=== PATIENT | male | born 1935 | race Caucasian/White ===

== ENCOUNTER → 2016-09-08 | Outpatient (CLI) | payer OTHER ==
[~2016-09-08] MED LIST: /PANT40TA; /PANT40TA PO; /SUCR1TA; /SUCR1TA PO; ACET500C; ACET500C PO; ACET50TAOT PO; AGGRCAP; AGGRCAP PO; AMLO2.5T OR; ASPI325T PO; ASPI32ECTA PO; ATOR40TA PO; B-12100010 PO; CARV3.12 PO; CARV6.25 OR; CLAR10CA3 PO; CLAR1TAB2 PO; ECOT325T5; FISH100042 PO; FURO40TA2 PO; LASI20TA PO; LATANOPROST OU; LEVO75TA2; LIPI20TA PO; LISI10TA4 PO; LISI5TAB; LOPR50TA PO; LOSA50TA20 PO; META800T82 PO; METAXALONE; METOPROLOL TARTRATE; MULTIVIT OR; NITR0.4S SL; NITR4TASL SL; PENNSAID TOP; PLAV75TA PO; PLAV75TA2; PROT1TAB2 PO; REFR0.5D8 OU; REST0.05 OU; SIMV40TA2; SKEL-29 PO; SKEL800T5 PO; SUCR1SS PO; SUCR1TAB56 PO; SYNT50TA PO; SYNT75TA PO; TRAM50TA2 OR; TYLE500T53; VITA-130 PO; VITA10002 PO; VITA500C24 PO; VITA500T; VITAMIN B 12; XALA0.002 OU; ZOCO40TA PO
--- NOTE | 2016-09-13 00:20 | ECWPNPC ---
PATIENT NAME: VICTORINO CUI : 1935 GENDER: MALE VISIT DATE: 09/08/2016 DISCHARGE DATE: 09/08/16 1712 VISIT LOCKED DATE TIME: PHYSICIAN: DARRELL BARAJAS RESOURCE: DARRELL BARAJAS REASON FOR APPOINTMENT 1. WC, BACK PAIN HISTORY OF PRESENT ILLNESS HISTORY OF PRESENT ILLNESS: PAIN THE PATIENT DESCRIBES THE PAIN... 81 YEAR OLD MALE PATIENT WITH HISTORY OF CHRONIC LOW BACK PAIN. PATIENT DESCRIBES THE PAIN ACHING AND THE PAIN COMING AND GOING WITH A PAIN SCORE OF 2/10. PATIENT WAS HURT IN A WORK RELATED INJURY IN 1988 WHEN HE SLIPPED ON PLANKS A FELL. PATIENT HAD A LUMBAR EPIDURAL ON 05/05 AND STATES HE STILL SEES A BENEFIT FROM THE INJECTION. PATIENT HAS INCREASED MOBILITY AND FUNCTIONALITY. MR. CUI IS CURRENTLY USING TYLENOL AND METAXALONE TO AID IN PAIN RELIEF. PATIENT REPORTS THAT STANDING AND WALKING INCREASE THE PAIN IN HIS LOWER BACK. MR. CUI REPORTS NUMBNESS IN THE LEFT LEG. PATIENT DENIES UNEXPLAINABLE WEIGHT LOSS, FEVER, CHILLS, NEW CHANGES ON HIS URINARY OR BOWEL CONTROL. FALL RISK SCREENING: SCREENING :NO FALLS IN THE PAST YEAR CURRENT MEDICATIONS TAKING ACETAMINOPHEN 500 MG TABLET 1 TABLET NEEDED ORALLY BID PRN TAKING ASCORBIC ACID 500 MG TABLET CHEWABLE 1 TABLET ORALLY ONCE A DAY TAKING ASPIRIN 325 MG TABLET DELAYED RELEASE 1 TABLET ORALLY ONCE A DAY TAKING ATORVASTATIN CALCIUM 20 MG TABLET 1 TABLET ORALLY ONCE A DAY TAKING CYANOCOBALAMIN 1000 MCG CAPSULE ORALLY DAILY TAKING CARBOXYMETHYLCELLULOSE SODIUM 0.5 % SOLUTION 1 DROP INTO AFFECTED EYE NEEDED OPHTHALMIC TID TAKING CARVDILOL 3.125MG TABLET ORAL BID TAKING FUROSEMIDE 20 MG TABLET 1 TABLET ORALLY ONCE A DAY TAKING LOSARTAN POTASSIUM 50 MG TABLET ORALLY DAILY TAKING LATANOPROST 0.005 % SOLUTION 1 DROP INTO AFFECTED EYE IN THE EVENING OPHTHALMIC ONCE A DAY TAKING LEVOTHYROXINE SODIUM 50 MCG TABLET 1 TABLET ORALLY ONCE A DAY TAKING NITROGLYCERIN 0.4 MG TABLET SUBLINGUAL SUBLINGUAL TAKING PANTOPRAZOLE SODIUM 40 MG TABLET DELAYED RELEASE 1 TABLET ORALLY TWICE A DAY TAKING RESTASIS 0.05 % EMULSION 1 INTO AFFECTED EYE OPHTHALMIC 2XS PER DAY TAKING SUCRALFATE 1 GM/10ML SUSPENSION 10 ML ORALLY TWICE A DAY TAKING METAXALONE 800 MG TABLET 1 TABLET ORALLY BID PRN FOR SPASMS AND PAIN MDD2 MEDICATION LIST REVIEWED AND RECONCILED WITH THE PATIENT PAST MEDICAL HISTORY HYPERCHOLESTRIMIA HTN ALLERGIES DONEZEPIL HCL: HALLUCINATIONS: ALLERGY PROMETHAZINE HCL: NAUSEA/VOMITING: ALLERGY SURGICAL HISTORY NO SURGICAL HISTORY DOCUMENTED. FAMILY HISTORY NO FAMILY HISTORY DOCUMENTED. SOCIAL HISTORY TOBACCO USE ARE YOU A:NONSMOKER LEARNING BARRIERS / SPECIAL NEEDS ORIENTED TO PLAN OF CARE: PATIENT, PAIN MANAGEMENT PATIENT, ORIENTED TO PLAN OF CARE: PATIENT, PAIN MANAGEMENT PATIENT. NEW PATIENT PAIN DIARY TODAY'S VISITNOTES FROM 0-10, WHAT LEVEL IS YOUR PAIN TODAY?0 PAIN CLINIC PFS, CLERGY, PUBLIC HEALTH REFERRALS PFS REFERRAL NEEDED?NO CLERGY REFERRAL NEEDED?NO PUBLIC HEALTH REFERRAL NEEDED?NO WAS THE PROVIDER NOTIFIED OF ANY PERTINENT INFO?NO PFS REFERRAL NEEDED?NO CLERGY REFERRAL NEEDED?NO PUBLIC HEALTH REFERRAL NEEDED?NO WAS THE PROVIDER NOTIFIED OF ANY PERTINENT INFO?NO HOSPITALIZATION/MAJOR DIAGNOSTIC PROCEDURE NO HOSPITALIZATION HISTORY. REVIEW OF SYSTEMS CONSTITUTIONAL: ANY CHANGE IN YOUR MEDICAL CONDITION? NO . CHILLS NO . FEVER NO . INFECTION: DO YOU HAVE NEW INFECTIONS? NO . DO YOU HAVE HISTORY OF MRSA? NO . MUSCULOSKELETAL: ANY NEW PATTERNS OF PAIN OR NUMBNESS? NO . GASTROENTEROLOGY: ANY NEW CHANGE IN BOWEL CONTROL? NO . GENITOURINARY: ANY NEW CHANGE IN BLADDER CONTROL? NO . IS THERE A CHANCE YOU COULD BE ? NO . HEMATOLOGY/LYMPH: DO YOU TAKE ANY BLOOD THINNERS? (FOR EXAMPLE- COUMADIN, PLAVIX, AGGRENOX, PLATEL, PRADAXA, OR XARELTO) NO . WHEN WAS YOUR LAST DOSE? DATE: TIME: . NEUROLOGY: HAVE YOU FALLEN IN THE PAST 6 MONTHS? NO . ANY NEW EXTREMITY NUMBNESS OR WEAKNESS? NO . CARDIOLOGY: DO YOU HAVE A PACEMAKER OR DEFIBRILLATOR? YES . RESPIRATORY: HAVE YOU BEEN SICK IN THE PAST WEEK? NO . FEVER NO . FLU LIKE SYMPTOMS? NO . COUGH NO . INTEGUMENTARY: DO YOU HAVE ANY RASHES OR OPEN SORES? NO . ALLERGIC/IMMUNO: ARE YOU ALLERGIC TO SHELLFISH OR IV DYE? NO . ANY NEW ALLERGIES? NO . PSYCHIATRIC: DO YOU HAVE THOUGHTS OF HURTING YOURSELF OR SOMEONE ELSE? NO . ARE YOU ABUSED, NEGLECTED, OR IN AN UNSAFE ENVIRONMENT? NO . ENDOCRINOLOGY: ARE YOU DIABETIC? NO . OTHER: DO YOU NEED ANY PRESCRIPTIONS? NO . IF YES, PLEASE LIST: ____ . ANY NEW PROBLEMS WITH YOUR MEDICATIONS? NO . WHEN DID YOU LAST EAT? ____ . WHEN DID YOU LAST DRINK? ____ . WHAT DID YOU LAST DRINK? ____ . NAME OF PERSON DRIVING YOU HOME? ____ . DO YOU HAVE ANY OTHER QUESTIONS OR CONCERNS NO . REVIEWED BY: PROVIDER: DARRELL BARAJAS MD . VITAL SIGNS WT 146 LBS, HT 65 IN, BMI 24.29 INDEX, BP 149/90 MM HG, HR 56 /MIN, RR 18 /MIN, TEMP 97.9 F, OXYGEN SAT % 97.9, NA INITIALS SC 15:21, REVIEWED BY: CS. EXAMINATION : PATIENT IS ALERT O X 3 AND COOPERATIVE. TENDERNESS IN THE LOWER BACK AND PARASPINAL MUSCLE GROUP. TENDERNESS IN THE SACROILIAC JOINT AREA. ANTALGIC GAIT. LEFT LEG IS WEAKER THEN THE RIGHT AT EXTENSION AND FLEXION. RADIOGRAPH DONE ON 12/19/06 SHOWS DEGENERATIVE CHANGES, HYPERTROPHY, AND OSTEOPHYTES ARE VISIBLE AT L4, L5, AND S1. 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 CUI'S PAIN MANAGEMENT CASE. AT THIS TIME THE PATIENT WILL START TO USE SKELAXIN FOR A MUSCLE CRAMPS AND PAIN. PATIENT WILL CONTINUE TO USE TYLENOL FOR PAIN WELL. MR. CUI IS STILL FIND RELIEF FROM THE LUMBAR EPIDURAL AT THIS TIME NOT INTERVENTIONS WILL BE HELD. HOWEVER, PATIENT IS A GOOD CANDIDATE FOR SACROILIAC JOINT BLOCK DUE TO WHERE HIS PAIN IS LOCATED. PATIENT WILL RETURN TO THE CLINIC IN 2 MONTHS BUT WAS ADVISED TO CALL IF THE PAIN RETURNS OR WITH ANY QUESTIONS OR CONCERNS. INSTRUCTIONS WERE GIVEN, QUESTIONS WERE ANSWERED, PATIENT REPORTS UNDERSTANDING AND AGREES WITH THE PLAN. I, RAULITO AL, DOCUMENTED THE ABOVE INFORMATION ACTING A SCRIBE FOR DR. BARAJAS. I HAVE REVIEWED THE ABOVE DOCUMENT, WRITTEN BY RAULITO MOMIN AND I VERIFY THAT IT IS ACCURATE. OTHERS REFILL METAXALONE TABLET, 800 MG, 1 TABLET, ORALLY, BID PRN FOR SPASMS AND PAIN MDD2, 30 DAY(S), 60, REFILLS 2 PROCEDURES PN WORKMANS' COMP OPINION IN YOUR OPINION, WAS THE INCIDENT THAT THE PATIENT DESCRIBED THE COMPETENT MEDICAL CAUSE OF THIS INJURY/ILLNESS? YES ARE THE PATIENT'S COMPLAINTS CONSISTENT WITH HIS/HER HISTORY OF THE INJURY/ILLNESS? YES IS THE PATIENT'S HISTORY OF THE INJURY/ILLNESS CONSISTENT WITH YOUR OBJECTIVE FINDING? YES WHAT IS THE PERCENTAGE OF TEMPORARY IMPAIRMENT? MODERATE TO MARKED = 66.7% IS THE PATIENT WORKING? NO DOCTOR ON SITE: DARRELL KAPOOR MD PROCEDURE CODES G8427 DOC MEDS VERIFIED W/PT OR RE G8730 PAIN ASSESS POS TOOL F/U PLAN DOC FOLLOW UP 2 MONTHS ELECTRONICALLY SIGNED BY DARRELL BARAJAS MD ON 09/12/2016 AT 11:35 PM EST DISCLAIMER : THIS IS A VISIT SUMMARY EXTRACTED FROM THE [facility] CHART. IT IS NOT A COPY OF THE [facility] PROGRESS NOTE. MARIO
== END ==
LOC: M PAIN 14:40
PROVIDERS: ATTEND Anesthesiology
DX: M96.1 Postlaminectomy syndrome, not elsewhere classified (principal); M46.1 Sacroiliitis, not elsewhere classified; M51.16 Intervertebral disc disorders with radiculopathy, lumbar region; M51.17 Intervertebral disc disorders with radiculopathy, lumbosacral region; Z79.82 Long term (current) use of aspirin; Z79.899 Other long term (current) drug therapy; Z88.8 Allergy status to other drugs, medicaments and biological substances

== ENCOUNTER → 2016-11-02 | Outpatient (CLI) | payer OTHER ==
[~2016-11-02] MED LIST changes: -PLAV75TA PO; +PLAV75TA38 PO
--- NOTE | 2016-11-06 23:37 | ECWPNPC ---
PATIENT NAME: VICTORINO CUI : 1935 GENDER: MALE VISIT DATE: 11/02/2016 DISCHARGE DATE: 11/02/16 1726 VISIT LOCKED DATE TIME: PHYSICIAN: DARRELL BARAJAS RESOURCE: DARRELL BARAJAS REASON FOR APPOINTMENT 1. LOW BACK W/C HISTORY OF PRESENT ILLNESS HISTORY OF PRESENT ILLNESS: PAIN THE PATIENT DESCRIBES THE PAIN... 81 YEAR OLD MALE PATIENT WITH HISTORY OF CHRONIC BACK PAIN. PATIENT DESCRIBES THE PAIN ACHING, TENDER, SHOOTING, AND IT COMES AND GOES WITH A PAIN SCORE OF 6/10 ON TODAY'S VISIT. PATIENT WAS INJURED IN A WORK RELATED INJURY ON 05-16-1989 WORKING FOR [employer], PATIENT WAS WALKING AND SLIPPED ON PLANKS AND FELL INJURING HIS BACK. PATIENT REPORTS THAT THE PAIN IN HIS BACK IN RADIATING DOWN THE WHOLE RIGHT LEG TO THE FOOT, AND THE PAIN IS ONLY RADIATING DOWN ON THE POSTERIOR ASPECT OF HIS LEFT LEG DOWN TO HIS FOOT. PATIENT REPORTS THAT THE RADIATING PAIN IN HIS LEGS IS WORST ON THE RIGHT SIDE. PATIENT REPORTS THAT HE IS CURRENTLY TAKING METAXALONE FOR HIS PAIN. PATIENT DENIES UNEXPLAINABLE WEIGHT LOSS, FEVER, CHILLS, NEW CHANGES ON HIS URINARY OR BOWEL CONTROL. FALL RISK SCREENING: SCREENING :NO FALLS IN THE PAST YEAR CURRENT MEDICATIONS TAKING ACETAMINOPHEN 500 MG TABLET 1 TABLET NEEDED ORALLY BID PRN TAKING ASCORBIC ACID 500 MG TABLET CHEWABLE 1 TABLET ORALLY ONCE A DAY TAKING ASPIRIN 325 MG TABLET DELAYED RELEASE 1 TABLET ORALLY ONCE A DAY TAKING ATORVASTATIN CALCIUM 20 MG TABLET 1 TABLET ORALLY ONCE A DAY TAKING CYANOCOBALAMIN 1000 MCG CAPSULE ORALLY DAILY TAKING CARBOXYMETHYLCELLULOSE SODIUM 0.5 % SOLUTION 1 DROP INTO AFFECTED EYE NEEDED OPHTHALMIC TID TAKING CARVDILOL 3.125MG TABLET ORAL BID TAKING FUROSEMIDE 20 MG TABLET 1 TABLET ORALLY ONCE A DAY TAKING LOSARTAN POTASSIUM 50 MG TABLET ORALLY DAILY TAKING LATANOPROST 0.005 % SOLUTION 1 DROP INTO AFFECTED EYE IN THE EVENING OPHTHALMIC ONCE A DAY TAKING LEVOTHYROXINE SODIUM 50 MCG TABLET 1 TABLET ORALLY ONCE A DAY TAKING NITROGLYCERIN 0.4 MG TABLET SUBLINGUAL SUBLINGUAL TAKING PANTOPRAZOLE SODIUM 40 MG TABLET DELAYED RELEASE 1 TABLET ORALLY TWICE A DAY TAKING RESTASIS 0.05 % EMULSION 1 INTO AFFECTED EYE OPHTHALMIC 2XS PER DAY TAKING SUCRALFATE 1 GM/10ML SUSPENSION 10 ML ORALLY TWICE A DAY TAKING METAXALONE 800 MG TABLET 1 TABLET ORALLY BID PRN FOR SPASMS AND PAIN MDD2 MEDICATION LIST REVIEWED AND RECONCILED WITH THE PATIENT PAST MEDICAL HISTORY HYPERCHOLESTRIMIA HTN ALLERGIES DONEZEPIL HCL: HALLUCINATIONS: ALLERGY PROMETHAZINE HCL: NAUSEA/VOMITING: ALLERGY SURGICAL HISTORY NO SURGICAL HISTORY DOCUMENTED. FAMILY HISTORY NO FAMILY HISTORY DOCUMENTED. SOCIAL HISTORY GENERAL: TOBACCO USE ARE YOU A:NONSMOKER LEARNING BARRIERS / SPECIAL NEEDS ORIENTED TO PLAN OF CARE: PATIENT, PAIN MANAGEMENT PATIENT, ORIENTED TO PLAN OF CARE: PATIENT, PAIN MANAGEMENT PATIENT. NEW PATIENT PAIN DIARY TODAY'S VISITNOTES FROM 0-10, WHAT LEVEL IS YOUR PAIN TODAY?0 PAIN CLINIC PFS, CLERGY, PUBLIC HEALTH REFERRALS PFS REFERRAL NEEDED?NO CLERGY REFERRAL NEEDED?NO PUBLIC HEALTH REFERRAL NEEDED?NO WAS THE PROVIDER NOTIFIED OF ANY PERTINENT INFO?NO PFS REFERRAL NEEDED?NO CLERGY REFERRAL NEEDED?NO PUBLIC HEALTH REFERRAL NEEDED?NO WAS THE PROVIDER NOTIFIED OF ANY PERTINENT INFO?NO HOSPITALIZATION/MAJOR DIAGNOSTIC PROCEDURE NO HOSPITALIZATION HISTORY. REVIEW OF SYSTEMS CONSTITUTIONAL: ANY CHANGE IN YOUR MEDICAL CONDITION? NO . CHILLS NO . FEVER NO . INFECTION: DO YOU HAVE NEW INFECTIONS? NO . DO YOU HAVE HISTORY OF MRSA? NO . MUSCULOSKELETAL: ANY NEW PATTERNS OF PAIN OR NUMBNESS? YES PT REPORTS HE NOW HAS PAIN INTERMITTANTLY IN BOTH LEGS. . GASTROENTEROLOGY: ANY NEW CHANGE IN BOWEL CONTROL? NO . GENITOURINARY: ANY NEW CHANGE IN BLADDER CONTROL? NO . IS THERE A CHANCE YOU COULD BE ? NO . HEMATOLOGY/LYMPH: DO YOU TAKE ANY BLOOD THINNERS? (FOR EXAMPLE- COUMADIN, PLAVIX, AGGRENOX, PLATEL, PRADAXA, OR XARELTO) NO . WHEN WAS YOUR LAST DOSE? DATE: TIME: . NEUROLOGY: HAVE YOU FALLEN IN THE PAST 6 MONTHS? NO . ANY NEW EXTREMITY NUMBNESS OR WEAKNESS? NO . CARDIOLOGY: DO YOU HAVE A PACEMAKER OR DEFIBRILLATOR? NO . RESPIRATORY: HAVE YOU BEEN SICK IN THE PAST WEEK? NO . FEVER NO . FLU LIKE SYMPTOMS? NO . COUGH NO . INTEGUMENTARY: DO YOU HAVE ANY RASHES OR OPEN SORES? NO . ALLERGIC/IMMUNO: ARE YOU ALLERGIC TO SHELLFISH OR IV DYE? NO . ANY NEW ALLERGIES? NO . PSYCHIATRIC: DO YOU HAVE THOUGHTS OF HURTING YOURSELF OR SOMEONE ELSE? NO . ARE YOU ABUSED, NEGLECTED, OR IN AN UNSAFE ENVIRONMENT? NO . ENDOCRINOLOGY: ARE YOU DIABETIC? NO . OTHER: DO YOU NEED ANY PRESCRIPTIONS? NO . IF YES, PLEASE LIST: ____ . ANY NEW PROBLEMS WITH YOUR MEDICATIONS? NO . WHEN DID YOU LAST EAT? ____ . WHEN DID YOU LAST DRINK? ____ . WHAT DID YOU LAST DRINK? ____ . NAME OF PERSON DRIVING YOU HOME? ____ . DO YOU HAVE ANY OTHER QUESTIONS OR CONCERNS NO . REVIEWED BY: PROVIDER: DARRELL BARAJAS MD . VITAL SIGNS WT 150.8 LBS, HT 65 IN, BMI 25.09 INDEX, BP 148/81 MM HG, HR 87 /MIN, RR 18 /MIN, TEMP 97.7 F, OXYGEN SAT % 96, NA INITIALS TL 1524, REVIEWED BY: LEIGH. EXAMINATION : PATIENT IS ALERT O X 3 AND COOPERATIVE. TENDERNESS IN THE LOWER BACK AND PARASPINAL MUSCLE GROUP. ANTALGIC GAIT. LEFT LEG IS WEAKER THEN THE RIGHT AT EXTENSION AND FLEXION. RADIOGRAPH DONE ON 12/19/06 SHOWS DEGENERATIVE CHANGES, HYPERTROPHY, AND OSTEOPHYTES ARE VISIBLE AT L4, L5, AND S1. ASSESSMENTS POSTLAMINECTOMY SYNDROME, NOT ELSEWHERE CLASSIFIED - M96.1 (PRIMARY) INTERVERTEBRAL DISC DISORDERS WITH RADICULOPATHY, LUMBAR REGION - M51.16 INTERVERTEBRAL DISC DISORDERS WITH RADICULOPATHY, LUMBOSACRAL REGION - M51.17 TREATMENT POSTLAMINECTOMY SYNDROME, NOT ELSEWHERE CLASSIFIED NOTES: WE DISCUSSED SEVERAL ISSUES WITH MR. CUI'S PAIN MANAGEMENT CASE. AT THIS TIME I WILL HAVE THE PATIENT REDUCE THE AMOUNT OF METAXALONE HE IS TAKING TO DETERMINE HOW THE MEDICATION REDUCING HIS PAIN. INFORMED THE PATIENT I WANT HIM TO REDUCE HIS TAKE OF THE MEDICATION TO ONE A DAY AND IF HE IS COMFORTABLE TRY TO GO A DAY WITHOUT TAKING THE METAXALONE. PATIENT IS A GOOD CANDIDATE FOR A LUMBAR EPIDURAL INJECTION, WE DISCUSSED THE RISK, BENEFITS, AND ALTERNATIVES AND THE PATIENT WOULD LIKE TO PROCEED. PATIENT WILL BE BOOKED PENDING APPROVAL. I DISCUSSED WITH THE PATIENT THAT I WILL ORDER ANOTHER CT SCAN OF HIS LUMBAR AREA DUE TO THE CURRENT CT SCAN WE HAVE IN OUR RECORDS IS FROM 2006, I WOULD LIKE AN UPDATED ONE TO SEE IF THERE IS ANY CHANGES. 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 INSTRUCTIONS WERE GIVEN, QUESTIONS WERE ANSWERED, PATIENT REPORTS UNDERSTANDING AND AGREES WITH THE PLAN. INURIA, DOCUMENTED THE ABOVE INFORMATION ACTING A SCRIBE FOR DR. BARAJAS. I HAVE REVIEWED THE ABOVE DOCUMENT, WRITTEN BY NURIA DE LEON SCRIBE AND I VERIFY THAT IT IS ACCURATE. OTHERS REFILL METAXALONE TABLET, 800 MG, 1 TABLET, ORALLY, BID PRN FOR SPASMS AND PAIN MDD2, 30 DAY(S), 50, REFILLS 2 PROCEDURES PN WORKMANS' COMP OPINION IN YOUR OPINION, WAS THE INCIDENT THAT THE PATIENT DESCRIBED THE COMPETENT MEDICAL CAUSE OF THIS INJURY/ILLNESS? YES ARE THE PATIENT'S COMPLAINTS CONSISTENT WITH HIS/HER HISTORY OF THE INJURY/ILLNESS? YES IS THE PATIENT'S HISTORY OF THE INJURY/ILLNESS CONSISTENT WITH YOUR OBJECTIVE FINDING? YES WHAT IS THE PERCENTAGE OF TEMPORARY IMPAIRMENT? MODERATE TO MARKED = 66.7% IS THE PATIENT WORKING? NO DOCTOR ON SITE: DARRELL KAPOOR MD PROCEDURE CODES FA211 ESTABILISHED PATIENT [facility] FACILITY CHARGE G8730 PAIN ASSESS POS TOOL F/U PLAN DOC G8427 DOC MEDS VERIFIED W/PT OR RE DISPOSITION & COMMUNICATION FOLLOW UP 4 WEEKS ELECTRONICALLY SIGNED BY DARRELL BARAJAS MD ON 11/06/2016 AT 04:00 PM EST DISCLAIMER : THIS IS A VISIT SUMMARY EXTRACTED FROM THE [employer] CHART. IT IS NOT A COPY OF THE [email or web address] PROGRESS NOTE. MARIO
== END ==
LOC: M PAIN 15:00
PROVIDERS: ATTEND Anesthesiology
DX: Z09 Encounter for follow-up examination after completed treatment for conditions other than malignant neoplasm (principal); G89.29 Other chronic pain; M96.1 Postlaminectomy syndrome, not elsewhere classified; M51.16 Intervertebral disc disorders with radiculopathy, lumbar region; M51.17 Intervertebral disc disorders with radiculopathy, lumbosacral region; E78.00 Pure hypercholesterolemia, unspecified; I10 Essential (primary) hypertension; Z88.8 Allergy status to other drugs, medicaments and biological substances; Z79.1 Long term (current) use of non-steroidal anti-inflammatories (NSAID); Z79.899 Other long term (current) drug therapy

== ENCOUNTER → 2017-01-05 | Outpatient (CLI) | payer OTHER ==
[2017-01-05 18:59] LABS: ALBUMIN 4.2 GM/DL (3.2-5.2); CALCIUM LEVEL 8.7 MG/DL (8.8-10.2); CREATININE FOR GFR 1.35 MG/DL (0.70-1.30); GLOMERULAR FILTRATION RATE 53.9 (>35); PHOSPHORUS LEVEL 4.1 MG/DL (2.5-4.9); POTASSIUM SERUM 4.2 MEQ/L (3.5-5.1)
== END ==
LOC: M LAB 17:05
PROVIDERS: ATTEND Physician Assistant
DX: I50.31 Acute diastolic (congestive) heart failure (principal)

== ENCOUNTER → 2017-01-25 | Outpatient (CLI) | payer OTHER ==
--- NOTE | 2017-02-06 23:53 | ECWPNPC ---
PATIENT NAME: VICTORINO CUI : 1935 GENDER: MALE VISIT DATE: 01/25/2017 DISCHARGE DATE: 01/25/17 1707 VISIT LOCKED DATE TIME: PHYSICIAN: DARRELL BARAJAS RESOURCE: DARRELL BARAJAS REASON FOR APPOINTMENT 1. WC, BACK PAIN HISTORY OF PRESENT ILLNESS HISTORY OF PRESENT ILLNESS: PAIN THE PATIENT DESCRIBES THE PAIN... 81 YEAR OLD MALE PATIENT WITH HISTORY OF CHRONIC BACK PAIN. PATIENT DESCRIBES THE PAIN ACHING, TENDER, SHOOTING, AND IT COMES AND GOES WITH A PAIN SCORE OF 6/10 ON TODAY'S VISIT. PATIENT WAS INJURED IN A WORK RELATED INJURY ON 05/16/1989 WORKING FOR [employer], PATIENT WAS WALKING AND SLIPPED ON PLANKS AND FELL INJURING HIS BACK. PATIENT REPORTS THAT THE PAIN IN HIS BACK IN RADIATING DOWN THE WHOLE RIGHT LEG TO THE FOOT, AND THE PAIN IS ONLY RADIATING DOWN ON THE POSTERIOR ASPECT OF HIS LEFT LEG DOWN TO HIS FOOT. PATIENT REPORTS THAT THE RADIATING PAIN IN HIS LEGS IS WORST ON THE RIGHT SIDE. PATIENT REPORTS THAT HE IS CURRENTLY NOT USING ANY MEDICATION FOR HIS PAIN. PATIENT DENIES UNEXPLAINABLE WEIGHT LOSS, FEVER, CHILLS, NEW CHANGES ON HIS URINARY OR BOWEL CONTROL. FALL RISK SCREENING: SCREENING :NO FALLS IN THE PAST YEAR CURRENT MEDICATIONS TAKING ACETAMINOPHEN 500 MG TABLET 1 TABLET NEEDED ORALLY BID PRN TAKING ASCORBIC ACID 500 MG TABLET CHEWABLE 1 TABLET ORALLY ONCE A DAY TAKING ASPIRIN 325 MG TABLET DELAYED RELEASE 1 TABLET ORALLY ONCE A DAY TAKING ATORVASTATIN CALCIUM 20 MG TABLET 1 TABLET ORALLY ONCE A DAY TAKING CYANOCOBALAMIN 1000 MCG CAPSULE ORALLY DAILY TAKING CARBOXYMETHYLCELLULOSE SODIUM 0.5 % SOLUTION 1 DROP INTO AFFECTED EYE NEEDED OPHTHALMIC TID TAKING CARVDILOL 3.125MG TABLET ORAL BID TAKING FUROSEMIDE 20 MG TABLET 1 TABLET ORALLY TWICE A DAY TAKING LOSARTAN POTASSIUM 50 MG TABLET ORALLY DAILY TAKING LATANOPROST 0.005 % SOLUTION 1 DROP INTO AFFECTED EYE IN THE EVENING OPHTHALMIC ONCE A DAY TAKING LEVOTHYROXINE SODIUM 50 MCG TABLET 1 TABLET ORALLY ONCE A DAY TAKING NITROGLYCERIN 0.4 MG TABLET SUBLINGUAL SUBLINGUAL TAKING PANTOPRAZOLE SODIUM 40 MG TABLET DELAYED RELEASE 1 TABLET ORALLY TWICE A DAY TAKING RESTASIS 0.05 % EMULSION 1 INTO AFFECTED EYE OPHTHALMIC 2XS PER DAY TAKING SUCRALFATE 1 GM/10ML SUSPENSION 10 ML ORALLY TWICE A DAY TAKING CLARITIN 10 MG TABLET 1 TABLET ORALLY ONCE A DAY TAKING XALATAN 0.005 % SOLUTION 1 DROP INTO AFFECTED EYE IN THE EVENING OPHTHALMIC ONCE A DAY NOT-TAKING METAXALONE 800 MG TABLET 1 TABLET ORALLY BID PRN FOR SPASMS AND PAIN MDD2 MEDICATION LIST REVIEWED AND RECONCILED WITH THE PATIENT PAST MEDICAL HISTORY HYPERCHOLESTRIMIA HTN ALLERGIES DONEZEPIL HCL: HALLUCINATIONS: ALLERGY PROMETHAZINE HCL: NAUSEA/VOMITING: ALLERGY SURGICAL HISTORY NO SURGICAL HISTORY DOCUMENTED. SOCIAL HISTORY GENERAL: TOBACCO USE ARE YOU A:NONSMOKER LEARNING BARRIERS / SPECIAL NEEDS ORIENTED TO PLAN OF CARE: PATIENT, PAIN MANAGEMENT PATIENT, ORIENTED TO PLAN OF CARE: PATIENT, PAIN MANAGEMENT PATIENT. NEW PATIENT PAIN DIARY TODAY'S VISITNOTES FROM 0-10, WHAT LEVEL IS YOUR PAIN TODAY?0 PAIN CLINIC PFS, CLERGY, PUBLIC HEALTH REFERRALS PFS REFERRAL NEEDED?NO CLERGY REFERRAL NEEDED?NO PUBLIC HEALTH REFERRAL NEEDED?NO WAS THE PROVIDER NOTIFIED OF ANY PERTINENT INFO?NO PFS REFERRAL NEEDED?NO CLERGY REFERRAL NEEDED?NO PUBLIC HEALTH REFERRAL NEEDED?NO WAS THE PROVIDER NOTIFIED OF ANY PERTINENT INFO?NO HOSPITALIZATION/MAJOR DIAGNOSTIC PROCEDURE NO HOSPITALIZATION HISTORY. REVIEW OF SYSTEMS CONSTITUTIONAL: ANY CHANGE IN YOUR MEDICAL CONDITION? YES . CHILLS NO . FEVER NO . INFECTION: DO YOU HAVE NEW INFECTIONS? NO . DO YOU HAVE HISTORY OF MRSA? NO . MUSCULOSKELETAL: ANY NEW PATTERNS OF PAIN OR NUMBNESS? NO . GASTROENTEROLOGY: ANY NEW CHANGE IN BOWEL CONTROL? NO . GENITOURINARY: ANY NEW CHANGE IN BLADDER CONTROL? NO . IS THERE A CHANCE YOU COULD BE ? NO . HEMATOLOGY/LYMPH: DO YOU TAKE ANY BLOOD THINNERS? (FOR EXAMPLE- COUMADIN, PLAVIX, AGGRENOX, PLATEL, PRADAXA, OR XARELTO) NO . WHEN WAS YOUR LAST DOSE? DATE: TIME: . NEUROLOGY: HAVE YOU FALLEN IN THE PAST 6 MONTHS? NO . ANY NEW EXTREMITY NUMBNESS OR WEAKNESS? NO . CARDIOLOGY: DO YOU HAVE A PACEMAKER OR DEFIBRILLATOR? YES . RESPIRATORY: HAVE YOU BEEN SICK IN THE PAST WEEK? NO . FEVER NO . FLU LIKE SYMPTOMS? NO . COUGH NO . INTEGUMENTARY: DO YOU HAVE ANY RASHES OR OPEN SORES? NO . ALLERGIC/IMMUNO: ARE YOU ALLERGIC TO SHELLFISH OR IV DYE? NO . ANY NEW ALLERGIES? NO . PSYCHIATRIC: DO YOU HAVE THOUGHTS OF HURTING YOURSELF OR SOMEONE ELSE? NO . ARE YOU ABUSED, NEGLECTED, OR IN AN UNSAFE ENVIRONMENT? NO . ENDOCRINOLOGY: ARE YOU DIABETIC? NO . OTHER: DO YOU NEED ANY PRESCRIPTIONS? NO . IF YES, PLEASE LIST: ____ . ANY NEW PROBLEMS WITH YOUR MEDICATIONS? NO . WHEN DID YOU LAST EAT? ____ . WHEN DID YOU LAST DRINK? ____ . WHAT DID YOU LAST DRINK? ____ . NAME OF PERSON DRIVING YOU HOME? ____ . DO YOU HAVE ANY OTHER QUESTIONS OR CONCERNS NO . REVIEWED BY: PROVIDER: DARRELL BARAJAS MD . VITAL SIGNS WT 146.4 LBS, HT 65 IN, BMI 24.36 INDEX, BP 129/70 MM HG, HR 62 /MIN, RR 16 /MIN, TEMP 97.5 F, OXYGEN SAT % 96%, NA INITIALS TL 1549. EXAMINATION : PATIENT IS ALERT O X 3 AND COOPERATIVE. TENDERNESS IN THE LOWER BACK AND PARASPINAL MUSCLE GROUP. ANTALGIC GAIT. LEFT LEG IS WEAKER THEN THE RIGHT AT EXTENSION AND FLEXION. RADIOGRAPH DONE ON 12/19/06 SHOWS DEGENERATIVE CHANGES, HYPERTROPHY, AND OSTEOPHYTES ARE VISIBLE AT L4, L5, AND S1. ASSESSMENTS POSTLAMINECTOMY SYNDROME, NOT ELSEWHERE CLASSIFIED - M96.1 (PRIMARY) INTERVERTEBRAL DISC DISORDERS WITH RADICULOPATHY, LUMBAR REGION - M51.16 INTERVERTEBRAL DISC DISORDERS WITH RADICULOPATHY, LUMBOSACRAL REGION - M51.17 TREATMENT POSTLAMINECTOMY SYNDROME, NOT ELSEWHERE CLASSIFIED NOTES: WE DISCUSSED SEVERAL ISSUES WITH MR. CUI'S PAIN MANAGEMENT CASE. AT THIS TIME THE PATIENT REPORTS HAVING PAIN DOWN THE LEFT LEG AND IN THE LOWER BACK. AFTER VIEWING THE RADIOGRAPH I WOULD LIKE TO MOVE FORWARD WITH A LUMBAR EPIDURAL TO SEE IF IT WILL ASSIST WITH THE RADICULAR PAIN. WE DISCUSSED THE RISKS, BENEFITS, AND ALTNERATIVES OF THE INJECTION AND THE PATIENT WOULD LIKE TO PROCEED AT THIS TIME. INSTRUCTIONS WERE GIVEN, QUESTIONS WERE ANSWERED, PATIENT REPORTS UNDERSTANDING AND AGREES WITH THE PLAN. I, RAULITO AL, DOCUMENTED THE ABOVE INFORMATION ACTING A SCRIBE FOR DR. BARAJAS. I HAVE REVIEWED THE ABOVE DOCUMENT, WRITTEN BY RAULITO MOMIN AND I VERIFY THAT IT IS ACCURATE. PROCEDURES PN WORKMANS' COMP OPINION IN YOUR OPINION, WAS THE INCIDENT THAT THE PATIENT DESCRIBED THE COMPETENT MEDICAL CAUSE OF THIS INJURY/ILLNESS? YES ARE THE PATIENT'S COMPLAINTS CONSISTENT WITH HIS/HER HISTORY OF THE INJURY/ILLNESS? YES IS THE PATIENT'S HISTORY OF THE INJURY/ILLNESS CONSISTENT WITH YOUR OBJECTIVE FINDING? YES WHAT IS THE PERCENTAGE OF TEMPORARY IMPAIRMENT? MODERATE TO MARKED = 66.7% IS THE PATIENT WORKING? NO DOCTOR ON SITE: DARRELL KAPOOR MD PROCEDURE CODES FA211 ESTABILISHED PATIENT [facility] FACILITY CHARGE G8427 DOC MEDS VERIFIED W/PT OR RE G8730 PAIN ASSESS POS TOOL F/U PLAN DOC DISPOSITION & COMMUNICATION FOLLOW UP 3 WEEKS ELECTRONICALLY SIGNED BY DARRELL BARAJAS MD ON 02/06/2017 AT 05:55 PM EDT DISCLAIMER : THIS IS A VISIT SUMMARY EXTRACTED FROM THE [employer] CHART. IT IS NOT A COPY OF THE [employer] PROGRESS NOTE. MARIO
== END ==
LOC: M PAIN 15:30
PROVIDERS: ATTEND Anesthesiology
DX: M96.1 Postlaminectomy syndrome, not elsewhere classified (principal); M51.16 Intervertebral disc disorders with radiculopathy, lumbar region; M51.17 Intervertebral disc disorders with radiculopathy, lumbosacral region; E78.00 Pure hypercholesterolemia, unspecified; I10 Essential (primary) hypertension; Z88.8 Allergy status to other drugs, medicaments and biological substances; Z79.82 Long term (current) use of aspirin; Z79.899 Other long term (current) drug therapy; Z95.811 Presence of heart assist device

== ENCOUNTER → 2017-03-04 | Outpatient (CLI) | payer OTHER ==
[~2017-03-04] MED LIST changes: +ASPI325T24 PO; -ASPI32ECTA PO; +ATOR40TA75 PO; +ISOVUE-M 300 61% 15ML VIAL (Q9967) As Ordered ONE; +LIDOCAINE 1% SDV INJ 30 ML VIAL As Ordered ONE; +META1TAB22 PO; +PLAV1TAB2 PO; -PLAV75TA38 PO; +PREDOPD OD; -SKEL-29 PO; +SKEL800T97 PO; +TESS100C PO; -VITA-130 PO; +VITA500T PO; -XALA0.002 OU; +XALA0.007 OU; +ZITHTAB PO; +methylPREDNISolone SUSP 40 MG/ML (DEPO-medrol) VIAL (J1030) As Ordered ONE
--- NOTE | 2017-03-04 15:07 | REP ---
PARTIAL LUMBAR SPINE SERIES: SINGLE VIEW HISTORY: Lumbar epidural steroid injection for pain. 6 seconds of fluoroscopy time is reported. FINDINGS: A single fluoroscopically-obtained intraprocedural spot radiograph of the lumbar spine documents needle position associated with lumbar epidural injection procedure. Signed by Kun Dubois MD 03/04/2017 05:13 P
--- NOTE | 2017-03-13 23:51 | ECWPNPC ---
PATIENT NAME: VICTORINO CUI : 1935 GENDER: MALE VISIT DATE: 03/04/2017 DISCHARGE DATE: 03/04/17 1208 VISIT LOCKED DATE TIME: PHYSICIAN: DARRELL BARAJAS RESOURCE: DARRELL BARAJAS REASON FOR APPOINTMENT 1. WC, [place] HISTORY OF PRESENT ILLNESS HISTORY OF PRESENT ILLNESS: PAIN THE PATIENT DESCRIBES THE PAIN... FALL RISK SCREENING: SCREENING :NO FALLS IN THE PAST YEAR CURRENT MEDICATIONS TAKING ACETAMINOPHEN 500 MG TABLET 1 TABLET NEEDED ORALLY BID PRN, NOTES: UNKNOWN TAKING ASCORBIC ACID 500 MG TABLET CHEWABLE 1 TABLET ORALLY ONCE A DAY, NOTES: 03/02/17 HS TAKING ASPIRIN 325 MG TABLET DELAYED RELEASE 1 TABLET ORALLY ONCE A DAY, NOTES: 03/02/17 HS TAKING ATORVASTATIN CALCIUM 20 MG TABLET 1 TABLET ORALLY ONCE A DAY, NOTES: 03/02/17 HS TAKING CYANOCOBALAMIN 1000 MCG CAPSULE ORALLY DAILY, NOTES: 03/02/17 HS TAKING CARBOXYMETHYLCELLULOSE SODIUM 0.5 % SOLUTION 1 DROP INTO AFFECTED EYE NEEDED OPHTHALMIC TID, NOTES: 03/03/18 HS TAKING CARVDILOL 3.125MG TABLET ORAL BID, NOTES: 03/02/17 HS TAKING FUROSEMIDE 20 MG TABLET 1 TABLET ORALLY TWICE A DAY, NOTES: 03/02/17 HS TAKING LOSARTAN POTASSIUM 50 MG TABLET ORALLY DAILY, NOTES: 03/02/17 HS TAKING LATANOPROST 0.005 % SOLUTION 1 DROP INTO AFFECTED EYE IN THE EVENING OPHTHALMIC ONCE A DAY, NOTES: 03/03/17 HS TAKING LEVOTHYROXINE SODIUM 50 MCG TABLET 1 TABLET ORALLY ONCE A DAY, NOTES: 03/02/17 HS TAKING NITROGLYCERIN 0.4 MG TABLET SUBLINGUAL SUBLINGUAL , NOTES: NONE TAKING PANTOPRAZOLE SODIUM 40 MG TABLET DELAYED RELEASE 1 TABLET ORALLY TWICE A DAY, NOTES: 03/02 17 HS TAKING RESTASIS 0.05 % EMULSION 1 INTO AFFECTED EYE OPHTHALMIC 2XS PER DAY, NOTES: 03/03/17 HS TAKING SUCRALFATE 1 GM/10ML SUSPENSION 10 ML ORALLY TWICE A DAY, NOTES: 03/02/17 HS TAKING CLARITIN 10 MG TABLET 1 TABLET ORALLY ONCE A DAY, NOTES: 03/02/17 HS TAKING XALATAN 0.005 % SOLUTION 1 DROP INTO AFFECTED EYE IN THE EVENING OPHTHALMIC ONCE A DAY, NOTES: 03/03/17 HS NOT-TAKING METAXALONE 800 MG TABLET 1 TABLET ORALLY BID PRN FOR SPASMS AND PAIN MDD2 MEDICATION LIST REVIEWED AND RECONCILED WITH THE PATIENT PAST MEDICAL HISTORY HYPERCHOLESTRIMIA HTN ALLERGIES DONEZEPIL HCL: HALLUCINATIONS: ALLERGY PROMETHAZINE HCL: NAUSEA/VOMITING: ALLERGY REVIEW OF SYSTEMS REVIEWED BY: PROVIDER: . CONSTITUTIONAL: ANY CHANGE IN YOUR MEDICAL CONDITION? NO . CHILLS NO . FEVER NO . INFECTION: DO YOU HAVE NEW INFECTIONS? NO . DO YOU HAVE HISTORY OF MRSA? NO . MUSCULOSKELETAL: ANY NEW PATTERNS OF PAIN OR NUMBNESS? NO . GASTROENTEROLOGY: ANY NEW CHANGE IN BOWEL CONTROL? NO . GENITOURINARY: ANY NEW CHANGE IN BLADDER CONTROL? NO . IS THERE A CHANCE YOU COULD BE ? NO . HEMATOLOGY/LYMPH: DO YOU TAKE ANY BLOOD THINNERS? (FOR EXAMPLE- COUMADIN, PLAVIX, AGGRENOX, PLATEL, PRADAXA, OR XARELTO) NO . WHEN WAS YOUR LAST DOSE? DATE: TIME: . NEUROLOGY: HAVE YOU FALLEN IN THE PAST 6 MONTHS? NO . ANY NEW EXTREMITY NUMBNESS OR WEAKNESS? NO . CARDIOLOGY: DO YOU HAVE A PACEMAKER OR DEFIBRILLATOR? YES . RESPIRATORY: HAVE YOU BEEN SICK IN THE PAST WEEK? NO . FEVER NO . FLU LIKE SYMPTOMS? NO . COUGH NO . INTEGUMENTARY: DO YOU HAVE ANY RASHES OR OPEN SORES? NO . ALLERGIC/IMMUNO: ARE YOU ALLERGIC TO SHELLFISH OR IV DYE? NO . ANY NEW ALLERGIES? NO . PSYCHIATRIC: DO YOU HAVE THOUGHTS OF HURTING YOURSELF OR SOMEONE ELSE? NO . ARE YOU ABUSED, NEGLECTED, OR IN AN UNSAFE ENVIRONMENT? NO . ENDOCRINOLOGY: ARE YOU DIABETIC? NO . OTHER: DO YOU NEED ANY PRESCRIPTIONS? NO . IF YES, PLEASE LIST: ____ . ANY NEW PROBLEMS WITH YOUR MEDICATIONS? NO . WHEN DID YOU LAST EAT? DINNER . WHEN DID YOU LAST DRINK? 10PM . WHAT DID YOU LAST DRINK? WATER . NAME OF PERSON DRIVING YOU HOME? WHIT . DO YOU HAVE ANY OTHER QUESTIONS OR CONCERNS NO . VITAL SIGNS WT 151.2 LBS, HT 65 IN, BMI 25.16 INDEX, BP 141/80 MM HG, HR 67 /MIN, RR 18 /MIN, TEMP 98.3 F, OXYGEN SAT % 93%, NA INITIALS TL 0939, REVIEWED BY: NL. ASSESSMENTS INTERVERTEBRAL DISC DISORDERS WITH RADICULOPATHY, LUMBOSACRAL REGION - M51.17 (PRIMARY) PROCEDURES PRE PROCEDURE DIAGNOSIS LUMBOSACRAL DISC DISORDER WITH RADICULOPATHY POST PROCEDURE DIAGNOSIS LUMBOSACRAL DISC DISORDER WITH RADICULOPATHY PROCEDURE LUMBAR EPIDURAL STEROID INJECTION UNDER FLUOROSCOPIC GUIDANCE SURGEON DR. DARRELL BARAJAS SOAKER NONE ANESTHESIA LOCAL PRE PROCEDURE NOTE THE PATIENT HAS A HISTORY OF CHRONIC LOW BACK PAIN. I EVALUATE THE PATIENT AND REVIEWED THE CHART. I WENT OVER THE RISKS, ALTERNATIVES, AND BENEFITS ASSOCIATED WITH THIS PROCEDURE. THE PATIENT WOULD LIKE TO PROCEED AND GIVE CONSENT TO PERFORMED THE PROCEDURE. THE PATIENT DENIES UNEXPLAINABLE WEIGHT LOSS, FEVER, CHILLS, OR NEW CHANGES IN URINARY OR BOWEL CONTROL DESCRIPTION OF PROCEDURE THE PATIENT WAS BROUGHT TO THE PROCEDURE ROOM AND PLACED IN THE PRONE POSITION. THE LUMBOSACRAL AREA WAS CLEANED WITH BETADINE SOLUTION AND DRAPED ASEPTICALLY. THE PROCEDURE WAS DONE UNDER STERILE CONDITIONS. I CHECKED LATERALITY AND THE LEVEL WHERE THE PROCEDURE WAS GOING TO BE PERFORMED WITH THE PATIENT AND THE SUPPORTING STAFF AT THE MOMENT OF THE TIME OUT IN THE PROCEDURE ROOM. UNDER FLUOROSCOPIC GUIDANCE, THE TARGET POINT WAS SELECTED AT THE INTERLAMINAR LEVEL OF L4-L5. LIDOCAINE WAS USED TO NUMB THE SKIN AND THE SUBCUTANEOUS TISSUE BELOW IT. EPIDURAL TUOHY NEEDLE, 17-GAUGE, WAS ADVANCED UNDER FLUOROSCOPIC GUIDANCE AND FOLLOWING PATIENT FEEDBACK UNTIL THE EPIDURAL SPACE WAS REACHED, 7 CM DEEP INTO THE SKIN BY THE LOSS OF RESISTANCE TECHNIQUE. ISOVUE M DYE 30%, 0.25 ML, WAS INJECTED SHOWING ADEQUATE SPREAD OF THE DYE. THEN, A SOLUTION OF 3 ML OF NORMAL SALINE WITH DEPO-MEDROL 60 MG WAS INJECTED SLOWLY FOLLOWING PATIENT FEEDBACK. THERE WAS NO EVIDENCE OF BLOOD, PARESTHESIA OR CEREBROSPINAL FLUID DURING THE PROCEDURE. THE PATIENT WAS SENT TO THE RECOVERY ROOM. THE PATIENT WAS MOVING THE EXTREMITIES AND DOING WELL. THERE WAS NO COMPLICATION DURING THE PROCEDURE. FLUOROSCOPY TIME WAS 6 SECONDS. POST PROCEDURE NOTE THE PATIENT WILL BE SEEN IN A FOLLOW UP IN THE NEXT FEW WEEKS. INSTRUCTIONS WERE GIVEN, QUESTIONS WERE ANSWERED, AND THE PATIENT EXPRESSED UNDERSTANDING AND AGREES WITH THE PLAN. I, RAULITO AL, DOCUMENTED THE ABOVE INFORMATION ACTING A SCRIBE FOR DR. BARAJAS. I HAVE REVIEWED THE ABOVE DOCUMENT, WRITTEN BY RAULITO MOMIN AND I VERIFY THAT IT IS ACCURATE DIAGNOSTIC IMAGING [facility] FLUORO GUIDE SPINE INJECTION (PAIN)[id number] PROCEDURE CODES 29154 LUMBAR/SACRAL W/ IMAGING 6045F RADXPS IN END [id number] PXD DISPOSITION & COMMUNICATION FOLLOW UP 3 WEEKS ELECTRONICALLY SIGNED BY DARRELL BARAJAS MD ON 03/13/2017 AT 07:58 PM EDT DISCLAIMER : THIS IS A VISIT SUMMARY EXTRACTED FROM THE [employer] CHART. IT IS NOT A COPY OF THE [employer] PROGRESS NOTE. MTDD
== END ==
LOC: M PAIN 09:00
PROVIDERS: ATTEND Anesthesiology
DX: G89.29 Other chronic pain (principal); M51.17 Intervertebral disc disorders with radiculopathy, lumbosacral region; M54.5 Low back pain; Z79.82 Long term (current) use of aspirin; Z79.899 Other long term (current) drug therapy; E78.00 Pure hypercholesterolemia, unspecified; I10 Essential (primary) hypertension; Z88.8 Allergy status to other drugs, medicaments and biological substances
CPT/HCPCS: 62323; J1030; Q9967

== ENCOUNTER → 2017-04-25 | Outpatient (CLI) | payer OTHER ==
[~2017-04-25] MED LIST changes: -ISOVUE-M 300 61% 15ML VIAL (Q9967) As Ordered ONE; -LIDOCAINE 1% SDV INJ 30 ML VIAL As Ordered ONE; -methylPREDNISolone SUSP 40 MG/ML (DEPO-medrol) VIAL (J1030) As Ordered ONE
--- NOTE | 2017-05-10 00:13 | ECWPNPC ---
PATIENT NAME: VICTORINO CUI : 1935 GENDER: MALE VISIT DATE: 04/25/2017 DISCHARGE DATE: 04/25/17 1644 VISIT LOCKED DATE TIME: PHYSICIAN: DARRELL BARAJAS RESOURCE: DARRELL BARAJAS REASON FOR APPOINTMENT 1. W/C LOW BACK HISTORY OF PRESENT ILLNESS HISTORY OF PRESENT ILLNESS: PAIN THE PATIENT DESCRIBES THE PAIN... 82 YEAR OLD MALE PATIENT WITH HISTORY OF CHRONIC BACK PAIN. PATIENT DESCRIBES THE PAIN ACHING, BURNING, STABBING AND IT COMES AND GOES WITH A PAIN SCORE OF 6/10 ON TODAY'S VISIT. PATIENT WAS INJURED IN A WORK RELATED INJURY ON 05-16-1989 WORKING FOR [employer], PATIENT WAS WALKING AND SLIPPED ON PLANKS AND FELL INJURING HIS BACK. PATIENT REPORTS THAT THE PAIN IN HIS BACK IN RADIATING DOWN THE WHOLE LEFT LEG TO THE FOOT, AND THE PAIN IS ONLY RADIATING DOWN ON THE POSTERIOR ASPECT OF HIS LEFT LEG DOWN TO HIS FOOT. PATIENT REPORTS THAT THE RADIATING PAIN IN HIS LEGS IS WORST ON THE LEFT SIDE. PATIENT REPORTS THAT HE IS NOT CURRENTLY TAKING METAXALONE FOR HIS PAIN. PATIENT ALSO REPORTS THAT HE FEELS THAT THE INJECTION DID HELP, REPORTS THAT HE HAS INCREASE IN FUNCTIONALITY AND DECREASE IN PAIN. PATIENT DENIES UNEXPLAINABLE WEIGHT LOSS, FEVER, CHILLS, NEW CHANGES ON HIS URINARY OR BOWEL CONTROL. FALL RISK SCREENING: SCREENING :NO FALLS IN THE PAST YEAR CURRENT MEDICATIONS TAKING ACETAMINOPHEN 500 MG TABLET 1 TABLET NEEDED ORALLY BID PRN, NOTES: NONE RECENT TAKING ASCORBIC ACID 500 MG TABLET CHEWABLE 1 TABLET ORALLY ONCE A DAY TAKING ASPIRIN 325 MG TABLET DELAYED RELEASE 1 TABLET ORALLY ONCE A DAY TAKING ATORVASTATIN CALCIUM 20 MG TABLET 1 TABLET ORALLY ONCE A DAY TAKING CYANOCOBALAMIN 1000 MCG CAPSULE ORALLY DAILY TAKING CARBOXYMETHYLCELLULOSE SODIUM 0.5 % SOLUTION 1 DROP INTO AFFECTED EYE NEEDED OPHTHALMIC TID TAKING CARVDILOL 3.125MG TABLET ORAL BID TAKING FUROSEMIDE 20 MG TABLET 1 TABLET ORALLY TWICE A DAY TAKING LOSARTAN POTASSIUM 50 MG TABLET ORALLY DAILY TAKING LATANOPROST 0.005 % SOLUTION 1 DROP INTO AFFECTED EYE IN THE EVENING OPHTHALMIC ONCE A DAY TAKING LEVOTHYROXINE SODIUM 50 MCG TABLET 1 TABLET ORALLY ONCE A DAY TAKING NITROGLYCERIN 0.4 MG TABLET SUBLINGUAL SUBLINGUAL , NOTES: NONE TAKING PANTOPRAZOLE SODIUM 40 MG TABLET DELAYED RELEASE 1 TABLET ORALLY TWICE A DAY TAKING RESTASIS 0.05 % EMULSION 1 INTO AFFECTED EYE OPHTHALMIC 2XS PER DAY TAKING SUCRALFATE 1 GM/10ML SUSPENSION 10 ML ORALLY TWICE A DAY TAKING CLARITIN 10 MG TABLET 1 TABLET ORALLY ONCE A DAY TAKING XALATAN 0.005 % SOLUTION 1 DROP INTO AFFECTED EYE IN THE EVENING OPHTHALMIC ONCE A DAY NOT-TAKING METAXALONE 800 MG TABLET 1 TABLET ORALLY BID PRN FOR SPASMS AND PAIN MDD2 MEDICATION LIST REVIEWED AND RECONCILED WITH THE PATIENT PAST MEDICAL HISTORY HYPERCHOLESTRIMIA HTN ALLERGIES DONEZEPIL HCL: HALLUCINATIONS: ALLERGY PROMETHAZINE HCL: NAUSEA/VOMITING: ALLERGY REVIEW OF SYSTEMS REVIEWED BY: PROVIDER: . CONSTITUTIONAL: ANY CHANGE IN YOUR MEDICAL CONDITION? NO . CHILLS NO . FEVER NO . INFECTION: DO YOU HAVE NEW INFECTIONS? NO . DO YOU HAVE HISTORY OF MRSA? NO . MUSCULOSKELETAL: ANY NEW PATTERNS OF PAIN OR NUMBNESS? NO . GASTROENTEROLOGY: ANY NEW CHANGE IN BOWEL CONTROL? NO . GENITOURINARY: ANY NEW CHANGE IN BLADDER CONTROL? NO . IS THERE A CHANCE YOU COULD BE ? NO . HEMATOLOGY/LYMPH: DO YOU TAKE ANY BLOOD THINNERS? (FOR EXAMPLE- COUMADIN, PLAVIX, AGGRENOX, PLATEL, PRADAXA, OR XARELTO) NO . WHEN WAS YOUR LAST DOSE? DATE: TIME: . NEUROLOGY: HAVE YOU FALLEN IN THE PAST 6 MONTHS? NO . ANY NEW EXTREMITY NUMBNESS OR WEAKNESS? NO . CARDIOLOGY: DO YOU HAVE A PACEMAKER OR DEFIBRILLATOR? NO . RESPIRATORY: HAVE YOU BEEN SICK IN THE PAST WEEK? NO . FEVER NO . FLU LIKE SYMPTOMS? NO . COUGH NO . INTEGUMENTARY: DO YOU HAVE ANY RASHES OR OPEN SORES? NO . ALLERGIC/IMMUNO: ARE YOU ALLERGIC TO SHELLFISH OR IV DYE? NO . ANY NEW ALLERGIES? NO . PSYCHIATRIC: DO YOU HAVE THOUGHTS OF HURTING YOURSELF OR SOMEONE ELSE? NO . ARE YOU ABUSED, NEGLECTED, OR IN AN UNSAFE ENVIRONMENT? NO . ENDOCRINOLOGY: ARE YOU DIABETIC? NO . OTHER: DO YOU NEED ANY PRESCRIPTIONS? NO . IF YES, PLEASE LIST: ____ . ANY NEW PROBLEMS WITH YOUR MEDICATIONS? NO . WHEN DID YOU LAST EAT? ____ . WHEN DID YOU LAST DRINK? ____ . WHAT DID YOU LAST DRINK? ____ . NAME OF PERSON DRIVING YOU HOME? ____ . DO YOU HAVE ANY OTHER QUESTIONS OR CONCERNS HE GOT SOME RELIEF FROM INJECTION BUT THE PAIN CAME BACK GRADUALLY AFTER A FEW DAYS. LEFT LEG IS NUMB ALL THE TIME, BUT CAN USE HIS CANE TO GET AROUND PRETTY GOOD. . VITAL SIGNS WT 150 LBS, HT 65 IN, BMI 24.96 INDEX, BP 133/65 MM HG, HR 60 /MIN, RR 16 /MIN, TEMP 97.4 F, OXYGEN SAT % 97%, REVIEWED BY: CM @1511. EXAMINATION : PATIENT IS ALERT O X 3 AND COOPERATIVE. TENDERNESS IN THE LOWER BACK AND PARASPINAL MUSCLE GROUP. ANTALGIC GAIT. LEFT LEG IS WEAKER THEN THE RIGHT AT EXTENSION AND FLEXION. PATIENT IS LIMPING FROM THE LEFT LEG WHEN WALKING. RADIOGRAPH DONE ON 12/19/06 SHOWS DEGENERATIVE CHANGES, HYPERTROPHY, AND OSTEOPHYTES ARE VISIBLE AT L4, L5, AND S1. ASSESSMENTS POSTLAMINECTOMY SYNDROME, NOT ELSEWHERE CLASSIFIED - M96.1 (PRIMARY) INTERVERTEBRAL DISC DISORDERS WITH RADICULOPATHY, LUMBAR REGION - M51.16 INTERVERTEBRAL DISC DISORDERS WITH RADICULOPATHY, LUMBOSACRAL REGION - M51.17 TREATMENT POSTLAMINECTOMY SYNDROME, NOT ELSEWHERE CLASSIFIED CLINICAL NOTES: WE DISCUSSED SEVERAL ISSUES WITH MR. CUI'S PAIN MANAGEMENT CASE. INFORMED THE PATIENT THAT HE CAN USE SALONPAS OVER THE COUNTER TOPICAL MEDICATION FOR HIS BACK WHEN HE DOES HAVE PAIN. BOTH THE PATIENT AND MYSELF AGREED THAT WE WILL DO A FOLLOW UP APPOINTMENT IN 2 MONTHS. ALSO ADVISED PATIENT TO CONTACT THE PAIN CLINIC IF HE SEEMS TO BE IN MORE PAIN BETWEEN NOW AND HIS NEXT FOLLOW UP SO WE COULD TALK ABOUT DOING ANOTHER LUMBAR EPIDURAL SINCE HE GOT RELIEF FROM THE PREVIOUS ONE AND IT DID AID IN DECREASING HIS PAIN. INSTRUCTIONS WERE GIVEN, QUESTIONS WERE ANSWERED, PATIENT REPORTS UNDERSTANDING AND AGREES WITH THE PLAN. I, BRITTANY CASTILLO, DOCUMENTED THE ABOVE INFORMATION ACTING A SCRIBE FOR DR. BARAJAS. I HAVE REVIEWED THE ABOVE DOCUMENT, WRITTEN BY BRITTANY MOMIN AND I VERIFY THAT IT IS ACCURATE. PROCEDURES PN WORKMANS' COMP OPINION IN YOUR OPINION, WAS THE INCIDENT THAT THE PATIENT DESCRIBED THE COMPETENT MEDICAL CAUSE OF THIS INJURY/ILLNESS? YES ARE THE PATIENT'S COMPLAINTS CONSISTENT WITH HIS/HER HISTORY OF THE INJURY/ILLNESS? YES IS THE PATIENT'S HISTORY OF THE INJURY/ILLNESS CONSISTENT WITH YOUR OBJECTIVE FINDING? YES WHAT IS THE PERCENTAGE OF TEMPORARY IMPAIRMENT? MODERATE TO MARKED = 66.7% IS THE PATIENT WORKING? NO DOCTOR ON SITE: DARRELL KAPOOR MD PROCEDURE CODES FA211 ESTABILISHED PATIENT [facility] FACILITY CHARGE [address] OFFICE/OUTPATIENT VISIT EST G8427 DOC MEDS VERIFIED W/PT OR RE G8730 PAIN ASSESS POS TOOL F/U PLAN DOC DISPOSITION & COMMUNICATION FOLLOW UP 2 MONTHS ELECTRONICALLY SIGNED BY DARRELL BARAJAS MD ON 05/09/2017 AT 08:40 PM EDT DISCLAIMER : THIS IS A VISIT SUMMARY EXTRACTED FROM THE [employer]en on [employer] CHART. IT IS NOT A COPY OF THE As Seen [employer] PROGRESS NOTE. MTDD
== END ==
LOC: M PAIN 15:20
PROVIDERS: ATTEND Anesthesiology
DX: M96.1 Postlaminectomy syndrome, not elsewhere classified (principal); M51.16 Intervertebral disc disorders with radiculopathy, lumbar region; M51.17 Intervertebral disc disorders with radiculopathy, lumbosacral region; E78.00 Pure hypercholesterolemia, unspecified; I10 Essential (primary) hypertension; Z88.8 Allergy status to other drugs, medicaments and biological substances; Z79.82 Long term (current) use of aspirin; Z79.899 Other long term (current) drug therapy

== ENCOUNTER 2017-06-25 23:08 | Emergency (ER) | payer MEDICARE, OTHER ==
[~2017-06-25] VITALS: Ht 172.7 cm; Wt 68.2 kg
[~2017-06-25 23:08] MED LIST changes: -PREDOPD OD; -TESS100C PO; -ZITHTAB PO
[2017-06-25] MEDS ORDERED: PREDOPD OD (23:49)
[2017-06-26] MEDS ORDERED: BENZONATATE 100 MG CAP PO ONE (01:15)
[2017-06-26] MEDS ORDERED: ACETAMINOPHEN 325 MG TAB PO ONE (01:15)
[2017-06-26] MEDS ORDERED: ZITHTAB PO (01:42)
[2017-06-26] MEDS ORDERED: TESS100C PO (01:42)
[2017-06-26] MEDS ORDERED: AZITHROMYCIN 250 MG TAB PO ONE (01:45)
[2017-06-26 01:53] VITALS: BP 134/68
--- NOTE | 2017-06-26 09:17 | REP ---
PA and lateral chest: Comparison is 12/20/2016. I suspect there are small bilateral pleural effusions as an interval change. There is a patchy infiltrate in the right upper lobe as an interval change. The lung parsons otherwise clear. There are sternotomy wires and dual-chamber pacemaker, unchanged. Cardiac size is enlarged but has increased slightly. Impression: Small bilateral pleural effusions. Small patchy infiltrate in the right upper lobe. Increasing cardiomegaly. No Signed by Bryn Luis MD 06/26/2017 08:22 A
--- NOTE | 2017-06-27 12:17 | ED PDOC ---
Post-Departure Follow-Up dr jeffers faxed formal report of cxr for fu Yarely Paredes MD Jun 27, 2017 12:17
== END 2017-06-26 02:04 | disposition home or self-care (01) ==
LOC: M ED 23:08
DX: J20.9 Acute bronchitis, unspecified (principal); I51.7 Cardiomegaly; I25.10 Atherosclerotic heart disease of native coronary artery without angina pectoris; I10 Essential (primary) hypertension; M54.5 Low back pain; Z86.73 Personal history of transient ischemic attack (TIA), and cerebral infarction without residual deficits; Z95.5 Presence of coronary angioplasty implant and graft; Z95.1 Presence of aortocoronary bypass graft; Z79.82 Long term (current) use of aspirin; Z79.899 Other long term (current) drug therapy; Z88.8 Allergy status to other drugs, medicaments and biological substances

== ENCOUNTER → 2017-09-06 | Outpatient (CLI) | payer OTHER | LOC: M PLARAD 13:33 | DX: R91.1 Solitary pulmonary nodule (principal) | CPT/HCPCS: 78815 ==

== ENCOUNTER → 2018-02-06 | Outpatient (REF) | payer OTHER ==
[2018-02-06 18:44] LABS: URIC ACID 9.1 MG/DL (3.5-7.2)
[2018-02-06 18:44] LABS: C REACTIVE PROTEIN QUANTITATIV 3.18 MG/DL (0.00-0.30)
== END ==
LOC: M LAB REF 16:29
DX: M10.9 Gout, unspecified (principal)
CPT/HCPCS: 84550

== ENCOUNTER 2018-02-19 14:17 | Emergency (ER) | payer OTHER ==
[2018-02-19 13:25] LABS: BASO % 0.3 % (0.0-1.0); EOS # 0.1 10^3/uL (0.0-0.50); EOS % 1.2 % (0.0-3.0); HEMATOCRIT 34.4 % (42.0-52.0); HEMOGLOBIN 11.5 g/dl (13.5-17.5); IMMATURE GRANULOCYTE % 0.2 % (0-3.0); LYMPH % 11.9 % (24.0-44.0); MEAN CORPUSCULAR HGB CONC 33.4 g/dl (32.0-36.5); MEAN CORPUSCULAR VOLUME 92.7 fl (80.0-96.0); MONO # 0.9 10^3/uL (0.0-0.8); NEUTROPHILS # 6.6 10^3/uL (1.8-7.7); NEUTROPHILS % 76.4 % (36.0-66.0); PLATELET COUNT, AUTOMATED 186 10^3/uL (150-450); RED BLOOD COUNT 3.71 10^6/uL (4.30-6.10); RED CELL DISTRIBUTION WIDTH 12.9 % (11.5-14.5); WHITE BLOOD COUNT 8.7 10^3/uL (4.0-10.0)
[2018-02-19 13:37] LABS: BEDSIDE GLUCOSE 116 MG/DL (83-110)
[2018-02-19 13:40] LABS: ALBUMIN 3.5 GM/DL (3.2-5.2); ALBUMIN/GLOBULIN RATIO 1.21 (1.00-1.93); ALT/SGPT 32 U/L (12-78); ANION GAP 10 MEQ/L (8-16); AST/SGOT 26 U/L (7-37); BILIRUBIN,DIRECT 0.3 MG/DL (0.0-0.2); BILIRUBIN,TOTAL 0.6 MG/DL (0.2-1.0); BLOOD UREA NITROGEN 31 MG/DL (7-18); CALCIUM LEVEL 8.3 MG/DL (8.8-10.2); CARBON DIOXIDE LEVEL 26 MEQ/L (21-32); CHLORIDE LEVEL 110 MEQ/L (98-107); CPK CREATINE PHOSPHOKINASE 199 U/L (39-308); CREATININE FOR GFR 1.27 MG/DL (0.70-1.30); FREE THYROXINE INDEX 2.7 % (1.4-3.8); GLOMERULAR FILTRATION RATE 57.5 (>35); GLUCOSE, FASTING 134 MG/DL (70-100); MAGNESIUM LEVEL 2.1 MG/DL (1.8-2.4); POTASSIUM SERUM 3.8 MEQ/L (3.5-5.1); SODIUM LEVEL 146 MEQ/L (136-145); T UPTAKE 37 % (33-40); THYROXINE (T4) 7.3 UG/DL (4.5-12.0); TOTAL PROTEIN 6.4 GM/DL (6.4-8.2); TROPONIN I 0.02 NG/ML (< 0.10); URIC ACID 9.2 MG/DL (3.5-7.2)
[2018-02-19 13:44] LABS: OSMOLALITY SERUM 307 MOSM/KG (280-301)
[2018-02-19 13:45] LABS: CK-MB VALUE MASS 6.3 NG/ML (<3.6); MB/CK RELATIVE INDEX 3.16 (< OR =4)
[2018-02-19 13:46] LABS: ALKALINE PHOSPHATASE 136 U/L (45-117)
[2018-02-19 14:11] LABS: AMMONIA 13 uMOL/L (<32)
[2018-02-19 14:15] LABS: LACTIC ACID SEPSIS PROTOCOL 1.2 MMOL/L (0.4-2.0)
== END 2018-02-19 14:53 | disposition home or self-care (01) ==
LOC: M ED 14:17
DX: R23.2 Flushing (principal); E78.00 Pure hypercholesterolemia, unspecified; Z88.8 Allergy status to other drugs, medicaments and biological substances; Z79.899 Other long term (current) drug therapy
CPT/HCPCS: 71046

== ENCOUNTER → 2018-03-30 | Outpatient (REF) | payer OTHER | LOC: M LAB REF 16:58 | DX: M10.9 Gout, unspecified (principal) | CPT/HCPCS: 84550 ==

== ENCOUNTER → 2018-08-08 | Outpatient (REF) | payer OTHER ==
[2018-08-08 17:34] LABS: URIC ACID 5.6 MG/DL (3.5-7.2)
== END ==
LOC: M LAB REF 16:44
DX: M10.9 Gout, unspecified (principal)
CPT/HCPCS: 84550

== ENCOUNTER → 2018-08-23 | Outpatient (REF) | payer OTHER ==
[~2018-08-23] MED LIST changes: +ACET500T15 PO; -ACET50TAOT PO; -ASPI325T24 PO; +ASPI325T25 PO; -LOSA50TA20 PO; +LOSA50TA88 PO; +PREDOPD OD; +TESS100C PO; +ZITHTAB PO
[2018-08-23 18:11] LABS: APPEARANCE, URINE CLEAR (CLEAR); BACTERIA, URINE AUTO NEGATIVE (NEGATIVE); BILIRUBIN, URINE AUTO NEGATIVE (NEGATIVE); BLOOD, URINE BLOOD NEGATIVE (NEGATIVE); COLOR, URINE YELLOW (YELLOW); GLUCOSE, URINE (UA) AUTO NEGATIVE (NEGATIVE); KETONE, URINE AUTO NEGATIVE (NEGATIVE); LEUKOCYTE ESTERASE, URINE AUTO NEGATIVE (NEGATIVE); MUCUS, URINE SMALL (NEGATIVE); NITRITE, URINE AUTO NEGATIVE (NEGATIVE); PROTEIN, URINE AUTO NEGATIVE (NEGATIVE); RBC, URINE AUTO 2 /HPF (0-3); SPECIFIC GRAVITY URINE AUTO 1.016 (1.002-1.035); SQUAMOUS EPITHELIAL CELL UR AU 0 /HPF (0-6); UROBILINOGEN, URINE AUTO 0.2 mg/dL (0.0-2.0); WBC, URINE AUTO 1 /HPF (0-3)
== END ==
LOC: M SMT 17:06
PROVIDERS: ATTEND Nurse Practitioner Women's Health
DX: R32 Unspecified urinary incontinence (principal)
CPT/HCPCS: 51798; 81001; 87086; G0463

== ENCOUNTER → 2018-11-10 | Outpatient (REF) | payer OTHER, MEDICARE ==
[2018-11-10 18:31] LABS: PERCENT SATURATION 23.5 % (19.7-50.0)
== END ==
LOC: M LAB REF 16:53
PROVIDERS: ATTEND Nurse Practitioner Family
DX: N18.3 Chronic kidney disease, stage 3 (moderate) (principal); D64.9 Anemia, unspecified

== ENCOUNTER → 2019-02-27 | Outpatient (REF) | payer OTHER, MEDICARE ==
[~2019-02-27] MED LIST changes: -/PANT40TA; -/PANT40TA PO; -/SUCR1TA; -/SUCR1TA PO; +AGGR1CAP; +AGGR1CAP PO; -AGGRCAP; -AGGRCAP PO; +ASPI-255 PO; -ASPI325T25 PO; +PROT1TAB2; +SUCR1TAB56
== END ==
LOC: M LAB REF 13:03
PROVIDERS: ATTEND Internal Medicine
DX: M25.561 Pain in right knee (principal); M10.9 Gout, unspecified

== ENCOUNTER 2019-03-15 14:58 | Inpatient (IN) | payer OTHER, MEDICARE ==
[~2019-03-15] VITALS: Ht 177.8 cm; Wt 68.4 kg
[2019-03-15 16:35] LABS: BASO % 0.4 % (0.0-1.0); EOS # 0.2 10^3/uL (0.0-0.50); EOS % 3.8 % (0.0-3.0); HEMATOCRIT 35.1 % (42.0-52.0); HEMOGLOBIN 11.6 g/dl (13.5-17.5); LYMPH # 1.4 10^3/uL (1.5-4.5); LYMPH % 28.8 % (24.0-44.0); MEAN CORPUSCULAR HEMOGLOBIN 31.4 pg (27.0-33.0); MEAN CORPUSCULAR VOLUME 94.9 fl (80.0-96.0); MONO # 0.5 10^3/uL (0.0-0.8); MONO % 10.6 % (0.0-5.0); NEUTROPHILS # 2.7 10^3/uL (1.8-7.7); NEUTROPHILS % 56.2 % (36.0-66.0); PLATELET COUNT, AUTOMATED 148 10^3/uL (150-450); WHITE BLOOD COUNT 4.8 10^3/uL (4.0-10.0)
[2019-03-15] MEDS ORDERED: MUCI60TA7 PO (16:35)
[2019-03-15] MEDS ORDERED: ALLO100T PO (16:35)
[2019-03-15] MEDS ORDERED: ROSU10TA6 PO (16:35)
[2019-03-15] MEDS ORDERED: REST0.05 OU (16:35)
[2019-03-15] MEDS ORDERED: NS 250 ML IV ONE (16:45)
[2019-03-15 16:48] LABS: ALBUMIN 3.9 GM/DL (3.2-5.2); ALT/SGPT 25 U/L (12-78); BILIRUBIN,TOTAL 0.5 MG/DL (0.2-1.0); BLOOD UREA NITROGEN 30 MG/DL (7-18); CALCIUM LEVEL 8.7 MG/DL (8.8-10.2); CARBON DIOXIDE LEVEL 32 MEQ/L (21-32); CHLORIDE LEVEL 103 MEQ/L (98-107); CREATININE FOR GFR 1.21 MG/DL (0.70-1.30); GLOMERULAR FILTRATION RATE > 60.0 (>35); GLUCOSE, FASTING 96 MG/DL (70-100); POTASSIUM SERUM 4.1 MEQ/L (3.5-5.1); SODIUM LEVEL 138 MEQ/L (136-145); TOTAL PROTEIN 6.7 GM/DL (6.4-8.2)
[2019-03-15] MEDS ORDERED: LOSA25TA14 PO (17:47)
[2019-03-15] MEDS ORDERED: FURO20TA2 PO (17:47)
[2019-03-15] MEDS ORDERED: PILL CUTTER 1 EACH XX PRN (18:30)
--- NOTE | 2019-03-15 19:01 | REP ---
CT brain without contrast: History: Blurred vision. Comparison study is from February 21, 2015. CT findings: Digital preliminary social organization professor radiograph is unremarkable. No bony calvarial lesion is appreciated. The visualized paranasal sinuses are clear. Vascular calcifications noted in the carotid siphons bilaterally. On soft tissue window settings, there is moderate generalized volume loss and concordant ventricular enlargement. There are small vessel atherosclerotic changes in the periventricular white matter of the frontal lobes. There is a new area of low density extending to the overlying cortex from the posterior body of the right lateral ventricle consistent with a right parieto-occipital lobe infarction. This was not apparent on February 2015. There is no evidence of intracranial hemorrhage. No other acute infarction is seen. There is physiologic calcification of the basal ganglia bilaterally. This is a normal variant. No extra-axial fluid collection or midline shift is seen. No mass lesion is observed. Impression: New low density lesion in the periventricular white matter and overlying coon matter of the right posterior parieto-occipital region consistent with a recent infarction. No hemorrhage is seen. Vascular calcification, diffuse atrophy, and small vessel changes are again noted. Electronically Signed by Kun Dubois MD 03/16/2019 08:05 A
--- NOTE | 2019-03-15 19:33 | ECGEPIP ---
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
--- NOTE | 2019-03-15 19:49 | REPVR ---
EXAM: US Duplex Bilateral Extracranial Arteries EXAM DATE/TIME: 03/15/2019 6:54 PM CLINICAL HISTORY: 84 years old, male; Alteration of consciousness; Transient alteration of awareness; Additional info: CVA TECHNIQUE: Imaging protocol: Real-time Duplex ultrasound scan of the Bilateral carotid and vertebral arteries combining coon scale, color Doppler and spectral waveform analysis. COMPARISON: No relevant prior studies available. FINDINGS: Right side: The right ratio is 0.7 which is within the range of normal. Peak velocity of the right internal carotid artery is 51.7 cm/s. Right ECA 44.2 cm/s. The right vertebral artery is antegrade. Left side: The left ratio is 0.8 and within the range of normal. The left ICA has a velocity of 58.2 cm/s. ECA 40.7 cm/s. The left vertebral artery is antegrade. IMPRESSION: No evidence of stenosis right or left internal carotid artery. COMMENT: Carotid Stenosis Reference using SRU criteria: Mild: less than 50% stenosis. ICA PSV is less than 125 cm/second and plaque or intimal thickening is visible. Moderate: 50-69% stenosis. ICA PSV is 125 to 230 cm/second and plaque is visible. Severe: 70-94% stenosis. ICA PSV is more than 230 cm/second and visible plaque and lumen narrowing are seen. Near occlusion: 95-99% stenosis. ICA PSV is variable and significant plaque and luminal narrowing are seen. Occluded: 100% stenosis. No flow identified. Electronically signed by: Chano Leigh On 03/15/2019 19:48:51 PM
--- NOTE | 2019-03-15 20:30 | HPE ---
DATE OF ADMISSION: 03/15/2019 PRIMARY CARE PHYSICIAN: Dr. Opal Morris WOOD TILE INSTALLER: Dr. Des Everett PREVIOUS NEUROLOGIST: Dr. Neo Comer CHIEF COMPLAINT: Dizziness. HISTORY OF THE PRESENT ILLNESS: This is an 84-year-old male with past medical history significant for atrial fibrillation, pacemaker placement, prior transient ischemic attack (TIA) in 2001 with transesophageal echocardiogram failing to show any intracardiac thrombus or mass with normal left ventricular (LV) systolic function. 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 The patient was in his usual state of health until about 2 days ago when he started having dizziness that was noted while he was sitting down. Today at the [facility], the patient experienced more dizziness, did not feel well while he was sitting down waiting to go home by bus at around 2:30 p.m. The staff called his daughter who then came and brought the patient to the emergency room (ER). According to the patient, similar episodes have happened Tuesday evening, Tuesday afternoon and again today. He did not feel his pacer firing. Denied any palpitations, lightheadedness or near syncopal episode. He felt his left face feeling numb as well as around the mouth area. He, otherwise denies any chest pain, pressure or tightness. No nausea, vomiting, diaphoresis, chest heaviness or chest pressure. The patient was wearing a sweater today and felt very hot with some blurred vision. He felt uncomfortable walking, so he sat down and waited for his daughter. He does take aspirin 325 mg daily despite previous history of multiple TIAs in the past; due to a history of gastrointestinal (GI) bleed, the patient has not been placed on full anticoagulation, Coumadin or continued on Plavix. Previous GI bleed noted on electronic medical record was in 2000. Colonoscopy done by Dr. Neff showed diverticulosis with colonic polyps. Esophagogastroduodenoscopy (EGD) was not available in the electronic medical record. In the emergency room, he was found to have paced rhythm. Blood pressure was well maintained at 150/74. According to the daughter, who had seen him at around 2:30 p.m. at the daycare, patient did not have any slurring of his speech, dysarthria, expressive aphasia. He was able to comprehend and understand all questions and answer appropriately. He did not have any facial asymmetry, did not have any upper or lower extremity weakness that was notable. 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 Review by Dr. Comer, neurologist therapist radiation, includes a possible subacute more than 24 hours of CVA versus chronic, unable to see the cerebellum. However, recommendations are to proceed with full anticoagulation both from Dr. Castaneda, prime minister therapist radiation, as well as the neurologist, Dr. Comer. The patient and patient's family did not recall the event surrounding the GI bleed over 18 years ago. It has been explained to the patient and the patient's family that there is a risk of bleeding with starting anticoagulation and continuing with antiplatelet therapy. They are fully aware of the consequences and agreed with continuing with present management. Per Dr. Comer, neurologist, therapist radiation, he is recommending aspirin 81 mg for 2 days and then discontinuing this. To start with low dose Eliquis at 2.5 mg twice a day and by Tuesday to increase that to 5 mg twice a day. Blood pressure will be permitted to increase so long as it is less than 180 mmHg systolic and less than 100 diastolic. Carotid Dopplers of the neck have been ordered as well as two-dimensional echocardiogram. PAST MEDICAL HISTORY: April 2002: Coronary artery disease, coronary artery bypass graft (CABG) times four. May 2002: TIA with negative transesophageal echocardiogram. March 2003: Pacemaker implantation, [facility] [facility] [employer] for tachy-kylee syndrome and paroxysmal atrial fibrillation with prolonged sinus node arrest. November 2009: Percutaneous transluminal coronary angioplasty (PTCA) of circumflex with bare metal stent. Plavix previously discontinued because of GI bleed. 2000: GI bleed with diverticulosis and colonic polyp noted on colonoscopy by Dr. Neff. Hypertension. Hypercholesterolemia. Dementia. Raynaud's phenomenon. BPH. Hypothyroidism. Gastroesophageal reflux disease with prior GI bleed. Hiatal hernia. Right upper lobe calcified pulmonary nodules. Spinal stenosis. Decreased hearing. Left kidney mass. History of hematuria. Pulmonary fibrosis. Inguinal hernia. PAST SURGICAL HISTORY: Knee arthroscopic surgery. Bilateral cataract extraction 2009. Colonoscopy 2010. Pacemaker placement for tachybrady syndrome in 2002. CABG in 2001. PTCA and bare metal stent placement 2009. HOME MEDICATIONS: - aspirin 325 mg daily - Refresh one drop both eyes (OU) three times a day - Restasis one drop both eyes twice a day - Mucinex one tablet daily - acetaminophen 500 mg twice a day - allopurinol 100 mg daily - vitamin C 500 mg daily - Coreg 3.125 mg twice a day - vitamin B12 1000 mcg daily - Lasix 20 mg twice a day - Xalatan one drop both eyes twice a day - Synthroid 50 mcg daily - losartan 25 mg half a tablet 12.5 mg daily - Protonix 40 mg twice a day - rosuvastatin 10 mg nightly SOCIAL HISTORY: Denies smoking, illicit drug use, alcohol. Lives at home. FAMILY HISTORY: Strong family history of heart disease. Mother had a stroke. REVIEW OF SYSTEMS: Per history of the present illness. Twelve point system otherwise negative. PHYSICAL EXAMINATION: Temperature 98.3, pulse 61, respiratory rate 20, blood pressure 159/75, 98% on room air. Generally, the patient is awake, alert, oriented to person and place. He has normal speech. Able to comprehend. He has no facial asymmetry. There is no dysarthria or expressive aphasia. Extraocular muscles are intact. He is wearing eyeglasses. Tongue and uvula are midline. Patient has 5/5 strength bilateral upper extremities. Lower extremities are 5/5. Patient has some numbness to the left side of the face. Unable to discern sharpness or dullness and states that he has decreased sensation. Patient has normal speech. He has some dysmetria on [id number] testing bilaterally. he has positive Babinski on the left. Lung exam is clear to auscultation. No wheezing, rales, or rhonchi. Heart: Midline incision, well healed. S1, S2, pacer noted left anterior chest. Displaced point of maximum impulse with slight hyperdynamic impulse. There is no S3. No carotid upstroke. There are no bruits noted. Upper and lower extremity pulses are symmetric. Pedal pulses are decreased. There are no varicosities and no pitting edema. Abdomen is soft, nontender, nondistended. Positive bowel sounds. No hepatosplenomegaly. Liver span is about 9 cm right midclavicular line. Rectal exam was deferred. Extremities: No cyanosis, clubbing, or pitting edema. Skin has no ecchymosis, icterus or skin breakdown. EKG is paced rhythm. LABORATORY DATA: White count 4.8, hemoglobin 11, hematocrit 35, platelet count 148. Sodium 138, potassium 4.1, chloride 103, bicarbonate 32, BUN 30, creatinine 1.2, glucose of 96. IMAGING STUDIES: CT of the head: New low density lesion in the periventricular white matter and overlying coon matter of the right posterior parieto-occipital region consistent with recent infarct. No hemorrhage is seen. Vascular calcification, diffuse atrophy and small vessel changes are again noted. Vascular ultrasound: Carotid Dopplers are still pending. ASSESSMENT AND PLAN: 1. An 84-year-old male with complaints of two days of dizziness, found to have a right parieto-occipital infarct, which could be subacute versus chronic. According to Dr. Neo Comer, the patient should be fully anticoagulated and currently being started on Eliquis 2-1/2 mg twice a day, increase to 5 mg twice a day on Tuesday and continued on aspirin 81 mg daily for the next two days and then discontinued after two days. We will allow permissive hypertension, so long as the systolic pressure is less than 180 and diastolic pressure is less than 100. He will be admitted to telemetry with neurologic (neuro) check every 4 hours. Should new neurological findings occur, then a repeat CT will be performed to rule out edema, mass effect and new infarct. At this time, the patient has no expressive aphasia or dysarthria to be concerned about aspiration; therefore, he may start on a no-added salt diet. Await carotid Doppler result and repeat echocardiogram. Patient's CVA thought to be secondary to underlying atrial fibrillation. 2. 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 Currently on aspirin 325 mg, which will be changed to aspirin 81 mg and Eliquis 2-1/2 mg twice a day. Patient appears to be rate controlled. At this time, he will be admitted to telemetry for further monitoring and resumed on his rate control medications, Coreg 3.25 mg twice a day. 3. Hyperlipidemia. Continue patient on home rosuvastatin. 4. History of coronary artery disease, CABG, multiple stents. Currently on aspirin 81 mg daily, rosuvastatin, Coreg, and losartan. Cad Engineer has been consulted regarding decision for anticoagulation and antiplatelet therapy. Dr. Castaneda, prime minister therapist radiation, recommends full anticoagulation as recommended by neurologist, Dr. Neo Comer. 5. Hypertensive heart disease. Continue on home dose of losartan, Coreg and Lasix. Allow for permissive hypertension in light of acute CVA with holding parameters for these medications. 6. Hypothyroidism. Resume home dose of levothyroxine at 50 mcg daily. 7. History of GI bleed with documented diverticulosis on previous colonoscopy in 2000, done by Dr. Neff, and colonic polyps. There is no documented EGD; therefore, will contact Dr. Neff's office in the morning to obtain full results. To prevent GI bleed, the patient will be continued on his Protonix 40 mg twice a day along with Carafate 1 gram by mouth before food and nightly. 8. Degenerative joint disease with chronic low back pain. Currently on no medications. 9. Deep vein thrombosis (DVT) prophylaxis. Currently on Eliquis, renally dosed.
[2019-03-15] MEDS: CARVedilol 3.125 MG TAB PO SCH (21:00)
[2019-03-15] MEDS: LATANOPROST 0.005% OPHTH SOLN 2.5 ML OU SCH (21:00)
[2019-03-15 21:35] VITALS: BP 134/61
[2019-03-15] MEDS: APIXABAN 2.5 MG TAB (ELIQUIS) PO SCH (21:53)
[2019-03-15] MEDS: ACETAMINOPHEN 500 MG TAB PO SCH (21:53)
[2019-03-15] MEDS: SUCRALFATE SUSP 1GM/10ML UD PO SCH (21:53)
[2019-03-15] MEDS: ROSUVASTATIN 10 MG TAB (CRESTOR) PO SCH (21:53)
[2019-03-15] MEDS: PANTOPRAZOLE 40MG TAB (PROTONIX) PO SCH (21:54)
[2019-03-15 23:59] VITALS: BP 133/63
[2019-03-16 04:00] VITALS: BP 119/59
[2019-03-16] MEDS: LEVOTHYROXINE 50MCG TABLET (0.05MG) PO SCH (05:47)
[2019-03-16 05:58] LABS: HEMATOCRIT 35.2 % (42.0-52.0); HEMOGLOBIN 11.7 g/dl (13.5-17.5)
[2019-03-16 06:22] LABS: CALCIUM LEVEL 8.2 MG/DL (8.8-10.2); CREATININE FOR GFR 1.32 MG/DL (0.70-1.30); GLOMERULAR FILTRATION RATE 54.9 (>35)
[2019-03-16] MEDS: SUCRALFATE SUSP 1GM/10ML UD PO SCH ×4 (07:08→21:18)
[2019-03-16 08:00] VITALS: BP 126/68
[2019-03-16] MEDS: LATANOPROST 0.005% OPHTH SOLN 2.5 ML OU SCH ×2 (08:21→08:25)
[2019-03-16] MEDS: ASPIRIN 81 MG CHEW TABLET PO SCH (08:21)
[2019-03-16] MEDS: CYANOCOBALAMIN 500 MCG TAB PO SCH (08:21)
[2019-03-16] MEDS: ALLOPURINOL 100 MG TAB PO SCH (08:22)
[2019-03-16] MEDS: ASCORBIC ACID 500 MG TAB PO SCH (08:22)
[2019-03-16] MEDS: PANTOPRAZOLE 40MG TAB (PROTONIX) PO SCH ×2 (08:22→21:19)
[2019-03-16] MEDS: FUROSEMIDE 20 MG TAB PO SCH ×2 (08:23→16:41)
[2019-03-16] MEDS: APIXABAN 2.5 MG TAB (ELIQUIS) PO SCH ×2 (08:23→21:19)
[2019-03-16] MEDS: LOSARTAN 25 MG TAB PO SCH (08:24)
[2019-03-16] MEDS: ACETAMINOPHEN 500 MG TAB PO SCH ×2 (08:24→21:18)
[2019-03-16] MEDS: CARVedilol 3.125 MG TAB PO SCH ×2 (08:24→21:20)
[2019-03-16] MEDS ORDERED: ASPIRIN ENTERIC 325 MG TAB PO SCH (09:00)
[2019-03-16] MEDS ORDERED: RESTASIS (PATIENT'S OWN MED) OU SCH (09:00)
[2019-03-16] MEDS: POLYVINYL ALCOHOL OPHTH SOLN 15 ML(LIQUITEARS) OU SCH ×4 (09:00→21:20)
--- NOTE | 2019-03-16 10:04 | NUR ---
Pt seen for bedside swallow evaluation d/t CVA (rt parietal lobe). Pt swallow is adequate and w/o overt s/s of aspiration/penetration. Recommend: Regular solids and thin liquids. Meds whole with liquid wash. Please set up tray and cut up foods for Pt d/t poor ROM in shoulders, bilaterally. Addendum: 03/16/19 at 1006 by WESLEY MOREJON [facility] SP Amended: Links added.
--- NOTE | 2019-03-16 10:12 | NUR ---
Pt seen this date for language assessment given recent Rt parietal lobe infarct. Language comprehension and expression is at baseline. Pt is hard of hearing. Addendum: 03/16/19 at 1014 by WESLEY MOREJON [facility] SP Amended: Links added.
--- NOTE | 2019-03-16 10:20 | NUR ---
Pt seen this date for Cognitive-Linguistic Assessment d/t Rt Parietal Lobe Infarct. Pt presents with mild-moderate deficits in memory and visual planning. Daughter reports decreased short term memory skills are baseline for him. Visual acuity is poor. Noted that Pt becomes increasing unable to successfully complete tasks of 2 or more steps at one time. Recommend: Demonstrate directives. Provide written/visual resources for any information given. Reinforce new concepts across all disciplines. Addendum: 03/16/19 at 1024 by WESLEY MOREJON [facility] JAYDA Amended: Links added.
[2019-03-16 12:00] VITALS: BP 116/64
[2019-03-16 12:31] LABS: HEMATOCRIT 36.1 % (42.0-52.0)
[2019-03-16 16:00] VITALS: BP 133/61
--- NOTE | 2019-03-16 16:12 | IPNPDOC ---
Date Seen The patient was seen on 03/16/19. Progress Note SUBJECTIVE: Pt says his face numbness is resolved. He denies any weakness in b/l lower extremities. still with some peripheral visual limitations. no dysarthria, expressive aphasia, able to understand questions and answer appropriately. no issues overnight per daughter at the bedside. Per daughter, pt was sent from [facility] ER to [place] for GI bleed. After EMR review, 12/2007 documented on ER sheet, but name of the hospital could not be found. Medical release to be signed by the patient to obtain records from the [facility]. OBJECTIVE: PHYSICAL EXAMINATION: VITALS: PLS SEE BELOW Generally, the patient is awake, alert, oriented to person and place. He has normal speech. Able to comprehend. He has no facial asymmetry. There is no dysarthria or expressive aphasia. Extraocular muscles are intact. He is wearing eyeglasses. Tongue and uvula are midline. Patient has 5/5 strength bilateral upper extremities. Lower extremities are 5/5. Patient has some numbness to the left side of the face. Unable to discern sharpness or dullness and states that he has decreased sensation. Patient has normal speech. He has some dysmetria on [id number] testing bilaterally. he has positive Babinski on the left. Lung exam is clear to auscultation. No wheezing, rales, or rhonchi. Heart: Midline incision, well healed. S1, S2, pacer noted left anterior chest. Displaced point of maximum impulse with slight hyperdynamic impulse. There is no S3. No carotid upstroke. There are no bruits noted. Upper and lower extremity pulses are symmetric. Pedal pulses are decreased. There are no varicosities and no pitting edema. Abdomen is soft, nontender, nondistended. Positive bowel sounds. No hepatosplenomegaly. Liver span is about 9 cm right midclavicular line. Rectal exam was deferred. Extremities: No cyanosis, clubbing, or pitting edema. Skin has no ecchymosis, icterus or skin breakdown. EKG is paced rhythm. LABORATORY DATA,IMAGING STUDIES,MICROBIOLOGY: PLS SEE BELOW IMAGING STUDIES: CT of the head: New low density lesion in the periventricular white matter and overlying coon matter of the right posterior parieto-occipital region consistent with recent infarct. No hemorrhage is seen. Vascular calcification, diffuse atrophy and small vessel changes are again noted. Vascular ultrasound: Carotid Dopplers are still pending. ASSESSMENT AND PLAN: This is an 84-year-old male with past medical history significant for atrial fibrillation, pacemaker placement, prior transient ischemic attack (TIA) in 2001 with transesophageal echocardiogram failing to show any intracardiac thrombus or mass with normal left ventricular (LV) systolic function. 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 The patient was in his usual state of health until about 2 days ago when he started having dizziness that was noted while he was sitting down. Today at the [facility], the patient experienced more dizziness, did not feel well while he was sitting down waiting to go home by bus at around 2:30 p.m. The staff called his daughter who then came and brought the patient to the emergency room (ER). According to the patient, similar episodes have happened Tuesday evening, Tuesday afternoon and again today. He did not feel his pacer firing. Denied any palpitations, lightheadedness or near syncopal episode. He felt his left face feeling numb as well as around the mouth area. He, otherwise denies any chest pain, pressure or tightness. No nausea, vomiting, diaphoresis, chest heaviness or chest pressure. The patient was wearing a sweater today and felt very hot with some blurred vision. He felt uncomfortable walking, so he sat down and waited for his daughter. He does take aspirin 325 mg daily despite previous history of multiple TIAs in the past; due to a history of gastrointestinal (GI) bleed, the patient has not been placed on full anticoagulation, Coumadin or continued on Plavix. Previous GI bleed noted on electronic medical record was in 2000. Colonoscopy done by Dr. Neff showed diverticulosis with colonic polyps. Esophagogastroduodenoscopy (EGD) was not available in the electronic medical record. In the emergency room, he was found to have paced rhythm. Blood pressure was well maintained at 150/74. According to the daughter, who had seen him at around 2:30 p.m. at the daycare, patient did not have any slurring of his speech, dysarthria, expressive aphasia. He was able to comprehend and understand all questions and answer appropriately. He did not have any facial asymmetry, did not have any upper or lower extremity weakness that was notable. 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 Review by Dr. Comer, neurologist radiation control health physicist, includes a possible subacute more than 24 hours of CVA versus chronic, unable to see the cerebellum. However, recommendations are to proceed with full anticoagulation both from Dr. Castaneda, ict project manager radiation control health physicist, as well as the neurologist, Dr. Comer. The patient and patient's family did not recall the event surrounding the GI bleed over 18 years ago. It has been explained to the patient and the patient's family that there is a risk of bleeding with starting anticoagulation and continuing with antiplatelet therapy. They are fully aware of the consequences and agreed with continuing with present management. Per Dr. Comer, neurologist, radiation control health physicist, he is recommending aspirin 81 mg for 2 days and then discontinuing this. To start with low dose Eliquis at 2.5 mg twice a day and by Tuesday to increase that to 5 mg twice a day. Blood pressure will be permitted to increase so long as it is less than 180 mmHg systolic and less than 100 diastolic. Carotid Dopplers of the neck have been ordered as well as two-dimensional echocardiogram. Right parieto-occipital infarct, which could be subacute versus chronic. According to Dr. Neo Comer, the patient should be fully anticoagulated and currently being started on Eliquis 2-1/2 mg twice a day, increase to 5 mg twice a day on Tuesday and continued on aspirin 81 mg daily for the next two days and then discontinued after two days. We will allow permissive hypertension, so long as the systolic pressure is less than 180 and diastolic pressure is less than 100. He will be admitted to telemetry with neurologic (neuro) check every 4 hours. Should new neurological findings occur, then a repeat CT will be performed to rule out edema, mass effect and new infarct. At this time, the patient has no expressive aphasia or dysarthria to be concerned about aspiration; therefore, he may start on a no-added salt diet. Await carotid Doppler result and repeat echocardiogram. Patient's CVA thought to be secondary to underlying atrial fibrillation. ARU consulted. 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 Currently on aspirin 325 mg, which will be changed to aspirin 81 mg and Eliquis 2-1/2 mg twice a day. Patient appears to be rate controlled. At this time, he will be admitted to telemetry for further monitoring and resumed on his rate control medications, Coreg 3.25 mg twice a day. Hyperlipidemia. Continue patient on home rosuvastatin. History of coronary artery disease, CABG, multiple stents. Currently on aspirin 81 mg daily, rosuvastatin, Coreg, and losartan. Ssis Architect has been consulted regarding decision for anticoagulation and antiplatelet therapy. Dr. Castaneda, ict project manager radiation control health physicist, recommends full anticoagulation as recommended by neurologist, Dr. Neo Comer. Hypertensive heart disease. Continue on home dose of losartan, Coreg and Lasix. Allow for permissive hypertension in light of acute CVA with holding parameters for these medications. Hypothyroidism. Resume home dose of levothyroxine at 50 mcg daily. History of GI bleed Per daughter, pt was sent from [facility] ER to [place] for GI bleed. After EMR review, 12/2007 documented on ER sheet, but name of the hospital could not be found. Medical release to be signed by the patient to obtain records from the [facility]. with documented diverticulosis on previous colonoscopy in 2000, done by Dr. Neff, and colonic polyps. There is no documented EGD; therefore, will contact Dr. Neff's office in the morning to obtain full results. To prevent GI bleed, the patient will be continued on his Protonix 40 mg twice a day along with Carafate 1 gram by mouth before food and nightly. Degenerative joint disease with chronic low back pain. Currently on no medications. 9. Deep vein thrombosis (DVT) prophylaxis. Currently on Eliquis, renally dosed. VS, I&O, 24H, Fishbone Vital Signs/I&O Vital Signs Date Time Temp Pulse Resp B/P (MAP) Pulse Ox O2 Delivery O2 Flow Rate FiO2 03/16/19 12:00 97.2 65 20 116/64 (81) 97 03/15/19 19:20 Room Air I&O- Last 24 Hours up to 6 AM 03/16/19 06:00 Intake Total 0 ml Output Total 375 ml Balance -375 ml Laboratory Data 24H LABS Laboratory Tests 2 03/15/19 16:13: Immature Granulocyte % (Auto) 0.2, White Blood Count 4.8, Red Blood Count 3.70L, Hemoglobin 11.6L, Hematocrit 35.1L, Mean Corpuscular Volume 94.9, Mean Corpuscular Hemoglobin 31.4, Mean Corpuscular Hemoglobin Concent 33.0, Red Cell Distribution Width 13.6, Platelet Count 148L, Neutrophils (%) (Auto) 56.2, Lymphocytes (%) (Auto) 28.8, Monocytes (%) (Auto) 10.6H, Eosinophils (%) (Auto) 3.8H, Basophils (%) (Auto) 0.4, Neutrophils # (Auto) 2.7, Lymphocytes # (Auto) 1.4L, Monocytes # (Auto) 0.5, Eosinophils # (Auto) 0.2, Basophils # (Auto) 0.0, Nucleated Red Blood Cells % (auto) 0.0, Anion Gap 3L, Glomerular Filtration Rate > 60.0, Blood Urea Nitrogen 30H, Creatinine 1.21, Sodium Level 138, Potassium Level 4.1, Chloride Level 103, Carbon Dioxide Level 32, Calcium Level 8.7L, Aspartate Amino Transf (AST/SGOT) 29, Alanine Aminotransferase (ALT/SGPT) 25, Alkaline Phosphatase 150H, Total Bilirubin 0.5, Total Protein 6.7, Albumin 3.9, Albumin/Globulin Ratio 1.39 03/16/19 05:43: Anion Gap 7L, Glomerular Filtration Rate 54.9, Blood Urea Nitrogen 27H, Creatinine 1.32H, Sodium Level 144, Potassium Level 4.0, Chloride Level 108H, Carbon Dioxide Level 29, Calcium Level 8.2L, Lactic Acid Level 0.8 CBC/BMP Laboratory Tests 03/15/19 16:13 Red Blood Count 3.70 L, Mean Corpuscular Volume 94.9, Mean Corpuscular Hemoglobin 31.4, Mean Corpuscular Hemoglobin Concent 33.0, Red Cell Distribution Width 13.6, Neutrophils (%) (Auto) 56.2, Lymphocytes (%) (Auto) 28.8, Monocytes (%) (Auto) 10.6 H, Eosinophils (%) (Auto) 3.8 H, Basophils (%) (Auto) 0.4, Neutrophils # (Auto) 2.7, Lymphocytes # (Auto) 1.4 L, Monocytes # (Auto) 0.5, Eosinophils # (Auto) 0.2, Basophils # (Auto) 0.0, Calcium Level 8.7 L, Aspartate Amino Transf (AST/SGOT) 29, Alanine Aminotransferase (ALT/SGPT) 25, Alkaline Phosphatase 150 H, Total Bilirubin 0.5, Total Protein 6.7, Albumin 3.9 03/16/19 05:43 Calcium Level 8.2 L 03/16/19 12:13 Microbiology Microbiology 03/16/19 Stool Occult Blood ([facility]) - Final, Complete SHAYNA GUERIN MD Mar 16, 2019 16:12
[2019-03-16] MEDS ORDERED: SLF 3 ML SYR IV PRN (17:00)
[2019-03-16 20:00] VITALS: BP 146/80
[2019-03-16] MEDS: ROSUVASTATIN 10 MG TAB (CRESTOR) PO SCH (21:19)
[2019-03-16] MEDS: SLF 3 ML SYR IV SCH (21:20)
[2019-03-16 23:59] VITALS: BP 135/68
--- NOTE | 2019-03-17 00:16 | CR ---
DATE OF CONSULTATION: 03/16/2019 REFERRING PHYSICIAN: Dr. Audrey Smith REASON FOR CONSULTATION: Stroke. HISTORY OF PRESENT ILLNESS: Travis Zapata is an 84-year-old man who has a history of atrial fibrillation, pacemaker placement, transient ischemic attack in 2001 and had a pacemaker placed due to sick sinus syndrome with paroxysmal atrial fibrillation. The patient had gastrointestinal (GI) bleeding in 2000. He was found to have diverticulosis on colonoscopy. Endoscopy report was not available. The patient remained on aspirin for many years. He was not anticoagulated due to history of GI bleeding 2000. According to the patient's son, he came to day care yesterday and when he was getting ready to go back, he became dizzy and his left side of face became numb and tingly. There was no weakness of his arms and leg. He denied any headache, neck or back pain. The patient had similar episodes on Tuesday evening and Tuesday afternoon and again on the day of admission. Dr. Smith called me whether to start the patient on anticoagulation. The patient has been following with cardiology, and I requested that Dr. Smith also checks with cardiology. She spoke to Dr. Castaneda. It was decided between neurology, cardiology and Dr. Smith that the patient's remote history of GI bleeding does not preclude him from anticoagulation 18 years later. The patient was found to have right parietal ischemic stroke on CT scan of head in the emergency department at this time. He had episodes of transient ischemic attack last week and this weekend. We have decided to start Eliquis 2.5 mg by mouth twice a day for a few days and then discontinue his aspirin and continue full dose of Eliquis 5 mg by mouth twice a day afterwards. PAST MEDICAL HISTORY: History of coronary artery disease, coronary artery bypass graft times four, transient ischemic attack, pacemaker placement, paroxysmal atrial fibrillation, sick sinus syndrome, coronary stenting, and the patient's Plavix was discontinued because of GI bleed in 2000. Hypertension, dyslipidemia, Raynaud's phenomenon, prostate enlargement, acid reflux, hernia repair, hypothyroidism, history of dementia. HOME MEDICATIONS: - aspirin 325 mg by mouth daily - allopurinol 100 mg by mouth daily - Coreg 3.125 mg by mouth twice a day - Xalatan eye drops - losartan 12.5 mg by mouth twice a day - Protonix 40 mg by mouth twice a day - Crestor 10 mg by mouth daily - Lasix 20 mg by mouth twice a day - vitamin B12 1000 mcg by mouth daily SOCIAL HISTORY: He denies smoking, alcohol or illicit drugs. FAMILY HISTORY: Mother had stroke. There is also a strong family history of coronary artery disease. REVIEW OF SYSTEMS: All systems were reviewed and found to be noncontributory except as mentioned in the history of the present illness. PHYSICAL EXAMINATION: Temperature 98.3, pulse 61, respiratory rate 20, blood pressure 159/75. Heart: Irregularly irregular. Lungs: Clear to auscultation. Abdomen: Soft, nontender, nondistended. No pedal edema. No musculoskeletal abnormalities. No rash. No signs of meningeal irritation. The patient is awake, alert, oriented to place, name of president. He is unable to tell me exact date, day of week and the year. Distant memory is intact. Extraocular muscles are intact. No facial weakness. Tongue and uvula are midline. 4+/5 in left upper and lower extremities. Right-sided strength is 5/5. He has decreased cold pinprick vibration sensation in his feet. He has mild left-sided dysmetria. His gait is unsteady. ASSESSMENT: 1. Right parietal ischemic stroke. 2. 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 3. Paroxysmal atrial fibrillation. 4. History of gastrointestinal bleed in 2000. 5. Coronary artery disease, status post stenting and coronary artery bypass graft. PLAN: 1. Carotid ultrasound. 2. Eliquis 2.5 mg by mouth twice a day for three days and then it can be increased to 5 mg by mouth twice a day. Benefits of anticaogulation outweight risk of GI bleed which was in 2000. 3. Decrease aspirin to 81 mg by mouth daily. We may have to continue aspirin 81 mg by mouth daily due to his extensive coronary artery disease. He can also have carotid and vertebral artery stenosis. He cannot have MRI scan due to his pacemaker. 4. Physical and occupational therapy and exercise fall precautions. 5. Continue Protonix 40 mg by mouth twice a day. 6. Close followup with cardiology. 7. Follow with our office in 2-4 weeks after hospital discharge. MARIO
[2019-03-17 00:20] LABS: HEMATOCRIT 37.3 % (42.0-52.0)
[2019-03-17 04:00] VITALS: BP 130/58
[2019-03-17] MEDS: SLF 3 ML SYR IV SCH ×3 (05:32→21:42)
[2019-03-17] MEDS: LEVOTHYROXINE 50MCG TABLET (0.05MG) PO SCH (05:32)
[2019-03-17 08:00] VITALS: BP 147/77
[2019-03-17] MEDS: PANTOPRAZOLE 40MG TAB (PROTONIX) PO SCH ×2 (08:27→21:41)
[2019-03-17] MEDS: ALLOPURINOL 100 MG TAB PO SCH (08:27)
[2019-03-17] MEDS: ASPIRIN 81 MG CHEW TABLET PO SCH (08:27)
[2019-03-17] MEDS: SUCRALFATE SUSP 1GM/10ML UD PO SCH ×4 (08:27→21:40)
[2019-03-17] MEDS: CARVedilol 3.125 MG TAB PO SCH ×2 (08:28→21:41)
[2019-03-17] MEDS: LOSARTAN 25 MG TAB PO SCH (08:28)
[2019-03-17] MEDS: APIXABAN 2.5 MG TAB (ELIQUIS) PO SCH ×2 (08:28→21:40)
[2019-03-17] MEDS: CYANOCOBALAMIN 500 MCG TAB PO SCH (08:28)
[2019-03-17] MEDS: ASCORBIC ACID 500 MG TAB PO SCH (08:29)
[2019-03-17] MEDS: ACETAMINOPHEN 500 MG TAB PO SCH ×2 (08:29→21:41)
[2019-03-17] MEDS: LATANOPROST 0.005% OPHTH SOLN 2.5 ML OU SCH ×2 (08:29→21:42)
[2019-03-17] MEDS: POLYVINYL ALCOHOL OPHTH SOLN 15 ML(LIQUITEARS) OU SCH ×4 (08:29→21:41)
[2019-03-17] MEDS: FUROSEMIDE 20 MG TAB PO SCH ×2 (08:29→17:15)
[2019-03-17 12:00] VITALS: BP 129/75
--- NOTE | 2019-03-17 12:01 | IPNPDOC ---
Date Seen The patient was seen on 03/17/19. Progress Note SUBJECTIVE: Per Neurology, pt may need to be continued on ASA due to extensive CAD history. PT consulted due to right parietal CVA, and outpt fu with neurology at hospital discharge. Pt says his face numbness is resolved. He denies any weakness in b/l lower extremities. still with some peripheral visual limitations. no dysarthria, expressive aphasia, able to understand questions and answer appropriately. no issues overnight per daughter at the bedside. Per daughter, pt was sent from [facility] to [place] for GI bleed. After EMR review, 12/2007 documented on ER sheet, but name of the hospital could not be found. Medical release to be signed by the patient to obtain records from the [facility].Pt has been working well with physical and occupational therapy, and is appropriate for rehab. OBJECTIVE: PHYSICAL EXAMINATION: VITALS: PLS SEE BELOW Generally, the patient is awake, alert, oriented to person and place. He has normal speech. Able to comprehend. He has no facial asymmetry. There is no dysarthria or expressive aphasia. Extraocular muscles are intact. He is wearing eyeglasses. Tongue and uvula are midline. Patient has 5/5 strength bilateral upper extremities. . 4+/5 in left upper and lower extremities. Right-sided strength is 5/5. He has decreased cold pinprick vibration sensation in his feet. He has mild left-sided dysmetria. His gait is unsteady.Patient has some numbness to the left side of the face. Unable to discern sharpness or dullness and states that he has decreased sensation. Patient has normal speech. He has some dysmetria on [id number] testing bilaterally. he has positive Babinski on the left. Lung exam is clear to auscultation. No wheezing, rales, or rhonchi. Heart: Midline incision, well healed. S1, S2, pacer noted left anterior chest. Displaced point of maximum impulse with slight hyperdynamic impulse. There is no S3. No carotid upstroke. There are no bruits noted. Upper and lower extremity pulses are symmetric. Pedal pulses are decreased. T here are no varicosities and no pitting edema. Abdomen is soft, nontender, nondistended. Positive bowel sounds. No hepatosplenomegaly. Liver span is about 9 cm right midclavicular line. Rectal exam was deferred. Extremities: No cyanosis, clubbing, or pitting edema. Skin has no ecchymosis, icterus or skin breakdown. EKG is paced rhythm. LABORATORY DATA,IMAGING STUDIES,MICROBIOLOGY: PLS SEE BELOW IMAGING STUDIES: CT of the head: New low density lesion in the periventricular white matter and overlying coon matter of the right posterior parieto-occipital region consistent with recent infarct. No hemorrhage is seen. Vascular calcification, diffuse atrophy and small vessel changes are again noted. Vascular ultrasound: Carotid Dopplers are negative. ASSESSMENT AND PLAN: This is an 84-year-old male with past medical history significant for atrial fibrillation, pacemaker placement, prior transient ischemic attack (TIA) in 2001 with transesophageal echocardiogram failing to show any intracardiac thrombus or mass with normal left ventricular (LV) systolic function. 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 The patient was in his usual state of health until about 2 days ago when he started having dizziness that was noted while he was sitting down. Today at the [facility], the patient experienced more dizziness, did not feel well while he was sitting down waiting to go home by bus at around 2:30 p.m. The staff called his daughter who then came and brought the patient to the emergency room (ER). According to the patient, similar episodes have happened Tuesday evening, Tuesday afternoon and again today. He did not feel his pacer firing. Denied any palpitations, lightheadedness or near syncopal episode. He felt his left face feeling numb as well as around the mouth area. He, otherwise denies any chest pain, pressure or tightness. No nausea, vomiting, diaphoresis, chest heaviness or chest pressure. The patient was wearing a sweater today and felt very hot with some blurred vision. He felt uncomfortable walking, so he sat down and waited for his daughter. He does take aspirin 325 mg daily despite previous history of multiple TIAs in the past; due to a history of gastrointestinal (GI) bleed, the patient has not been placed on full anticoagulation, Coumadin or continued on Plavix. Previous GI bleed noted on electronic medical record was in 2000. Colonoscopy done by Dr. Neff showed diverticulosis with colonic polyps. Esophagogastroduodenoscopy (EGD) was not available in the electronic medical record. In the emergency room, he was found to have paced rhythm. Blood pressure was well maintained at 150/74. According to the daughter, who had seen him at around 2:30 p.m. at the daycare, patient did not have any slurring of his speech, dysarthria, expressive aphasia. He was able to comprehend and understand all questions and answer appropriately. He did not have any facial asymmetry, did not have any upper or lower extremity weakness that was notable. 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 Review by Dr. Comer, neurologist child nutrition director, includes a possible subacute more than 24 hours of CVA versus chronic, unable to see the cerebellum. However, recommendations are to proceed with full anticoagulation both from Dr. Castaneda, steamfitter child nutrition director, as well as the neurologist, Dr. Comer. The patient and patient's family did not recall the event surrounding the GI bleed over 18 years ago. It has been explained to the patient and the patient's family that there is a risk of bleeding with starting anticoagulation and continuing with antiplatelet therapy. They are fully aware of the consequences and agreed with continuing with present management. Per Dr. Comer, neurologist, child nutrition director, he is recommending aspirin 81 mg for 2 days and then discontinuing this. To start with low dose Eliquis at 2.5 mg twice a day and by Tuesday to increase that to 5 mg twice a day. Blood pressure will be permitted to increase so long as it is less than 180 mmHg systolic and less than 100 diastolic. Carotid Dopplers of the neck have been ordered as well as two-dimensional echocardiogram. Right parieto-occipital infarct, which could be subacute versus chronic. According to Dr. Neo Comer, the patient should be fully anticoagulated and currently being started on Eliquis 2-1/2 mg twice a day, increase to 5 mg twice a day on Tuesday and continued on aspirin 81 mg daily. We will allow permissive hypertension, so long as the systolic pressure is less than 180 and diastolic pressure is less than 100. He will be admitted to telemetry with neurologic (neuro) check every 4 hours. Should new neurological findings occur, then a repeat CT will be performed to rule out edema, mass effect and new infarct. At this time, the patient has no expressive aphasia or dysarthria to be concerned about aspiration; therefore, he may start on a no-added salt diet. Await carotid Doppler result and repeat echocardiogram. Patient's CVA thought to be secondary to underlying atrial fibrillation. ARU consulted. 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 Currently on aspirin 325 mg, which will be changed to aspirin 81 mg and Eliquis 2-1/2 mg twice a day. Patient appears to be rate controlled. At this time, he will be admitted to telemetry for further monitoring and resumed on his rate control medications, Coreg 3.25 mg twice a day. Hyperlipidemia. Continue patient on home rosuvastatin. History of coronary artery disease, CABG, multiple stents. Currently on aspirin 81 mg daily, rosuvastatin, Coreg, and losartan. Compensation Specialist has been consulted regarding decision for anticoagulation and antiplatelet therapy. Dr. Castaneda, steamfitter child nutrition director, recommends full anticoagulation as recommended by neurologist, Dr. Neo Comer. Hypertensive heart disease. Continue on home dose of losartan, Coreg and Lasix. Allow for permissive hypertension in light of acute CVA with holding parameters for these medications. Hypothyroidism. Resume home dose of levothyroxine at 50 mcg daily. History of GI bleed Per daughter, pt was sent from [facility] ER to [place] for GI bleed. After EMR review, 12/2007 documented on ER sheet, but name of the hospital could not be found. Medical release to be signed by the patient to obtain records from the [facility]. with documented diverticulosis on previous colonoscopy in 2000, done by Dr. Neff, and colonic polyps. There is no documented EGD; therefore, will contact Dr. Neff's office in the morning to obtain full results. To prevent GI bleed, the patient will be continued on his Protonix 40 mg twice a day along with Carafate 1 gram by mouth before food and nightly. Degenerative joint disease with chronic low back pain. Currently on no medications. Deep vein thrombosis (DVT) prophylaxis. Currently on Eliquis, renally dosed. VS, I&O, 24H, Fishbone Vital Signs/I&O Vital Signs Date Time Temp Pulse Resp B/P (MAP) Pulse Ox O2 Delivery O2 Flow Rate FiO2 03/17/19 04:00 98.2 72 18 130/58 (82) 98 03/15/19 19:20 Room Air I&O- Last 24 Hours up to 6 AM 03/17/19 06:00 Intake Total 860 ml Output Total 1625 ml Balance -765 ml Laboratory Data CBC/BMP Laboratory Tests 03/16/19 12:13 03/17/19 00:02 Microbiology Microbiology 03/16/19 Stool Occult Blood ([facility]) - Final, Complete SHAYNA GUERIN MD Mar 17, 2019 06:41
[2019-03-17 12:29] LABS: HEMATOCRIT 38.2 % (42.0-52.0); HEMOGLOBIN 12.5 g/dl (13.5-17.5)
[2019-03-17 16:00] VITALS: BP 148/70
[2019-03-17 20:00] VITALS: BP 130/69
[2019-03-17] MEDS: ROSUVASTATIN 10 MG TAB (CRESTOR) PO SCH (21:40)
[2019-03-17 23:59] VITALS: BP 133/70
[2019-03-18] VITALS (7 sets, daily range): BP systolic 114–144; BP diastolic 61–81
[2019-03-18 00:34] LABS: HEMATOCRIT 38.8 % (42.0-52.0)
[2019-03-18] MEDS: LEVOTHYROXINE 50MCG TABLET (0.05MG) PO SCH (05:25)
[2019-03-18] MEDS: SLF 3 ML SYR IV SCH ×3 (05:25→22:25)
[2019-03-18] MEDS ORDERED: GI COCKTAIL 50ML BTL(HYOSCYAMINE/MAALOX/LIDOCAINE VISCOUS)(1:3:1) PO PRN (06:15)
[2019-03-18 06:31] LABS: HEMATOCRIT 35.4 % (42.0-52.0); HEMOGLOBIN 11.8 g/dl (13.5-17.5); MEAN CORPUSCULAR HEMOGLOBIN 31.2 pg (27.0-33.0); MEAN CORPUSCULAR HGB CONC 33.3 g/dl (32.0-36.5); MEAN CORPUSCULAR VOLUME 93.7 fl (80.0-96.0); PLATELET COUNT, AUTOMATED 140 10^3/uL (150-450); RED BLOOD COUNT 3.78 10^6/uL (4.30-6.10); WHITE BLOOD COUNT 4.9 10^3/uL (4.0-10.0)
[2019-03-18 06:56] LABS: BLOOD UREA NITROGEN 23 MG/DL (7-18); CALCIUM LEVEL 8.8 MG/DL (8.8-10.2); CARBON DIOXIDE LEVEL 30 MEQ/L (21-32); CHLORIDE LEVEL 106 MEQ/L (98-107); CREATININE FOR GFR 1.09 MG/DL (0.70-1.30); GLOMERULAR FILTRATION RATE > 60.0 (>35); GLUCOSE, FASTING 93 MG/DL (70-100); POTASSIUM SERUM 3.8 MEQ/L (3.5-5.1); SODIUM LEVEL 144 MEQ/L (136-145)
--- NOTE | 2019-03-18 07:44 | IPNPDOC ---
Date Seen The patient was seen on 03/18/19. Progress Note SUBJECTIVE: pt c/o difficulty making a fist with his hands which he has had for years according to the daughter at the bedside. He is able to eat without dropping his cup or utensils. denies any new numbness, tingling, weakness of b/l upper and lower extremities. he has no facial numbness anymore. no difficulty speaking, finding the correct words to say, comprehending, or swallowing. no other changes per daughter and RN at the bedside. Per Dr. Comer, pt will be kept on ASA due to significant CAD comorbidities, and increased eliquis today to 5mg bid. no bowel movement yesterday. denies abd pain, brbpr, hematemesis, melena, or black tarry stools. OBJECTIVE: PHYSICAL EXAMINATION: VITALS: PLS SEE BELOW Generally, the patient is awake, alert, oriented to person and place. He has normal speech. Able to comprehend. He has no facial asymmetry. There is no dysarthria or expressive aphasia. Extraocular muscles are intact. He is wearing eyeglasses. Tongue and uvula are midline. Patient has 5/5 strength bilateral upper extremities. . 4+/5 in left upper and lower extremities. Right-sided strength is 5/5. He has decreased cold pinprick vibration sensation in his feet. He has mild left-sided dysmetria. His gait is unsteady.Patient has some numbness to the left side of the face. Unable to discern sharpness or dullness and states that he has decreased sensation. Patient has normal speech. He has some dysmetria on [id number] testing bilaterally. he has positive Babinski on the left. Lung exam is clear to auscultation. No wheezing, rales, or rhonchi. Heart: Midline incision, well healed. S1, S2, pacer noted left anterior chest. Displaced point of maximum impulse with slight hyperdynamic impulse. There is no S3. No carotid upstroke. There are no bruits noted. Upper and lower extremity pulses are symmetric. Pedal pulses are decreased. There are no varicosities and no pitting edema. Abdomen is soft, nontender, nondistended. Positive bowel sounds. No hepatosplenomegaly. Liver span is about 9 cm right midclavicular line. Rectal exam was deferred. Extremities: No cyanosis, clubbing, or pitting edema. Skin has no ecchymosis, icterus or skin breakdown. EKG is paced rhythm. LABORATORY DATA,IMAGING STUDIES,MICROBIOLOGY: PLS SEE BELOW IMAGING STUDIES: CT of the head: New low density lesion in the periventricular white matter and overlying coon matter of the right posterior parieto-occipital region consistent with recent infarct. No hemorrhage is seen. Vascular calcification, diffuse atrophy and small vessel changes are again noted. Vascular ultrasound: Carotid Dopplers are negative. ASSESSMENT AND PLAN: This is an 84-year-old male with past medical history significant for atrial fibrillation, pacemaker placement, prior transient ischemic attack (TIA) in 2001 with transesophageal echocardiogram failing to show any intracardiac thrombus or mass with normal left ventricular (LV) systolic function. 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 The patient was in his usual state of health until about 2 days ago when he started having dizziness that was noted while he was sitting down. Today at the [facility], the patient experienced more dizziness, did not feel well while he was sitting down waiting to go home by bus at around 2:30 p.m. The staff called his daughter who then came and brought the patient to the emergency room (ER). According to the patient, similar episodes have happened Tuesday evening, Tuesday afternoon and again today. He did not feel his pacer firing. Denied any palpitations, lightheadedness or near syncopal episode. He felt his left face feeling numb as well as around the mouth area. He, otherwise denies any chest pain, pressure or tightness. No nausea, vomiting, diaphoresis, chest heaviness or chest pressure. The patient was wearing a sweater today and felt very hot with some blurred vision. He felt uncomfortable walking, so he sat down and waited for his daughter. He does take aspirin 325 mg daily despite previous history of multiple TIAs in the past; due to a history of gastrointestinal (GI) bleed, the patient has not been placed on full anticoagulation, Coumadin or continued on Plavix. Previous GI bleed noted on electronic medical record was in 2000. Colonoscopy done by Dr. Neff showed diverticulosis with colonic polyps. Esophagogastroduodenoscopy (EGD) was not available in the electronic medical record. In the emergency room, he was found to have paced rhythm. Blood pressure was well maintained at 150/74. According to the daughter, who had seen him at around 2:30 p.m. at the daycare, patient did not have any slurring of his speech, dysarthria, expressive aphasia. He was able to comprehend and understand all questions and answer appropriately. He did not have any facial asymmetry, did not have any upper or lower extremity weakness that was notable. 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 Review by Dr. Comer, neurologist internal combustion engine inspector, includes a possible subacute more than 24 hours of CVA versus chronic, unable to see the cerebellum. However, recommendations are to proceed with full anticoagulation both from Dr. Castaneda, web analyst internal combustion engine inspector, as well as the neurologist, Dr. Comer. The patient and patient's family did not recall the event surrounding the GI bleed over 18 years ago. It has been explained to the patient and the patient's family that there is a risk of bleeding with starting anticoagulation and continuing with antiplatelet therapy. They are fully aware of the consequences and agreed with continuing with present management. Per Dr. Comer, neurologist, internal combustion engine inspector, he is recommending aspirin 81 mg for 2 days and then discontinuing this. To start with low dose Eliquis at 2.5 mg twice a day and by Tuesday to increase that to 5 mg twice a day. Blood pressure will be permitted to increase so long as it is less than 180 mmHg systolic and less than 100 diastolic. Carotid Dopplers of the neck have been ordered as well as two-dimensional echocardiogram. Right parieto-occipital infarct, which could be subacute versus chronic. According to Dr. Neo Comer, the patient should be fully anticoagulated and currently being started on Eliquis 2-1/2 mg twice a day, increase to 5 mg twice a day on Tuesday and continued on aspirin 81 mg daily. We will allow permissive hypertension, so long as the systolic pressure is less than 180 and diastolic pressure is less than 100. He will be admitted to telemetry with neurologic (neuro) check every 4 hours. Should new neurological findings occur, then a repeat CT will be performed to rule out edema, mass effect and new infarct. At this time, the patient has no expressive aphasia or dysarthria to be concerned about aspiration; therefore, he may start on a no-added salt diet. Await carotid Doppler result and repeat echocardiogram. Patient's CVA thought to be secondary to underlying atrial fibrillation. ARU consulted. 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 Currently on aspirin 325 mg, which will be changed to aspirin 81 mg and Eliquis 2-1/2 mg twice a day. Patient appears to be rate controlled. At this time, he will be admitted to telemetry for further monitoring and resumed on his rate control medications, Coreg 3.25 mg twice a day. Hyperlipidemia. Continue patient on home rosuvastatin. History of coronary artery disease, CABG, multiple stents. Currently on aspirin 81 mg daily, rosuvastatin, Coreg, and losartan. Aeroplane Pilot has been consulted regarding decision for anticoagulation and antiplatelet therapy. Dr. Castaneda, web analyst internal combustion engine inspector, recommends full anticoagulation as recommended by neurologist, Dr. Neo Comer. Hypertensive heart disease. Continue on home dose of losartan, Coreg and Lasix. Allow for permissive hypertension in light of acute CVA with holding parameters for these medications. Hypothyroidism. Resume home dose of levothyroxine at 50 mcg daily. History of GI bleed Per daughter, pt was sent from [facility] to [place] for GI bleed. After EMR review, 12/2007 documented on ER sheet, but name of the hospital could not be found. Medical release to be signed by the patient to obtain records from the [facility]. with documented diverticulosis on previous colonoscopy in 2000, done by Dr. Neff, and colonic polyps. There is no documented EGD; therefore, will contact Dr. Neff's office in the morning to obtain full results. To prevent GI bleed, the patient will be continued on his Protonix 40 mg twice a day along with Carafate 1 gram by mouth before food and nightly. Degenerative joint disease with chronic low back pain. Currently on no medications. Deep vein thrombosis (DVT) prophylaxis. Currently on Eliquis, renally dosed. VS, I&O, 24H, Fishbone Vital Signs/I&O Vital Signs Date Time Temp Pulse Resp B/P (MAP) Pulse Ox O2 Delivery O2 Flow Rate FiO2 03/18/19 04:00 97.9 61 16 115/65 (82) 97 03/15/19 19:20 Room Air I&O- Last 24 Hours up to 6 AM 03/18/19 06:00 Intake Total 1260 ml Output Total 500 ml Balance 760 ml Laboratory Data CBC/BMP Laboratory Tests 03/17/19 12:16 03/18/19 00:18 Microbiology Microbiology 03/16/19 Stool Occult Blood ([facility]) - Final, Complete SHAYNA GUERIN MD Mar 18, 2019 06:04
[2019-03-18] MEDS: SUCRALFATE SUSP 1GM/10ML UD PO SCH ×4 (08:06→22:24)
[2019-03-18] MEDS: ACETAMINOPHEN 500 MG TAB PO SCH ×2 (08:06→22:24)
[2019-03-18] MEDS: APIXABAN 5 MG TAB (ELIQUIS) PO SCH ×2 (08:06→22:24)
[2019-03-18] MEDS: LOSARTAN 25 MG TAB PO SCH (08:07)
[2019-03-18] MEDS: ASCORBIC ACID 500 MG TAB PO SCH (08:07)
[2019-03-18] MEDS: ASPIRIN 81 MG CHEW TABLET PO SCH (08:07)
[2019-03-18] MEDS: CARVedilol 3.125 MG TAB PO SCH ×2 (08:07→21:00)
[2019-03-18] MEDS: PANTOPRAZOLE 40MG TAB (PROTONIX) PO SCH ×2 (08:07→22:24)
[2019-03-18] MEDS: POLYVINYL ALCOHOL OPHTH SOLN 15 ML(LIQUITEARS) OU SCH ×4 (08:08→22:25)
[2019-03-18] MEDS: LATANOPROST 0.005% OPHTH SOLN 2.5 ML OU SCH ×2 (08:08→22:25)
[2019-03-18] MEDS: CYANOCOBALAMIN 500 MCG TAB PO SCH (08:08)
[2019-03-18] MEDS: ALLOPURINOL 100 MG TAB PO SCH (08:08)
[2019-03-18] MEDS: FUROSEMIDE 20 MG TAB PO SCH ×2 (08:08→16:51)
[2019-03-18 18:49] LABS: HEMATOCRIT 36.6 % (42.0-52.0); HEMOGLOBIN 12.1 g/dl (13.5-17.5)
[2019-03-18] MEDS: ROSUVASTATIN 10 MG TAB (CRESTOR) PO SCH (22:24)
[2019-03-19 00:39] LABS: HEMATOCRIT 35.4 % (42.0-52.0); HEMOGLOBIN 11.5 g/dl (13.5-17.5)
[2019-03-19 04:00] VITALS: BP 143/72
[2019-03-19] MEDS: SLF 3 ML SYR IV SCH ×2 (05:53→14:19)
[2019-03-19] MEDS: LEVOTHYROXINE 50MCG TABLET (0.05MG) PO SCH (05:53)
[2019-03-19 06:02] LABS: HEMATOCRIT 35.5 % (42.0-52.0); HEMOGLOBIN 11.5 g/dl (13.5-17.5); MEAN CORPUSCULAR HEMOGLOBIN 30.6 pg (27.0-33.0); MEAN CORPUSCULAR HGB CONC 32.4 g/dl (32.0-36.5); MEAN CORPUSCULAR VOLUME 94.4 fl (80.0-96.0); PLATELET COUNT, AUTOMATED 137 10^3/uL (150-450); RED BLOOD COUNT 3.76 10^6/uL (4.30-6.10); WHITE BLOOD COUNT 5.7 10^3/uL (4.0-10.0)
[2019-03-19 06:20] LABS: BLOOD UREA NITROGEN 24 MG/DL (7-18); CALCIUM LEVEL 8.5 MG/DL (8.8-10.2); CARBON DIOXIDE LEVEL 31 MEQ/L (21-32); CHLORIDE LEVEL 108 MEQ/L (98-107); CREATININE FOR GFR 1.17 MG/DL (0.70-1.30); GLOMERULAR FILTRATION RATE > 60.0 (>35); GLUCOSE, FASTING 85 MG/DL (70-100); POTASSIUM SERUM 3.7 MEQ/L (3.5-5.1); SODIUM LEVEL 142 MEQ/L (136-145)
[2019-03-19 08:00] VITALS: BP 130/73
--- NOTE | 2019-03-19 08:28 | ECHO ---
DATE OF STUDY: 03/17/2019 AGE: 84 GENDER: Male. HEIGHT: 70 inches. WEIGHT: 154 pounds, body surface area 1.86 meters squared. LOCATION: Inpatient PCU, room 3230. REFERRING PHYSICIAN: Dr. Audrey Smith INDICATIONS: Cerebrovascular accident (CVA). MEASUREMENTS 2-D MEASUREMENTS: RV - 4.5 cm LV - 4.5 cm Septum 1.2 cm Posterior wall 1.3 cm Aortic root 3.8 cm LA - 4.2 cm LVEF 45-50% DOPPLER MEASUREMENTS: AV - 1.5 m/s LVOT - 0.8 m/s LVOT diameter - 2.1 cm MV-E 110 Early mitral deceleration time 151 E prime 9.4, E/E prime ratio 11.7 PCWP - 14 mmHg PV - 0.8 m/s Pulmonary artery acceleration time 95 ms RVSP - 41 mmHg IVC - 2.0 cm COMMENTS: Underlying sinus mechanism with complete heart block and consistent ventricular paced complexes at 60 bpm. Technically difficult study in light of the patient's body habitus, but some diagnostically useful information was still obtained. Borderline concentric left ventricular hypertrophy with septal wall motion abnormality related to right ventricular pacing and mild impairment of global resting systolic function. Mildly dilated left atrium with current estimated mean left atrial pressure only slightly increased. Mildly dilated right heart chambers with normal right ventricular wall motion and Doppler evidence of moderate pulmonary hypertension. IVC size upper limits of normal with adequate respiratory collapse against an elevated central venous pressure at this time. Mild aortic valvular sclerosis without stenosis but mild insufficiency. Normal aortic root and proximal ascending aortic diameters. Mild degenerative changes of the mitral valvular apparatus with adequate leaflet excursion and no posterior systolic buckling, yet mild insufficiency. Normal appearing tricuspid valve with moderate insufficiency. Pacing leads can be visualized traversing right heart structures but no separate intracardiac mass. No pericardial effusion. If a cardiac source of embolic material is seriously suspect, would recommend a transesophageal echocardiogram.
[2019-03-19 09:00] VITALS: BP 130/74
[2019-03-19] MEDS: CARVedilol 3.125 MG TAB PO SCH (09:00)
[2019-03-19] MEDS: LOSARTAN 25 MG TAB PO SCH (09:00)
[2019-03-19] MEDS: FUROSEMIDE 20 MG TAB PO SCH ×2 (09:00→16:17)
[2019-03-19] MEDS: ALLOPURINOL 100 MG TAB PO SCH (09:11)
[2019-03-19] MEDS: ASPIRIN 81 MG CHEW TABLET PO SCH (09:11)
[2019-03-19] MEDS: PANTOPRAZOLE 40MG TAB (PROTONIX) PO SCH (09:11)
[2019-03-19] MEDS: CYANOCOBALAMIN 500 MCG TAB PO SCH (09:11)
[2019-03-19] MEDS: ASCORBIC ACID 500 MG TAB PO SCH (09:11)
[2019-03-19] MEDS: SUCRALFATE SUSP 1GM/10ML UD PO SCH ×3 (09:11→16:35)
[2019-03-19] MEDS: ACETAMINOPHEN 500 MG TAB PO SCH (09:12)
[2019-03-19] MEDS: APIXABAN 5 MG TAB (ELIQUIS) PO SCH (09:12)
[2019-03-19] MEDS: POLYVINYL ALCOHOL OPHTH SOLN 15 ML(LIQUITEARS) OU SCH ×3 (09:14→16:36)
[2019-03-19] MEDS: LATANOPROST 0.005% OPHTH SOLN 2.5 ML OU SCH (09:14)
[2019-03-19 12:00] VITALS: BP 137/63
[2019-03-19] MEDS ORDERED: SUCR10SS PO (15:16)
[2019-03-19] MEDS ORDERED: ELIQ5TAB PO (15:16)
[2019-03-19] MEDS ORDERED: ASPI81CH8 PO (15:16)
[2019-03-19 16:00] VITALS: BP 110/52
[2019-03-19] MEDS ORDERED: NON-FORMULARY 1 EA EA OU SCH (17:00)
--- NOTE | 2019-03-19 17:52 | IPNPDOC ---
Date Seen The patient was seen on 03/19/19. Progress Note SUBJECTIVE: pt c/o difficulty making a fist with his hands which he has had for years according to the daughter at the bedside. He is able to eat without dropping his cup or utensils. denies any new numbness, tingling, weakness of b/l upper and lower extremities. he has no facial numbness anymore. no difficulty speaking, finding the correct words to say, comprehending, or swallowing. no other changes per daughter and RN at the bedside. Per Dr. Comer, pt will be kept on ASA due to significant CAD comorbidities, and increased eliquis today to 5mg bid. no bowel movement yesterday. denies abd pain, brbpr, hematemesis, melena, or black tarry stools. OBJECTIVE: PHYSICAL EXAMINATION: VITALS: PLS SEE BELOW Generally, the patient is awake, alert, oriented to person and place. He has normal speech. Able to comprehend. He has no facial asymmetry. There is no dysarthria or expressive aphasia. Extraocular muscles are intact. He is wearing eyeglasses. Tongue and uvula are midline. Patient has 5/5 strength bilateral upper extremities. . 4+/5 in left upper and lower extremities. Right-sided strength is 5/5. He has decreased cold pinprick vibration sensation in his feet. He has mild left-sided dysmetria. His gait is unsteady.Patient has some numbness to the left side of the face. Unable to discern sharpness or dullness and states that he has decreased sensation. Patient has normal speech. He has some dysmetria on [id number] testing bilaterally. he has positive Babinski on the left. Lung exam is clear to auscultation. No wheezing, rales, or rhonchi. Heart: Midline incision, well healed. S1, S2, pacer noted left anterior chest. Displaced point of maximum impulse with slight hyperdynamic impulse. There is no S3. No carotid upstroke. There are no bruits noted. Upper and lower extremity pulses are symmetric. Pedal pulses are decreased. There are no varicosities and no pitting edema. Abdomen is soft, nontender, nondistended. Positive bowel sounds. No hepatosplenomegaly. Liver span is about 9 cm right midclavicular line. Rectal exam was deferred. Extremities: No cyanosis, clubbing, or pitting edema. Skin has no ecchymosis, icterus or skin breakdown. EKG is paced rhythm. LABORATORY DATA,IMAGING STUDIES,MICROBIOLOGY: PLS SEE BELOW IMAGING STUDIES: CT of the head: New low density lesion in the periventricular white matter and overlying coon matter of the right posterior parieto-occipital region consistent with recent infarct. No hemorrhage is seen. Vascular calcification, diffuse atrophy and small vessel changes are again noted. Vascular ultrasound: Carotid Dopplers are negative. ASSESSMENT AND PLAN: This is an 84-year-old male with past medical history significant for atrial fibrillation, pacemaker placement, prior transient ischemic attack (TIA) in 2001 with transesophageal echocardiogram failing to show any intracardiac thrombus or mass with normal left ventricular (LV) systolic function. 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 The patient was in his usual state of health until about 2 days ago when he started having dizziness that was noted while he was sitting down. Today at the [facility], the patient experienced more dizziness, did not feel well while he was sitting down waiting to go home by bus at around 2:30 p.m. The staff called his daughter who then came and brought the patient to the emergency room (ER). According to the patient, similar episodes have happened Tuesday evening, Tuesday afternoon and again today. He did not feel his pacer firing. Denied any palpitations, lightheadedness or near syncopal episode. He felt his left face feeling numb as well as around the mouth area. He, otherwise denies any chest pain, pressure or tightness. No nausea, vomiting, diaphoresis, chest heaviness or chest pressure. The patient was wearing a sweater today and felt very hot with some blurred vision. He felt uncomfortable walking, so he sat down and waited for his daughter. He does take aspirin 325 mg daily despite previous history of multiple TIAs in the past; due to a history of gastrointestinal (GI) bleed, the patient has not been placed on full anticoagulation, Coumadin or continued on Plavix. Previous GI bleed noted on electronic medical record was in 2000. Colonoscopy done by Dr. Neff showed diverticulosis with colonic polyps. Esophagogastroduodenoscopy (EGD) was not available in the electronic medical record. In the emergency room, he was found to have paced rhythm. Blood pressure was well maintained at 150/74. According to the daughter, who had seen him at around 2:30 p.m. at the daycare, patient did not have any slurring of his speech, dysarthria, expressive aphasia. He was able to comprehend and understand all questions and answer appropriately. He did not have any facial asymmetry, did not have any upper or lower extremity weakness that was notable. 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 Review by Dr. Comer, neurologist telecommunications clerk, includes a possible subacute more than 24 hours of CVA versus chronic, unable to see the cerebellum. However, recommendations are to proceed with full anticoagulation both from Dr. Castaneda, glazier helper telecommunications clerk, as well as the neurologist, Dr. Comer. The patient and patient's family did not recall the event surrounding the GI bleed over 18 years ago. It has been explained to the patient and the patient's family that there is a risk of bleeding with starting anticoagulation and continuing with antiplatelet therapy. They are fully aware of the consequences and agreed with continuing with present management. Per Dr. Comer, neurologist, telecommunications clerk, he is recommending aspirin 81 mg for 2 days and then discontinuing this. To start with low dose Eliquis at 2.5 mg twice a day and by Tuesday to increase that to 5 mg twice a day. Blood pressure will be permitted to increase so long as it is less than 180 mmHg systolic and less than 100 diastolic. Carotid Dopplers of the neck have been ordered as well as two-dimensional echocardiogram. Right parieto-occipital infarct, which could be subacute versus chronic. According to Dr. Neo Comer, the patient should be fully anticoagulated and currently being started on Eliquis 2-1/2 mg twice a day, increase to 5 mg twice a day on Tuesday and continued on aspirin 81 mg daily. We will allow permissive hypertension, so long as the systolic pressure is less than 180 and diastolic pressure is less than 100. He will be admitted to telemetry with neurologic (neuro) check every 4 hours. Should new neurological findings occur, then a repeat CT will be performed to rule out edema, mass effect and new infarct. At this time, the patient has no expressive aphasia or dysarthria to be concerned about aspiration; therefore, he may start on a no-added salt diet. Await carotid Doppler result and repeat echocardiogram. Patient's CVA thought to be secondary to underlying atrial fibrillation. ARU consulted. 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 Currently on aspirin 325 mg, which will be changed to aspirin 81 mg and Eliquis 2-1/2 mg twice a day. Patient appears to be rate controlled. At this time, he will be admitted to telemetry for further monitoring and resumed on his rate control medications, Coreg 3.25 mg twice a day. Hyperlipidemia. Continue patient on home rosuvastatin. History of coronary artery disease, CABG, multiple stents. Currently on aspirin 81 mg daily, rosuvastatin, Coreg, and losartan. Study Manager has been consulted regarding decision for anticoagulation and antiplatelet therapy. Dr. Castaneda, glazier helper telecommunications clerk, recommends full anticoagulation as recommended by neurologist, Dr. Neo Comer. Hypertensive heart disease. Continue on home dose of losartan, Coreg and Lasix. Allow for permissive hypertension in light of acute CVA with holding parameters for these medications. Hypothyroidism. Resume home dose of levothyroxine at 50 mcg daily. History of GI bleed Per daughter, pt was sent from [facility] ER to [facility] for GI bleed. After EMR review, 12/2007 documented on ER sheet, but name of the hospital could not be found. Medical release to be signed by the patient to obtain records from the [facility]. with documented diverticulosis on previous colonoscopy in 2000, done by Dr. Neff, and colonic polyps. There is no documented EGD; therefore, will contact Dr. Neff's office in the morning to obtain full results. To prevent GI bleed, the patient will be continued on his Protonix 40 mg twice a day along with Carafate 1 gram by mouth before food and nightly. Degenerative joint disease with chronic low back pain. Currently on no medications. Deep vein thrombosis (DVT) prophylaxis. Currently on Eliquis, renally dosed. VS, I&O, 24H, Fishbone Vital Signs/I&O Vital Signs Date Time Temp Pulse Resp B/P (MAP) Pulse Ox O2 Delivery O2 Flow Rate FiO2 03/19/19 04:00 98.9 63 16 143/72 (95) 96 03/15/19 19:20 Room Air I&O- Last 24 Hours up to 6 AM 03/19/19 06:00 Intake Total 780 ml Output Total 250 ml Balance 530 ml Laboratory Data 24H LABS Laboratory Tests 2 03/19/19 05:11: Nucleated Red Blood Cells % (auto) 0.0, Anion Gap 3L, Glomerular Filtration Rate > 60.0, Blood Urea Nitrogen 24H, Creatinine 1.17, Sodium Level 142, Potassium Level 3.7, Chloride Level 108H, Carbon Dioxide Level 31, Calcium Level 8.5L CBC/BMP Laboratory Tests 03/18/19 18:19 03/19/19 00:08 03/19/19 05:11 Red Blood Count 3.76 L, Mean Corpuscular Volume 94.4, Mean Corpuscular Hemoglobin 30.6, Mean Corpuscular Hemoglobin Concent 32.4, Red Cell Distribution Width 13.6, Calcium Level 8.5 L Microbiology Microbiology 03/16/19 Stool Occult Blood ([facility]) - Final, Complete SHAYNA GUERIN MD Mar 19, 2019 06:34
--- NOTE | 2019-03-19 18:02 | DS.PDOC ---
Discharge Summary General Date of Admission Mar 15, 2019 at 17:18 Date of Discharge March 19, 2019 Discharge Summary NEUROLOGIST: DR. 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 The patient was in his usual state of health until about 2 days ago when he started having dizziness that was noted while he was sitting down. Today at the [facility], the patient experienced more dizziness, did not feel well while he was sitting down waiting to go home by bus at around 2:30 p.m. The staff called his daughter who then came and brought the patient to the emergency room (ER). According to the patient, similar episodes have happened Tuesday evening, Tuesday afternoon and again today. He did not feel his pacer firing. Denied any palpitations, lightheadedness or near syncopal episode. He felt his left face feeling numb as well as around the mouth area. He, otherwise denies any chest pain, pressure or tightness. No nausea, vomiting, diaphoresis, chest heaviness or chest pressure. The patient was wearing a sweater today and felt very hot with some blurred vision. He felt uncomfortable walking, so he sat down and waited for his daughter. He does take aspirin 325 mg daily despite previous history of multiple TIAs in the past; due to a history of gastrointestinal (GI) bleed, the patient has not been placed on full anticoagulation, Coumadin or continued on Plavix. Previous GI bleed noted on electronic medical record was in 2000. Colonoscopy done by Dr. Neff showed diverticulosis with colonic polyps. Esophagogastroduodenoscopy (EGD) was not available in the electronic medical record. In the emergency room, he was found to have paced rhythm. Blood pressure was well maintained at 150/74. According to the daughter, who had seen him at around 2:30 p.m. at the daycare, patient did not have any slurring of his speech, dysarthria, expressive aphasia. He was able to comprehend and understand all questions and answer appropriately. He did not have any facial asymmetry, did not have any upper or lower extremity weakness that was notable. 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 Review by Dr. Comer, neurologist document preparation specialist, includes a possible subacute more than 24 hours of CVA versus chronic, unable to see the cerebellum. However, recommendations are to proceed with full anticoagulation both from Dr. Castaneda, paper mill manager document preparation specialist, as well as the neurologist, Dr. Comer. The patient and patient's family did not recall the event surrounding the GI bleed over 18 years ago. It has been explained to the patient and the patient's family that there is a risk of bleeding with starting anticoagulation and continuing with antiplatelet therapy. They are fully aware of the consequences and agreed with continuing with present management. Per Dr. Comer, neurologist, document preparation specialist, he is recommending aspirin 81 mg for 2 days and then discontinuing this. To start with low dose Eliquis at 2.5 mg twice a day and by Tuesday to increase that to 5 mg twice a day. Blood pressure will be permitted to increase so long as it is less than 180 mmHg systolic and less than 100 diastolic. Carotid Dopplers of the neck have been ordered as well as two-dimensional echocardiogram. HOSPITAL COURSE: Right parieto-occipital infarct, which could be subacute versus chronic. According to Dr. Neo Comer, the patient should be fully anticoagulated and currently being started on Eliquis 2-1/2 mg twice a day, increase to 5 mg twice a day on Tuesday and continued on aspirin 81 mg daily. We will allow permissive hypertension, so long as the systolic pressure is less than 180 and diastolic pressure is less than 100. He will be admitted to telemetry with neurologic (neuro) check every 4 hours. Should new neurological findings occur, then a repeat CT will be performed to rule out edema, mass effect and new infarct. At this time, the patient has no expressive aphasia or dysarthria to be concerned about aspiration; therefore, he may start on a no-added salt diet. Await carotid Doppler result and repeat echocardiogram. Patient's CVA thought to be secondary to underlying atrial fibrillation. ARU consulted. 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 Currently on aspirin 325 mg, which will be changed to aspirin 81 mg and Eliquis 2-1/2 mg twice a day. Patient appears to be rate controlled. At this time, he will be admitted to telemetry for further monitoring and resumed on his rate control medications, Coreg 3.25 mg twice a day. Hyperlipidemia. Continue patient on home rosuvastatin. History of coronary artery disease, CABG, multiple stents. Currently on aspirin 81 mg daily, rosuvastatin, Coreg, and losartan. Regional Project Manager has been consulted regarding decision for anticoagulation and antiplatelet therapy. Dr. Castaneda, paper mill manager document preparation specialist, recommends full anticoagulation as recommended by neurologist, Dr. Neo Comer. Hypertensive heart disease. Continue on home dose of losartan, Coreg and Lasix. Allow for permissive hypertension in light of acute CVA with holding parameters for these medications. Hypothyroidism. Resume home dose of levothyroxine at 50 mcg daily. History of GI bleed Per daughter, pt was sent from [facility] ER to [place] for GI bleed. After EMR review, 12/2007 documented on ER sheet, but name of the hospital could not be found. Medical release to be signed by the patient to obtain records from the [facility]. with documented diverticulosis on previous colonoscopy in 2000, done by Dr. Neff, and colonic polyps. There is no documented EGD; therefore, will contact Dr. Neff's office in the morning to obtain full results. To prevent GI bleed, the patient will be continued on his Protonix 40 mg twice a day along with Carafate 1 gram by mouth before food and nightly. Degenerative joint disease with chronic low back pain. Currently on no medications. Deep vein thrombosis (DVT) prophylaxis. Currently on Eliquis, renally dosed. DISCHARGE PHYSICAL EXAMINATION: PHYSICAL EXAMINATION: VITALS: PLS SEE BELOW Generally, the patient is awake, alert, oriented to person and place. He has normal speech. Able to comprehend. He has no facial asymmetry. There is no dysarthria or expressive aphasia. Extraocular muscles are intact. He is wearing eyeglasses. Tongue and uvula are midline. Patient has 5/5 strength bilateral upper extremities. . 4+/5 in left upper and lower extremities. Right-sided strength is 5/5. He has decreased cold pinprick vibration sensation in his feet. He has mild left-sided dysmetria. His gait is unsteady.Patient has some numbness to the left side of the face. Unable to discern sharpness or dullness and states that he has decreased sensation. Patient has normal speech. He has some dysmetria on [id number] testing bilaterally. he has positive Babinski on the left. Lung exam is clear to auscultation. No wheezing, rales, or rhonchi. Heart: Midline incision, well healed. S1, S2, pacer noted left anterior chest. Displaced point of maximum impulse with slight hyperdynamic impulse. There is no S3. No carotid upstroke. There are no bruits noted. Upper and lower extremity pulses are symmetric. Pedal pulses are decreased. There are no varicosities and no pitting edema. Abdomen is soft, nontender, nondistended. Positive bowel sounds. No hepatosplenomegaly. Liver span is about 9 cm right midclavicular line. Rectal exam was deferred. Extremities: No cyanosis, clubbing, or pitting edema. Skin has no ecchymosis, icterus or skin breakdown. EKG is paced rhythm. LABORATORY DATA,IMAGING STUDIES,MICROBIOLOGY: PLS SEE BELOW ECHOCARDIOGRAM: WEIGHT: 154 pounds, body surface area 1.86 meters squared. LOCATION: Inpatient PCU, room 3230. REFERRING PHYSICIAN: Dr. Shayna Guerin INDICATIONS: Cerebrovascular accident (CVA). MEASUREMENTS 2-D MEASUREMENTS: RV - 4.5 cm LV - 4.5 cm Septum 1.2 cm Posterior wall 1.3 cm Aortic root 3.8 cm LA - 4.2 cm LVEF 45-50% DOPPLER MEASUREMENTS: AV - 1.5 m/s LVOT - 0.8 m/s LVOT diameter - 2.1 cm MV-E 110 Early mitral deceleration time 151 E prime 9.4, E/E prime ratio 11.7 PCWP - 14 mmHg PV - 0.8 m/s Pulmonary artery acceleration time 95 ms RVSP - 41 mmHg IVC - 2.0 cm COMMENTS: Underlying sinus mechanism with complete heart block and consistent ventricular paced complexes at 60 bpm. Technically difficult study in light of the patient's body habitus, but some diagnostically useful information was still obtained. Borderline concentric left ventricular hypertrophy with septal wall motion abnormality related to right ventricular pacing and mild impairment of global resting systolic function. Mildly dilated left atrium with current estimated mean left atrial pressure only slightly increased. Mildly dilated right heart chambers with normal right ventricular wall motion and Doppler evidence of moderate pulmonary hypertension. IVC size upper limits of normal with adequate respiratory collapse against an elevated central venous pressure at this time. Mild aortic valvular sclerosis without stenosis but mild insufficiency. Normal aortic root and proximal ascending aortic diameters. Mild degenerative changes of the mitral valvular apparatus with adequate leaflet excursion and no posterior systolic buckling, yet mild insufficiency. Normal appearing tricuspid valve with moderate insufficiency. Pacing leads can be visualized traversing right heart structures but no separate intracardiac mass. No pericardial effusion. If a cardiac source of embolic material is seriously suspect, would recommend a transesophageal echocardiogram. DD: Des Eveertt MD, [facility] 03/18/191913 DT: SARAH 03/19/19814 DS: MIMA 03/19/191728 <Electronically signed by Des Everett > 03/19/191728 CT brain without contrast: History: Blurred vision. Comparison study is from February 21, 2015. CT findings: Digital preliminary security door installer radiograph is unremarkable. No bony calvarial lesion is appreciated. The visualized paranasal sinuses are clear. Vascular calcifications noted in the carotid siphons bilaterally. On soft tissue window settings, there is moderate generalized volume loss and concordant ventricular enlargement. There are small vessel atherosclerotic changes in the periventricular white matter of the frontal lobes. There is a new area of low density extending to the overlying cortex from the posterior body of the right lateral ventricle consistent with a right parieto-occipital lobe infarction. This was not apparent on February 2015. There is no evidence of intracranial hemorrhage. No other acute infarction is seen. There is physiologic calcification of the basal ganglia bilaterally. This is a normal variant. No extra-axial fluid collection or midline shift is seen. No mass lesion is observed. Impression: New low density lesion in the periventricular white matter and overlying coon matter of the right posterior parieto-occipital region consistent with a recent infarction. No hemorrhage is seen. Vascular calcification, diffuse atrophy, and small vessel changes are again noted. Electronically Signed by Kun Dubois MD 03/16/2019 08:05 A DS2: FINDINGS: Right side: The right ratio is 0.7 which is within the range of normal. Peak velocity of the right internal carotid artery is 51.7 cm/s. Right ECA 44.2 cm/s. The right vertebral artery is antegrade. Left side: The left ratio is 0.8 and within the range of normal. The left ICA has a velocity of 58.2 cm/s. ECA 40.7 cm/s. The left vertebral artery is antegrade. IMPRESSION: No evidence of stenosis right or left internal carotid artery. COMMENT: Carotid Stenosis Reference using SRU criteria: Mild: less than 50% stenosis. ICA PSV is less than 125 cm/second and plaque or intimal thickening is visible. Moderate: 50-69% stenosis. ICA PSV is 125 to 230 cm/second and plaque is visible. Severe: 70-94% stenosis. ICA PSV is more than 230 cm/second and visible plaque and lumen narrowing are seen. Near occlusion: 95-99% stenosis. ICA PSV is variable and significant plaque and luminal narrowing are seen. Occluded: 100% stenosis. No flow identified. Electronically signed by: Chano Leigh On 03/15/2019 19:48:51 PM TIME SPENT ON HOSPITAL DISCHARGE: 32 MINUTES. Vital Signs/I&Os Vital Signs Date Time Temp Pulse Resp B/P (MAP) Pulse Ox O2 Delivery O2 Flow Rate FiO2 03/19/19 16:00 97.3 78 18 110/52 (71) 96 03/15/19 19:20 Room Air I&O- Last 24 Hours up to 6 AM0 03/19/19 06:00 Intake Total 1020 ml Output Total 250 ml Balance 770 ml Laboratory Data Labs 24H Laboratory Tests 2 03/19/19 05:11: Nucleated Red Blood Cells % (auto) 0.0, Anion Gap 3L, Glomerular Filtration Rate > 60.0, Blood Urea Nitrogen 24H, Creatinine 1.17, Sodium Level 142, Potassium Level 3.7, Chloride Level 108H, Carbon Dioxide Level 31, Calcium Level 8.5L CBC/BMP Laboratory Tests 03/18/19 18:19 03/19/19 00:08 03/19/19 05:11 Red Blood Count 3.76 L, Mean Corpuscular Volume 94.4, Mean Corpuscular Hemoglobin 30.6, Mean Corpuscular Hemoglobin Concent 32.4, Red Cell Distribution Width 13.6, Calcium Level 8.5 L Microbiology Microbiology 03/16/19 Stool Occult Blood (KAPIL) - Final, Complete Discharge Medications Scheduled Acetaminophen (Acetaminophen) 500 Mg Tab, 500 MG PO BID, (Reported) Allopurinol (Allopurinol) 100 Mg Tablet, 200 MG PO DAILY, (Reported) Apixaban (Eliquis) 5 Mg Tablet, 5 MG PO BID Ascorbic Acid (Vitamin C) 500 Mg Tab, 500 MG PO DAILY, (Reported) Aspirin (Children's Aspirin) 81 Mg Tab.chew, 81 MG PO DAILY Carboxymethylcellulose Sodium (Refresh Tears) 0.5 % Dwight, 1 DROP OU TID, (Reported) Carvedilol (Carvedilol) 3.125 Mg Tab, 3.125 MG PO BID, (Reported) Cyanocobalamin (Vitamin B-12) (Vitamin B-12) 1,000 Mcg Cap, 1,000 MCG PO DAILY, (Reported) Cyclosporine (Restasis) 0.05% Droperette, 1 DROP OU BID, (Reported) Furosemide (Furosemide) 20 Mg Tablet, 20 MG PO BID, (Reported) Guaifenesin/Pseudoephedrne HCl (Mucinex D ER 600-60 mg Tablet) 1 Each Tab.er.12h, 1 TAB PO DAILY, (Reported) Latanoprost (Xalatan) 0.005 % Rosalinda, 1 DROP OU BID, (Reported) Levothyroxine Sodium (Synthroid) 50 Mcg Tab, 50 MCG PO DAILY, (Reported) Losartan Potassium (Losartan Potassium) 25 Mg Tablet, 12.5 MG PO DAILY, (Reported) Pantoprazole Sodium (Protonix) 40 Mg Tab, 40 MG PO BID, (Reported) Rosuvastatin Calcium (Rosuvastatin Calcium) 10 Mg Tablet, 10 MG PO QHS, (Reported) Sucralfate (Sucralfate) 1 Gm/10 Ml Oral.susp, 1 GM PO ACHS Allergies Coded Allergies: promethazine (Verified Adverse Reaction, Severe, HALLUCINATION, NAUSEA, ARRHYTHMIA, 03/15/19) donepezil (Verified Adverse Reaction, Unknown, "HAD GI BLEED AND THAT WAS ONE OF THE SIDE EFFECTS", 03/15/19) SHAYNA GUERIN MD Mar 19, 2019 17:54
== END 2019-03-19 17:03 | DRG 66 ==
LOC: M ED 14:58 → M ED INP 17:18 → M PCU 21:35
PROVIDERS: ADMIT General Practice; ATTEND General Practice
DX: I63.9 Cerebral infarction, unspecified (principal); I49.5 Sick sinus syndrome; I48.0 Paroxysmal atrial fibrillation; I11.9 Hypertensive heart disease without heart failure; I25.10 Atherosclerotic heart disease of native coronary artery without angina pectoris; E03.9 Hypothyroidism, unspecified; E78.5 Hyperlipidemia, unspecified; D64.9 Anemia, unspecified; Z95.0 Presence of cardiac pacemaker; K57.30 Diverticulosis of large intestine without perforation or abscess without bleeding; Z95.1 Presence of aortocoronary bypass graft; M51.36 Other intervertebral disc degeneration, lumbar region; Z79.899 Other long term (current) drug therapy; Z79.82 Long term (current) use of aspirin; Z88.8 Allergy status to other drugs, medicaments and biological substances; K21.9 Gastro-esophageal reflux disease without esophagitis; F03.90 Unspecified dementia, unspecified severity, without behavioral disturbance, psychotic disturbance, mood disturbance, and anxiety; N40.0 Benign prostatic hyperplasia without lower urinary tract symptoms; R91.8 Other nonspecific abnormal finding of lung field; J84.10 Pulmonary fibrosis, unspecified

== ENCOUNTER 2019-03-19 16:19 | Inpatient (IN) | payer OTHER, MEDICARE ==
[~2019-03-19] VITALS: Ht 177.8 cm; Wt 67.4 kg
[~2019-03-19 16:19] MED LIST changes: +ALLO100T PO; +ASPI81CH8 PO; +ELIQ5TAB PO; +FURO20TA2 PO; +LOSA25TA14 PO; +MUCI60TA7 PO; +ROSU10TA6 PO; +SUCR10SS PO
[2019-03-19] MEDS ORDERED: ACETAMINOPHEN TAB 650MG DOSE (2X325MG) PO PRN (16:45)
[2019-03-19] MEDS ORDERED: BISACODYL 10 MG SUPP PR PRN (16:45)
[2019-03-19] MEDS: POLYVINYL ALCOHOL OPHTH SOLN 15 ML(LIQUITEARS) OU SCH ×2 (17:00→20:34)
[2019-03-19] MEDS: FUROSEMIDE 20 MG TAB PO SCH (17:00)
[2019-03-19 17:05] VITALS: BP 126/72
[2019-03-19] MEDS: SUCRALFATE 1 GM TAB PO SCH ×2 (17:30→20:34)
[2019-03-19 20:00] VITALS: BP 128/64
[2019-03-19] MEDS: PANTOPRAZOLE 40MG TAB (PROTONIX) PO SCH (20:33)
[2019-03-19] MEDS: CARVedilol 3.125 MG TAB PO SCH (20:33)
[2019-03-19] MEDS: SENNA 8.6 MG TAB (SENOKOT) PO SCH (20:33)
[2019-03-19] MEDS: APIXABAN 5 MG TAB (ELIQUIS) PO SCH (20:33)
[2019-03-19] MEDS: DOCUSATE SODIUM 100 MG CAP PO SCH (20:34)
[2019-03-19] MEDS: ROSUVASTATIN 10 MG TAB (CRESTOR) PO SCH (20:34)
[2019-03-19] MEDS: LATANOPROST 0.005% OPHTH SOLN 2.5 ML OU SCH (20:34)
[2019-03-20 06:00] VITALS: BP 138/76
[2019-03-20] MEDS: LEVOTHYROXINE 50MCG TABLET (0.05MG) PO SCH (06:12)
[2019-03-20 06:38] LABS: BASO % 0.3 % (0.0-1.0); EOS # 0.2 10^3/uL (0.0-0.50); EOS % 3.1 % (0.0-3.0); HEMATOCRIT 36.5 % (42.0-52.0); HEMOGLOBIN 12.1 g/dl (13.5-17.5); LYMPH # 1.4 10^3/uL (1.5-4.5); LYMPH % 20.5 % (24.0-44.0); MEAN CORPUSCULAR HGB CONC 33.2 g/dl (32.0-36.5); MEAN CORPUSCULAR VOLUME 96.6 fl (80.0-96.0); MONO # 0.7 10^3/uL (0.0-0.8); MONO % 9.7 % (0.0-5.0); NEUTROPHILS # 4.4 10^3/uL (1.8-7.7); PLATELET COUNT, AUTOMATED 143 10^3/uL (150-450); RED BLOOD COUNT 3.78 10^6/uL (4.30-6.10); WHITE BLOOD COUNT 6.7 10^3/uL (4.0-10.0)
[2019-03-20 07:10] LABS: ALBUMIN 3.4 GM/DL (3.2-5.2); ALT/SGPT 19 U/L (12-78); BILIRUBIN,TOTAL 0.6 MG/DL (0.2-1.0); BLOOD UREA NITROGEN 20 MG/DL (7-18); CALCIUM LEVEL 8.8 MG/DL (8.8-10.2); CARBON DIOXIDE LEVEL 31 MEQ/L (21-32); CHLORIDE LEVEL 108 MEQ/L (98-107); GLOMERULAR FILTRATION RATE > 60.0 (>35); GLUCOSE, FASTING 83 MG/DL (70-100); POTASSIUM SERUM 4.1 MEQ/L (3.5-5.1); SODIUM LEVEL 144 MEQ/L (136-145); TOTAL PROTEIN 6.7 GM/DL (6.4-8.2)
[2019-03-20] MEDS ORDERED: LOSARTAN 25 MG TAB PO SCH (09:00)
[2019-03-20] MEDS: DOCUSATE SODIUM 100 MG CAP PO SCH ×2 (09:00→21:01)
[2019-03-20] MEDS: FUROSEMIDE 20 MG TAB PO SCH ×2 (09:00→16:36)
[2019-03-20] MEDS: CARVedilol 3.125 MG TAB PO SCH ×2 (09:00→21:00)
[2019-03-20] MEDS: CYANOCOBALAMIN 500 MCG TAB PO SCH (09:39)
[2019-03-20] MEDS: ASPIRIN 81 MG CHEW TABLET PO SCH (09:39)
[2019-03-20] MEDS: SUCRALFATE 1 GM TAB PO SCH ×4 (09:39→21:01)
[2019-03-20] MEDS: PANTOPRAZOLE 40MG TAB (PROTONIX) PO SCH ×2 (09:40→21:00)
[2019-03-20] MEDS: APIXABAN 5 MG TAB (ELIQUIS) PO SCH ×2 (09:40→21:01)
[2019-03-20] MEDS: ASCORBIC ACID 500 MG TAB PO SCH (09:40)
[2019-03-20] MEDS: ALLOPURINOL 100 MG TAB PO SCH (09:40)
[2019-03-20] MEDS: POLYVINYL ALCOHOL OPHTH SOLN 15 ML(LIQUITEARS) OU SCH ×4 (09:41→21:07)
--- NOTE | 2019-03-20 11:39 | NUR ---
Pt w/ moderate-severe cognitive impairment w/ new right parietal CVA. Hx of old CVA's and baseline dementia. Pt lives w/ daughter but is often left alone as she works. Demonstrated deficits in memory and visual planning. Pt also w/ poor visual acuity, and daughter reports that memory deficits are at baseline. Pt w/ difficulty following complex and lengthy directions. Recommend cognitive tx targeting external memory aids, over-teaching new concepts/strategies learned in PT/OT, and visual organization tasks. Recommend to demonstrate all directives and provide external aids (written/visual). Addendum: 03/20/[address] [facility] Amended: Links added.
--- NOTE | 2019-03-20 12:08 | IPNPDOC ---
PM&R Progress Note DATE OF SERVICE: Mar 20, 2019 Photographic Processor Progress Note Subjective: Patient reporting he is getting along well with therapy, no complaints. REVIEW OF SYSTEMS: The following is a completed review of systems and has been reviewed. Review of systems otherwise unremarkable. PAIN: Patient self reports no pain EYES: No recent vision changes EARS, NOSE, & THROAT: No throat pain, or dysphagia, or rhinorrhea CARDIOVASCULAR: Denies chest pain or palpitations PULMONARY: Denies shortness of breath GASTROINTESTINAL: Denies constipation/diarrhea GENITOURINARY: denies dysuria or incontinence MUSCULOSKELETAL: bilateral shoulder pain NEUROLOGICAL:left sided weakness SKIN: no rash PSYCHIATRIC: Unremarkable All other review of systems found to be negative. PHYSICAL EXAMINATION: VITAL SIGNS: Please see below. GENERAL: Pleasant and cooperative. No acute distress. HEENT: PERRL. Extraocular movements intact. Clear conjunctiva CARDIOVASCULAR: Regular rate and rhythm. No murmurs, rubs, or gallops LUNGS: Clear to auscultation bilaterally. No wheezes. No rhonchi ABDOMEN: Soft, nontender, nondistended. Positive bowel sounds. Normal active bowel sounds NEUROLOGICAL: Alert and oriented to self and place, repeating questions Cranial nerves II through XII grossly intact. Sensation grossly intact EXTREMITIES: 5\\5 strength bilateral upper extremities, except 3-/5 arm abduction. 5\\5 strength right lower extremity. 5/5 strength in left hip flexors, knee extensors, 2/5 ankle DF 0/5 EHL +palpable click bilat shoulders with external rotation, pain with external rotation, SKIN: left foot slightly purple, pedal pulses palpable ASSESSMENT:84-year-old M with past medical history of TIA who presents status post right parieto-occipital stroke. PLAN: 1. rehab: PT- goal to strengthen LE, improve dynamic balance and ambulation on uneven terrains OT- work on improving bilateral shoulder ROM and strength, train safe ways to manage ADLs with shoulder restriction TIRE CLASSIFIER- goal to work on cognition and compensatory strategies to improve overall safety with mobility and ADL management -left foot drop- consider AFO 2. 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 Cardio: Afib with pacemaker with systolic CHF, c/ beta-judson, eliquis, ARB, and lasix- medicine consulted to assist with management 4. Resp: encourage incentive spirometry 5. Endo: hypothyroidism, c/u Synthroid 6. GI ppx: protonix BID and sucralfate in setting of past GI bleed, recent FOBT negative 7. DVT ppx: on eliquis, TEDs 8. : monitor PVRs 9. Dispo: TBD Allergies Coded Allergies: promethazine (Verified Adverse Reaction, Severe, HALLUCINATION, NAUSEA, ARRHYTHMIA, 03/15/19) donepezil (Verified Adverse Reaction, Unknown, "HAD GI BLEED AND THAT WAS ONE OF THE SIDE EFFECTS", 03/15/19) Vital Signs Vital Signs Date Time Temp Pulse Resp B/P (MAP) Pulse Ox O2 Delivery O2 Flow Rate FiO2 03/20/19 09:40 138/76 03/20/19 09:00 65 03/20/19 06:00 98.5 18 92 Laboratory Data CBC/BMP Laboratory Tests 03/20/19 06:07 Red Blood Count 3.78 L, Mean Corpuscular Volume 96.6 H, Mean Corpuscular Hem oglobin 32.0, Mean Corpuscular Hemoglobin Concent 33.2, Red Cell Distribution Width 13.7, Neutrophils (%) (Auto) 66.0, Lymphocytes (%) (Auto) 20.5 L, Monocytes (%) (Auto) 9.7 H, Eosinophils (%) (Auto) 3.1 H, Basophils (%) (Auto) 0.3, Neutrophils # (Auto) 4.4, Lymphocytes # (Auto) 1.4 L, Monocytes # (Auto) 0.7, Eosinophils # (Auto) 0.2, Basophils # (Auto) 0.0, Calcium Level 8.8, Aspartate Amino Transf (AST/SGOT) 22, Alanine Aminotransferase (ALT/SGPT) 19, Alkaline Phosphatase 156 H, Total Bilirubin 0.6, Total Protein 6.7, Albumin 3.4 Labs 24H Laboratory Tests 2 03/20/19 06:07: Immature Granulocyte % (Auto) 0.4, White Blood Count 6.7, Red Blood Count 3.78L, Hemoglobin 12.1L, Hematocrit 36.5L, Mean Corpuscular Volume 96.6H, Mean Corpuscular Hemoglobin 32.0, Mean Corpuscular Hemoglobin Concent 33.2, Red Cell Distribution Width 13.7, Platelet Count 143L, Neutrophils (%) (Auto) 66.0, Lymphocytes (%) (Auto) 20.5L, Monocytes (%) (Auto) 9.7H, Eosinophils (%) (Auto) 3.1H, Basophils (%) (Auto) 0.3, Neutrophils # (Auto) 4.4, Lymphocytes # (Auto) 1.4L, Monocytes # (Auto) 0.7, Eosinophils # (Auto) 0.2, Basophils # (Auto) 0.0, Nucleated Red Blood Cells % (auto) 0.0, Anion Gap 5L, Glomerular Filtration Rate > 60.0, Blood Urea Nitrogen 20H, Creatinine 1.00, Sodium Level 144, Potassium Level 4.1, Chloride Level 108H, Carbon Dioxide Level 31, Calcium Level 8.8, Aspartate Amino Transf (AST/SGOT) 22, Alanine Aminotransferase (ALT/SGPT) 19, Alkaline Phosphatase 156H, Total Bilirubin 0.6, Total Protein 6.7, Albumin 3.4, Albumin/Globulin Ratio 1.03 Current Medications Current Medications Current Medications Acetaminophen (Tylenol Tab) 650 mg Q4HP PRN PO MILD PAIN (PS 1-4); Start 03/19/19 at 16:45 Allopurinol (Zyloprim) 200 mg DAILY PO Last administered on 03/20/19at 09:40; Start 03/20/19 at 09:00 Apixaban (Eliquis) 5 mg BID PO Last administered on 03/20/19at 09:40; Start 03/19/19 at 21:00 Artificial Tears (Akwa Tears) 2 drop QID OU Last administered on 03/20/19at 09:41; Start 03/19/19 at 17:00 Ascorbic Acid (Vitamin C) 500 mg DAILY PO Last administered on 03/20/19at 09:40; Start 03/20/19 at 09:00 Aspirin (Aspirin Chewable) 81 mg DAILY PO Last administered on 03/20/19at 09:39; Start 03/20/19 at 09:00 Bisacodyl (Dulcolax Suppository) 10 mg DAILYPRN PRN AR CONSTIPATION; Start 03/19/19 at 16:45 Carvedilol (COReg) 3.125 mg BID PO Last administered on 03/19/19 20:33; Start 03/19/19 at 21:00 Cyanocobalamin (Vitamin B12) 1,000 mcg DAILY PO Last administered on 03/20/19 09:39; Start 03/20/19 at 09:00 Docusate Sodium (Colace) 100 mg BID PO Last administered on 03/19/19 20:34; Start 03/19/19 at 21:00 Furosemide (Lasix) 20 mg BID@09,17 PO ; Start 03/19/19 at 17:00 Latanoprost (Xalatan 0.005% Op Soln) 1 drop QHS OU Last administered on 03/19/19 20:34; Start 03/19/19 at 21:00 Levothyroxine Sodium (Synthroid) 50 mcg DAILY@06 PO Last administered on 03/20/19 06:12; Start 03/20/19 at 06:00 Losartan Potassium (Cozaar) 12.5 mg DAILY PO Last administered on 03/20/19 09:40; Start 03/20/19 at 09:00 Miscellaneous (Unresolved Patient Own Med Order) SEE LABEL COMMENTS DAILY XX ; Start 03/19/19 at 09:00 Pantoprazole Sodium (Protonix) 40 mg BID PO Last administered on 03/20/19 09 :40; Start 03/19/19 at 21:00 Patient Own Medication (Patient'S Own Med) 1 ea BID OU ; Start 03/19/19 at 21:00; Status UNV Rosuvastatin Calcium (Crestor) 10 mg QHS PO Last administered on 03/19/19 2 0:34; Start 03/19/19 at 21:00 Senna (Senokot) 1 tab QHS PO Last administered on 03/19/19 20:33; Start 03/19/19 at 21:00 Sucralfate (Carafate) 1 gm ACHS PO Last administered on 03/20/19 09:39; Start 03/19/19 at 17:30 HUMAIRA BLACKWOOD MD Mar 20, 2019 12:08
--- NOTE | 2019-03-20 12:08 | HPEPDOC ---
Rug Dyer Note DATE OF ADMISSION: 03/19/19 SOURCE OF ADMISSION INFORMATION: patient and [facility] records CHIEF COMPLAINT: stroke HISTORY OF PRESENT ILLNESS: 84M pmh Afib, TIA in 2001 with ECHO at the time showing an intracardiac mass, tachy-kylee syndrome with pacemaker who was dizzy at home with blurred vision and reported his pacemaker was not firing. He has a history of GI bleed which is why he was not on anticoagulation, but was taking ASA 325mg daily. CTH showed, New low density lesion in the periventricular white matter and overlying coon matter of the right posterior parieto-occipital region consistent with a recent infarction. No hemorrhage is seen. Vascular calcification, diffuse atrophy, and small vessel changes. Carotid ultrasound was negative for stenosis. Both neurology and cardiology recommended placing patient on full dose anticoagulation. ECHO on 03/17/19 showed, Borderline concentric left ventricular hypertrophy with septal wall motion abnormality related to right ventricular pacing and mild impairment of global resting systolic function. He was admitted to ICU and closely monitored, was allowed permissive blood pressures. He was seen by SENIOR APPLICATIONS ANALYST who did not suspect dysphagia and evaluated by therapy where he was found to have impairments in mobility and ADLs below his prior level of function. He was deemed medically appropriate for discharge to ARU on 03/19/19. REVIEW OF SYSTEMS: The following is a completed review of systems and has been reviewed. Review of systems otherwise unremarkable. PAIN: Patient self reports no pain EYES: No recent vision changes EARS, NOSE, & THROAT: No throat pain, or dysphagia, or rhinorrhea CARDIOVASCULAR: Denies chest pain or palpitations PULMONARY: Denies shortness of breath GASTROINTESTINAL: Denies constipation/diarrhea GENITOURINARY: denies dysuria or incontinence MUSCULOSKELETAL: bilateral shoulder pain NEUROLOGICAL:left sided weakness SKIN: no rash PSYCHIATRIC: Unremarkable All other review of systems found to be negative. PAST MEDICAL HISTORY: HTN, HLD, Raynauds, RTC tendinopathy, Dementia, BPH, GERD with GI bleed PAST SURGICAL HISTORY: Knee arthroscopy, bilateral cataract excision 2009, colonoscopy 2010, CABG 2001, PTCA care metal stent 2009 ALLERGIES: Please see below. MEDICATIONS: Please see below. 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 GENERAL: Pleasant and cooperative. No acute distress. HEENT: PERRL. Extraocular movements intact. Clear conjunctiva CARDIOVASCULAR: Regular rate and rhythm. No murmurs, rubs, or gallops LUNGS: Clear to auscultation bilaterally. No wheezes. No rhonchi ABDOMEN: Soft, nontender, nondistended. Positive bowel sounds. Normal active bowel sounds NEUROLOGICAL: Alert and oriented to self and place, repeating questions Cranial nerves II through XII grossly intact. Sensation grossly intact EXTREMITIES: 5\\5 strength bilateral upper extremities, except 3-/5 arm abduction. 5\\5 strength right lower extremity. 5/5 strength in left hip flexors, knee extensors, 2/5 ankle DF 0/5 EHL +palpable click bilat shoulders with external rotation, pain with external rotation, SKIN: left foot slightly purple, pedal pulses palpable LABORATORY DATA: Please see below. IMAGING: Imaging documentation personally reviewed by record FUNCTIONAL STATUS: Premorbid: Independent with all activities of daily life as well as mobility On Admission: Contact guard with RW with decreased step length and poor dynamic balance, requiring some assistance for functional transfers, bed mobility, and dressing GOALS: Mod-I with RW household distances, stairs, improve dynamic balance, safety training, Mod-I for bathing, dressing, toileting, medical optimization, assess for DMEs, caregiver training. ASSESSMENT:84-year-old M with past medical history of TIA who presents status post right parieto-occipital stroke. PLAN: 1. rehab: PT- goal to strenghten LE, improve dynamic balance and ambulation on uneven terrains OT- work on improving bilateral shoulder ROM and strength, train safe ways to manage ADLs with shoulder restriction SENIOR APPLICATIONS ANALYST- goal to work on cognition and compensatory strategies to improve overall safety with mobility and ADL management -left foot drop- consider AFO 2. 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 Cardio: Afib with pacemaker with systolic CHF, c/ beta-judsno, eliquis, ARB, and lasix- medicine consulted to assist with management 4. Resp: encourage incentive spirometry 5. Endo: hypothyroidism, c/u Synthroid 6. GI ppx: protonix BID and sucralfate in setting of past GI bleed, recent FOBT negative 7. DVT ppx: on eliqukush TEDs 8. : monitor PVRs 9. Dispo: TBD POST ADMISSION PHYSICIAN EVALUATION: Medical and functional status: Description of medical status, medical assessment: As above. Rehabilitation diagnosis and current and prior cold morbid medical conditions as above. Risk of complications and plans to mitigate them as above. Description of functional status current status is as above. Prior status as above. Status compared to preadmission: There are no clinically significant differences between the patient's current status and the information described on the preadmission screening document. Treatment plan anticipated: Treatment plan is as described above. Required disciplines including physical therapy, occupational therapy, others as noted above. Intensity of services: 3 hours a day, 6 days a week. Special considerations: There are no specific special or safety considerations that would likely preclude immediate implementation of an intensive rehabilitation program or subsequently influence the plan of care ATTESTATION: Considering all the information above, it is my best judgment that this patient requires intensive rehabilitation therapy as described above and an inpatient hospital environment due to the complexity of nursing, medical, and rehabilitation needs required by the patient. Furthermore, this patient can reas onably be expected to participate in an benefit from an inpatient rehabilitation stay with an interdisciplinary team approach to the delivery of rehabilitation care under the direction and supervision of rehabilitation physician PROGNOSIS: Excellent. ESTIMATED LENGTH OF STAY:10-12 days. PROJECTED DISCHARGE DESTINATION: Home with family support and any durable medical equipment required to increase functional safety and mobility TIME SPENT COUNSELING AND COORDINATING INITIAL CARE: Greater than 70 minutes. Vital Signs Vital Sign - Last 24 Hours 03/19/19 03/19/19 03/19/19 03/20/19 17:05 20:00 20:33 06:00 Temp 98.3 98.0 98.5 Pulse 58 73 73 65 Resp 16 18 18 B/P (MAP) 126/72 (90) 128/64 (85) 128/64 138/76 (96) Pulse Ox 96 97 92 03/20/19 03/20/19 09:00 09:40 Pulse 65 B/P (MAP) 138/76 138/76 Laboratory Data CBC/BMP Laboratory Tests 03/20/19 06:07 Red Blood Count 3.78 L, Mean Corpuscular Volume 96.6 H, Mean Corpuscular Hemoglobin 32.0, Mean Corpuscular Hemoglobin Concent 33.2, Red Cell Distribution Width 13.7, Neutrophils (%) (Auto) 66.0, Lymphocytes (%) (Auto) 20.5 L, Mon ocytes (%) (Auto) 9.7 H, Eosinophils (%) (Auto) 3.1 H, Basophils (%) (Auto) 0.3, Neutrophils # (Auto) 4.4, Lymphocytes # (Auto) 1.4 L, Monocytes # (Auto) 0.7, Eosinophils # (Auto) 0.2, Basophils # (Auto) 0.0, Calcium Level 8.8, Aspartate Amino Transf (AST/SGOT) 22, Alanine Aminotransferase (ALT/SGPT) 19, Alkaline Phosphatase 156 H, Total Bilirubin 0.6, Total Protein 6.7, Albumin 3.4 Labs 24H Laboratory Tests 2 03/20/19 06:07: Immature Granulocyte % (Auto) 0.4, White Blood Count 6.7, Red Blood Count 3.78L, Hemoglobin 12.1L, Hematocrit 36.5L, Mean Corpuscular Volume 96.6H, Mean Corpuscular Hemoglobin 32.0, Mean Corpuscular Hemoglobin Concent 33.2, Red Cell Distribution Width 13.7, Platelet Count 143L, Neutrophils (%) (Auto) 66.0, Lymphocytes (%) (Auto) 20.5L, Monocytes (%) (Auto) 9.7H, Eosinophils (%) (Auto) 3.1H, Basophils (%) (Auto) 0.3, Neutrophils # (Auto) 4.4, Lymphocytes # (Auto) 1.4L, Monocytes # (Auto) 0.7, Eosinophils # (Auto) 0.2, Basophils # (Auto) 0.0, Nucleated Red Blood Cells % (auto) 0.0, Anion Gap 5L, Glomerular Filtration Rate > 60.0, Blood Urea Nitrogen 20H, Creatinine 1.00, Sodium Level 144, Potassium Level 4.1, Chloride Level 108H, Carbon Dioxide Level 31, Calcium Level 8.8, Aspartate Amino Transf (AST/SGOT) 22, Alanine Aminotransferase (ALT/SGPT) 19, Alkaline Phosphatase 156H, Total Bilirubin 0.6, Total Protein 6.7, Albumin 3.4, Albumin/Globulin Ratio 1.03 Home Medications Scheduled Acetaminophen (Acetaminophen) 500 Mg Tab, 500 MG PO BID, (Reported) Allopurinol (Allopurinol) 100 Mg Tablet, 200 MG PO DAILY, (Reported) Apixaban (Eliquis) 5 Mg Tablet, 5 MG PO BID Ascorbic Acid (Vitamin C) 500 Mg Tab, 500 MG PO DAILY, (Reported) Aspirin (Children's Aspirin) 81 Mg Tab.chew, 81 MG PO DAILY Carboxymethylcellulose Sodium (Refresh Tears) 0.5 % Dwight, 1 DROP OU TID, (Reported) Carvedilol (Carvedilol) 3.125 Mg Tab, 3.125 MG PO BID, (Reported) Cyanocobalamin (Vitamin B-12) (Vitamin B-12) 1,000 Mcg Cap, 1,000 MCG PO DAILY, (Reported) Cyclosporine (Restasis) 0.05% Droperette, 1 DROP OU BID, (Reported) Furosemide (Furosemide) 20 Mg Tablet, 20 MG PO BID, (Reported) Guaifenesin/Pseudoephedrne HCl (Mucinex D ER 600-60 mg Tablet) 1 Each Tab.er.12h, 1 TAB PO DAILY, (Reported) Latanoprost (Xalatan) 0.005 % Rosalinda, 1 DROP OU BID, (Reported) Levothyroxine Sodium (Synthroid) 50 Mcg Tab, 50 MCG PO DAILY, (Reported) Losartan Potassium (Losartan Potassium) 25 Mg Tablet, 12.5 MG PO DAILY, (Reported) Pantoprazole Sodium (Protonix) 40 Mg Tab, 40 MG PO BID, (Reported) Rosuvastatin Calcium (Rosuvastatin Calcium) 10 Mg Tablet, 10 MG PO QHS, (Reported) Sucralfate (Sucralfate) 1 Gm/10 Ml Oral.susp, 1 GM PO ACHS Allergies Coded Allergies: promethazine (Verified Adverse Reaction, Severe, HALLUCINATION, NAUSEA, ARRHYTHMIA, 03/15/19) donepezil (Verified Adverse Reaction, Unknown, "HAD GI BLEED AND THAT WAS ONE OF THE SIDE EFFECTS", 03/15/19) A-FIB/CHADSVASC A-FIB History Current/History of A-Fib/PAF?: Yes Current PO Anticoag Therapy: Yes HUMAIRA BLACKWOOD MD Mar 20, 2019 12:08
[2019-03-20 14:00] VITALS: BP 133/90
[2019-03-20] MEDS ORDERED: MECLIZINE 12.5 MG TAB PO PRN (14:00)
[2019-03-20] MEDS ORDERED: PILL CUTTER 1 EACH XX PRN (14:30)
--- NOTE | 2019-03-20 17:06 | CR.PDOC ---
General Date of Consultation: Mar 20, 2019 Consultation REASON FOR CONSULTATION/CHIEF COMPLAINT: Was transferred to acute rehabilitation unit for continued therapy after he had developed a stroke HISTORY OF PRESENT ILLNESS: Patient is an 84-year-old male with a past medical history of CAD s/p CABG, HTN, Atrial fibrillation, SSS s/p PM, Hx of TIA (2001), DLP, Hx of GI bleed 2/2 Diverticulosis, Raynauds phenomenon, Prostate enlargement GERD, Hypothyroidism, History of dementia who presented to the ER initially on 03/16/2019 for left facial droop and left arm weakness. Emergency room, patient was found to have right parietal ischemic stroke and was admitted to hospitalist service for further evaluation and treatment. Is suspected that his stroke was embolic in nature given his atrial fibrillation, it was discussed by the admitting doctor, server security administrator, Dr. Castaneda and neurology, Dr. Comer, the patients prior GI bleed, would not preclude him from receiving full anticoagulation at this time, 18 years later. Patient was seen at acute rehabilitation unit. Currently, he denies chest pain, shortness of breath, palpitations, nausea, vomiting, abdominal pain, constipation, diarrhea, discomfort with urination. Vision still reports some weakness of his left upper extremity has been working with physical therapy. Patient was transferred to ARU on 03/19 under the care of Dr. Wan for further rehabilitation. ALLERGIES: Please see below. HOME MEDICATIONS: Please see below. PAST MEDICAL HISTORY: CAD s/p CABG, HTN, Atrial fibrillation, SSS s/p PM, Hx of TIA (2001), DLP, Hx of GI bleed 2/2 Diverticulosis, Raynauds phenomenon, Prostate enlargement GERD, Hypothyroidism, History of dementia PAST SURGICAL HISTORY: Knee arthroscopic surgery Bilateral cataract extraction Colonoscopy 2010 Pacemaker placement 2002 CABG 2001 Coronary stent placement of a bare metal stent in 2009 FAMILY HISTORY: - Family history of heart disease SOCIAL HISTORY: - Denies the use of alcohol, tobacco or illicit drugs REVIEW OF SYSTEMS: 10 point review of systems complete, all negative otherwise stated in HPI PHYSICAL EXAMINATION: - Vitals: BP 133/90, HR 61, RR 17, Sat 95%RA, Temp 978.5F - General: Lying in bed, No acute distress, Speaking in full sentences, Awake / Alert - HEENT: NC, AT, PERRLA - CVS: +S1S2 - Lungs: Fair air entry bilaterally, No appreciable wheezing / rales / rhonchi - Abdomen: Soft, Non-distended, Non-tender - Extremities: No lower extremity edema, No calf tenderness - Neuro: Weakness of Left arm - Skin: No visible rashes LABORATORY DATA: Please see below. ASSESSMENT/PLAN: Right parietal ischemic stroke - likely 2/2 embolic etiology 2/2 paroxysmal atrial fibrillation - Hx of TIA (2001) - Head CT 03/15: New low density lesion in the periventricular white matter and overlying coon matter of the right posterior parieto-occipital region consistent with a recent infarction. No hemorrhage is seen. Vascular alcification, diffuse atrophy, and small vessel changes are again noted. - c/w full anticoagulation with Eliquis and Rosuvastatin - Neurology consult appreciated CAD s/p CABG - c/w ASA 81 HTN - BP well controlled - c/w Carvedilol, Furosemide and Losartan Atrial fibrillation - c/w rate control with Carvedilol - on full anticoagulation with Eliquis SSS s/p PM DLP - c/w Rosuvastatin Hx of GI bleed 2/2 Diverticulosis Raynauds phenomenon Prostate enlargement Hypothyroidism - c/w Levothyroxine History of dementia Mood disorder - c/w Fluoxetine GERD - c/w Protonix and Carafate DVT prophylaxis - on full anticoagulation with Eilquis Vital Signs/I&O Vital Signs Date Time Temp Pulse Resp B/P (MAP) Pulse Ox O2 Delivery O2 Flow Rate FiO2 03/20/19 14:00 97.5 61 17 133/90 (104) 95 I&O- Last 24 Hours up to 6 AM 03/20/19 06:00 Intake Total 240 ml Balance 240 ml Laboratory Data Labs 24H Laboratory Tests 2 03/20/19 06:07: Immature Granulocyte % (Auto) 0.4, White Blood Count 6.7, Red Blood Count 3.78L, Hemoglobin 12.1L, Hematocrit 36.5L, Mean Corpuscular Volume 96.6H, Mean Corpuscular Hemoglobin 32.0, Mean Corpuscular Hemoglobin Concent 33.2, Red Cell Distribution Width 13.7, Platelet Count 143L, Neutrophils (%) (Auto) 66.0, Lymphocytes (%) (Auto) 20.5L, Monocytes (%) (Auto) 9.7H, Eosinophils (%) (Auto) 3.1H, Basophils (%) (Auto) 0.3, Neutrophils # (Auto) 4.4, Lymphocytes # (Auto) 1.4L, Monocytes # (Auto) 0.7, Eosinophils # (Auto) 0.2, Basophils # (Auto) 0.0, Nucleated Red Blood Cells % (auto) 0.0, Anion Gap 5L, Glomerular Filtration Rate > 60.0, Blood Urea Nitrogen 20H, Creatinine 1.00, Sodium Level 144, Potassium Level 4.1, Chloride Level 108H, Carbon Dioxide Level 31, Calcium Level 8.8, Aspartate Amino Transf (AST/SGOT) 22, Alanine Aminotransferase (ALT/SGPT) 19, Alkaline Phosphatase 156H, Total Bilirubin 0.6, Total Protein 6.7, Albumin 3.4, Albumin/Globulin Ratio 1.03 CBC/BMP Laboratory Tests 03/20/19 06:07 Red Blood Count 3.78 L, Mean Corpuscular Volume 96.6 H, Mean Corpuscular Hemoglobin 32.0, Mean Corpuscular Hemoglobin Concent 33.2, Red Cell Distribution Width 13.7, Neutrophils (%) (Auto) 66.0, Lymphocytes (%) (Auto) 20.5 L, Monocytes (%) (Auto) 9.7 H, Eosinophils (%) (Auto) 3.1 H, Basophils (%) (Auto) 0.3, Neutrophils # (Auto) 4.4, Lymphocytes # (Auto) 1.4 L, Monocytes # (Auto) 0.7, Eosinophils # (Auto) 0.2, Basophils # (Auto) 0.0, Calcium Level 8.8, Aspartate Amino Transf (AST/SGOT) 22, Alanine Aminotransferase (ALT/SGPT) 19, Alkaline Phosphatase 156 H, Total Bilirubin 0.6, Total Protein 6.7, Albumin 3.4 Allergies Coded Allergies: promethazine (Verified Adverse Reaction, Severe, HALLUCINATION, NAUSEA, ARRHYTHMIA, 03/15/19) donepezil (Verified Adverse Reaction, Unknown, "HAD GI BLEED AND THAT WAS ONE OF THE SIDE EFFECTS", 03/15/19) Home Medications Scheduled Acetaminophen (Acetaminophen) 500 Mg Tab, 500 MG PO BID, (Reported) Allopurinol (Allopurinol) 100 Mg Tablet, 200 MG PO DAILY, (Reported) Apixaban (Eliquis) 5 Mg Tablet, 5 MG PO BID for 30 Days, #60 Ascorbic Acid (Vitamin C) 500 Mg Tab, 500 MG PO DAILY, (Reported) Aspirin (Children's Aspirin) 81 Mg Tab.chew, 81 MG PO DAILY for 30 Days, #30 Carboxymethylcellulose Sodium (Refresh Tears) 0.5 % Dwight, 1 DROP OU TID, (Reported) Carvedilol (Carvedilol) 3.125 Mg Tab, 3.125 MG PO BID, (Reported) Cyanocobalamin (Vitamin B-12) (Vitamin B-12) 1,000 Mcg Cap, 1,000 MCG PO DAILY, (Reported) Cyclosporine (Restasis) 0.05% Droperette, 1 DROP OU BID, (Reported) Furosemide (Furosemide) 20 Mg Tablet, 20 MG PO BID, (Reported) Guaifenesin/Pseudoephedrne HCl (Mucinex D ER 600-60 mg Tablet) 1 Each Tab.er.12h, 1 TAB PO DAILY, (Reported) Latanoprost (Xalatan) 0.005 % Rosalinda, 1 DROP OU BID, (Reported) Levothyroxine Sodium (Synthroid) 50 Mcg Tab, 50 MCG PO DAILY, (Reported) Losartan Potassium (Losartan Potassium) 25 Mg Tablet, 12.5 MG PO DAILY, (Reported) Pantoprazole Sodium (Protonix) 40 Mg Tab, 40 MG PO BID, (Reported) Rosuvastatin Calcium (Rosuvastatin Calcium) 10 Mg Tablet, 10 MG PO QHS, (Reported) Sucralfate (Sucralfate) 1 Gm/10 Ml Oral.susp, 1 GM PO ACHS for 30 Days, #120 DARELL CALLAHAN MD Mar 20, 2019 17:06
[2019-03-20 20:00] VITALS: BP 117/63
[2019-03-20] MEDS: SENNA 8.6 MG TAB (SENOKOT) PO SCH (21:01)
[2019-03-20] MEDS: ROSUVASTATIN 10 MG TAB (CRESTOR) PO SCH (21:01)
[2019-03-20] MEDS: FLUoxetine 20 MG CAP PO SCH (21:01)
[2019-03-20] MEDS: LATANOPROST 0.005% OPHTH SOLN 2.5 ML OU SCH (21:07)
[2019-03-21] MEDS: LEVOTHYROXINE 50MCG TABLET (0.05MG) PO SCH (05:50)
[2019-03-21 06:00] VITALS: BP 137/67
[2019-03-21 06:45] LABS: BASO % 0.4 % (0.0-1.0); EOS # 0.2 10^3/uL (0.0-0.50); EOS % 2.8 % (0.0-3.0); HEMATOCRIT 34.6 % (42.0-52.0); HEMOGLOBIN 11.5 g/dl (13.5-17.5); LYMPH # 1.4 10^3/uL (1.5-4.5); LYMPH % 20.2 % (24.0-44.0); MEAN CORPUSCULAR HEMOGLOBIN 32.3 pg (27.0-33.0); MEAN CORPUSCULAR HGB CONC 33.2 g/dl (32.0-36.5); MEAN CORPUSCULAR VOLUME 97.2 fl (80.0-96.0); MONO # 0.8 10^3/uL (0.0-0.8); MONO % 11.2 % (0.0-5.0); NEUTROPHILS # 4.4 10^3/uL (1.8-7.7); NEUTROPHILS % 65.3 % (36.0-66.0); PLATELET COUNT, AUTOMATED 135 10^3/uL (150-450); RED BLOOD COUNT 3.56 10^6/uL (4.30-6.10); WHITE BLOOD COUNT 6.7 10^3/uL (4.0-10.0)
[2019-03-21 07:08] LABS: BLOOD UREA NITROGEN 20 MG/DL (7-18); CALCIUM LEVEL 8.6 MG/DL (8.8-10.2); CARBON DIOXIDE LEVEL 29 MEQ/L (21-32); CHLORIDE LEVEL 107 MEQ/L (98-107); CREATININE FOR GFR 0.99 MG/DL (0.70-1.30); GLOMERULAR FILTRATION RATE > 60.0 (>35); GLUCOSE, FASTING 89 MG/DL (70-100); POTASSIUM SERUM 3.8 MEQ/L (3.5-5.1); SODIUM LEVEL 141 MEQ/L (136-145)
[2019-03-21] MEDS: CARVedilol 3.125 MG TAB PO SCH ×2 (09:00→21:00)
[2019-03-21] MEDS: DOCUSATE SODIUM 100 MG CAP PO SCH ×2 (09:03→21:50)
[2019-03-21] MEDS: ALLOPURINOL 100 MG TAB PO SCH (09:04)
[2019-03-21] MEDS: ASCORBIC ACID 500 MG TAB PO SCH (09:04)
[2019-03-21] MEDS: APIXABAN 5 MG TAB (ELIQUIS) PO SCH ×2 (09:04→21:51)
[2019-03-21] MEDS: POLYVINYL ALCOHOL OPHTH SOLN 15 ML(LIQUITEARS) OU SCH ×4 (09:04→21:53)
[2019-03-21] MEDS: PANTOPRAZOLE 40MG TAB (PROTONIX) PO SCH ×2 (09:04→21:51)
[2019-03-21] MEDS: CYANOCOBALAMIN 500 MCG TAB PO SCH (09:04)
[2019-03-21] MEDS: ASPIRIN 81 MG CHEW TABLET PO SCH (09:04)
[2019-03-21] MEDS: FUROSEMIDE 20 MG TAB PO SCH ×2 (09:04→16:43)
[2019-03-21] MEDS: SUCRALFATE 1 GM TAB PO SCH ×4 (09:04→21:51)
[2019-03-21 14:00] VITALS: BP 133/60
[2019-03-21] MEDS: LOSARTAN 25 MG TAB PO SCH (16:44)
[2019-03-21 20:00] VITALS: BP 120/68
[2019-03-21] MEDS: ROSUVASTATIN 10 MG TAB (CRESTOR) PO SCH (21:51)
[2019-03-21] MEDS: FLUoxetine 20 MG CAP PO SCH (21:51)
[2019-03-21] MEDS: SENNA 8.6 MG TAB (SENOKOT) PO SCH (21:52)
[2019-03-21] MEDS: LATANOPROST 0.005% OPHTH SOLN 2.5 ML OU SCH (21:53)
[2019-03-22] MEDS: LEVOTHYROXINE 50MCG TABLET (0.05MG) PO SCH (05:50)
[2019-03-22 06:00] VITALS: BP 124/69
[2019-03-22] MEDS: APIXABAN 5 MG TAB (ELIQUIS) PO SCH ×2 (08:49→21:34)
[2019-03-22] MEDS: ASCORBIC ACID 500 MG TAB PO SCH (08:49)
[2019-03-22] MEDS: DOCUSATE SODIUM 100 MG CAP PO SCH ×2 (08:49→21:00)
[2019-03-22] MEDS: ASPIRIN 81 MG CHEW TABLET PO SCH (08:49)
[2019-03-22] MEDS: SUCRALFATE 1 GM TAB PO SCH ×4 (08:50→21:34)
[2019-03-22] MEDS: FUROSEMIDE 20 MG TAB PO SCH ×2 (08:50→17:10)
[2019-03-22] MEDS: ALLOPURINOL 100 MG TAB PO SCH (08:50)
[2019-03-22] MEDS: CYANOCOBALAMIN 500 MCG TAB PO SCH (08:50)
[2019-03-22] MEDS: CARVedilol 3.125 MG TAB PO SCH ×2 (08:50→21:35)
[2019-03-22] MEDS: PANTOPRAZOLE 40MG TAB (PROTONIX) PO SCH ×2 (08:50→21:34)
[2019-03-22] MEDS: POLYVINYL ALCOHOL OPHTH SOLN 15 ML(LIQUITEARS) OU SCH ×4 (08:51→21:36)
[2019-03-22 14:00] VITALS: BP 131/62
[2019-03-22] MEDS: LOSARTAN 25 MG TAB PO SCH (17:10)
--- NOTE | 2019-03-22 17:17 | IPNPDOC ---
Text Note Date of Service The patient was seen on 03/22/19. NOTE Subjective: Patient is an 84-year-old male with a past medical history of CAD s/p CABG, HTN, Atrial fibrillation, SSS s/p PM, Hx of TIA (2001), DLP, Hx of GI bleed 2/2 Diverticulosis, Raynauds phenomenon, Prostate enlargement GERD, Hypo thyroidism, History of dementia who presented to the ER initially on 03/16/2019 for left facial droop and left arm weakness. Emergency room, patient was found to have right parietal ischemic stroke and was admitted to hospitalist service for further evaluation and treatment. Is suspected that his stroke was embolic in nature given his atrial fibrillation, it was discussed by the admitting doctor, mobile game engineer, Dr. Castaneda and neurology, Dr. Comer, the patients prior GI bleed, would not preclude him from receiving full anticoagulation at this time, 18 years later. Patient was transferred to ARU on 03/19 under the care of Dr. Wan for further rehabilitation. Patient was seen and examined at the bedside. Patient was seen eating his dinner. . He reported that he is experiencing some right knee pain after ambulation. Denies chest pain, shortness of breath, palpitations. Denies nausea, vomiting, abdominal pain. Denies any diarrhea. Objective: Vitals (See below) General: Lying in bed, no acute distress, comfortable, AAOx3 HEENT: NC, AT CVS: RRR, +S1S2 Lungs: Fair air entry b/l, -w/r/r Abdomen: Soft, ND, NT Extremities: - Edema, - Calf tenderness Assessment and plan: Right parietal ischemic stroke - likely 2/2 embolic etiology 2/2 paroxysmal atrial fibrillation - Hx of TIA (2001) - Head CT 03/15: New low density lesion in the periventricular white matter and overlying coon matter of the right posterior parieto-occipital region consistent with a recent infarction. No hemorrhage is seen. Vascular alcification, diffuse atrophy, and small vessel changes are again noted. - c/w full anticoagulation with Eliquis and Rosuvastatin - Neurology consult appreciated - We'll continue with physical therapy and occupational therapy at the direction of ARU Right knee pain - likely 2/2 osteoarthritis - Patient has reported that he has received a left knee total arthroplasty because of osteoarthritis - Patient does report receiving corticosteroid injections of his right knee in the past - Will continue with Tylenol when necessary CAD s/p CABG - c/w ASA 81 HTN - BP well controlled - c/w Carvedilol, Furosemide and Losartan Atrial fibrillation - c/w rate control with Carvedilol - on full anticoagulation with Eliquis SSS s/p PM DLP - c/w Rosuvastatin Hx of GI bleed 2/2 Diverticulosis Raynauds phenomenon Prostate enlargement Hypothyroidism - c/w Levothyroxine History of dementia Mood disorder - c/w Fluoxetine GERD - c/w Protonix and Carafate DVT prophylaxis - on full anticoagulation with Eilquis VS,Fishbone, I+O VS, Fishbone, I+O Vital Signs Date Time Temp Pulse Resp B/P (MAP) Pulse Ox O2 Delivery O2 Flow Rate FiO2 03/22/19 17:10 131/62 03/22/19 14:00 97.8 55 18 92 I&O- Last 24 Hours up to 6 AM 03/22/19 06:00 Intake Total 1260 ml Output Total 250 ml Balance 1010 ml DARELL CALLAHAN MD Mar 22, 2019 17:17
[2019-03-22 20:00] VITALS: BP 138/71
[2019-03-22] MEDS: SENNA 8.6 MG TAB (SENOKOT) PO SCH (21:00)
[2019-03-22] MEDS: FLUoxetine 20 MG CAP PO SCH (21:34)
[2019-03-22] MEDS: ROSUVASTATIN 10 MG TAB (CRESTOR) PO SCH (21:34)
[2019-03-22] MEDS: LATANOPROST 0.005% OPHTH SOLN 2.5 ML OU SCH (21:36)
[2019-03-23] MEDS: LEVOTHYROXINE 50MCG TABLET (0.05MG) PO SCH (05:29)
[2019-03-23 05:34] VITALS: BP 143/70
[2019-03-23] MEDS ORDERED: RESTASIS EYE OU SCH (09:00)
[2019-03-23] MEDS: ASPIRIN 81 MG CHEW TABLET PO SCH (09:22)
[2019-03-23] MEDS: ALLOPURINOL 100 MG TAB PO SCH (09:22)
[2019-03-23] MEDS: FUROSEMIDE 20 MG TAB PO SCH ×2 (09:22→17:44)
[2019-03-23] MEDS: SUCRALFATE 1 GM TAB PO SCH ×4 (09:22→20:39)
[2019-03-23] MEDS: PANTOPRAZOLE 40MG TAB (PROTONIX) PO SCH ×2 (09:22→20:39)
[2019-03-23] MEDS: APIXABAN 5 MG TAB (ELIQUIS) PO SCH ×2 (09:23→20:40)
[2019-03-23] MEDS: DOCUSATE SODIUM 100 MG CAP PO SCH ×2 (09:23→20:39)
[2019-03-23] MEDS: CARVedilol 3.125 MG TAB PO SCH ×2 (09:23→20:39)
[2019-03-23] MEDS: CYANOCOBALAMIN 500 MCG TAB PO SCH (09:23)
[2019-03-23] MEDS: ASCORBIC ACID 500 MG TAB PO SCH (09:23)
[2019-03-23] MEDS: POLYVINYL ALCOHOL OPHTH SOLN 15 ML(LIQUITEARS) OU SCH ×4 (09:24→20:40)
[2019-03-23 14:30] VITALS: BP 124/64
[2019-03-23] MEDS: LOSARTAN 25 MG TAB PO SCH (17:43)
[2019-03-23 20:00] VITALS: BP 116/61
[2019-03-23] MEDS: LATANOPROST 0.005% OPHTH SOLN 2.5 ML OU SCH (20:40)
[2019-03-23] MEDS: FLUoxetine 20 MG CAP PO SCH (20:40)
[2019-03-23] MEDS: ROSUVASTATIN 10 MG TAB (CRESTOR) PO SCH (20:40)
[2019-03-23] MEDS: SENNA 8.6 MG TAB (SENOKOT) PO SCH (20:40)
[2019-03-24] MEDS: LEVOTHYROXINE 50MCG TABLET (0.05MG) PO SCH (05:52)
[2019-03-24 05:54] VITALS: BP 144/67
[2019-03-24] MEDS: PANTOPRAZOLE 40MG TAB (PROTONIX) PO SCH ×2 (08:57→20:35)
[2019-03-24] MEDS: FUROSEMIDE 20 MG TAB PO SCH ×2 (08:57→17:59)
[2019-03-24] MEDS: SUCRALFATE 1 GM TAB PO SCH ×4 (08:57→20:35)
[2019-03-24] MEDS: CYANOCOBALAMIN 500 MCG TAB PO SCH (08:57)
[2019-03-24] MEDS: ALLOPURINOL 100 MG TAB PO SCH (08:57)
[2019-03-24] MEDS: ASCORBIC ACID 500 MG TAB PO SCH (08:57)
[2019-03-24] MEDS: APIXABAN 5 MG TAB (ELIQUIS) PO SCH ×2 (08:57→20:35)
[2019-03-24] MEDS: ASPIRIN 81 MG CHEW TABLET PO SCH (08:57)
[2019-03-24] MEDS: CARVedilol 3.125 MG TAB PO SCH ×2 (08:58→20:35)
[2019-03-24] MEDS: POLYVINYL ALCOHOL OPHTH SOLN 15 ML(LIQUITEARS) OU SCH ×4 (08:58→20:36)
[2019-03-24] MEDS: DOCUSATE SODIUM 100 MG CAP PO SCH ×2 (08:58→20:35)
[2019-03-24 14:00] VITALS: BP 142/71
[2019-03-24] MEDS: LOSARTAN 25 MG TAB PO SCH (17:58)
[2019-03-24 20:09] VITALS: BP 131/66
[2019-03-24] MEDS: FLUoxetine 20 MG CAP PO SCH (20:34)
[2019-03-24] MEDS: ROSUVASTATIN 10 MG TAB (CRESTOR) PO SCH (20:34)
[2019-03-24] MEDS: SENNA 8.6 MG TAB (SENOKOT) PO SCH (20:34)
[2019-03-24] MEDS: LATANOPROST 0.005% OPHTH SOLN 2.5 ML OU SCH (20:36)
[2019-03-25 05:44] VITALS: BP 122/61
[2019-03-25] MEDS: LEVOTHYROXINE 50MCG TABLET (0.05MG) PO SCH (05:49)
[2019-03-25] MEDS: SUCRALFATE 1 GM TAB PO SCH ×4 (08:28→21:25)
[2019-03-25] MEDS: FUROSEMIDE 20 MG TAB PO SCH ×2 (08:28→17:24)
[2019-03-25] MEDS: ASCORBIC ACID 500 MG TAB PO SCH (08:28)
[2019-03-25] MEDS: DOCUSATE SODIUM 100 MG CAP PO SCH ×2 (08:28→21:25)
[2019-03-25] MEDS: APIXABAN 5 MG TAB (ELIQUIS) PO SCH ×2 (08:28→21:25)
[2019-03-25] MEDS: PANTOPRAZOLE 40MG TAB (PROTONIX) PO SCH ×2 (08:28→21:25)
[2019-03-25] MEDS: ASPIRIN 81 MG CHEW TABLET PO SCH (08:28)
[2019-03-25] MEDS: POLYVINYL ALCOHOL OPHTH SOLN 15 ML(LIQUITEARS) OU SCH ×4 (08:29→21:26)
[2019-03-25] MEDS: ALLOPURINOL 100 MG TAB PO SCH (08:29)
[2019-03-25] MEDS: CARVedilol 3.125 MG TAB PO SCH ×2 (08:29→21:25)
[2019-03-25] MEDS: CYANOCOBALAMIN 500 MCG TAB PO SCH (08:29)
[2019-03-25 14:00] VITALS: BP 143/72
[2019-03-25] MEDS: LOSARTAN 25 MG TAB PO SCH (17:24)
[2019-03-25 20:00] VITALS: BP 128/66
[2019-03-25] MEDS ORDERED: RESTASIS EYE OU SCH (21:00)
[2019-03-25] MEDS: ROSUVASTATIN 10 MG TAB (CRESTOR) PO SCH (21:25)
[2019-03-25] MEDS: SENNA 8.6 MG TAB (SENOKOT) PO SCH (21:25)
[2019-03-25] MEDS: FLUoxetine 20 MG CAP PO SCH (21:25)
[2019-03-25] MEDS: LATANOPROST 0.005% OPHTH SOLN 2.5 ML OU SCH (21:26)
[2019-03-26] MEDS: LEVOTHYROXINE 50MCG TABLET (0.05MG) PO SCH (05:59)
[2019-03-26 06:00] VITALS: BP 148/67
[2019-03-26] MEDS: POLYVINYL ALCOHOL OPHTH SOLN 15 ML(LIQUITEARS) OU SCH ×4 (09:00→20:57)
[2019-03-26] MEDS: CARVedilol 3.125 MG TAB PO SCH ×2 (09:00→20:56)
[2019-03-26] MEDS: ASCORBIC ACID 500 MG TAB PO SCH (10:02)
[2019-03-26] MEDS: ASPIRIN 81 MG CHEW TABLET PO SCH (10:02)
[2019-03-26] MEDS: ALLOPURINOL 100 MG TAB PO SCH (10:02)
[2019-03-26] MEDS: APIXABAN 5 MG TAB (ELIQUIS) PO SCH ×2 (10:02→20:56)
[2019-03-26] MEDS: FUROSEMIDE 20 MG TAB PO SCH ×2 (10:02→17:33)
[2019-03-26] MEDS: CYANOCOBALAMIN 500 MCG TAB PO SCH (10:03)
[2019-03-26] MEDS: SUCRALFATE 1 GM TAB PO SCH ×4 (10:03→20:55)
[2019-03-26] MEDS: PANTOPRAZOLE 40MG TAB (PROTONIX) PO SCH ×2 (10:03→20:55)
[2019-03-26] MEDS: DOCUSATE SODIUM 100 MG CAP PO SCH ×2 (10:03→20:55)
[2019-03-26 14:00] VITALS: BP 130/67
[2019-03-26] MEDS: LOSARTAN 25 MG TAB PO SCH (17:34)
[2019-03-26 20:00] VITALS: BP 130/74
[2019-03-26] MEDS: ROSUVASTATIN 10 MG TAB (CRESTOR) PO SCH (20:55)
[2019-03-26] MEDS: FLUoxetine 20 MG CAP PO SCH (20:56)
[2019-03-26] MEDS: SENNA 8.6 MG TAB (SENOKOT) PO SCH (20:56)
[2019-03-26] MEDS: LATANOPROST 0.005% OPHTH SOLN 2.5 ML OU SCH (20:57)
[2019-03-27] MEDS: LEVOTHYROXINE 50MCG TABLET (0.05MG) PO SCH (05:34)
[2019-03-27 05:59] VITALS: BP 128/70
[2019-03-27] MEDS: ALLOPURINOL 100 MG TAB PO SCH (09:32)
[2019-03-27] MEDS: APIXABAN 5 MG TAB (ELIQUIS) PO SCH ×2 (09:32→21:05)
[2019-03-27] MEDS: PANTOPRAZOLE 40MG TAB (PROTONIX) PO SCH ×2 (09:33→21:05)
[2019-03-27] MEDS: CYANOCOBALAMIN 500 MCG TAB PO SCH (09:33)
[2019-03-27] MEDS: DOCUSATE SODIUM 100 MG CAP PO SCH ×2 (09:33→21:04)
[2019-03-27] MEDS: ASPIRIN 81 MG CHEW TABLET PO SCH (09:33)
[2019-03-27] MEDS: FUROSEMIDE 20 MG TAB PO SCH ×2 (09:33→16:56)
[2019-03-27] MEDS: ASCORBIC ACID 500 MG TAB PO SCH (09:33)
[2019-03-27] MEDS: CARVedilol 3.125 MG TAB PO SCH ×2 (09:33→21:00)
[2019-03-27] MEDS: POLYVINYL ALCOHOL OPHTH SOLN 15 ML(LIQUITEARS) OU SCH ×4 (09:34→21:06)
[2019-03-27] MEDS: SUCRALFATE 1 GM TAB PO SCH ×4 (09:34→21:05)
--- NOTE | 2019-03-27 13:30 | IPNPDOC ---
Date Seen The patient was seen on 03/27/19. Progress Note Subjective: Patient was seen and examined at the bedside. Patient was seen eating his lunch on a chair by the bedside. He c/o feeling tired after working with physical therapy this morning.no brbpr, melena, or black tarry stools. 03/19/19 hgb stable. repeat h&h today is pending. Denies chest pain, shortness of breath, palpitations. Denies nausea, vomiting, abdominal pain. Denies any diarrhea. Objective: Vitals (See below) General: Lying in bed, no acute distress, comfortable, AAOx3 HEENT: NC, AT CVS: RRR, +S1S2 Lungs: Fair air entry b/l, -w/r/r Abdomen: Soft, ND, NT Extremities: - Edema, - Calf tenderness Assessment and plan: Patient is an 84-year-old male with a past medical history of CAD s/p CABG, HTN, Atrial fibrillation, SSS s/p PM, Hx of TIA (2001), DLP, Hx of GI bleed 2/2 Diverticulosis, Raynauds phenomenon, Prostate enlargement GERD, Hypothyroidism, History of dementia who presented to the ER initially on 03/16/2019 for left facial droop and left arm weakness. Emergency room, patient was found to have right parietal ischemic stroke and was admitted to hospitalist service for further evaluation and treatment. Is suspected that his stroke was embolic in nature given his atrial fibrillation, it was discussed by the admitting doctor, supervisor cigar processing, Dr. Castaneda and neurology, Dr. Comer, the patients prior GI bleed, would not preclude him from receiving full anticoagulation at this time, 18 years later. Patient was transferred to ARU on 03/19 under the care of Dr. Wan for further rehabilitation. Right parietal ischemic stroke - likely 2/2 embolic etiology 2/2 paroxysmal atrial fibrillation - Hx of TIA (2001) - Head CT 03/15: New low density lesion in the periventricular white matter and overlying coon matter of the right posterior parieto-occipital region consistent with a recent infarction. No hemorrhage is seen. Vascular alcification, diffuse atrophy, and small vessel changes are again noted. - c/w full anticoagulation with Eliquis and Rosuvastatin - Neurology consult appreciated - We'll continue with physical therapy and occupational therapy at the direction of ARU Right knee pain - likely 2/2 osteoarthritis - Patient has reported that he has received a left knee total arthroplasty because of osteoarthritis - Patient does report receiving corticosteroid injections of his right knee in the past - Will continue with Tylenol when necessary CAD s/p CABG - c/w ASA 81 HTN - BP well controlled - c/w Carvedilol, Furosemide and Losartan Atrial fibrillation - c/w rate control with Carvedilol - on full anticoagulation with Eliquis SSS s/p PM DLP - c/w Rosuvastatin Hx of GI bleed 2/2 Diverticulosis -stable h&h Raynauds phenomenon Prostate enlargement Hypothyroidism - c/w Levothyroxine History of dementia Mood disorder - c/w Fluoxetine GERD - c/w Protonix and Carafate DVT prophylaxis - on full anticoagulation with Eilquis VS, I&O, 24H, Fishbone Vital Signs/I&O Vital Signs Date Time Temp Pulse Resp B/P (MAP) Pulse Ox O2 Delivery O2 Flow Rate FiO2 03/27/19 09:33 70 128/70 03/27/19 05:59 97.8 18 95 I&O- Last 24 Hours up to 6 AM 03/27/19 06:00 Intake Total 1040 ml Balance 1040 ml SHAYNA GUERIN MD Mar 27, 2019 12:07
[2019-03-27 13:48] LABS: HEMATOCRIT 37.9 % (42.0-52.0); HEMOGLOBIN 12.7 g/dl (13.5-17.5); MEAN CORPUSCULAR HEMOGLOBIN 32.5 pg (27.0-33.0); MEAN CORPUSCULAR HGB CONC 33.5 g/dl (32.0-36.5); MEAN CORPUSCULAR VOLUME 96.9 fl (80.0-96.0); PLATELET COUNT, AUTOMATED 185 10^3/uL (150-450); RED BLOOD COUNT 3.91 10^6/uL (4.30-6.10); WHITE BLOOD COUNT 8.5 10^3/uL (4.0-10.0)
[2019-03-27 14:00] VITALS: BP 100/64
[2019-03-27 14:13] LABS: CREATININE FOR GFR 1.24 MG/DL (0.70-1.30); POTASSIUM SERUM 3.8 MEQ/L (3.5-5.1)
[2019-03-27] MEDS: LOSARTAN 25 MG TAB PO SCH (16:56)
[2019-03-27] MEDS ORDERED: COLCHICINE 0.6 MG TAB PO ONE (18:00)
--- NOTE | 2019-03-27 18:16 | IPNPDOC ---
PM&R Progress Note DATE OF SERVICE: Mar 21, 2019 Sales Consultant Residential Manager Progress Note Subjective: Patient reporting he is able to accomplish most tasks despite loss of shoulder range. REVIEW OF SYSTEMS: The following is a completed review of systems and has been reviewed. Review of systems otherwise unremarkable. PAIN: Patient self reports no pain EYES: No recent vision changes EARS, NOSE, & THROAT: No throat pain, or dysphagia, or rhinorrhea CARDIOVASCULAR: Denies chest pain or palpitations PULMONARY: Denies shortness of breath GASTROINTESTINAL: Denies constipation/diarrhea GENITOURINARY: denies dysuria or incontinence MUSCULOSKELETAL: bilateral shoulder pain NEUROLOGICAL:left sided weakness SKIN: no rash PSYCHIATRIC: Unremarkable All other review of systems found to be negative. PHYSICAL EXAMINATION: VITAL SIGNS: Please see below. GENERAL: Pleasant and cooperative. No acute distress. HEENT: PERRL. Extraocular movements intact. Clear conjunctiva CARDIOVASCULAR: Regular rate and rhythm. No murmurs, rubs, or gallops LUNGS: Clear to auscultation bilaterally. No wheezes. No rhonchi ABDOMEN: Soft, nontender, nondistended. Positive bowel sounds. Normal active bowel sounds NEUROLOGICAL: Alert and oriented to self and place, repeating questions Cranial nerves II through XII grossly intact. Sensation grossly intact EXTREMITIES: 5\\5 strength bilateral upper extremities, except 3-/5 arm abduction. 5\\5 strength right lower extremity. 5/5 strength in left hip flexors, knee extensors, 2/5 ankle DF 0/5 EHL +palpable click bilat shoulders with external rotation, pain with external rotation, SKIN: left foot slightly purple, pedal pulses palpable ASSESSMENT:84-year-old M with past medical history of TIA who presents status post right parieto-occipital stroke. PLAN: 1. 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 Cardio: Afib with pacemaker with systolic CHF, c/ beta-judson, eliquis, ARB, and lasix- medicine consulted to assist with management 4. Resp: encourage incentive spirometry 5. Endo: hypothyroidism, c/u Synthroid 6. GI ppx: protonix BID and sucralfate in setting of past GI bleed, recent FOBT negative 7. DVT ppx: on eliquis, TEDs 8. : monitor PVRs 9. Dispo: TBD Allergies Coded Allergies: promethazine (Verified Adverse Reaction, Severe, HALLUCINATION, NAUSEA, ARRHYTHMIA, 03/15/19) donepezil (Verified Adverse Reaction, Unknown, "HAD GI BLEED AND THAT WAS ONE OF THE SIDE EFFECTS", 03/15/19) Vital Signs Vital Signs Date Time Temp Pulse Resp B/P (MAP) Pulse Ox O2 Delivery O2 Flow Rate FiO2 03/27/19 16:56 100/64 03/27/19 14:00 98.2 61 18 95 Laboratory Data CBC/BMP Laboratory Tests 03/27/19 13:22 Red Blood Count 3.91 L, Mean Corpuscular Volume 96.9 H, Mean Corpuscular Hemoglobin 32.5, Mean Corpuscular Hemoglobin Concent 33.5, Red Cell Distribution Width 13.7, Calcium Level 9.0 Labs 24H Laboratory Tests 2 03/27/19 13:22: Nucleated Red Blood Cells % (auto) 0.0, Anion Gap 5L, Glomerular Filtration Rate 59.0, Blood Urea Nitrogen 29H, Creatinine 1.24, Sodium Level 135L, Potassium Level 3.8, Chloride Level 99, Carbon Dioxide Level 31, Calcium Level 9.0 Current Medications Current Medications Current Medications Acetaminophen (Tylenol Tab) 650 mg Q4HP PRN PO MILD PAIN (PS 1-4); Start at 16:45 Allopurinol (Zyloprim) 200 mg DAILY PO Last administered on 03/27/19at 09:32; Start 03/20/19 at 09:00 Apixaban (Eliquis) 5 mg BID PO Last administered on 03/27/19at 09:32; Start 03/19/19 at 21:00 Artificial Tears (Akwa Tears) 2 drop QID OU Last administered on 03/27/19at 16:56; Start 03/19/19 at 17:00 Ascorbic Acid (Vitamin C) 500 mg DAILY PO Last administered on 03/27/19 09:33; Start 03/20/19 at 09:00 Aspirin (Aspirin Chewable) 81 mg DAILY PO Last administered on 03/27/19 09:33; Start 03/20/19 at 09:00 Bisacodyl (Dulcolax Suppository) 10 mg DAILYPRN PRN [place] CONSTIPATION; Start 03/19/19 at 16:45 Carvedilol (COReg) 3.125 mg BID PO Last administered on 03/27/19 09:33; Start 03/19/19 at 21:00 Colchicine (Colcrys) 0.6 mg BID PO ; Start 03/28/19 at 09:00 Cyanocobalamin (Vitamin B12) 1,000 mcg DAILY PO Last administered on 03/27/19 09:33; Start 03/20/19 at 09:00 Docusate Sodium (Colace) 100 mg BID PO Last administered on 03/27/19 09:33; Start 03/19/19 at 21:00 Fluoxetine HCl (PROzac) 20 mg QHS PO Last administered on 03/26/19 20:56; Start 03/20/19 at 21:00 Furosemide (Lasix) 20 mg BID@09,17 PO Last administered on 03/27/19 16:56; Start 03/19/19 at 17:00 Latanoprost (Xalatan 0.005% Op Soln) 1 drop QHS OU Last administered on 03/26/19 20:57; Start 03/19/19 at 21:00 Levothyroxine Sodium (Synthroid) 50 mcg DAILY@06 PO Last administered on 03/27/19 05:34; Start 03/20/19 at 06:00 Losartan Potassium (Cozaar) 12.5 mg DAILY PO Last administered on 03/20/19 09:40; Start 03/20/19 at 09:00; Stop 03/20/19 at 13:51; Status DC Losartan Potassium (Cozaar) 12.5 mg DAILY@1800 PO Last administered on 03/26/19 17:34; Start 03/21/19 at 18:00 Meclizine HCl (Antivert) 12.5 mg Q8HP PRN PO DIZZINESS; Start 03/20/19 at 14:00 Miscellaneous (Unresolved Clarification Entry) SEE LABEL COMMENTS DAILY XX ; Start 03/26/19 at 09:00; Stop 03/26/19 at 14:29; Status DC Miscellaneous (Unresolved Patient Own Med Order) SEE LABEL COMMENTS DAILY XX ; Start 03/19/19 at 09:00; Stop 03/23/19 at 11:42; Status DC Miscellaneous (Unresolved Patient Own Med Order) SEE LABEL COMMENTS DAILY XX ; Start 03/23/19 at 09:00 Pantoprazole Sodium (Protonix) 40 mg BID PO Last administered on 03/27/19at 09:33; Start 03/19/19 at 21:00 Patient Own Medication (Patient'S Own Med) 1 DROP BID OU ; Start 03/23/19 at 09:00; Status Cancel Patient Own Medication (Patient'S Own Med) RESTASIS (cyclosporine) 0.0... BID OU ; Start 03/25/19 at 21:00; Status Future Hold Rosuvastatin Calcium (Crestor) 10 mg QHS PO Last administered on 03/26/19at 20:55; Start 03/19/19 at 21:00 Senna (Senokot) 1 tab QHS PO Last administered on 03/25/19at 21:25; Start 03/19/19 at 21:00 Sucralfate (Carafate) 1 gm ACHS PO Last administered on 03/27/19at 16:56; Start 03/19/19 at 17:30 HUMAIRA BLACKWOOD MD Mar 27, 2019 18:16
--- NOTE | 2019-03-27 18:18 | IPNPDOC ---
PM&R Progress Note DATE OF SERVICE: Mar 23, 2019 Hotel Recreational Facilities Manager Progress Note Subjective: Patient's daughter wondering why he is on Prozac, but understands it is to assist with motor function in stroke. REVIEW OF SYSTEMS: The following is a completed review of systems and has been reviewed. Review of systems otherwise unremarkable. PAIN: Patient self reports no pain EYES: No recent vision changes EARS, NOSE, & THROAT: No throat pain, or dysphagia, or rhinorrhea CARDIOVASCULAR: Denies chest pain or palpitations PULMONARY: Denies shortness of breath GASTROINTESTINAL: Denies constipation/diarrhea GENITOURINARY: denies dysuria or incontinence MUSCULOSKELETAL: bilateral shoulder pain NEUROLOGICAL:left sided weakness SKIN: no rash PSYCHIATRIC: Unremarkable All other review of systems found to be negative. PHYSICAL EXAMINATION: VITAL SIGNS: Please see below. GENERAL: Pleasant and cooperative. No acute distress. HEENT: PERRL. Extraocular movements intact. Clear conjunctiva CARDIOVASCULAR: Regular rate and rhythm. No murmurs, rubs, or gallops LUNGS: Clear to auscultation bilaterally. No wheezes. No rhonchi ABDOMEN: Soft, nontender, nondistended. Positive bowel sounds. Normal active bowel sounds NEUROLOGICAL: Alert and oriented to self and place, repeating questions Cranial nerves II through XII grossly intact. Sensation grossly intact EXTREMITIES: 5\\5 strength bilateral upper extremities, except 3-/5 arm abduction. 5\\5 strength right lower extremity. 5/5 strength in left hip flexors, knee extensors, 2/5 ankle DF 0/5 EHL +palpable click bilat shoulders with external rotation, pain with external rotation, SKIN: left foot slightly purple, pedal pulses palpable ASSESSMENT:84-year-old M with past medical history of TIA who presents status post right parieto-occipital stroke. PLAN: 1. 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 Cardio: Afib with pacemaker with systolic CHF, c/ beta-judson, eliquis, ARB, and Lasix- medicine consulted to assist with management 4. Resp: encourage incentive spirometry 5. Endo: hypothyroidism, c/u Synthroid 6. GI ppx: protonix BID and sucralfate in setting of past GI bleed, recent FOBT negative 7. DVT ppx: on eliquis, TEDs 8. : monitor PVRs 9. Dispo: TBD Allergies Coded Allergies: promethazine (Verified Adverse Reaction, Severe, HALLUCINATION, NAUSEA, ARRHYTHMIA, 03/15/19) donepezil (Verified Adverse Reaction, Unknown, "HAD GI BLEED AND THAT WAS ONE OF THE SIDE EFFECTS", 03/15/19) Vital Signs Vital Signs Date Time Temp Pulse Resp B/P (MAP) Pulse Ox O2 Delivery O2 Flow Rate FiO2 03/27/19 16:56 100/64 03/27/19 14:00 98.2 61 18 95 Laboratory Data CBC/BMP Laboratory Tests 03/27/19 13:22 Red Blood Count 3.91 L, Mean Corpuscular Volume 96.9 H, Mean Corpuscular Hemoglobin 32.5, Mean Corpuscular Hemoglobin Concent 33.5, Red Cell Distribution Width 13.7, Calcium Level 9.0 Labs 24H Laboratory Tests 2 03/27/19 13:22: Nucleated Red Blood Cells % (auto) 0.0, Anion Gap 5L, Glomerular Filtration Rate 59.0, Blood Urea Nitrogen 29H, Creatinine 1.24, Sodium Level 135L, Potassium Level 3.8, Chloride Level 99, Carbon Dioxide Level 31, Calcium Level 9.0 Current Medications Current Medications Current Medications Acetaminophen (Tylenol Tab) 650 mg Q4HP PRN PO MILD PAIN (PS 1-4); Start 03/19/19 at 16:45 Allopurinol (Zyloprim) 200 mg DAILY PO Last administered on 03/27/19at 09:32; Start 03/20/19 at 09:00 Apixaban (Eliquis) 5 mg BID PO Last administered on 03/27/19at 09:32; Start 03/19/19 at 21:00 Artificial Tears (Akwa Tears) 2 drop QID OU Last administered on 03/27/19 16:56; Start 03/19/19 at 17:00 Ascorbic Acid (Vitamin C) 500 mg DAILY PO Last administered on 03/27/19 09:33; Start 03/20/19 at 09:00 Aspirin (Aspirin Chewable) 81 mg DAILY PO Last administered on 03/27/19 09:33; Start 03/20/19 at 09:00 Bisacodyl (Dulcolax Suppository) 10 mg DAILYPRN PRN [place] CONSTIPATION; Start 03/19/19 at 16:45 Carvedilol (COReg) 3.125 mg BID PO Last administered on 03/27/19 09:33; Start 03/19/19 at 21:00 Colchicine (Colcrys) 0.6 mg BID PO ; Start 03/28/19 at 09:00 Cyanocobalamin (Vitamin B12) 1,000 mcg DAILY PO Last administered on 03/27/19 09:33; Start 03/20/19 at 09:00 Docusate Sodium (Colace) 100 mg BID PO Last administered on 03/27/19 09:33; Start 03/19/19 at 21:00 Fluoxetine HCl (PROzac) 20 mg QHS PO Last administered on 03/26/19 20:56; Start 03/20/19 at 21:00 Furosemide (Lasix) 20 mg BID@09,17 PO Last administered on 03/27/19 16:56; Start 03/19/19 at 17:00 Latanoprost (Xalatan 0.005% Op Soln) 1 drop QHS OU Last administered on 03/26/19 20:57; Start 03/19/19 at 21:00 Levothyroxine Sodium (Synthroid) 50 mcg DAILY@06 PO Last administered on 03/27/19 05:34; Start 03/20/19 at 06:00 Losartan Potassium (Cozaar) 12.5 mg DAILY PO Last administered on 03/20/19 09:40; Start 03/20/19 at 09:00; Stop 03/20/19 at 13:51; Status DC Losartan Potassium (Cozaar) 12.5 mg DAILY@1800 PO Last administered on 03/26/19 17:34; Start 03/21/19 at 18:00 Meclizine HCl (Antivert) 12.5 mg Q8HP PRN PO DIZZINESS; Start 03/20/19 at 14:00 Miscellaneous (Unresolved Clarification Entry) SEE LABEL COMMENTS DAILY XX ; Start 03/26/19 at 09:00; Stop 03/26/19 at 14:29; Status DC Miscellaneous (Unresolved Patient Own Med Order) SEE LABEL COMMENTS DAILY XX ; Start 03/19/19 at 09:00; Stop 03/23/19 at 11:42; Status DC Miscellaneous (Unresolved Patient Own Med Order) SEE LABEL COMMENTS DAILY XX ; Start 03/23/19 at 09:00 Pantoprazole Sodium (Protonix) 40 mg BID PO Last administered on 03/27/19at 09:33; Start 03/19/19 at 21:00 Patient Own Medication (Patient'S Own Med) 1 DROP BID OU ; Start 03/23/19 at 09:00; Status Cancel Patient Own Medication (Patient'S Own Med) RESTASIS (cyclosporine) 0.0... BID OU ; Start 03/25/19 at 21:00; Status Future Hold Rosuvastatin Calcium (Crestor) 10 mg QHS PO Last administered on 03/26/19at 20:55; Start 03/19/19 at 21:00 Senna (Senokot) 1 tab QHS PO Last administered on 03/25/19at 21:25; Start 03/19/19 at 21:00 Sucralfate (Carafate) 1 gm ACHS PO Last administered on 03/27/19 16:56; Start 03/19/19 at 17:30 HUMAIRA BLACKWOOD MD Mar 27, 2019 18:18
--- NOTE | 2019-03-27 18:19 | IPNPDOC ---
PM&R Progress Note DATE OF SERVICE: Mar 27, 2019 Dredge Operator Progress Note Subjective: Home eval today went well, patient reporting he is having a gout flare up in his left thumb and first finger. REVIEW OF SYSTEMS: The following is a completed review of systems and has been reviewed. Review of systems otherwise unremarkable. PAIN: Patient self reports no pain EYES: No recent vision changes EARS, NOSE, & THROAT: No throat pain, or dysphagia, or rhinorrhea CARDIOVASCULAR: Denies chest pain or palpitations PULMONARY: Denies shortness of breath GASTROINTESTINAL: Denies constipation/diarrhea GENITOURINARY: denies dysuria or incontinence MUSCULOSKELETAL: bilateral shoulder pain, +gout NEUROLOGICAL:left sided weakness SKIN: no rash PSYCHIATRIC: Unremarkable All other review of systems found to be negative. PHYSICAL EXAMINATION: VITAL SIGNS: Please see below. GENERAL: Pleasant and cooperative. No acute distress. HEENT: PERRL. Extraocular movements intact. Clear conjunctiva CARDIOVASCULAR: Regular rate and rhythm. No murmurs, rubs, or gallops LUNGS: Clear to auscultation bilaterally. No wheezes. No rhonchi ABDOMEN: Soft, nontender, nondistended. Positive bowel sounds. Normal active bowel sounds NEUROLOGICAL: Alert and oriented to self and place, repeating questions Cranial nerves II through XII grossly intact. Sensation grossly intact EXTREMITIES: 5\\5 strength bilateral upper extremities, except 3-/5 arm abduction. 5\\5 strength right lower extremity. 5/5 strength in left hip flexors, knee extensors, 2/5 ankle DF 0/5 EHL +palpable click bilat shoulders with external rotation, pain with external rotation, Left D1 and D2 joints erythematous, warm and tender to touch SKIN: left foot slightly purple, pedal pulses palpable ASSESSMENT:84-year-old M with past medical history of TIA who presents status post right parieto-occipital stroke. PLAN: 1. 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 Cardio: Afib with pacemaker with systolic CHF, c/ beta-judosn, eliquis, ARB, and Lasix- medicine consulted to assist with management 4. Resp: encourage incentive spirometry 5. Endo: hypothyroidism, c/u Synthroid 6. GI ppx: protonix BID and sucralfate in setting of past GI bleed, recent FOBT negative 7. DVT ppx: on eliquis, TEDs 8. Rheum: hx of gout, on allopurinol, will start colchicine 1.2 today followed by 0,6 BID until symptoms resolve, add topical hydrocortisone cream to joints 8. : monitor PVRs 9. Dispo: 03/29/19 to home Allergies Coded Allergies: promethazine (Verified Adverse Reaction, Severe, HALLUCINATION, NAUSEA, ARRHYTHMIA, 03/15/19) donepezil (Verified Adverse Reaction, Unknown, "HAD GI BLEED AND THAT WAS ONE OF THE SIDE EFFECTS", 03/15/19) Vital Signs Vital Signs Date Time Temp Pulse Resp B/P (MAP) Pulse Ox O2 Delivery O2 Flow Rate FiO2 03/27/19 16:56 100/64 03/27/19 14:00 98.2 61 18 95 Laboratory Data CBC/BMP Laboratory Tests 03/27/19 13:22 Red Blood Count 3.91 L, Mean Corpuscular Volume 96.9 H, Mean Corpuscular Hemoglobin 32.5, Mean Corpuscular Hemoglobin Concent 33.5, Red Cell Distribution Width 13.7, Calcium Level 9.0 Labs 24H Laboratory Tests 2 03/27/19 13:22: Nucleated Red Blood Cells % (auto) 0.0, Anion Gap 5L, Glomerular Filtration Rate 59.0, Blood Urea Nitrogen 29H, Creatinine 1.24, Sodium Level 135L, Potassium Level 3.8, Chloride Level 99, Carbon Dioxide Level 31, Calcium Level 9.0 Current Medications Current Medications Current Medications Acetaminophen (Tylenol Tab) 650 mg Q4HP PRN PO MILD PAIN (PS 1-4); Start 03/19/19 at 16:45 Allopurinol (Zyloprim) 200 mg DAILY PO Last administered on 03/27/19 09:32; Start 03/20/19 at 09:00 Apixaban (Eliquis) 5 mg BID PO Last administered on 03/27/19 09:32; Start 03/19/19 at 21:00 Artificial Tears (Akwa Tears) 2 drop QID OU Last administered on 03/27/19 16:56; Start 03/19/19 at 17:00 Ascorbic Acid (Vitamin C) 500 mg DAILY PO Last administered on 03/27/19 09:33; Start 03/20/19 at 09:00 Aspirin (Aspirin Chewable) 81 mg DAILY PO Last administered on 03/27/19 09:33; Start 03/20/19 at 09:00 Bisacodyl (Dulcolax Suppository) 10 mg DAILYPRN PRN [place] CONSTIPATION; Start 03/19/19 at 16:45 Carvedilol (COReg) 3.125 mg BID PO Last administered on 03/27/19 09:33; Start 03/19/19 at 21:00 Colchicine (Colcrys) 0.6 mg BID PO ; Start 03/28/19 at 09:00 Cyanocobalamin (Vitamin B12) 1,000 mcg DAILY PO Last administered on 03/27/19 09:33; Start 03/20/19 at 09:00 Docusate Sodium (Colace) 100 mg BID PO Last administered on 03/27/19 09:33; Start 03/19/19 at 21:00 Fluoxetine HCl (PROzac) 20 mg QHS PO Last administered on 03/26/19 20:56; Start 03/20/19 at 21:00 Furosemide (Lasix) 20 mg BID@09,17 PO Last administered on 03/27/19 16:56; Start 03/19/19 at 17:00 Latanoprost (Xalatan 0.005% Op Soln) 1 drop QHS OU Last administered on 03/26/19 20:57; Start 03/19/19 at 21:00 Levothyroxine Sodium (Synthroid) 50 mcg DAILY@06 PO Last administered on 03/27/19 05:34; Start 03/20/19 at 06:00 Losartan Potassium (Cozaar) 12.5 mg DAILY PO Last administered on 03/20/19 09:40; Start 03/20/19 at 09:00; Stop 03/20/19 at 13:51; Status DC Losartan Potassium (Cozaar) 12.5 mg DAILY@1800 PO Last administered on 03/26/19at 17:34; Start 03/21/19 at 18:00 Meclizine HCl (Antivert) 12.5 mg Q8HP PRN PO DIZZINESS; Start 03/20/19 at 14:00 Miscellaneous (Unresolved Clarification Entry) SEE LABEL COMMENTS DAILY XX ; Start 03/26/19 at 09:00; Stop 03/26/19 at 14:29; Status DC Miscellaneous (Unresolved Patient Own Med Order) SEE LABEL COMMENTS DAILY XX ; Start 03/19/19 at 09:00; Stop 03/23/19 at 11:42; Status DC Miscellaneous (Unresolved Patient Own Med Order) SEE LABEL COMMENTS DAILY XX ; Start 03/23/19 at 09:00 Pantoprazole Sodium (Protonix) 40 mg BID PO Last administered on 03/27/19at 09:33; Start 03/19/19 at 21:00 Patient Own Medication (Patient'S Own Med) 1 DROP BID OU ; Start 03/23/19 at 09:00; Status Cancel Patient Own Medication (Patient'S Own Med) RESTASIS (cyclosporine) 0.0... BID OU ; Start 03/25/19 at 21:00; Status Future Hold Rosuvastatin Calcium (Crestor) 10 mg QHS PO Last administered on 03/26/19at 20:55; Start 03/19/19 at 21:00 Senna (Senokot) 1 tab QHS PO Last administered on 03/25/19 21:25; Start 03/19/19 at 21:00 Sucralfate (Carafate) 1 gm ACHS PO Last administered on 03/27/19 16:56; Start 03/19/19 at 17:30 HUMAIRA BLACKWOOD MD Mar 27, 2019 18:19
[2019-03-27 19:55] VITALS: BP 102/51
[2019-03-27] MEDS: SENNA 8.6 MG TAB (SENOKOT) PO SCH (21:00)
[2019-03-27] MEDS: FLUoxetine 20 MG CAP PO SCH (21:04)
[2019-03-27] MEDS: ROSUVASTATIN 10 MG TAB (CRESTOR) PO SCH (21:05)
[2019-03-27] MEDS: LATANOPROST 0.005% OPHTH SOLN 2.5 ML OU SCH (21:05)
[2019-03-27] MEDS: HYDROCORTISONE 2.5% 20GM OINTMENT TOP SCH (21:06)
[2019-03-28 05:54] VITALS: BP 122/74
[2019-03-28] MEDS: LEVOTHYROXINE 50MCG TABLET (0.05MG) PO SCH (05:59)
[2019-03-28] MEDS: CARVedilol 3.125 MG TAB PO SCH ×2 (07:53→20:26)
--- NOTE | 2019-03-28 08:32 | IPN ---
DATE OF PROCEDURE: 03/26/2019 84-year-old who had a right parietal ischemic stroke. He has a history of coronary artery disease status post coronary artery bypass graft (CABG), hypertension, atrial fibrillation on Eliquis, transient ischemic attack (TIA) in 2001, dyslipidemia (DLP), history of gastrointestinal (GI) bleed, diverticulosis, history of Raynaud's phenomenon, prostate enlargement, gastroesophageal reflux disease (GERD), hypothyroidism, dementia, who suffered a ischemic stroke. It was suspected it was embolic in nature given he has a history of atrial fibrillation and has been placed on Eliquis. He had no complaints today. His knee had been bothering him. He said it was slightly better today. Otherwise, he was currently stable, doing well. OBJECTIVE: Blood pressure 130/67, pulse 73, respirations 18, temperature 97.4. Patient is alert and oriented times three. Pupils equal and reactive to light. Extraocular movements intact. Cornea and sclera clear. Conjunctiva normal. No facial asymmetry. Pharynx, tongue, and gums pink and moist. Tongue is midline. Neck is supple, without lymphadenopathy. No thyromegaly. No goiter. Carotids are 2+ without bruit. Chest clear to auscultation, without wheeze or retraction. Heart is irregular. Abdomen benign. Bowel sounds positive. /Rectal: Not done. Extremities: He has some slight weakness of the left arm. Minimal edema. Peripheral pulses equal and palpable bilaterally. Skin is warm and dry. IMPRESSION AND PLAN: Right parietal ischemic stroke likely secondary to embolic etiology. Patient has paroxysmal atrial fibrillation. Continue rehabilitation. Physical therapy (PT) occupational therapy (OT) under the direction of acute rehabilitation unit. Right knee pain: Tylenol as needed. Coronary artery disease status post coronary artery bypass graft (CABG): Continue with aspirin 81. Hypertension: Controlled. Continue with Coreg, Lasix, and losartan. Atrial fibrillation: Continue Eliquis. History of SFS, status post pacemaker insertion. Dyslipidemia: Continues on rosuvastatin. History of Raynaud's phenomenon. History of prostate enlargement. History hypothyroidism on levothyroxine. History of mild dementia. Mood disorder: Continue fluoxetine. Gastroesophageal reflux disease GERD): Continue Protonix and Carafate. Deep venous thrombosis (DVT) prophylaxis: Patient is on Eliquis.
[2019-03-28] MEDS: CYANOCOBALAMIN 500 MCG TAB PO SCH (09:21)
[2019-03-28] MEDS: COLCHICINE 0.6 MG TAB PO SCH ×2 (09:21→20:26)
[2019-03-28] MEDS: DOCUSATE SODIUM 100 MG CAP PO SCH ×2 (09:21→20:26)
[2019-03-28] MEDS: APIXABAN 5 MG TAB (ELIQUIS) PO SCH ×2 (09:21→20:26)
[2019-03-28] MEDS: ALLOPURINOL 100 MG TAB PO SCH (09:21)
[2019-03-28] MEDS: SUCRALFATE 1 GM TAB PO SCH ×4 (09:21→20:26)
[2019-03-28] MEDS: PANTOPRAZOLE 40MG TAB (PROTONIX) PO SCH ×2 (09:21→20:26)
[2019-03-28] MEDS: ASPIRIN 81 MG CHEW TABLET PO SCH (09:22)
[2019-03-28] MEDS: ASCORBIC ACID 500 MG TAB PO SCH (09:22)
[2019-03-28] MEDS: FUROSEMIDE 20 MG TAB PO SCH ×2 (09:24→17:25)
[2019-03-28] MEDS: POLYVINYL ALCOHOL OPHTH SOLN 15 ML(LIQUITEARS) OU SCH ×4 (09:24→20:27)
[2019-03-28] MEDS: HYDROCORTISONE 2.5% 20GM OINTMENT TOP SCH ×2 (09:25→20:27)
--- NOTE | 2019-03-28 10:19 | IPNPDOC ---
PM&R Progress Note DATE OF SERVICE: Mar 28, 2019 Sales Record Clerk Progress Note Subjective: Patient seen eating lunch stating his gout flare up is getting better today. he is ready to go home tomorrow. REVIEW OF SYSTEMS: The following is a completed review of systems and has been reviewed. Review of systems otherwise unremarkable. PAIN: Patient self reports no pain EYES: No recent vision changes EARS, NOSE, & THROAT: No throat pain, or dysphagia, or rhinorrhea CARDIOVASCULAR: Denies chest pain or palpitations PULMONARY: Denies shortness of breath GASTROINTESTINAL: Denies constipation/diarrhea GENITOURINARY: denies dysuria or incontinence MUSCULOSKELETAL: bilateral shoulder pain, +gout NEUROLOGICAL:left sided weakness SKIN: no rash PSYCHIATRIC: Unremarkable All other review of systems found to be negative. PHYSICAL EXAMINATION: VITAL SIGNS: Please see below. GENERAL: Pleasant and cooperative. No acute distress. HEENT: PERRL. Extraocular movements intact. Clear conjunctiva CARDIOVASCULAR: Regular rate and rhythm. No murmurs, rubs, or gallops LUNGS: Clear to auscultation bilaterally. No wheezes. No rhonchi ABDOMEN: Soft, nontender, nondistended. Positive bowel sounds. Normal active bowel sounds NEUROLOGICAL: Alert and oriented to self and place, repeating questions Cranial nerves II through XII grossly intact. Sensation grossly intact EXTREMITIES: 5\\5 strength bilateral upper extremities, except 3-/5 arm abduction. 5\\5 strength right lower extremity. 5/5 strength in left hip flexors, knee extensors, 2/5 ankle DF 0/5 EHL +palpable click bilat shoulders with external rotation, pain with external rotation, Left D1 and D2 joints less erythematous, not warm and mildly TTP SKIN: left foot slightly purple, pedal pulses palpable ASSESSMENT:84-year-old M with past medical history of TIA who presents status post right parieto-occipital stroke. PLAN: 1. rehab: Patient doing well in therapy, however with cognitive deficits, home eval scheduled for next week to ascertain safety in home as daughter works during the day PT- goal to strengthen LE, improve dynamic balance and ambulation on uneven terrains OT- work on improving bilateral shoulder ROM and strength, train safe ways to manage ADLs with shoulder restriction DIGITAL ASSET SPECIALIST- goal to work on cognition and compensatory strategies to improve overall safety with mobility and ADL management -left foot drop- consider AFO 2. 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 Cardio: Afib with pacemaker with systolic CHF, c/ beta-judson, eliquis, ARB, and Lasix- medicine consulted to assist with management 4. Resp: encourage incentive spirometry 5. Endo: hypothyroidism, c/u Synthroid 6. GI ppx: protonix BID and sucralfate in setting of past GI bleed, recent FOBT negative 7. DVT ppx: on eliquis, TEDs 8. Rheum: hx of gout, on allopurinol, c/u colchicine 0.6 BID until symptoms resolve, c/utopical hydrocortisone cream to joints 8. : monitor PVRs 9. Dispo: 03/29/19 to home Allergies Coded Allergies: promethazine (Verified Adverse Reaction, Severe, HALLUCINATION, NAUSEA, ARRHYTHMIA, 03/15/19) donepezil (Verified Adverse Reaction, Unknown, "HAD GI BLEED AND THAT WAS ONE OF THE SIDE EFFECTS", 03/15/19) Vital Signs Vital Signs Date Time Temp Pulse Resp B/P (MAP) Pulse Ox O2 Delivery O2 Flow Rate FiO2 03/28/19 07:53 69 122/74 03/28/19 05:54 97.8 18 96 Laboratory Data CBC/BMP Laboratory Tests 03/27/19 13:22 Red Blood Count 3.91 L, Mean Corpuscular Volume 96.9 H, Mean Corpuscular Hemoglobin 32.5, Mean Corpuscular Hemoglobin Concent 33.5, Red Cell Distribution Width 13.7, Calcium Level 9.0 Labs 24H Laboratory Tests 2 03/27/19 13:22: Nucleated Red Blood Cells % (auto) 0.0, Anion Gap 5L, Glomerular Filtration Rate 59.0, Blood Urea Nitrogen 29H, Creatinine 1.24, Sodium Level 135L, Potassium Level 3.8, Chloride Level 99, Carbon Dioxide Level 31, Calcium Level 9.0 Current Medications Current Medications Current Medications Acetaminophen (Tylenol Tab) 650 mg Q4HP PRN PO MILD PAIN (PS 1-4); Start 03/19/19 at 16:45 Allopurinol (Zyloprim) 200 mg DAILY PO Last administered on 03/28/19 09:21; Start 03/20/19 at 09:00 Apixaban (Eliquis) 5 mg BID PO Last administered on 03/28/19 09:21; Start 03/19/19 at 21:00 Artificial Tears (Akwa Tears) 2 drop QID OU Last administered on 03/28/19 09:24; Start 03/19/19 at 17:00 Ascorbic Acid (Vitamin C) 500 mg DAILY PO Last administered on 03/28/19 09:22; Start 03/20/19 at 09:00 Aspirin (Aspirin Chewable) 81 mg DAILY PO Last administered on 03/28/19 09:22; Start 03/20/19 at 09:00 Bisacodyl (Dulcolax Suppository) 10 mg DAILYPRN PRN OR CONSTIPATION; Start 03/19/19 at 16:45 Carvedilol (COReg) 3.125 mg BID PO Last administered on 03/27/19 09:33; Start 03/19/19 at 21:00 Colchicine (Colcrys) 0.6 mg BID PO Last administered on 03/28/19 09:21; Start 03/28/19 at 09:00 Cyanocobalamin (Vitamin B12) 1,000 mcg DAILY PO Last administered on 03/28/19 09:21; Start 03/20/19 at 09:00 Docusate Sodium (Colace) 100 mg BID PO Last administered on 03/28/19 09:21; Start 03/19/19 at 21:00 Fluoxetine HCl (PROzac) 20 mg QHS PO Last administered on 03/27/19 21:04; Start 03/20/19 at 21:00 Furosemide (Lasix) 20 mg BID@,17 PO Last administered on 03/28/19 09:24; Start 03/19/19 at 17:00 Hydrocortisone (Hydrocortisone 2.5% Ointment) left D1 ad D2 BID TOP Last administered on 03/28/19 09:25; Start 03/27/19 at 21:00 Latanoprost (Xalatan 0.005% Op Soln) 1 drop QHS OU Last administered on 03/27/19 21:05; Start 03/19/19 at 21:00 Levothyroxine Sodium (Synthroid) 50 mcg DAILY@06 PO Last administered on 03/28/19 05:59; Start 03/20/19 at 06:00 Losartan Potassium (Cozaar) 12.5 mg DAILY PO Last administered on 03/20/19at 09:40; Start 03/20/19 at 09:00; Stop 03/20/19 at 13:51; Status DC Losartan Potassium (Cozaar) 12.5 mg DAILY@1800 PO Last administered on 03/26/19at 17:34; Start 03/21/19 at 18:00 Meclizine HCl (Antivert) 12.5 mg Q8HP PRN PO DIZZINESS; Start 03/20/19 at 14:00 Miscellaneous (Unresolved Clarification Entry) SEE LABEL COMMENTS DAILY XX ; Start 03/26/19 at 09:00; Stop 03/26/19 at 14:29; Status DC Miscellaneous (Unresolved Patient Own Med Order) SEE LABEL COMMENTS DAILY XX ; Start 03/19/19 at 09:00; Stop 03/23/19 at 11:42; Status DC Miscellaneous (Unresolved Patient Own Med Order) SEE LABEL COMMENTS DAILY XX ; Start 03/23/19 at 09:00 Pantoprazole Sodium (Protonix) 40 mg BID PO Last administered on 03/28/19 09:21; Start 03/19/19 at 21:00 Patient Own Medication (Patient'S Own Med) 1 DROP BID OU ; Start 03/23/19 at 09:00; Status Cancel Patient Own Medication (Patient'S Own Med) RESTASIS (cyclosporine) 0.0... BID OU ; Start 03/25/19 at 21:00; Status Future Hold Rosuvastatin Calcium (Crestor) 10 mg QHS PO Last administered on 03/27/19at 21:05; Start 03/19/19 at 21:00 Senna (Senokot) 1 tab QHS PO Last administered on 03/25/19 21:25; Start 03/19/19 at 21:00 Sucralfate (Carafate) 1 gm ACHS PO Last administered on 03/28/19 09:21; Start 03/19/19 at 17:30 HUMAIRA BLACKWOOD MD Mar 28, 2019 10:18
--- NOTE | 2019-03-28 11:10 | IPNPDOC ---
Date Seen The patient was seen on 03/28/19. Progress Note Subjective: Patient was seen and examined at the bedside. Patient was working with physical therapy with his walker and a gait belt going down some stairs in the gym.no brbpr, melena, or black tarry stools.H&H stable. Denies chest pain, shortness of breath, palpitations. Denies nausea, vomiting, abdominal pain. Denies any diarrhea.dc plans in am. Objective: Vitals (See below) General: Lying in bed, no acute distress, comfortable, AAOx3 HEENT: NC, AT CVS: RRR, +S1S2 Lungs: Fair air entry b/l, -w/r/r Abdomen: Soft, ND, NT Extremities: - Edema, - Calf tenderness Assessment and plan: Patient is an 84-year-old male with a past medical history of CAD s/p CABG, HTN, Atrial fibrillation, SSS s/p PM, Hx of TIA (2001), DLP, Hx of GI bleed 2/2 Diverticulosis, Raynauds phenomenon, Prostate enlargement GERD, Hypothyroidism, History of dementia who presented to the ER initially on 03/05 for left facial droop and left arm weakness. Emergency room, patient was found to have right parietal ischemic stroke and was admitted to hospitalist service for further evaluation and treatment. Is suspected that his stroke was embolic in nature given his atrial fibrillation, it was discussed by the admitting doctor, band instrument maker, Dr. Castaneda and neurology, Dr. Comer, the patients prior GI bleed, would not preclude him from receiving full anticoagulation at this time, 18 years later. Patient was transferred to ARU on 03/19 under the care of Dr. Wan for further rehabilitation. Right parietal ischemic stroke - likely 2/2 embolic etiology 2/2 paroxysmal atrial fibrillation - Hx of TIA (2001) - Head CT 03/15: New low density lesion in the periventricular white matter and overlying coon matter of the right posterior parieto-occipital region consistent with a recent infarction. No hemorrhage is seen. Vascular alcification, diffuse atrophy, and small vessel changes are again noted. - c/w full anticoagulation with Eliquis and Rosuvastatin - Neurology consult appreciated - We'll continue with physical therapy and occupational therapy at the direction of ARU Right knee pain - likely 2/2 osteoarthritis - Patient has reported that he has received a left knee total arthroplasty because of osteoarthritis - Patient does report receiving corticosteroid injections of his right knee in the past - Will continue with Tylenol when necessary CAD s/p CABG - c/w ASA 81 HTN - BP well controlled - c/w Carvedilol, Furosemide and Losartan Atrial fibrillation - c/w rate control with Carvedilol - on full anticoagulation with Eliquis SSS s/p PM DLP - c/w Rosuvastatin Hx of GI bleed 2/2 Diverticulosis -stable h&h Raynauds phenomenon Prostate enlargement Hypothyroidism - c/w Levothyroxine History of dementia Mood disorder - c/w Fluoxetine GERD - c/w Protonix and Carafate DVT prophylaxis - on full anticoagulation with Eilquis VS, I&O, 24H, Fishbone Vital Signs/I&O Vital Signs Date Time Temp Pulse Resp B/P (MAP) Pulse Ox O2 Delivery O2 Flow Rate FiO2 03/28/19 07:53 69 122/74 03/28/19 05:54 97.8 18 96 I&O- Last 24 Hours up to 6 AM 03/28/19 05:59 Intake Total 600 ml Output Total 0 ml Balance 600 ml Laboratory Data 24H LABS Laboratory Tests 2 03/27/19 13:22: Nucleated Red Blood Cells % (auto) 0.0, Anion Gap 5L, Glomerular Filtration Rate 59.0, Blood Urea Nitrogen 29H, Creatinine 1.24, Sodium Level 135L, Potassium Level 3.8, Chloride Level 99, Carbon Dioxide Level 31, Calcium Level 9.0 CBC/BMP Laboratory Tests 03/27/19 13:22 Red Blood Count 3.91 L, Mean Corpuscular Volume 96.9 H, Mean Corpuscular Hemoglobin 32.5, Mean Corpuscular Hemoglobin Concent 33.5, Red Cell Distribution Width 13.7, Calcium Level 9.0 SHAYNA GUERIN MD Mar 28, 2019 10:17
[2019-03-28 11:13] LABS: BLOOD UREA NITROGEN 27 MG/DL (7-18); CALCIUM LEVEL 8.7 MG/DL (8.8-10.2); CARBON DIOXIDE LEVEL 33 MEQ/L (21-32); CHLORIDE LEVEL 101 MEQ/L (98-107); CREATININE FOR GFR 1.17 MG/DL (0.70-1.30); GLOMERULAR FILTRATION RATE > 60.0 (>35); GLUCOSE, FASTING 82 MG/DL (70-100); POTASSIUM SERUM 3.6 MEQ/L (3.5-5.1); SODIUM LEVEL 139 MEQ/L (136-145); URIC ACID 5.8 MG/DL (3.5-7.2)
[2019-03-28 14:00] VITALS: BP 136/82
[2019-03-28] MEDS ORDERED: ASPI81CH8 PO (14:04)
[2019-03-28] MEDS ORDERED: FLUO20CA19 PO (14:04)
[2019-03-28] MEDS ORDERED: COLC1TAB13 PO (14:04)
[2019-03-28] MEDS ORDERED: HYDR25OIN TOP (14:04)
[2019-03-28] MEDS ORDERED: ALLO10TA PO (14:04)
[2019-03-28] MEDS ORDERED: FURO20TA2 PO (14:04)
[2019-03-28] MEDS ORDERED: ELIQ5TAB PO (14:04)
[2019-03-28] MEDS ORDERED: PANT40TA3 PO (14:04)
[2019-03-28] MEDS ORDERED: LEVO50TA5 PO (14:04)
[2019-03-28] MEDS ORDERED: CARV3.12 PO (14:04)
[2019-03-28] MEDS ORDERED: COZA1TAB PO (14:04)
[2019-03-28] MEDS ORDERED: CRES10TA PO (14:04)
[2019-03-28] MEDS: LOSARTAN 25 MG TAB PO SCH (17:25)
[2019-03-28 20:00] VITALS: BP 113/67
[2019-03-28] MEDS: FLUoxetine 20 MG CAP PO SCH (20:26)
[2019-03-28] MEDS: ROSUVASTATIN 10 MG TAB (CRESTOR) PO SCH (20:26)
[2019-03-28] MEDS: SENNA 8.6 MG TAB (SENOKOT) PO SCH (20:26)
[2019-03-28] MEDS: LATANOPROST 0.005% OPHTH SOLN 2.5 ML OU SCH (20:27)
[2019-03-29] MEDS: LEVOTHYROXINE 50MCG TABLET (0.05MG) PO SCH (05:52)
[2019-03-29 06:00] VITALS: BP 135/65
[2019-03-29] MEDS: COLCHICINE 0.6 MG TAB PO SCH (07:53)
[2019-03-29] MEDS: SUCRALFATE 1 GM TAB PO SCH ×2 (07:53→12:17)
[2019-03-29] MEDS: DOCUSATE SODIUM 100 MG CAP PO SCH (07:53)
[2019-03-29] MEDS: PANTOPRAZOLE 40MG TAB (PROTONIX) PO SCH (07:54)
[2019-03-29] MEDS: CYANOCOBALAMIN 500 MCG TAB PO SCH (07:54)
[2019-03-29] MEDS: ASPIRIN 81 MG CHEW TABLET PO SCH (07:54)
[2019-03-29] MEDS: ALLOPURINOL 100 MG TAB PO SCH (07:54)
[2019-03-29] MEDS: ASCORBIC ACID 500 MG TAB PO SCH (07:54)
[2019-03-29] MEDS: FUROSEMIDE 20 MG TAB PO SCH (07:54)
[2019-03-29 07:55] VITALS: BP 135/65
[2019-03-29] MEDS: APIXABAN 5 MG TAB (ELIQUIS) PO SCH (07:55)
[2019-03-29] MEDS: CARVedilol 3.125 MG TAB PO SCH (07:55)
[2019-03-29] MEDS: POLYVINYL ALCOHOL OPHTH SOLN 15 ML(LIQUITEARS) OU SCH ×2 (07:56→12:17)
[2019-03-29] MEDS: HYDROCORTISONE 2.5% 20GM OINTMENT TOP SCH (07:56)
--- NOTE | 2019-03-29 13:39 | IPNPDOC ---
Text Note Date of Service The patient was seen on 03/29/19. NOTE Subjective: Up to chair at bedside, no chest pain, not shortness of breath, no chills, fever, abdominal pain, nausea, diarrhea or constipation. Objective GENERAL: NAD SKIN : Warm, dry intact HEENT: Atraumatic, normocephalic, PERRL, moist mucous membrane CARDIOVASCULAR: Regular rate and rhythm, S1S2, no JVD, no edema, distal pulses + palpable RESP: CTAB, no accessory muscle use noted ABDOMEN: BS+ non distended non tender MS: no joint deformities NEURO: Alert and oriented x 3, CN2-12 grossly intact PSYCH: no anxiety or agitation, appropriate mood and affect. A/P Right parietal ischemic CVA -with left facial droop and left arm weakness. -Continued in rehabilitation unit by primary team Hypertension -Controlled on Coreg, Lasix, losartan Paroxysmal atrial fibrillation -Rate control with Coreg -Anticoagulation therapy with Eliquis Hypothyroidism -Continue Synthroid DVT prophylaxis - on full anticoagulation with Eilquis VS,Fishbone, I+O VS, Fishbone, I+O Vital Signs Date Time Temp Pulse Resp B/P (MAP) Pulse Ox O2 Delivery O2 Flow Rate FiO2 03/29/19 07:55 59 135/65 03/29/19 06:00 98.1 18 96 I&O- Last 24 Hours up to 6 AM 03/29/19 05:59 Intake Total 480 ml Output Total 0 ml Balance 480 ml MOOK ARROYOP Mar 29, 2019 13:39
[2019-03-29 14:00] VITALS: BP 133/38
== END 2019-03-29 14:50 | disposition home or self-care (01) | DRG 57 ==
LOC: M PM&R 17:05
PROVIDERS: ADMIT Physical Medicine & Rehabilitation; ATTEND Physical Medicine & Rehabilitation
DX: I69.998 Other sequelae following unspecified cerebrovascular disease (principal); I50.22 Chronic systolic (congestive) heart failure; I48.0 Paroxysmal atrial fibrillation; Z95.0 Presence of cardiac pacemaker; E03.9 Hypothyroidism, unspecified; I25.10 Atherosclerotic heart disease of native coronary artery without angina pectoris; I11.0 Hypertensive heart disease with heart failure; M21.372 Foot drop, left foot; F03.90 Unspecified dementia, unspecified severity, without behavioral disturbance, psychotic disturbance, mood disturbance, and anxiety; K21.9 Gastro-esophageal reflux disease without esophagitis; Z95.2 Presence of prosthetic heart valve; N40.0 Benign prostatic hyperplasia without lower urinary tract symptoms; Z79.01 Long term (current) use of anticoagulants; Z79.899 Other long term (current) drug therapy; Z79.82 Long term (current) use of aspirin; Z88.8 Allergy status to other drugs, medicaments and biological substances; I73.00 Raynaud's syndrome without gangrene; M17.11 Unilateral primary osteoarthritis, right knee

== ENCOUNTER 2019-08-03 09:18 | Observation (INO) | payer OTHER, MEDICARE ==
[~2019-08-03] VITALS: Ht 177.8 cm; Wt 70.0 kg
[2019-08-03] MEDS: APIXABAN 5 MG TAB (ELIQUIS) PO SCH ×2 (09:00→22:19)
[~2019-08-03 09:18] MED LIST changes: +ALLO10TA PO; +COLC1TAB13 PO; +COZA1TAB PO; +CRES10TA PO; +FLUO20CA19 PO; +HYDR25OIN TOP; +LEVO50TA5 PO; +PANT40TA3 PO
[2019-08-03] MEDS ORDERED: ACETAMINOPHEN 500 MG TAB PO ONE (10:00)
[2019-08-03] MEDS ORDERED: CARVedilol 6.25 MG TAB PO ONE (10:15)
[2019-08-03] MEDS ORDERED: LEVO50TA45 PO (10:16)
[2019-08-03] MEDS ORDERED: ATOR1TAB21 PO (10:16)
[2019-08-03] MEDS ORDERED: XALA0.007 OU (10:16)
[2019-08-03] MEDS ORDERED: ACET-683 PO (10:16)
[2019-08-03] MEDS ORDERED: REFR0.5D8 OU (10:16)
[2019-08-03] MEDS ORDERED: MILKSUS3 PO (10:16)
[2019-08-03] MEDS ORDERED: FURO20TA2 PO (10:16)
[2019-08-03] MEDS ORDERED: ALLO100T PO (10:16)
[2019-08-03] MEDS ORDERED: HYDR1CR TOP (10:16)
[2019-08-03] MEDS ORDERED: CARV6.25 PO (10:16)
[2019-08-03] MEDS ORDERED: REST0.05 OU (10:16)
[2019-08-03] MEDS ORDERED: AMOX500C PO (10:16)
[2019-08-03] MEDS ORDERED: COLA100C5 PO (10:16)
[2019-08-03] MEDS ORDERED: NITR4TASL SL (10:16)
[2019-08-03] MEDS ORDERED: ELIQ5TAB PO (10:16)
[2019-08-03] MEDS ORDERED: SENN18TA PO (10:16)
[2019-08-03] MEDS ORDERED: PANT-23 PO (10:16)
[2019-08-03] MEDS ORDERED: FLUO20CA8 PO (10:16)
[2019-08-03] MEDS ORDERED: SUCR1TAB56 PO (10:16)
[2019-08-03] MEDS ORDERED: LOSA25TA14 PO (10:16)
[2019-08-03] MEDS ORDERED: ASPI81TA26 PO (10:16)
--- NOTE | 2019-08-03 10:17 | REP ---
Clinical: Acute cerebrovascular accident . Comparison: 03/15/2019 Findings: Atrophy with periventricular leukomalacia and microvascular ischemic changes are appreciated. The ventricles are symmetric. Robb-white differentiation is maintained. There is no evidence for acute intracranial hemorrhage, mass/mass effect, pathology or infarction. No extra-axial fluid collection. Calvarium is intact. Paranasal sinuses and mastoid air cells are clear. Impression: Atrophy and microvascular ischemic changes. No acute intracranial hemorrhage, infarction, or mass/mass effect. Electronically Signed by Mich Souza MD 08/03/2019 10:08 A
[2019-08-03 10:18] LABS: BASO % 0.3 % (0.0-1.0); EOS # 0.2 10^3/uL (0.0-0.5); HEMATOCRIT 38.2 % (42.0-52.0); HEMOGLOBIN 12.3 g/dl (13.5-17.5); LYMPH # 0.9 10^3/uL (1.5-5.0); LYMPH % 12.2 % (24.0-44.0); MEAN CORPUSCULAR HEMOGLOBIN 31.8 pg (27.0-33.0); MEAN CORPUSCULAR HGB CONC 32.2 g/dl (32.0-36.5); MEAN CORPUSCULAR VOLUME 98.7 fl (80.0-96.0); MONO # 0.8 10^3/uL (0.0-0.8); MONO % 10.8 % (0.0-5.0); NEUTROPHILS # 5.6 10^3/uL (1.5-8.5); NEUTROPHILS % 74.3 % (36.0-66.0); PLATELET COUNT, AUTOMATED 143 10^3/uL (150-450); RED BLOOD COUNT 3.87 10^6/uL (4.30-6.10); WHITE BLOOD COUNT 7.5 10^3/uL (4.0-10.0)
--- NOTE | 2019-08-03 10:21 | REP ---
Clinical: Injury. Technique: Axial noncontrast images from the skull base to the thoracic inlet with coronal and sagittal re-formations. Findings: Advanced multilevel degenerative disc osteophyte complexes are appreciated extending from the skull base through the visualized upper thoracic spine including chronic dextroconvex scoliosis. Age-related osteopenia noted. No acute fracture / compression injury or acute subluxation. Chronic anterolisthesis at the C7-T1 level remains essentially stable compared to sagittal chest CT images dated 08/15/2017. Impression: Advanced multilevel degenerative spondylosis. No obvious acute fracture / compression injury or subluxation. Electronically Signed by Mich Souza MD 08/03/2019 10:12 A
[2019-08-03 10:29] LABS: INR 1.23; PROTHROMBIN TIME 15.3 SECONDS (11.8-14.0)
[2019-08-03 10:40] LABS: BLOOD UREA NITROGEN 17 MG/DL (7-18); CALCIUM LEVEL 8.7 MG/DL (8.8-10.2); CARBON DIOXIDE LEVEL 31 MEQ/L (21-32); CHLORIDE LEVEL 104 MEQ/L (98-107); CK-MB VALUE MASS 3.4 NG/ML (<3.6); CPK CREATINE PHOSPHOKINASE 150 U/L (39-308); CREATININE FOR GFR 0.91 MG/DL (0.70-1.30); GLOMERULAR FILTRATION RATE > 60.0 (>35); GLUCOSE, FASTING 102 MG/DL (70-100); MB/CK RELATIVE INDEX 2.27 (< OR =4); POTASSIUM SERUM 4.3 MEQ/L (3.5-5.1); SODIUM LEVEL 140 MEQ/L (136-145); TROPONIN I < 0.02 NG/ML (< 0.10)
--- NOTE | 2019-08-03 10:41 | REP ---
Clinical: Cerebrovascular accident. Comparison: 02/19/2018. Findings: Cardiomegaly and evidence of prior sternotomy, CABG, and pacemaker. Lung parsons demonstrate diffuse chronic interstitial changes. Left lower lobe consolidation is suggested. No pneumothorax. Skeletal structures stable. Impression: Cardiomegaly and chronic stable changes. Left lower lobe opacity suggesting infiltrate and/or chronic change. Electronically Signed by Mich Souza MD 08/03/2019 10:33 A
[2019-08-03 12:49] VITALS: BP 167/80
[2019-08-03 12:53] VITALS: BP 142/76
[2019-08-03] MEDS ORDERED: HYDROCORTISONE 1% CREAM 30 GM TOP PRN (13:00)
[2019-08-03] MEDS ORDERED: MOM 30ML SUSPENSION UDC PO PRN (13:00)
[2019-08-03] MEDS ORDERED: DOCUSATE SODIUM 100 MG CAP PO PRN (13:00)
[2019-08-03] MEDS ORDERED: SENNA 8.6 MG TAB (SENOKOT) PO PRN (13:00)
[2019-08-03] MEDS ORDERED: ACETAMINOPHEN 500 MG TAB PO PRN (13:00)
[2019-08-03 14:00] VITALS: BP 124/65
--- NOTE | 2019-08-03 14:40 | HPE ---
DATE OF ADMISSION: 08/03/2019 My attending on this case is Dr. Janak Oswald. PRIMARY CARE PROVIDER: Dr. Opal Morris QUALITY MEASUREMENT SPECIALIST: Dr. Des Everett PREVIOUS NEUROLOGIST: Dr. Neo Comer ADMITTING PROVIDER: Dr. Janak Oswald CHIEF COMPLAINT: Headaches and blurry vision. HISTORY OF THE PRESENT ILLNESS: This is an 84-year-old male with a pertinent past medical history with atrial fibrillation, on Eliquis, pacemaker, acute right parietal occipital infarct early March 2019, who presented to the emergency room (ER) today for headaches and blurry vision since this morning. Patient is accompanied by his sons, Landen Vargas and Anthony who supplemented the history today. The patient currently lives at the [facility] and early this morning when he woke up, he was complaining of a headache and blurry vision. When he was evaluated by the nursing staff, he states that he was very tired and weak, and he did not want to move out of bed. He states that he also had some generalized neck discomfort that radiates down to his shoulders. He said it is more localized to the left side, but sometimes it can be in the right as well. He noticed that it got worse yesterday after he went home for Thanksgiving with his son, and he slept on the couch in an awkward position. He denies any fevers, chills, night sweats, nausea, vomiting, diarrhea. He denies any swelling to the joint or to the neck. He states at the current time that he does not have the blurry vision or the headache, he just has the neck discomfort in the back. More localized to the left. He denies seeing a curtain fall or black specks in his eyes. He states that he ambulates with a walker and has not had any recent falls. He does not notice any instability when he ambulates. He denies any change of appetite recently, any weight loss, or any heat intolerance. The patient does state that he has a baseline history of blurry vision, and he does see Dr. Pablo who has placed him on multiple eye drops, which does help. He has no other complaints at this time. He states he is compliant with all of his medications, but did not take any of them this morning prior to coming to the ER. After he was evaluated in the ER, due to the fact that he cannot have an MRI done due to the pacemaker, hospitalist team was then called for observation for 24 hours to do repeat imaging in the morning for transient ischemic attack (TIA)/CVA rule out. PAST MEDICAL HISTORY: Coronary artery disease. 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 Multiple stent placements. Diverticulosis. Hypertension. Hypercholesterolemia. Dementia. Raynaud's. BPH. Hypothyroidism. Acid reflux. Hiatal hernia. Right upper lobe calcified pulmonary nodule. Spinal stenosis. Decreased hearing. Left kidney mass. History of hematuria. Pulmonary fibrosis. Inguinal hernia. PAST SURGICAL HISTORY: Coronary artery bypass graft (CABG) in 2008. Pacemaker placement for tachybrady syndrome in 2002. Bare metal stent placement and percutaneous transluminal coronary angioplasty of the circumflex with a bare metal stent placement in 2009. Knee arthroscopic surgery. Bilateral cataract extraction in 2009. HOME MEDICATIONS: - acetaminophen - allopurinol - apixaban - aspirin - atorvastatin - Colace - fluoxetine - hydrocortisone cream - Xalatan - levothyroxine - Milk of Magnesia - Protonix - Senna - Carafate - carvedilol - furosemide - losartan - nitroglycerin - Refresh Tears - Restasis DRUG ALLERGIES: DONEPEZIL and PROMETHAZINE. SOCIAL HISTORY: Denies smoking, illicit drug use or alcohol use. Currently lives at home. His code status is DO NOT RESUSCITATE/DO NOT INTUBATE (DNR/DNI). FAMILY HISTORY: Positive for heart disease and mother had stroke. REVIEW OF SYSTEMS: Unless stated above, the remaining 12-point review of systems is negative. PHYSICAL EXAMINATION: Vital signs: Temperature 97.6, pulse 56, respiration rate 16, blood pressure 167/80 (109), pulse oximetry 92% on room air. General: This is a very pleasant 84-year-old male who does not appear in acute distress, laying comfortably in the bed, awake, alert, and oriented to person, place but not to time. Speaking in complete sentences, in no acute distress. HEENT: Atraumatic, normocephalic. Pupils are equal, round, and reactive. Moist mucous membranes. No jugular venous distention (JVD). No lymphadenopathy. Slight temporal wasting bilaterally. Prominent SCMs bilaterally and decreased subclavicular wasting bilaterally. Cardiovascular: Old surgical midline incision. S1, S2 sounds are present. Pacer noted on the left anterior chest. No audible murmurs, rubs or gallops noted for me. There is no audible carotid upstrokes or bruit noted as well. No lower extremity edema. Pedal pulses are 2+ in the upper and lower extremities bilaterally. Abdomen: Positive bowel sounds in all four quadrants. Soft, nontender, nondistended. Extremities: No lower extremity edema, clubbing or cyanosis. Right upper shoulder is slightly restricted in range of motion with abduction in the right due to old shoulder injury. Neurologic: Spontaneously able to move all extremities. Cranial nerves II-XII grossly intact with no obvious focal deficit appreciated. Muscle strength is actually 4/5 in the upper extremities and the lower extremities. 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 Sensation is intact in the upper and lower extremities as well. Physiological is appropriate. LABORATORY: WBC 7.5, hemoglobin 12.3, hematocrit 38.2, platelets 143. Chemistries: Sodium 140, potassium 4.3, chloride 104, carbon dioxide 31, anion gap 5, BUN 17, creatinine 0.91, fasting glucose 102, calcium 8.7, troponin less than 0.02. INR 1.23. Blood type A positive, antibody screen negative. IMAGING: CT of the head is atrophy and microvascular ischemic changes. No acute intracranial hemorrhage, infarct or mass or mass effect. Chest x-ray: Cardiomegaly with chronic stable changes, left lower lobe opacity suggesting infiltrates or chronic changes. Cervical spine CT: Advanced multilevel degenerative spondylosis. No obvious acute fractures or compression injury or subluxation. EKG: Ventricular rate of 60 that is electronically ventricularly paced. No CA interval can be noted and the ventricular pacemaker is regular. ASSESSMENT AND PLAN: This is an 84-year-old male with a pertinent history of atrial fibrillation - on Eliquis, history of acute right parietal infarct in March 2019, pacemaker, who is presenting to the ER for headaches and blurry vision. 1. Headaches and blurry vision, possibly secondary to a TIA versus a CVA. Head CT shows microvascular changes and atrophy. There is no acute infarct or acute hemorrhage noted. Because of his pacemaker, we cannot get an MRI, so we will monitor the patient for 24 hours and in the morning, will do a repeat CT of the head without contrast. We will continue with his home aspirin 81 mg daily, atorvastatin 20 mg daily, as well as his apixaban 5 mg twice a day. We will hold his home furosemide and losartan for permissive hypertension for the next 24 hours. Maintain a systolic less than 150 with a diastolic less than 100. We will have vital checks with standard of care and neurologic checks every [address] him on telemetry. 2. History of chronic atrial fibrillation with tachybrady syndrome, status post pacemaker. Currently the patient is ventricularly paced. We will have him on telemetry and will continue with his aspirin 81 mg and the Eliquis 5 mg twice a day. We will hold his Coreg 3.25 mg twice a day at the current time and after 24 hours of permissive hypertension, we can consider restarting it for rate control. 3. History of hyperlipidemia. Will continue with his home atorvastatin 20 mg daily. 4. History of coronary artery disease, CABG and multiple stents. Will continue with his aspirin 81 mg daily, atorvastatin 20 mg daily. We will hold his Coreg and losartan for 24 hours and reevaluate in the morning about restarting it once we have ruled out an acute CVA. 5. History of hypertensive disease. Will continue to hold his losartan and his torsemide due to problem #1. 6. History of hypothyroidism. Will continue his levothyroxine 50 mcg daily. 7. History of GI bleed in 2000, currently stable. Hemoglobin and hematocrit are adequate at 12.3 and 38.2. We do have a type and screen on board, which is A positive and antibodies are negative. We will continue with his Eliquis as prescribed for his atrial fibrillation and monitor with daily CBCs. 8. 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 CT of the neck did show degenerative joint disease in the neck. Will provide a K-pad to apply to the back of his neck to see if it provides some relief. If not, we will consider reevaluating for adding pharmacotherapy if pain is not managed. 9. Deep vein thrombosis (DVT) prophylaxis. Thromboembolism deterrents (TEDs) and continue with his Eliquis. 10. Diet: 2-gram sodium diet. Not an aspiration risk. 11. Physical therapy (PT) consulted, though he does ambulate with a walker. 12. History of cataract surgery. Patient does have eye drops on board. We have continued the ones that are part of our formulary, such as latanoprost. If you would like to have the other eye drops that are not part of our formulary, the patient is able to bring in and we can continue while he is admitted. 13. Constipation. Continue Milk of Magnesia and Senokot. 14. Gout. Continue with allopurinol 200 mg daily. 15. Depression. Continue with Prozac 20 mg daily. 16. History of GERD with a history of GI bleed. Continue with Protonix 40 mg twice a day and home Carafate 1 gram before food and nightly by mouth. CODE STATUS: DO NOT RESUSCITATE/DO NOT INTUBATE (DNR/DNI). Medical Orders for Life-Sustaining Treatment (MOLST) is in the chart. The patient will be admitted to medical-surgical with telemetry. Attending Attestation: I have personally evaluated and examined the patient. Discussed with residents/students regarding plan of care and agree with the above assessment and plan. MARIO
[2019-08-03] MEDS: FLUoxetine 20 MG CAP PO SCH (15:29)
[2019-08-03] MEDS: ATORVASTATIN 20 MG TAB PO SCH (15:29)
[2019-08-03] MEDS: ASPIRIN 81 MG ENTERIC TAB PO SCH (15:29)
[2019-08-03] MEDS: ALLOPURINOL 100 MG TAB PO SCH (15:29)
--- NOTE | 2019-08-03 16:30 | ECGEPIP ---
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
[2019-08-03] MEDS ORDERED: ANALGESIC BALM CRM 120 GM TOP PRN (18:00)
[2019-08-03] MEDS: SUCRALFATE 1 GM TAB PO SCH ×2 (18:10→22:19)
[2019-08-03] MEDS ORDERED: LATANOPROST 0.005% OPHTH SOLN 2.5 ML OU SCH (21:00)
[2019-08-03 22:00] VITALS: BP 129/77
[2019-08-03] MEDS: PANTOPRAZOLE 40MG TAB (PROTONIX) PO SCH (22:19)
[2019-08-04 02:00] VITALS: BP 143/68
[2019-08-04 05:47] LABS: HEMATOCRIT 35.4 % (42.0-52.0); HEMOGLOBIN 11.4 g/dl (13.5-17.5); MEAN CORPUSCULAR HEMOGLOBIN 31.2 pg (27.0-33.0); MEAN CORPUSCULAR HGB CONC 32.2 g/dl (32.0-36.5); PLATELET COUNT, AUTOMATED 128 10^3/uL (150-450); RED BLOOD COUNT 3.65 10^6/uL (4.30-6.10); WHITE BLOOD COUNT 6.7 10^3/uL (4.0-10.0)
[2019-08-04 06:00] VITALS: BP 150/73
[2019-08-04] MEDS ORDERED: LEVOTHYROXINE 50MCG TABLET (0.05MG) PO SCH (06:00)
[2019-08-04 06:04] LABS: BLOOD UREA NITROGEN 16 MG/DL (7-18); CALCIUM LEVEL 8.8 MG/DL (8.8-10.2); CARBON DIOXIDE LEVEL 28 MEQ/L (21-32); CHLORIDE LEVEL 104 MEQ/L (98-107); CREATININE FOR GFR 0.98 MG/DL (0.70-1.30); GLOMERULAR FILTRATION RATE > 60.0 (>35); GLUCOSE, FASTING 93 MG/DL (70-100); MAGNESIUM LEVEL 2.2 MG/DL (1.8-2.4); POTASSIUM SERUM 3.8 MEQ/L (3.5-5.1); SODIUM LEVEL 138 MEQ/L (136-145)
--- NOTE | 2019-08-04 06:12 | REPVR ---
PROCEDURE INFORMATION: Exam: CT Head Without Contrast Exam date and time: 08/04/2019 6:02 AM Age: 84 years old Clinical history: Weakness, extremity; Additional info: Tia/cva reevaluation TECHNIQUE: Imaging protocol: Computed tomography of the head without contrast. Radiation optimization: All CT scans at this facility use at least one of these dose optimization techniques: automated exposure control; mA and/or kV adjustment per patient size (includes targeted exams where dose is matched to clinical indication); or iterative reconstruction. COMPARISON: CT Head without contrast 2019-08-03 09:47 FINDINGS: Brain: Chronic right parietal cortical infarct. Small chronic right lateral frontal cortical infarct. Diffuse severe cerebral volume loss. Diffuse moderate to severe patchy low attenuation in the white matter compatible with chronic small vessel ischemic disease. No midline shift, mass, fluid collection, or evidence of hemorrhage. Scattered chronic appearing lacunae in the deep coon structures and/or periventricular white matter. Unchanged age-indeterminate left caudate/anterior limb internal capsule lacunar infarct. Ventricles: Ventricular enlargement proportional to volume loss. Right lateral ventricle ex vacuo dilatation from volume loss. Bones/joints: Unremarkable. No acute fracture. Sinuses: Visualized sinuses are unremarkable. No fluid levels. Mastoid air cells: Visualized mastoid air cells are well aerated. Soft tissues: Unremarkable. IMPRESSION: No significant change. Electronically signed by: Sigifredo Alves On 08/04/2019 06:12:39 AM
[2019-08-04] MEDS: PANTOPRAZOLE 40MG TAB (PROTONIX) PO SCH (08:22)
[2019-08-04] MEDS: ATORVASTATIN 20 MG TAB PO SCH (08:22)
[2019-08-04] MEDS: ALLOPURINOL 100 MG TAB PO SCH (08:22)
[2019-08-04] MEDS: APIXABAN 5 MG TAB (ELIQUIS) PO SCH (08:22)
[2019-08-04] MEDS: FLUoxetine 20 MG CAP PO SCH (08:22)
[2019-08-04] MEDS: ASPIRIN 81 MG ENTERIC TAB PO SCH (08:22)
[2019-08-04] MEDS: SUCRALFATE 1 GM TAB PO SCH ×2 (08:23→12:42)
[2019-08-04 10:00] VITALS: BP 122/64
--- NOTE | 2019-08-04 11:21 | DS.PDOC ---
Discharge Summary General Date of Admission Aug 03, 2019 at 09:19 Date of Discharge 08/04/2019 Discharge Summary DISCHARGE DIAGNOSIS: Headache and neck pain SECONDARY DIAGNOSIS: 1. Chronic atrial fibrillation with tachybradycardia syndrome 2. Hyperlipidemia 3. Coronary artery disease CABG with multiple stents 4. Hypertensive disease 5. Hyperthyroidism 6. History of GI bleed in 2000 currently stable 7. Degenerative joint disease of the low back and neck 8. History of cataract surgery 9. Depression 10. History of GERD with a history of GI bleed PROCEDURES PERFORMED DURING STAY: None. CONSULTANTS: None HOSPITAL COURSE: The patient was admitted to [facility] with remote telemetry. He was clinically stable at the time of admission and the day of discharge. Because of his history of a pacemaker was unable to get an MRI to assess if the patient had an acute stroke at the time of presentation. The patient was admitted as observation. Blood pressure medications was were held while admitted that he was normotensive the whole time. The repeat imaging the next day was negative for acute stroke. After he was cleared by PT he was discharged back to assess the with all his home medications no adjustments. Advised patient that he can apply heating pad and muscle rub to the back of his neck to help with his discomfort for he found relief with it while admitted. DISCHARGE MEDICATIONS: Please see below. ALLERGIES: Please see below. SUBJECTIVE: Admits that neck pain improved with heating pad and muscle rub. He denies chest pain, shortness, breath, nausea, vomiting, fevers, chills. OBJECTIVE: PHYSICAL EXAMINATION: VITAL SIGNS: Please see below. General: This is a very pleasant 84-year-old male who does not appear in acute distress, laying comfortably in the bed, awake, alert, and oriented to person, place but not to time. Speaking in complete sentences, in no acute distress. HEENT: Atraumatic, normocephalic. Pupils are equal, round, and reactive. Moist mucous membranes. No jugular venous distention (JVD). No lymphadenopathy. Slight temporal wasting bilaterally. Prominent SCMs bilaterally and decreased subclavicular wasting bilaterally. Cardiovascular: Old surgical midline incision. S1, S2 sounds are present. Pacer noted on the left anterior chest. No audible murmurs, rubs or gallops noted. There is no audible carotid upstrokes or bruit noted as well. No lower extremity edema. Pedal pulses are 2+ in the upper and lower extremities bilaterally. Abdomen: Positive bowel sounds in all four quadrants. Soft, nontender, nondistended. Extremities: No lower extremity edema, clubbing or cyanosis. Right upper shoulder is slightly restricted in range of motion with abduction in the right due to old shoulder injury. Neurologic: Spontaneously able to move all extremities. Cranial nerves II-XII grossly intact with no obvious focal deficit appreciated. Muscle strength is actually 4/5 in the upper extremities and the lower extremities. 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 Sensation is intact in the upper and lower extremities as well. Physiological is appropriate. LABORATORY DATA, MICROBIOLOGY: Please see below. IMAGING STUDIES: 08/03/2019 CT of the head is atrophy and microvascular ischemic changes. No acute intracranial hemorrhage, infarct or mass or mass effect. Chest x-ray: Cardiomegaly with chronic stable changes, left lower lobe opacity suggesting infiltrates or chronic changes. Cervical spine CT: Advanced multilevel degenerative spondylosis. No obvious acute fractures or compression injury or subluxation. EKG: Ventricular rate of 60 that is electronically ventricularly paced. No WA interval can be noted and the ventricular pacemaker is regular. 08/04/2019 CT head: No significant change. DVT prophylaxis ordered: Yes DISPOSITION: SSV with AL. DISCHARGE CONDITION: Stable FOLLOW UP: PCP in 10-14 days ACTIVITY: As prior to admission DIET: As prior to admission TIME SPENT ON DISCHARGE: 40 minutes Vital Signs/I&Os Vital Signs Date Time Temp Pulse Resp B/P (MAP) Pulse Ox O2 Delivery O2 Flow Rate FiO2 08/04/19 10:00 98.6 60 18 122/64 (83) 94 Room Air I&O- Last 24 Hours up to 6 AM 08/04/19 06:00 Intake Total 600 ml Output Total 200 ml Balance 400 ml Laboratory Data Labs 24H Laboratory Tests 2 08/04/19 05:25: Nucleated Red Blood Cells % (auto) 0.0 08/04/19 05:26: Anion Gap 6L, Glomerular Filtration Rate > 60.0, Calcium Level 8.8, Magnesium Level 2.2 CBC/BMP Laboratory Tests 08/04/19 05:25 08/04/19 05:26 Discharge Medications Scheduled Allopurinol (Allopurinol) 100 Mg Tablet, 200 MG PO DAILY, (Reported) Apixaban (Eliquis) 5 Mg Tablet, 5 MG PO BID, (Reported) Aspirin (Aspirin EC) 81 Mg Tablet.dr, 81 MG PO DAILY, (Reported) Atorvastatin Calcium (Atorvastatin Calcium) 20 Mg Tablet, 20 MG PO DAILY, (Reported) Carboxymethylcellulose Sodium (Refresh Tears) 15 Ml Drops, 1 DROP OU QID, (Reported) Carvedilol (Carvedilol) 6.25 Mg Tablet, 3.125 MG PO BID, (Reported) Cyclosporine (Restasis) 0.05% Droperette, 1 DROP OU BID, (Reported) Fluoxetine Hcl (Fluoxetine HCl) 20 Mg Capsule, 20 MG PO DAILY, (Reported) Furosemide (Furosemide) 20 Mg Tablet, 20 MG PO BID, (Reported) MORNING AND 1400 Latanoprost (Xalatan) 0.005% 2.5ML Drops, 1 DROP OU QHS, (Reported) Levothyroxine Sodium (Levoxyl) 50 Mcg Tablet, 50 MCG PO DAILY, (Reported) Losartan Potassium (Losartan Potassium) 25 Mg Tablet, 12.5 MG PO QHS, (Reported) Pantoprazole Sodium (Pantoprazole Sodium) 40 Mg Tablet.dr, 40 MG PO BID, (Reported) Sucralfate (Sucralfate) 1 Gm Tablet, 1 GM PO ACHS, (Reported) Scheduled PRN Acetaminophen (Acetaminophen) 500 Mg Tablet, 500 MG PO TID PRN for PAIN / FEVER, (Reported) Amoxicillin (Amoxicillin) 500 Mg Capsule, 2,000 MG PO DAILY PRN for DENTAL PROPHYLACTIC, (Reported) Docusate Sodium (Colace) 100 Mg Capsule, 100 MG PO BID PRN for CONSTIPATION, (Reported) Hydrocortisone (Hydrocortisone) 28 Gm Cream..g., 1 DOSE TOP BID PRN for ITCHY SKIN, (Reported) Magnesium Hydroxide (Milk of Magnesia) 400 Mg/5 Ml Oral.susp, 30 ML PO DAILY PRN for CONSTIPATION, (Reported) Nitroglycerin (Nitrostat) 0.4 Mg Tab.subl, 0.4 MG SL NITRO PRN for CHEST PAIN, (Reported) Senna (Senna Lax) 8.6 Mg Tablet, 1 TAB PO DAILY PRN for CONSTIPATION, (Reported) Allergies Coded Allergies: donepezil (Verified Adverse Reaction, Intermediate, "HAD GI BLEED AND THAT WAS ONE OF THE SIDE EFFECTS", 08/03/19) promethazine (Verified Adverse Reaction, Intermediate, HALLUCINATION, NAUSEA, ARRHYTHMIA, 08/03/19) ATTENDING NOTE I have personally evaluated and examined the patient. Discussed with residents and student regarding plan of care and agree with the above assessment and plan. SREE MCDOWELL DO Aug 04, 2019 11:21 VIKTORIA GROVE MD Aug 04, 2019 12:17
== END 2019-08-04 13:12 ==
LOC: EDSEX 09:18 → EDBD 09:18 → M ED 09:18 → M ED INP 09:19 → M MSPAV 12:39
PROVIDERS: ADMIT Student in an Organized Health Care Education/Training Program; ATTEND Student in an Organized Health Care Education/Training Program
DX: I48.20 Chronic atrial fibrillation, unspecified (principal); I49.5 Sick sinus syndrome; E78.49 Other hyperlipidemia; I25.10 Atherosclerotic heart disease of native coronary artery without angina pectoris; Z95.0 Presence of cardiac pacemaker; Z95.1 Presence of aortocoronary bypass graft; Z98.61 Coronary angioplasty status; I10 Essential (primary) hypertension; M10.9 Gout, unspecified; N40.0 Benign prostatic hyperplasia without lower urinary tract symptoms; K21.9 Gastro-esophageal reflux disease without esophagitis; R91.1 Solitary pulmonary nodule; E05.90 Thyrotoxicosis, unspecified without thyrotoxic crisis or storm; F32.9 Major depressive disorder, single episode, unspecified; J84.10 Pulmonary fibrosis, unspecified; K57.90 Diverticulosis of intestine, part unspecified, without perforation or abscess without bleeding; M51.36 Other intervertebral disc degeneration, lumbar region; M50.30 Other cervical disc degeneration, unspecified cervical region; K44.9 Diaphragmatic hernia without obstruction or gangrene; Z79.82 Long term (current) use of aspirin; Z79.899 Other long term (current) drug therapy; Z88.0 Allergy status to penicillin; Z88.8 Allergy status to other drugs, medicaments and biological substances
CPT/HCPCS: 36415; 70450; 71045; 72125; 80048; 82550; 82553; 83735; 84484; 85025; 85027; 85610; 86850; 86900; 86901; 93005; 93041; 94760; 97116; 97161; 99285; G0378

== ENCOUNTER 2019-08-22 10:02 | Inpatient (IN) | payer OTHER ==
[~2019-08-22] VITALS: Ht 172.7 cm; Wt 68.0 kg
[~2019-08-22 10:02] MED LIST changes: +ACET-683 PO; +ACET-897 PO; +AMOX500C PO; +ASPI81TA26 PO; +ATOR1TAB21 PO; +CARV6.25 PO; +COLA100C5 PO; +FLUO20CA20 PO; +HYDR1CR TOP; +LEVO50TA45 PO; +MILKSUS3 PO; +PANT-23 PO; +SENN18TA PO
[2019-08-22 16:00] VITALS: BP 115/58
[2019-08-22] MEDS ORDERED: ACET1TAB55 PO (16:29)
[2019-08-22] MEDS ORDERED: ENOX40IN3 SC (16:29)
[2019-08-22] MEDS ORDERED: ATOR40TA75 PO (16:29)
[2019-08-22] MEDS ORDERED: PRED20TA PO (16:36)
--- NOTE | 2019-08-22 16:49 | HPEPDOC ---
Accountant Auditor Note DATE OF ADMISSION: 08-22-19 DATE OF SERVICE: 08-22-19 TIME OF ADMISSION: Please refer to physician's admission order. SOURCE OF ADMISSION INFORMATION: [facility] records and patient CHIEF COMPLAINT: SAH and IVH HISTORY OF PRESENT ILLNESS: 84M pmh stroke March 2019 with decreased vision in left eye and decreased strength and sensation in the LLE, Afib on eliquis, PM, hx of GI bleed, hypothyroidism, BPH, dementia, CAD who fell while in assisted living, hit his head and was transferred from [facility] ED to [facility] on 08-15-19 with CTH showing, Interval increase in the amount of intraventricular hemorrhage within the occipital horn of the right lateral ventricle. Unchanged size and configuration of the ventricular system... Small amount of subarachnoid hemorrhage along the inferior aspect of the right temporal lobe. He was adm itted to the Neuro-ICU where his Eliquis was held, no surgical intervention was recommended and he had serial CTHs to monitor IVH and SAH. He was started on Asa and told to stop it on 08-30-19 and restart eliquis on 08-31-19. Patient had episode of pulmonary congestion with CXR 08-18-19 showing, mild central pulmonary congestion/edema and moderate right pleural effusions for which he received diuretics. ECHO showed grade 2 diastolic dysfunction with preserved EF He also had difficulty walking with pelvic Xray revealing, Cortical step-off involving the left inferior pubic ramus may represent an acute fracture and CT lower extremity showed, Acute minimally displaced left superior and inferior pubic rami fractures...Acute nondisplaced left sacral ala fractureOsteochondral defect in the left femoral head likely secondary to chronic avascular necrosis. He was not deemed an appropriate surgical candidate and was made WBAT to the LLE. He had urinary retention with taveras insertion. He was evaluated by therapy and found to be well below his prior level of function with impairments in mobility and ADLs and deemed medically appropriate for discharge to ARU on 08-22-19. REVIEW OF SYSTEMS: The following is a completed review of systems and has been reviewed. Review of systems otherwise unremarkable. PAIN: Patient self reports left ankle pain and pelvic pain EYES: No recent vision changes EARS, NOSE, & THROAT: No throat pain, or dysphagia, or rhinorrhea CARDIOVASCULAR: Denies chest pain or palpitations PULMONARY: Denies shortness of breath GASTROINTESTINAL: Denies constipation/diarrhea GENITOURINARY: +retention MUSCULOSKELETAL: left pelvic fracture and left ankle pain NEUROLOGICAL:+left sided paresis HEMATOLOGICAL: denies easy bruising SKIN:no rash PSYCHIATRIC: +dementia All other review of systems found to be negative. PAST MEDICAL HISTORY: as per HPI PAST SURGICAL HISTORY: Cardiac surgery, pacemaker, hernia repair, back surgery ALLERGIES: Please see below. MEDICATIONS: Please see below. SOCIAL HISTORY: no etoh, drugs, or smoking DIET: low salt and fluid restrict PHYSICAL EXAMINATION: VITAL SIGNS: Please see below. GENERAL: Pleasant and cooperative. No acute distress. HEENT: PERRL. Extraocular movements intact. Clear conjunctiva CARDIOVASCULAR: Regular rate and rhythm. No murmurs, rubs, or gallops LUNGS: Clear to auscultation bilaterally. No wheezes. No rhonchi ABDOMEN: Soft, nontender, nondistended. Positive bowel sounds. Normal active bowel sounds NEUROLOGICAL: Alert and oriented to self and place, repeating questions Cranial nerves II through XII grossly intact. Sensation grossly intact EXTREMITIES: 5\\5 strength bilateral upper extremities, except 3-/5 arm abduction. 5\\5 strength right lower extremity. 4/5 strength in left hip flexors, knee extensors (pain limited) 2/5 ankle DF 0/5 EHL (-) Homans bilat Left ankle (+) mild TTP medial/lateral malleoli, no warmth/erythema, no instability SKIN: left lateral ankle ulcer (dry) pedal pulses palpable, left ear laceration with dried blood LABORATORY DATA: Please see below. IMAGING: Imaging documentation personally reviewed by record FUNCTIONAL STATUS: Premorbid: Mod Independent with all activities of daily life as well as mobility with RW On Admission: Mod-Maximum assistance for bathing, upper body dressing, bed chair and wheelchair transfers, toilet transfers, ambulation. GOALS: Supervision-standby assist for bathing, upper body dressing, bed chair and wheelchair transfers, toilet transfers, ambulation, medical optimization, caregiver training ASSESSMENT:84-year-old M with past medical history of Afib and stroke who presents status post fall with IVH and SAH PLAN: 1. Rehab- PT advance gait training, maintain ROM, stretch and strengthen bilat LE, consider AFO for left foot drop OT- advance ADLs, patient with chronic rotator cuff injury and inability to do overhead activity DRIFTMAN- patient with baseline dementia, cog/dysphagia eval 2. Neuro: pmh CVA with left sided paresis, now s/p traumatic SAH and IVH- c/u ASa and statin therapy 3. Cardiac: hx Afib, eliquis on hold until 08-31-19 after which ASA is to be d/c'd , c/u beta judson, medicine consulted to assist in management -grade 2 diastolic dysfunction c/u diuretics and fluid restriction -HTN- c/u losartan 4. Resp: encourage incentive spirometry, monitor for infection 5. Ortho: s/p fall with left superior and inferior pubic rami fractures, and left sacral ala fracture- WBAT 6. : urinary retention likely due to pelvic fracture, s/p 3 day course of IV Zosyn at [facility], UA ordered, will attempt taveras removal Tuesday 7. Endo: pmh hypothyroidism, c/u Synthroid, recheck TFTs 8. GI ppx: hx of GI bleed, c/u protonix 9. DVT ppx: lovenox and TEDs 10. Pain: tylenol and oxycodone prn 11. Rheum: hx of gout, patient with slightly swollen left ankle, with normal Uric acid levels at [facility], suspect dependent edema due to pelvic fracture, will not start colchicine and quickly taper steroids 12. Dispo: TBD POST ADMISSION PHYSICIAN EVALUATION: Medical and functional status: Description of medical status, medical assessme nt: As above. Rehabilitation diagnosis and current and prior cold morbid medical conditions as above. Risk of complications and plans to mitigate them as above. Description of functional status current status is as above. Prior status as above. Status compared to preadmission: There are no clinically significant differences between the patient's current status and the information described on the preadmission screening document. Treatment plan anticipated: Treatment plan is as described above. Required disciplines including physical therapy, occupational therapy, others as noted above Intensity of services: 3 hours a day, 6 days a week. Special considerations: There are no specific special or safety considerations that would likely preclude immediate implementation of an intensive bre abilitation program or subsequently influence the plan of care ATTESTATION: Considering all the information above, it is my best judgment that this patient requires intensive rehabilitation therapy as described above and an inpatient hospital environment due to the complexity of nursing, medical, and rehabilitation needs required by the patient. Furthermore, this patient can reasonably be expected to participate in an benefit from an inpatient rehabilitation stay with an interdisciplinary team approach to the delivery of rehabilitation care under the direction and supervision of rehabilitation physician PROGNOSIS: Good ESTIMATED LENGTH OF STAY: 24-28 days. PROJECTED DISCHARGE DESTINATION: Home with family support and any durable medical equipment required to increase functional safety and mobility. TIME SPENT COUNSELING AND COORDINATING INITIAL CARE: Greater than 70 minutes. Vital Signs Vital Sign - Last 24 Hours 08/22/19 16:00 Temp 98.7 Pulse 76 Resp 18 B/P (MAP) 115/58 (77) Pulse Ox 94 O2 Delivery Room Air Home Medications Scheduled Acetaminophen (Acetaminophen) 500 Mg Tablet, 500 MG PO TID, (Reported) Allopurinol (Allopurinol) 100 Mg Tablet, 200 MG PO DAILY, (Reported) Aspirin (Aspirin EC) 81 Mg Tablet.dr, 81 MG PO DAILY, (Reported) Atorvastatin Calcium (Atorvastatin Calcium) 40 Mg Tablet, 40 MG PO QHS, (Reported) Carboxymethylcellulose Sodium (Refresh Tears) 15 Ml Drops, 1 DROP OU QID, ( Reported) Carvedilol (Carvedilol) 6.25 Mg Tablet, 3.125 MG PO BID, (Reported) Cyclosporine (Restasis) 0.05% Droperette, 1 DROP OU BID, (Reported) Enoxaparin Sodium (Enoxaparin Sodium) 40 Mg/0.4 Ml Syringe, 40 MG SC DAILY, (Reported) STARTED AT [facility], FOR 7 DAYS, DISCONTINUE 08/28/19 Fluoxetine Hcl (Fluoxetine HCl) 20 Mg Capsule, 20 MG PO DAILY, (Reported) Furosemide (Furosemide) 20 Mg Tablet, 20 MG PO BID, (Reported) MORNING AND 1400 Latanoprost (Xalatan) 0.005% 2.5ML Drops, 1 DROP OU QHS, (Reported) Levothyroxine Sodium (Levoxyl) 50 Mcg Tablet, 50 MCG PO DAILY, (Reported) Losartan Potassium (Losartan Potassium) 25 Mg Tablet, 12.5 MG PO QHS, (Reported) Pantoprazole Sodium (Pantoprazole Sodium) 40 Mg Tablet.dr, 40 MG PO BID, (Reported) Prednisone (Prednisone) 20 Mg Tablet, 40 MG PO ASDIRECTED, (Reported) FOR 4 DAYS, END DATE 08/25/19, STARTED AT [facility] Sucralfate (Sucralfate) 1 Gm Tablet, 1 GM PO ACHS, (Reported) Scheduled PRN Acetaminophen (Acetaminophen) 325 Mg Tablet, 650 MG PO Q6H PRN for PAIN, (Reported) Amoxicillin (Amoxicillin) 500 Mg Capsule, 2,000 MG PO DAILY PRN for DENTAL PROPH YLACTIC, (Reported) Docusate Sodium (Colace) 100 Mg Capsule, 100 MG PO BID PRN for CONSTIPATION, (Reported) Hydrocortisone (Hydrocortisone) 28 Gm Cream..g., 1 DOSE TOP BID PRN for ITCHING, (Reported) Magnesium Hydroxide (Milk of Magnesia) 400 Mg/5 Ml Oral.susp, 30 ML PO DAILY PRN for CONSTIPATION, (Reported) Nitroglycerin (Nitrostat) 0.4 Mg Tab.subl, 0.4 MG SL NITRO PRN for CHEST PAIN, (Reported) Senna (Senna Lax) 8.6 Mg Tablet, 1 TAB PO DAILY PRN for CONSTIPATION, (Reported) Allergies Coded Allergies: donepezil (Verified Adverse Reaction, Intermediate, "HAD GI BLEED AND THAT WAS ONE OF THE SIDE EFFECTS", 08/03/19) promethazine (Verified Adverse Reaction, Intermediate, HALLUCINATION, NAUSEA, ARRHYTHMIA, 08/03/19) A-FIB/CHADSVASC A-FIB History Current/History of A-Fib/PAF?: Yes Current PO Anticoag Therapy: No HUMAIRA BLACKWOOD MD Aug 22, 2019 16:49
[2019-08-22] MEDS ORDERED: MOM 30ML SUSPENSION UDC PO PRN (17:45)
[2019-08-22] MEDS ORDERED: oxyCODONE 5MG TAB PO PRN (17:45)
[2019-08-22] MEDS ORDERED: **NOTE PATIENT COMMENT** MISC XX SCH (18:15)
[2019-08-22] MEDS ORDERED: PILL CUTTER 1 EACH XX PRN (18:30)
--- NOTE | 2019-08-22 18:30 | CR ---
DATE OF CONSULTATION: 08/22/2019 CONSULTATION REPORT FOR: Dr. Des Mistry This is a medical consultation for Travis Zapata, an 84-year-old just transferred back from [facility], recent intracerebral bleed with small subdural hemorrhage that did not require neurosurgical intervention. He was treated conservatively. He had serial CT scans. His anticoagulant (Eliquis) is on hold. He is currently on aspirin with a plan to restart Eliquis 08/31/2019. He has a history of stroke for which he was hospitalized March 2019 and had spent a period of time in the acute rehabilitation unit (ARU). There was a right posterior parietooccipital stroke. He has a history of atrial fibrillation, ischemic cardiomyopathy, ejection fraction of 40%, hypertensive heart disease, anemia with a gastrointestinal (GI) bleed while on aspirin, hyperlipidemia, hypothyroidism, coronary artery disease with multiple coronary artery stents. Recent echocardiogram March 2019: Ejection fraction of 45% to 50%, left atrial dilatation 42 mm. No significant valvular disease. PAST SURGICAL HISTORY: Coronary artery bypass graft (CABG) times four April 2012, pacemaker March 2003, percutaneous transluminal coronary angioplasty (PTCA) with a bare metal stent to the circumflex artery November 2009, colonoscopy 2000, knee arthroscopy, bilateral cataract extractions. SOCIAL HISTORY: No smoking. No alcohol. Attentive family. FAMILY HISTORY: Noncontributory. REVIEW OF SYSTEMS: Denies epistaxis, rectal bleeding, urinary bleeding, chest pain, shortness of breath. PHYSICAL EXAMINATION: VITAL SIGNS: Per flow sheet, currently 118/58. GENERAL APPEARANCE: Alert, spry, conversant, in no distress. Pupils are equal, round, and reactive to light. Tympanic membranes (TMs) and oropharynx benign. NECK: No masses. HEART: Regular rate and rhythm, rate around 70. ABDOMEN: Soft, nontender. No masses. EXTREMITIES: No clubbing, cyanosis, or edema. He has a footdrop on the left, unable to dorsiflex the left foot. IMPRESSION: 1. Hypertension. Blood pressure is currently controlled. He uses losartan 12.5 mg at bedtime, carvedilol 3.125 mg twice a day as an outpatient which should be continued. 2. Hyperlipidemia. Continue with atorvastatin 40 mg at bedtime. 3. History of gout. Continue with allopurinol 200 mg daily. 4. Hypothyroidism. Continue with levothyroxine 50 mcg daily. 5. History of gastrointestinal (GI) bleed. Continue with Protonix 40 mg twice a day. He also takes Carafate 1 gram before meals and at bedtime. 6. Atrial fibrillation. The plan is to restart Eliquis on 08/31/2019. Currently on aspirin. 7. Coronary artery disease. Would recommend discontinuing the aspirin 81 mg daily when the Eliquis is restarted. Recent studies confirm lack of a benefit of aspirin with increased bleeding risk when combined with adequate anticoagulation in patients with stable coronary artery disease.
[2019-08-22 20:00] VITALS: BP 144/74
[2019-08-22] MEDS: CARVedilol 3.125 MG TAB PO SCH (21:11)
[2019-08-22] MEDS: DOCUSATE SODIUM 100 MG CAP PO SCH (21:11)
[2019-08-22] MEDS: LOSARTAN 25 MG TAB PO SCH (21:12)
[2019-08-22] MEDS: ATORVASTATIN 20 MG TAB PO SCH (21:13)
[2019-08-22] MEDS: SENNA 8.6 MG TAB (SENOKOT) PO SCH (21:13)
[2019-08-22] MEDS: ACETAMINOPHEN 500 MG TAB PO SCH (21:13)
[2019-08-22] MEDS: SUCRALFATE 1 GM TAB PO SCH (21:13)
[2019-08-23] MEDS: LEVOTHYROXINE 50MCG TABLET (0.05MG) PO SCH (05:51)
[2019-08-23 06:00] VITALS: BP 150/81
[2019-08-23 07:05] LABS: BASO % 0.1 % (0.0-1.0); EOS % 0.1 % (0.0-3.0); HEMATOCRIT 31.4 % (42.0-52.0); HEMOGLOBIN 10.5 g/dl (13.5-17.5); LYMPH % 9.9 % (24.0-44.0); MEAN CORPUSCULAR HEMOGLOBIN 31.8 pg (27.0-33.0); MEAN CORPUSCULAR HGB CONC 33.4 g/dl (32.0-36.5); MEAN CORPUSCULAR VOLUME 95.2 fl (80.0-96.0); MONO # 1.2 10^3/uL (0.0-0.8); NEUTROPHILS # 8.2 10^3/uL (1.5-8.5); NEUTROPHILS % 78.4 % (36.0-66.0); PLATELET COUNT, AUTOMATED 211 10^3/uL (150-450); WHITE BLOOD COUNT 10.5 10^3/uL (4.0-10.0)
[2019-08-23 07:46] LABS: ALBUMIN 2.7 GM/DL (3.2-5.2); ALT/SGPT 37 U/L (12-78); BLOOD UREA NITROGEN 24 MG/DL (7-18); CALCIUM LEVEL 8.3 MG/DL (8.8-10.2); CARBON DIOXIDE LEVEL 28 MEQ/L (21-32); CHLORIDE LEVEL 105 MEQ/L (98-107); CREATININE FOR GFR 0.88 MG/DL (0.70-1.30); FREE T4 0.97 NG/DL (0.76-1.46); GLOMERULAR FILTRATION RATE > 60.0 (>35); GLUCOSE, FASTING 99 MG/DL (70-100); POTASSIUM SERUM 3.9 MEQ/L (3.5-5.1); SODIUM LEVEL 138 MEQ/L (136-145); TOTAL PROTEIN 6.2 GM/DL (6.4-8.2)
[2019-08-23] MEDS: MAGIC MOUTHWASH SUSPENSION BTL SSP SCH ×3 (08:33→17:34)
[2019-08-23] MEDS: FUROSEMIDE 20 MG TAB PO SCH (08:33)
[2019-08-23] MEDS: FLUoxetine 20 MG CAP PO SCH (08:33)
[2019-08-23] MEDS: SUCRALFATE 1 GM TAB PO SCH ×4 (08:33→20:57)
[2019-08-23] MEDS: PANTOPRAZOLE 40MG TAB (PROTONIX) PO SCH (08:33)
[2019-08-23] MEDS: allopurinoL 100 MG TAB PO SCH (08:34)
[2019-08-23] MEDS: ASPIRIN 81 MG CHEW TABLET PO SCH (08:34)
[2019-08-23] MEDS: DOCUSATE SODIUM 100 MG CAP PO SCH ×2 (08:34→20:40)
[2019-08-23] MEDS: ACETAMINOPHEN 500 MG TAB PO SCH ×3 (08:34→20:43)
[2019-08-23] MEDS: ENOXAPARIN 40 MG/0.4 ML SYRINGE (J1650) SC SCH (08:35)
[2019-08-23] MEDS: CARVedilol 3.125 MG TAB PO SCH ×2 (08:35→20:41)
[2019-08-23] MEDS ORDERED: predniSONE 20 MG TAB PO ONE (09:00)
--- NOTE | 2019-08-23 10:01 | IPNPDOC ---
PM&R Progress Note DATE OF SERVICE: Aug 23, 2019 Pega Developer Progress Note Subjective: Patient reporting he feels ok today and that his left ankle is less painful. REVIEW OF SYSTEMS: The following is a completed review of systems and has been reviewed. Review of systems otherwise unremarkable. PAIN: Patient self reports left ankle pain and pelvic pain EYES: No recent vision changes EARS, NOSE, & THROAT: No throat pain, or dysphagia, or rhinorrhea CARDIOVASCULAR: Denies chest pain or palpitations PULMONARY: Denies shortness of breath GASTROINTESTINAL: Denies constipation/diarrhea GENITOURINARY: +retention MUSCULOSKELETAL: left pelvic fracture and left ankle pain NEUROLOGICAL:+left sided paresis HEMATOLOGICAL: denies easy bruising SKIN:no rash PSYCHIATRIC: +dementia All other review of systems found to be negative. PHYSICAL EXAMINATION: VITAL SIGNS: Please see below. GENERAL: Pleasant and cooperative. No acute distress. HEENT: PERRL. Extraocular movements intact. Clear conjunctiva CARDIOVASCULAR: Regular rate and rhythm. No murmurs, rubs, or gallops LUNGS: Clear to auscultation bilaterally. No wheezes. No rhonchi ABDOMEN: Soft, nontender, nondistended. Positive bowel sounds. Normal active bowel sounds NEUROLOGICAL: Alert and oriented to self and place, repeating questions Cranial nerves II through XII grossly intact. Sensation grossly intact EXTREMITIES: 5\\5 strength bilateral upper extremities, except 3-/5 arm abd uction. 5\\5 strength right lower extremity. 4/5 strength in left hip flexors, knee extensors (pain limited) 2/5 ankle DF 0/5 EHL (-) Homans bilat Left ankle (+) mild TTP medial/lateral malleoli, no warmth/erythema, no instability SKIN: left lateral ankle ulcer (dry) pedal pulses palpable, left ear laceration with dried blood ASSESSMENT:84-year-old M with past medical history of Afib and stroke who presents status post fall with IVH and SAH PLAN: 1. Rehab- PT advance gait training, maintain ROM, stretch and strengthen bilat LE, consider AFO for left foot drop OT- advance ADLs, patient with chronic rotator cuff injury and inability to do overhead activity FIREARMS EXPERT- patient with baseline dementia, cog/dysphagia eval 2. Neuro: pmh CVA with left sided paresis, now s/p traumatic SAH and IVH- c/u ASa and statin therapy 3. Cardiac: hx Afib, eliquis on hold until 08-31-19 after which ASA is to be d/c'd , c/u beta judson, medicine consulted to assist in management -grade 2 diastolic dysfunction c/u diuretics and fluid restriction -HTN- c/u losartan 4. Resp: encourage incentive spirometry, monitor for infection 5. Ortho: s/p fall with left superior and inferior pubic rami fractures, and left sacral ala fracture- WBAT 6. : urinary retention likely due to pelvic fracture, s/p 3 day course of IV Zosyn at [facility], UA ordered, will attempt taveras removal tomorrow 7. Endo: pmh hypothyroidism, c/u Synthroid, recheck TFTs 8. GI ppx: hx of GI bleed, c/u protonix 9. DVT ppx: lovenox and TEDs 10. Pain: tylenol and oxycodone prn 11. Rheum: hx of gout, patient with slightly swollen left ankle, with normal Uric acid levels at [facility], suspect dependent edema due to pelvic fracture, did not start colchicine, quickly tapering steroids 12. Dispo: TBD Allergies Coded Allergies: donepezil (Verified Adverse Reaction, Intermediate, "HAD GI BLEED AND THAT WAS ONE OF THE SIDE EFFECTS", 08/03/19) promethazine (Verified Adverse Reaction, Intermediate, HALLUCINATION, NAUSEA, ARRHYTHMIA, 08/03/19) Vital Signs Vital Signs Date Time Temp Pulse Resp B/P (MAP) Pulse Ox O2 Delivery O2 Flow Rate FiO2 08/23/19 08:35 72 126/70 08/23/19 06:00 98.6 18 94 Room Air Laboratory Data CBC/BMP Laboratory Tests 08/23/19 06:53 Labs 24H Laboratory Tests 2 08/23/19 04:31: Urine Color ARIN, Urine Appearance HAZY, Urine pH 5.0, Urine Specific Davis 1.026, Urine Protein 1+H, Urine Glucose (UA) NEGATIVE, Urine Ketones NEGATIVE, Urine Blood 1+H, Urine Nitrite NEGATIVE, Urine Bilirubin NEGATIVE, Urine Urobilinogen 4.0H, Urine Leukocyte Esterase TRACEH, Urine WBC (Auto) 12H, Urine RBC (Auto) 18H, Urine Hyaline Casts (Auto) 0, Urine Bacteria (Auto) NEGATIVE, Urine Squamous Epithelial Cells 1, Urine Mucus (Auto) SMALL, Urine Sperm (Auto) 08/23/19 06:53: Immature Granulocyte % (Auto) 0.5, Neutrophils (%) (Auto) 78.4H, Lymphocytes (%) (Auto) 9.9L, Monocytes (%) (Auto) 11.0H, Eosinophils (%) (Auto) 0.1, Basophils (%) (Auto) 0.1, Neutrophils # (Auto) 8.2, Lymphocytes # (Auto) 1.0L, Monocytes # (Auto) 1.2H, Eosinophils # (Auto) 0.0, Basophils # (Auto) 0.0, Nucleated Red Blood Cells % (auto) 0.0, Anion Gap 5L, Glomerular Filtration Rate > 60.0, Calcium Level 8.3L, Total Bilirubin 1.0, Aspartate Amino Transf (AST/SGOT) 48H, Alanine Aminotransferase (ALT/SGPT) 37, Alkaline Phosphatase 315H, Total Protein 6.2L, Albumin 2.7L, Albumin/Globulin Ratio 0.77L, Thyroid Stimulating Hormone (TSH) 3.750H, Free Thyroxine 0.97 Microbiology Microbiology 08/23/19 Urine Culture, Received Pending Current Medications Current Medications Current Medications Medications (Trade) Dose Ordered Sig/Sean Route PRN Reason Start Time Stop Time Status Last Admin Dose Admin Acetaminophen (Tylenol Tab) 1,000 mg TID PO 08/22/19 21:00 08/23/19 08:34 Allopurinol (Zyloprim) 100 mg DAILY PO 08/23/19 09:00 08/23/19 08:34 Apixaban (Eliquis) 5 mg BID PO 08/31/19 09:00 Aspirin (Aspirin Chewable) 81 mg DAILY PO 08/23/19 09:00 08/30/19 12:00 08/23/19 08:34 Atorvastatin Calcium (Lipitor) 40 mg QHS PO 08/22/19 21:00 08/22/19 21:13 Carvedilol (COReg) 3.125 mg Q12H PO 08/22/19 21:00 08/23/19 08:35 Docusate Sodium (Colace) 100 mg BID PO 08/22/19 21:00 08/22/19 21:11 Enoxaparin Sodium (Lovenox) 40 mg DAILY SC 08/23/19 09:00 08/30/19 12:00 08/23/19 08:35 Fluoxetine HCl (PROzac) 20 mg DAILY PO 08/23/19 09:00 08/23/19 08:33 Furosemide (Lasix) 20 mg DAILY PO 08/23/19 09:00 08/23/19 08:33 Home Med (Med Rec Complete!) ASDIRECTED XX 08/22/19 16:45 08/22/19 16:38 DC Levothyroxine Sodium (Synthroid) 50 mcg DAILY@06 PO 08/23/19 06:00 08/23/19 05:51 Lidocaine/ Diphenhydr/Alum/ Mg/Simeth (Magic Mouthwash) 5ML AC SSP 08/23/19 07:30 08/23/19 08:33 Losartan Potassium (Cozaar) 12.5 mg QHS PO 08/22/19 21:00 08/22/19 21:12 Magnesium Hydroxide (Milk Of Magnesia) 30 ml DAILYPRN PRN PO CONSTIPATION 08/22/19 17:45 Non-Formulary Medication ( See Comment Field Below ) ASDIRECTED XX 08/22/19 18:15 UNV Oxycodone HCl (Roxicodone, Oxyir) 2.5 mg Q6HP PRN PO PAIN 08/22/19 17:45 Pantoprazole Sodium (Protonix) 40 mg DAILY PO 08/23/19 09:00 08/23/19 08:33 Senna (Senokot) 1 tab QHS PO 08/22/19 21:00 08/22/19 21:13 Sucralfate (Carafate) 1 gm ACHS PO 08/22/19 21:00 08/23/19 08:33 HUMAIRA BLACKWOOD MD Aug 23, 2019 10:01
[2019-08-23 14:00] VITALS: BP 124/65
[2019-08-23] MEDS ORDERED: **NOTE PATIENT COMMENT** MISC XX SCH ×2 (14:30→14:45)
[2019-08-23] MEDS: POLYVINYL ALCOHOL OPHTH SOLN 15 ML(LIQUITEARS) OU SCH ×2 (17:33→20:44)
[2019-08-23 20:00] VITALS: BP 136/67
[2019-08-23] MEDS: RESTASIS EYE DROPS (PATIENT'S OWN MED) OU SCH (20:39)
[2019-08-23] MEDS: SENNA 8.6 MG TAB (SENOKOT) PO SCH (20:40)
[2019-08-23] MEDS: ATORVASTATIN 20 MG TAB PO SCH (20:41)
[2019-08-23] MEDS: LATANOPROST 0.005% OPHTH SOLN 2.5 ML OU SCH (20:44)
[2019-08-23] MEDS: LOSARTAN 25 MG TAB PO SCH (20:50)
[2019-08-24 04:45] VITALS: BP 135/75
[2019-08-24] MEDS: LEVOTHYROXINE 50MCG TABLET (0.05MG) PO SCH (05:56)
[2019-08-24] MEDS: MAGIC MOUTHWASH SUSPENSION BTL SSP SCH ×3 (08:18→16:33)
[2019-08-24] MEDS: SUCRALFATE 1 GM TAB PO SCH ×4 (08:19→21:06)
[2019-08-24] MEDS: ASPIRIN 81 MG CHEW TABLET PO SCH (08:19)
[2019-08-24] MEDS: DOCUSATE SODIUM 100 MG CAP PO SCH ×2 (08:19→21:07)
[2019-08-24] MEDS: PANTOPRAZOLE 40MG TAB (PROTONIX) PO SCH (08:19)
[2019-08-24] MEDS: FLUoxetine 20 MG CAP PO SCH (08:19)
[2019-08-24] MEDS: FUROSEMIDE 20 MG TAB PO SCH (08:19)
[2019-08-24] MEDS: ACETAMINOPHEN 500 MG TAB PO SCH ×3 (08:20→21:06)
[2019-08-24] MEDS: ENOXAPARIN 40 MG/0.4 ML SYRINGE (J1650) SC SCH (08:20)
[2019-08-24] MEDS: allopurinoL 100 MG TAB PO SCH (08:20)
[2019-08-24] MEDS: CARVedilol 3.125 MG TAB PO SCH ×2 (08:23→21:07)
[2019-08-24] MEDS: RESTASIS EYE DROPS (PATIENT'S OWN MED) OU SCH ×2 (08:23→21:08)
[2019-08-24] MEDS: POLYVINYL ALCOHOL OPHTH SOLN 15 ML(LIQUITEARS) OU SCH ×4 (08:23→21:07)
[2019-08-24 09:00] VITALS: BP 128/68
[2019-08-24] MEDS ORDERED: predniSONE 10 MG TAB PO ONE (09:00)
--- NOTE | 2019-08-24 09:44 | IPNPDOC ---
PM&R Progress Note DATE OF SERVICE: Aug 24, 2019 Wireless Cellular Technician Progress Note Subjective: Patient seen in therapy, able to walk and clear his left foot. he reports he feels well today. REVIEW OF SYSTEMS: The following is a completed review of systems and has been reviewed. Review of systems otherwise unremarkable. PAIN: Patient self reports left ankle pain and pelvic pain EYES: No recent vision changes EARS, NOSE, & THROAT: No throat pain, or dysphagia, or rhinorrhea CARDIOVASCULAR: Denies chest pain or palpitations PULMONARY: Denies shortness of breath GASTROINTESTINAL: Denies constipation/diarrhea GENITOURINARY: +retention MUSCULOSKELETAL: left pelvic fracture and left ankle pain NEUROLOGICAL:+left sided paresis HEMATOLOGICAL: denies easy bruising SKIN:no rash PSYCHIATRIC: +dementia All other review of systems found to be negative. PHYSICAL EXAMINATION: VITAL SIGNS: Please see below. GENERAL: Pleasant and cooperative. No acute distress. HEENT: PERRL. Extraocular movements intact. Clear conjunctiva CARDIOVASCULAR: Regular rate and rhythm. No murmurs, rubs, or gallops LUNGS: Clear to auscultation bilaterally. No wheezes. No rhonchi ABDOMEN: Soft, nontender, nondistended. Positive bowel sounds. Normal active bowel sounds NEUROLOGICAL: Alert and oriented to self and place, repeating questions Cranial nerves II through XII grossly intact. Sensation grossly intact EXTREMITIES: 5\\5 strength bilateral upper extremities, except 3-/5 arm abduction. 5\\5 strength right lower extremity. 4/5 strength in left hip flexors, knee extensors (pain limited) 2/5 ankle DF 0/5 EHL (-) Homans bilat Left ankle (-) mild TTP medial/lateral malleoli, no warmth/erythema, no instability SKIN: left lateral ankle ulcer (dry) pedal pulses palpable, left ear laceration with dried blood ASSESSMENT:84-year-old M with past medical history of Afib and stroke who presents status post fall with IVH and SAH PLAN: 1. 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 Neuro: pmh CVA with left sided paresis, now s/p traumatic SAH and IVH- c/u ASa and statin therapy 3. Cardiac: hx Afib, eliquis on hold until 08-31-19 after which ASA is to be d/c'd , c/u beta judson, medicine consulted to assist in management -grade 2 diastolic dysfunction c/u diuretics and fluid restriction -HTN- c/u losartan 4. Resp: encourage incentive spirometry, monitor for infection 5. Ortho: s/p fall with left superior and inferior pubic rami fractures, and left sacral ala fracture- WBAT 6. : urinary retention likely due to pelvic fracture, s/p 3 day course of IV Zosyn at [facility], Ucx negative, will startr Flomax tonight and remove taveras tomorrow 7. Endo: pmh hypothyroidism, c/u Synthroid, -TSH mildly elevated, however claire reynaga was off Synthroid for about 2 weeks while at [facility]- c/u home dosing 8. GI ppx: hx of GI bleed, c/u protonix 9. DVT ppx: lovenox and TEDs 10. Pain: tylenol and oxycodone prn 11. Rheum: hx of gout, patient with slightly swollen left ankle, with normal Uric acid levels at [facility], suspect dependent edema due to pelvic fracture, did not start colchicine, quickly tapering steroids-swelling improving 12. Dispo: TBD Allergies Coded Allergies: donepezil (Verified Adverse Reaction, Intermediate, "HAD GI BLEED AND THAT WAS ONE OF THE SIDE EFFECTS", 08/03/19) promethazine (Verified Adverse Reaction, Intermediate, HALLUCINATION, NAUSEA, ARRHYTHMIA, 08/03/19) Vital Signs Vital Signs Date Time Temp Pulse Resp B/P (MAP) Pulse Ox O2 Delivery O2 Flow Rate FiO2 08/24/19 08:23 64 128/68 08/24/19 04:45 97.6 18 95 Room Air Microbiology Microbiology 08/23/19 Urine Culture - Final, Complete Current Medications Current Medications Current Medications Medications (Trade) Dose Ordered Sig/Sean Route PRN Reason Start Time Stop Time Status Last Admin Dose Admin Acetaminophen (Tylenol Tab) 1,000 mg TID PO 08/22/19 21:00 08/24/19 08:20 Allopurinol (Zyloprim) 100 mg DAILY PO 08/23/19 09:00 08/24/19 08:20 Apixaban (Eliquis) 5 mg BID PO 08/31/19 09:00 Artificial Tears (Akwa Tears) 1 drop QID OU 08/23/19 17:00 08/24/19 08:23 Aspirin (Aspirin Chewable) 81 mg DAILY PO 08/23/19 09:00 08/30/19 12:00 08/24/19 08:19 Atorvastatin Calcium (Lipitor) 40 mg QHS PO 08/22/19 21:00 08/23/19 20:41 Carvedilol (COReg) 3.125 mg Q12H PO 08/22/19 21:00 08/24/19 08:23 Docusate Sodium (Colace) 100 mg BID PO 08/22/19 21:00 08/24/19 08:19 Enoxaparin Sodium (Lovenox) 40 mg DAILY SC 08/23/19 09:00 08/30/19 12:00 08/24/19 08:20 Fluoxetine HCl (PROzac) 20 mg DAILY PO 08/23/19 09:00 08/24/19 08:19 Furosemide (Lasix) 20 mg DAILY PO 08/23/19 09:00 08/24/19 08:19 Home Med (Med Rec Complete!) ASDIRECTED XX 08/22/19 16:45 08/22/19 16:38 DC Latanoprost (Xalatan 0.005% Op Soln) 1 drop QHS OU 08/23/19 21:00 08/23/19 20:44 Levothyroxine Sodium (Synthroid) 50 mcg DAILY@06 PO 08/23/19 06:00 08/24/19 05:56 Lidocaine/ Diphenhydr/Alum/ Mg/Simeth (Magic Mouthwash) 5ML AC SSP 08/23/19 07:30 08/24/19 08:18 Losartan Potassium (Cozaar) 12.5 mg QHS PO 08/22/19 21:00 08/23/19 20:50 Magnesium Hydroxide (Milk Of Magnesia) 30 ml DAILYPRN PRN PO CONSTIPATION 08/22/19 17:45 Non-Formulary Medication ( See Comment Field Below ) ASDIRECTED XX 08/22/19 18:15 08/23/19 14:27 DC Non-Formulary Medication ( See Comment Field Below ) ASDIRECTED XX 08/23/19 14:30 UNV Non-Formulary Medication ( See Comment Field Below ) ASDIRECTED XX 08/23/19 14:45 08/23/19 15:38 DC Oxycodone HCl (Roxicodone, Oxyir) 2.5 mg Q6HP PRN PO PAIN 08/22/19 17:45 Pantoprazole Sodium (Protonix) 40 mg DAILY PO 08/23/19 09:00 08/24/19 08:19 Patient Own Medication (Patient'S Own Med) 1 DROP BID OU 08/23/19 21:00 08/24/19 08:23 Senna (Senokot) 1 tab QHS PO 08/22/19 21:00 08/23/19 20:40 Sucralfate (Carafate) 1 gm ACHS PO 08/22/19 21:00 08/24/19 08:19 Tamsulosin HCl (Flomax) 0.4 mg QHS PO 08/24/19 21:00 HUMAIRA BLACKWOOD MD Aug 24, 2019 09:44
[2019-08-24 14:00] VITALS: BP 110/64
[2019-08-24 19:45] VITALS: BP 120/70
[2019-08-24] MEDS: TAMSULOSIN 0.4 MG CAP PO SCH (21:07)
[2019-08-24] MEDS: ATORVASTATIN 20 MG TAB PO SCH (21:07)
[2019-08-24] MEDS: LOSARTAN 25 MG TAB PO SCH (21:07)
[2019-08-24] MEDS: LATANOPROST 0.005% OPHTH SOLN 2.5 ML OU SCH (21:07)
[2019-08-24] MEDS: SENNA 8.6 MG TAB (SENOKOT) PO SCH (21:07)
[2019-08-25 05:45] VITALS: BP 160/80
[2019-08-25] MEDS: LEVOTHYROXINE 50MCG TABLET (0.05MG) PO SCH (06:14)
[2019-08-25 06:25] LABS: HEMATOCRIT 32.2 % (42.0-52.0); HEMOGLOBIN 10.5 g/dl (13.5-17.5); MEAN CORPUSCULAR HEMOGLOBIN 31.3 pg (27.0-33.0); MEAN CORPUSCULAR HGB CONC 32.6 g/dl (32.0-36.5); MEAN CORPUSCULAR VOLUME 95.8 fl (80.0-96.0); PLATELET COUNT, AUTOMATED 249 10^3/uL (150-450); RED BLOOD COUNT 3.36 10^6/uL (4.30-6.10); WHITE BLOOD COUNT 6.5 10^3/uL (4.0-10.0)
[2019-08-25 06:51] LABS: BLOOD UREA NITROGEN 26 MG/DL (7-18); CALCIUM LEVEL 8.4 MG/DL (8.8-10.2); CARBON DIOXIDE LEVEL 25 MEQ/L (21-32); CHLORIDE LEVEL 109 MEQ/L (98-107); CREATININE FOR GFR 0.93 MG/DL (0.70-1.30); GLOMERULAR FILTRATION RATE > 60.0 (>35); GLUCOSE, FASTING 77 MG/DL (70-100); POTASSIUM SERUM 3.4 MEQ/L (3.5-5.1); SODIUM LEVEL 142 MEQ/L (136-145)
[2019-08-25] MEDS ORDERED: predniSONE 5 MG TAB PO ONE (09:00)
[2019-08-25] MEDS: ENOXAPARIN 40 MG/0.4 ML SYRINGE (J1650) SC SCH (09:02)
[2019-08-25] MEDS: ASPIRIN 81 MG CHEW TABLET PO SCH (09:02)
[2019-08-25] MEDS: FUROSEMIDE 20 MG TAB PO SCH (09:03)
[2019-08-25] MEDS: ACETAMINOPHEN 500 MG TAB PO SCH ×3 (09:03→20:38)
[2019-08-25] MEDS: CARVedilol 3.125 MG TAB PO SCH ×2 (09:04→20:38)
[2019-08-25] MEDS: DOCUSATE SODIUM 100 MG CAP PO SCH ×2 (09:04→20:37)
[2019-08-25] MEDS: allopurinoL 100 MG TAB PO SCH (09:04)
[2019-08-25] MEDS: SUCRALFATE 1 GM TAB PO SCH ×4 (09:04→20:37)
[2019-08-25] MEDS: FLUoxetine 20 MG CAP PO SCH (09:04)
[2019-08-25] MEDS: PANTOPRAZOLE 40MG TAB (PROTONIX) PO SCH (09:04)
[2019-08-25] MEDS: POLYVINYL ALCOHOL OPHTH SOLN 15 ML(LIQUITEARS) OU SCH ×4 (09:05→20:50)
[2019-08-25] MEDS: MAGIC MOUTHWASH SUSPENSION BTL SSP SCH ×3 (09:05→16:15)
[2019-08-25] MEDS: RESTASIS EYE DROPS (PATIENT'S OWN MED) OU SCH ×2 (09:06→20:41)
[2019-08-25 14:00] VITALS: BP 110/59
[2019-08-25 20:00] VITALS: BP 144/70
[2019-08-25] MEDS: SENNA 8.6 MG TAB (SENOKOT) PO SCH (20:37)
[2019-08-25] MEDS: ATORVASTATIN 20 MG TAB PO SCH (20:37)
[2019-08-25] MEDS: TAMSULOSIN 0.4 MG CAP PO SCH (20:37)
[2019-08-25] MEDS: LOSARTAN 25 MG TAB PO SCH (20:39)
[2019-08-25] MEDS: LATANOPROST 0.005% OPHTH SOLN 2.5 ML OU SCH (20:44)
[2019-08-26 06:00] VITALS: BP 138/65
[2019-08-26] MEDS: LEVOTHYROXINE 50MCG TABLET (0.05MG) PO SCH (06:09)
[2019-08-26] MEDS: MAGIC MOUTHWASH SUSPENSION BTL SSP SCH ×3 (08:01→16:51)
[2019-08-26] MEDS: ENOXAPARIN 40 MG/0.4 ML SYRINGE (J1650) SC SCH (08:01)
[2019-08-26] MEDS: SUCRALFATE 1 GM TAB PO SCH ×4 (08:01→20:07)
[2019-08-26] MEDS: DOCUSATE SODIUM 100 MG CAP PO SCH ×2 (08:01→20:07)
[2019-08-26] MEDS: FUROSEMIDE 20 MG TAB PO SCH (08:02)
[2019-08-26] MEDS: PANTOPRAZOLE 40MG TAB (PROTONIX) PO SCH (08:02)
[2019-08-26] MEDS: ACETAMINOPHEN 500 MG TAB PO SCH ×3 (08:02→20:07)
[2019-08-26] MEDS: ASPIRIN 81 MG CHEW TABLET PO SCH (08:02)
[2019-08-26] MEDS: CARVedilol 3.125 MG TAB PO SCH ×2 (08:02→20:10)
[2019-08-26] MEDS: FLUoxetine 20 MG CAP PO SCH (08:02)
[2019-08-26] MEDS: allopurinoL 100 MG TAB PO SCH (08:02)
[2019-08-26] MEDS: RESTASIS EYE DROPS (PATIENT'S OWN MED) OU SCH ×2 (08:03→20:14)
[2019-08-26] MEDS: POLYVINYL ALCOHOL OPHTH SOLN 15 ML(LIQUITEARS) OU SCH ×4 (08:03→20:11)
[2019-08-26] MEDS ORDERED: POTASSIUM CHLORIDE 10 MEQ SR TABLET PO ONE (11:00)
[2019-08-26 14:00] VITALS: BP 113/60
[2019-08-26 20:00] VITALS: BP 135/66
[2019-08-26] MEDS: SENNA 8.6 MG TAB (SENOKOT) PO SCH (20:07)
[2019-08-26] MEDS: ATORVASTATIN 20 MG TAB PO SCH (20:07)
[2019-08-26] MEDS: LOSARTAN 25 MG TAB PO SCH (20:08)
[2019-08-26] MEDS: TAMSULOSIN 0.4 MG CAP PO SCH (20:08)
[2019-08-26] MEDS: LATANOPROST 0.005% OPHTH SOLN 2.5 ML OU SCH (20:12)
[2019-08-27 06:00] VITALS: BP 120/60
[2019-08-27] MEDS: LEVOTHYROXINE 50MCG TABLET (0.05MG) PO SCH (06:02)
[2019-08-27 07:12] LABS: BLOOD UREA NITROGEN 22 MG/DL (7-18); CALCIUM LEVEL 8.4 MG/DL (8.8-10.2); CARBON DIOXIDE LEVEL 26 MEQ/L (21-32); CHLORIDE LEVEL 110 MEQ/L (98-107); CREATININE FOR GFR 0.85 MG/DL (0.70-1.30); GLOMERULAR FILTRATION RATE > 60.0 (>35); GLUCOSE, FASTING 80 MG/DL (70-100); POTASSIUM SERUM 4.3 MEQ/L (3.5-5.1); SODIUM LEVEL 144 MEQ/L (136-145)
[2019-08-27] MEDS: allopurinoL 100 MG TAB PO SCH (08:31)
[2019-08-27] MEDS: ENOXAPARIN 40 MG/0.4 ML SYRINGE (J1650) SC SCH (08:31)
[2019-08-27] MEDS: FUROSEMIDE 20 MG TAB PO SCH (08:31)
[2019-08-27] MEDS: SUCRALFATE 1 GM TAB PO SCH ×4 (08:31→20:56)
[2019-08-27] MEDS: ASPIRIN 81 MG CHEW TABLET PO SCH (08:31)
[2019-08-27] MEDS: FLUoxetine 20 MG CAP PO SCH (08:31)
[2019-08-27] MEDS: DOCUSATE SODIUM 100 MG CAP PO SCH ×2 (08:31→20:56)
[2019-08-27] MEDS: PANTOPRAZOLE 40MG TAB (PROTONIX) PO SCH (08:31)
[2019-08-27] MEDS: CARVedilol 3.125 MG TAB PO SCH ×2 (08:32→20:57)
[2019-08-27] MEDS: MAGIC MOUTHWASH SUSPENSION BTL SSP SCH ×3 (08:32→17:32)
[2019-08-27] MEDS: ACETAMINOPHEN 500 MG TAB PO SCH ×3 (08:32→20:56)
[2019-08-27] MEDS: POLYVINYL ALCOHOL OPHTH SOLN 15 ML(LIQUITEARS) OU SCH ×4 (08:33→20:57)
[2019-08-27] MEDS: RESTASIS EYE DROPS (PATIENT'S OWN MED) OU SCH ×2 (08:33→20:58)
[2019-08-27 14:00] VITALS: BP 114/67
[2019-08-27 20:00] VITALS: BP 128/62
[2019-08-27] MEDS: ATORVASTATIN 20 MG TAB PO SCH (20:56)
[2019-08-27] MEDS: SENNA 8.6 MG TAB (SENOKOT) PO SCH (20:56)
[2019-08-27] MEDS: TAMSULOSIN 0.4 MG CAP PO SCH (20:56)
[2019-08-27] MEDS: LATANOPROST 0.005% OPHTH SOLN 2.5 ML OU SCH (20:57)
[2019-08-27] MEDS: LOSARTAN 25 MG TAB PO SCH (20:57)
[2019-08-28] MEDS: LEVOTHYROXINE 50MCG TABLET (0.05MG) PO SCH (05:58)
[2019-08-28 06:00] VITALS: BP 140/75
[2019-08-28 07:29] LABS: HEMATOCRIT 37.3 % (42.0-52.0); HEMOGLOBIN 11.7 g/dl (13.5-17.5); MEAN CORPUSCULAR HEMOGLOBIN 30.6 pg (27.0-33.0); MEAN CORPUSCULAR HGB CONC 31.4 g/dl (32.0-36.5); MEAN CORPUSCULAR VOLUME 97.6 fl (80.0-96.0); PLATELET COUNT, AUTOMATED 285 10^3/uL (150-450); RED BLOOD COUNT 3.82 10^6/uL (4.30-6.10); WHITE BLOOD COUNT 6.8 10^3/uL (4.0-10.0)
[2019-08-28] MEDS: ACETAMINOPHEN 500 MG TAB PO SCH ×3 (09:34→20:13)
[2019-08-28] MEDS: FLUoxetine 20 MG CAP PO SCH (09:34)
[2019-08-28] MEDS: PANTOPRAZOLE 40MG TAB (PROTONIX) PO SCH (09:34)
[2019-08-28] MEDS: FUROSEMIDE 20 MG TAB PO SCH (09:34)
[2019-08-28] MEDS: ENOXAPARIN 40 MG/0.4 ML SYRINGE (J1650) SC SCH (09:34)
[2019-08-28] MEDS: ASPIRIN 81 MG CHEW TABLET PO SCH (09:34)
[2019-08-28] MEDS: DOCUSATE SODIUM 100 MG CAP PO SCH ×2 (09:34→20:12)
[2019-08-28] MEDS: allopurinoL 100 MG TAB PO SCH (09:34)
[2019-08-28] MEDS: CARVedilol 3.125 MG TAB PO SCH ×2 (09:34→20:13)
[2019-08-28] MEDS: SUCRALFATE 1 GM TAB PO SCH ×4 (09:34→20:12)
[2019-08-28] MEDS: POLYVINYL ALCOHOL OPHTH SOLN 15 ML(LIQUITEARS) OU SCH ×4 (09:35→20:13)
[2019-08-28] MEDS: RESTASIS EYE DROPS (PATIENT'S OWN MED) OU SCH ×2 (09:35→20:14)
[2019-08-28] MEDS: MAGIC MOUTHWASH SUSPENSION BTL SSP SCH ×3 (09:35→16:57)
[2019-08-28 14:00] VITALS: BP 149/75
[2019-08-28 20:00] VITALS: BP 124/64
[2019-08-28] MEDS: TAMSULOSIN 0.4 MG CAP PO SCH (20:12)
[2019-08-28] MEDS: SENNA 8.6 MG TAB (SENOKOT) PO SCH (20:12)
[2019-08-28] MEDS: ATORVASTATIN 20 MG TAB PO SCH (20:13)
[2019-08-28] MEDS: LATANOPROST 0.005% OPHTH SOLN 2.5 ML OU SCH (20:13)
[2019-08-28] MEDS: LOSARTAN 25 MG TAB PO SCH (20:13)
[2019-08-29 05:42] VITALS: BP 140/72
[2019-08-29] MEDS: LEVOTHYROXINE 50MCG TABLET (0.05MG) PO SCH (05:43)
[2019-08-29] MEDS: ENOXAPARIN 40 MG/0.4 ML SYRINGE (J1650) SC SCH (08:43)
[2019-08-29] MEDS: SUCRALFATE 1 GM TAB PO SCH ×4 (08:43→20:56)
[2019-08-29] MEDS: PANTOPRAZOLE 40MG TAB (PROTONIX) PO SCH (08:43)
[2019-08-29] MEDS: allopurinoL 100 MG TAB PO SCH (08:43)
[2019-08-29] MEDS: FUROSEMIDE 20 MG TAB PO SCH (08:43)
[2019-08-29] MEDS: ASPIRIN 81 MG CHEW TABLET PO SCH (08:43)
[2019-08-29] MEDS: FLUoxetine 20 MG CAP PO SCH (08:43)
[2019-08-29] MEDS: CARVedilol 3.125 MG TAB PO SCH ×2 (08:43→20:56)
[2019-08-29] MEDS: MAGIC MOUTHWASH SUSPENSION BTL SSP SCH ×3 (08:44→16:46)
[2019-08-29] MEDS: POLYVINYL ALCOHOL OPHTH SOLN 15 ML(LIQUITEARS) OU SCH ×4 (08:44→20:57)
[2019-08-29] MEDS: DOCUSATE SODIUM 100 MG CAP PO SCH ×2 (08:44→20:57)
[2019-08-29] MEDS: RESTASIS EYE DROPS (PATIENT'S OWN MED) OU SCH ×2 (08:44→20:57)
[2019-08-29] MEDS: ACETAMINOPHEN 500 MG TAB PO SCH ×3 (08:45→20:56)
[2019-08-29 14:00] VITALS: BP 133/63
[2019-08-29 20:27] VITALS: BP 144/68
[2019-08-29] MEDS: TAMSULOSIN 0.4 MG CAP PO SCH (20:56)
[2019-08-29] MEDS: ATORVASTATIN 20 MG TAB PO SCH (20:56)
[2019-08-29] MEDS: SENNA 8.6 MG TAB (SENOKOT) PO SCH (20:56)
[2019-08-29] MEDS: LATANOPROST 0.005% OPHTH SOLN 2.5 ML OU SCH (20:57)
[2019-08-29] MEDS: LOSARTAN 25 MG TAB PO SCH (20:57)
[2019-08-30] MEDS: LEVOTHYROXINE 50MCG TABLET (0.05MG) PO SCH (05:46)
[2019-08-30 05:56] VITALS: BP 135/83
[2019-08-30] MEDS: FLUoxetine 20 MG CAP PO SCH (09:14)
[2019-08-30] MEDS: allopurinoL 100 MG TAB PO SCH (09:14)
[2019-08-30] MEDS: CARVedilol 3.125 MG TAB PO SCH ×2 (09:14→21:15)
[2019-08-30] MEDS: ENOXAPARIN 40 MG/0.4 ML SYRINGE (J1650) SC SCH (09:14)
[2019-08-30] MEDS: ASPIRIN 81 MG CHEW TABLET PO SCH (09:14)
[2019-08-30] MEDS: PANTOPRAZOLE 40MG TAB (PROTONIX) PO SCH (09:14)
[2019-08-30] MEDS: SUCRALFATE 1 GM TAB PO SCH ×4 (09:15→21:14)
[2019-08-30] MEDS: MAGIC MOUTHWASH SUSPENSION BTL SSP SCH ×3 (09:15→17:24)
[2019-08-30] MEDS: DOCUSATE SODIUM 100 MG CAP PO SCH ×2 (09:15→21:15)
[2019-08-30] MEDS: FUROSEMIDE 20 MG TAB PO SCH (09:16)
[2019-08-30] MEDS: ACETAMINOPHEN 500 MG TAB PO SCH ×3 (09:16→21:15)
[2019-08-30] MEDS: POLYVINYL ALCOHOL OPHTH SOLN 15 ML(LIQUITEARS) OU SCH ×4 (09:17→21:15)
[2019-08-30] MEDS: RESTASIS EYE DROPS (PATIENT'S OWN MED) OU SCH ×2 (09:17→21:16)
[2019-08-30 14:00] VITALS: BP 109/54
[2019-08-30 20:00] VITALS: BP 143/69
[2019-08-30] MEDS: SENNA 8.6 MG TAB (SENOKOT) PO SCH (21:13)
[2019-08-30] MEDS: LOSARTAN 25 MG TAB PO SCH (21:14)
[2019-08-30] MEDS: TAMSULOSIN 0.4 MG CAP PO SCH (21:14)
[2019-08-30] MEDS: ATORVASTATIN 20 MG TAB PO SCH (21:15)
[2019-08-30] MEDS: LATANOPROST 0.005% OPHTH SOLN 2.5 ML OU SCH (21:16)
[2019-08-31 06:00] VITALS: BP 148/70
[2019-08-31] MEDS: LEVOTHYROXINE 50MCG TABLET (0.05MG) PO SCH (06:31)
[2019-08-31 07:30] LABS: BASO % 0.6 % (0.0-1.0); EOS # 0.2 10^3/uL (0.0-0.5); EOS % 3.6 % (0.0-3.0); HEMATOCRIT 34.7 % (42.0-52.0); HEMOGLOBIN 11.3 g/dl (13.5-17.5); LYMPH # 1.1 10^3/uL (1.5-5.0); LYMPH % 22.6 % (24.0-44.0); MEAN CORPUSCULAR HEMOGLOBIN 31.2 pg (27.0-33.0); MEAN CORPUSCULAR HGB CONC 32.6 g/dl (32.0-36.5); MEAN CORPUSCULAR VOLUME 95.9 fl (80.0-96.0); MONO # 0.6 10^3/uL (0.0-0.8); MONO % 12.4 % (0.0-5.0); NEUTROPHILS # 2.9 10^3/uL (1.5-8.5); NEUTROPHILS % 60.2 % (36.0-66.0); PLATELET COUNT, AUTOMATED 244 10^3/uL (150-450); RED BLOOD COUNT 3.62 10^6/uL (4.30-6.10); WHITE BLOOD COUNT 4.8 10^3/uL (4.0-10.0)
--- NOTE | 2019-08-31 07:49 | IPNPDOC ---
PM&R Progress Note DATE OF SERVICE: Aug 30, 2019 Interpreter Progress Note Subjective: Patient seen in his room today stating he feels fine and that he is enjoying therapy. He reports his left ankle no longer bother him. REVIEW OF SYSTEMS: The following is a completed review of systems and has been reviewed. Review of systems otherwise unremarkable. PAIN: Patient self reports left ankle pain and pelvic pain EYES: No recent vision changes EARS, NOSE, & THROAT: No throat pain, or dysphagia, or rhinorrhea CARDIOVASCULAR: Denies chest pain or palpitations PULMONARY: Denies shortness of breath GASTROINTESTINAL: Denies constipation/diarrhea GENITOURINARY: +retention MUSCULOSKELETAL: left pelvic fracture and left ankle pain NEUROLOGICAL:+left sided paresis HEMATOLOGICAL: denies easy bruising SKIN:no rash PSYCHIATRIC: +dementia All other review of systems found to be negative. PHYSICAL EXAMINATION: VITAL SIGNS: Please see below. GENERAL: Pleasant and cooperative. No acute distress. HEENT: PERRL. Extraocular movements intact. Clear conjunctiva CARDIOVASCULAR: Regular rate and rhythm. No murmurs, rubs, or gallops LUNGS: Clear to auscultation bilaterally. No wheezes. No rhonchi ABDOMEN: Soft, nontender, nondistended. Positive bowel sounds. Normal active bowel sounds NEUROLOGICAL: Alert and oriented to self and place, repeating questions Cranial nerves II through XII grossly intact. Sensation grossly intact EXTREMITIES: 5\\5 strength bilateral upper extremities, except 3-/5 arm abduction. 5\\5 strength right lower extremity. 4/5 strength in left hip flexors, knee extensors (pain limited) 2/5 ankle DF 0/5 EHL (-) Homans bilat Left ankle (-) mild TTP medial/lateral malleoli, no warmth/erythema, no instability SKIN: left lateral ankle ulcer (dry) pedal pulses palpable, left ear laceration with dried blood ASSESSMENT:84-year-old M with past medical history of Afib and stroke who presents status post fall with IVH and SAH PLAN: 1. 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 Neuro: pmh CVA with left sided paresis, now s/p traumatic SAH and IVH- c/u ASA and statin therapy 3. Cardiac: hx Afib, eliquis on hold until 08-31-19 after which ASA is to be d/c'd , c/u beta judson, medicine consulted to assist in management -grade 2 diastolic dysfunction c/u diuretics and fluid restriction -HTN- c/u losartan 4. Resp: encourage incentive spirometry, monitor for infection 5. Ortho: s/p fall with left superior and inferior pubic rami fractures, and left sacral ala fracture- WBAT 6. : urinary retention likely due to pelvic fracture, s/p 3 day course of IV Zosyn at [facility], Ucx negative, c/u Flomax, voiding well 7. Endo: pmh hypothyroidism, c/u Synthroid, -TSH mildly elevated, however appears patient was off Synthroid for about 2 weeks while at [facility]- c/u home dosing 8. GI ppx: hx of GI bleed, c/u protonix 9. DVT ppx: lovenox and TEDs 10. Pain: tylenol and oxycodone prn 11. Rheum: hx of gout, left swollen ankle improved, s/p short steroid taper 12. Dispo: TBD Allergies Coded Allergies: donepezil (Verified Adverse Reaction, Intermediate, "HAD GI BLEED AND THAT WAS ONE OF THE SIDE EFFECTS", 08/03/19) promethazine (Verified Adverse Reaction, Intermediate, HALLUCINATION, NAUSEA, ARRHYTHMIA, 08/03/19) Vital Signs Vital Signs Date Time Temp Pulse Resp B/P (MAP) Pulse Ox O2 Delivery O2 Flow Rate FiO2 08/31/19 06:00 98.9 60 18 148/70 (96) 96 Room Air Laboratory Data CBC/BMP Laboratory Tests 08/31/19 06:59 Labs 24H Laboratory Tests 2 08/31/19 06:59: Immature Granulocyte % (Auto) 0.6, Neutrophils (%) (Auto) 60.2, Lymphocytes (%) (Auto) 22.6L, Monocytes (%) (Auto) 12.4H, Eosinophils (%) (Auto) 3.6H, Basophils (%) (Auto) 0.6, Neutrophils # (Auto) 2.9, Lymphocytes # (Auto) 1.1L, Monocytes # (Auto) 0.6, Eosinophils # (Auto) 0.2, Basophils # (Auto) 0.0, Nucleated Red Blood Cells % (auto) 0.0 Microbiology Microbiology 08/23/19 Urine Culture - Final, Complete Current Medications Current Medications Current Medications Medications (Trade) Dose Ordered Sig/Sean Route PRN Reason Start Time Stop Time Status Last Admin Dose Admin Acetaminophen (Tylenol Tab) 1,000 mg TID PO 08/22/19 21:00 08/30/19 21:15 Allopurinol (Zyloprim) 100 mg DAILY PO 08/23/19 09:00 08/30/19 09:14 Apixaban (Eliquis) 5 mg BID PO 08/31/19 09:00 Artificial Tears (Akwa Tears) 1 drop QID OU 08/23/19 17:00 08/30/19 21:15 Aspirin (Aspirin Chewable) 81 mg DAILY PO 08/23/19 09:00 08/30/19 12:00 DC 08/30/19 09:14 Atorvastatin Calcium (Lipitor) 40 mg QHS PO 08/22/19 21:00 08/30/19 21:15 Carvedilol (COReg) 3.125 mg Q12H PO 08/22/19 21:00 08/30/19 21:15 Docusate Sodium (Colace) 100 mg BID PO 08/22/19 21:00 08/30/19 21:15 Enoxaparin Sodium (Lovenox) 40 mg DAILY SC 08/23/19 09:00 08/30/19 12:00 DC 08/30/19 09:14 Fluoxetine HCl (PROzac) 20 mg DAILY PO 08/23/19 09:00 08/30/19 09:14 Furosemide (Lasix) 20 mg DAILY PO 08/23/19 09:00 08/30/19 09:16 Home Med (Med Rec Complete!) ASDIRECTED XX 08/22/19 16:45 08/22/19 16:38 DC Latanoprost (Xalatan 0.005% Op Soln) 1 drop QHS OU 08/23/19 21:00 08/30/19 21:16 Levothyroxine Sodium (Synthroid) 50 mcg DAILY@06 PO 08/23/19 06:00 08/31/19 06:31 Lidocaine/ Diphenhydr/Alum/ Mg/Simeth (Magic Mouthwash) 5ML AC SSP 08/23/19 07:30 08/30/19 17:24 Losartan Potassium (Cozaar) 12.5 mg QHS PO 08/22/19 21:00 08/30/19 21:14 Magnesium Hydroxide (Milk Of Magnesia) 30 ml DAILYPRN PRN PO CONSTIPATION 08/22/19 17:45 Miscellaneous (Unresolved Clarification Entry) SEE LABEL COMMENTS DAILY XX 08/28/19 09:00 08/29/19 10:19 DC Non-Formulary Medication ( See Comment Field Below ) ASDIRECTED XX 08/22/19 18:15 08/23/19 14:27 DC Non-Formulary Medication ( See Comment Field Below ) ASDIRECTED XX 08/23/19 14:30 UNV Non-Formulary Medication ( See Comment Field Below ) ASDIRECTED XX 08/23/19 14:45 08/23/19 15:38 DC Oxycodone HCl (Roxicodone, Oxyir) 2.5 mg Q6HP PRN PO PAIN 08/22/19 17:45 Cancel Pantoprazole Sodium (Protonix) 40 mg DAILY PO 08/23/19 09:00 08/30/19 09:14 Patient Own Medication (Patient'S Own Med) 1 DROP BID OU 08/23/19 21:00 08/30/19 21:16 Senna (Senokot) 1 tab QHS PO 08/22/19 21:00 08/30/19 21:13 Sucralfate (Carafate) 1 gm ACHS PO 08/22/19 21:00 08/30/19 21:14 Tamsulosin HCl (Flomax) 0.4 mg QHS PO 08/24/19 21:00 08/30/19 21:14 HUMAIRA BLACKWOOD MD Aug 31, 2019 07:49
[2019-08-31 07:55] LABS: BLOOD UREA NITROGEN 15 MG/DL (7-18); CALCIUM LEVEL 8.8 MG/DL (8.8-10.2); CARBON DIOXIDE LEVEL 29 MEQ/L (21-32); CHLORIDE LEVEL 105 MEQ/L (98-107); CREATININE FOR GFR 0.93 MG/DL (0.70-1.30); GLOMERULAR FILTRATION RATE > 60.0 (>35); GLUCOSE, FASTING 80 MG/DL (70-100); SODIUM LEVEL 139 MEQ/L (136-145)
[2019-08-31] MEDS: PANTOPRAZOLE 40MG TAB (PROTONIX) PO SCH (08:56)
[2019-08-31] MEDS: ACETAMINOPHEN 500 MG TAB PO SCH ×3 (08:56→21:11)
[2019-08-31] MEDS: DOCUSATE SODIUM 100 MG CAP PO SCH ×2 (08:56→21:10)
[2019-08-31] MEDS: CARVedilol 3.125 MG TAB PO SCH ×2 (08:57→21:07)
[2019-08-31] MEDS: FUROSEMIDE 20 MG TAB PO SCH (08:57)
[2019-08-31] MEDS: MAGIC MOUTHWASH SUSPENSION BTL SSP SCH ×3 (08:57→16:46)
[2019-08-31] MEDS: FLUoxetine 20 MG CAP PO SCH (08:57)
[2019-08-31] MEDS: APIXABAN 5 MG TAB (ELIQUIS) PO SCH ×2 (08:57→21:10)
[2019-08-31] MEDS: SUCRALFATE 1 GM TAB PO SCH ×4 (08:57→21:10)
[2019-08-31] MEDS: allopurinoL 100 MG TAB PO SCH (08:57)
[2019-08-31] MEDS: POLYVINYL ALCOHOL OPHTH SOLN 15 ML(LIQUITEARS) OU SCH ×4 (08:58→21:12)
[2019-08-31] MEDS: RESTASIS EYE DROPS (PATIENT'S OWN MED) OU SCH ×2 (08:58→21:12)
--- NOTE | 2019-08-31 10:09 | IPNPDOC ---
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 REVIEW OF SYSTEMS: The following is a completed review of systems and has been reviewed. Review of systems otherwise unremarkable. PAIN: Patient self reports left ankle pain and pelvic pain EYES: No recent vision changes EARS, NOSE, & THROAT: No throat pain, or dysphagia, or rhinorrhea CARDIOVASCULAR: Denies chest pain or palpitations PULMONARY: Denies shortness of breath GASTROINTESTINAL: Denies constipation/diarrhea GENITOURINARY: +retention MUSCULOSKELETAL: left pelvic fracture and left ankle pain NEUROLOGICAL:+left sided paresis HEMATOLOGICAL: denies easy bruising SKIN:no rash PSYCHIATRIC: +dementia All other review of systems found to be negative. PHYSICAL EXAMINATION: VITAL SIGNS: Please see below. GENERAL: Pleasant and cooperative. No acute distress. HEENT: PERRL. Extraocular movements intact. Clear conjunctiva CARDIOVASCULAR: Regular rate and rhythm. No murmurs, rubs, or gallops LUNGS: Clear to auscultation bilaterally. No wheezes. No rhonchi ABDOMEN: Soft, nontender, nondistended. Positive bowel sounds. Normal active bowel sounds NEUROLOGICAL: Alert and oriented to self and place, repeating questions Cranial nerves II through XII grossly intact. Sensation grossly intact EXTREMITIES: 5\\5 strength bilateral upper extremities, except 3-/5 arm abduction. 5\\5 strength right lower extremity. 4/5 strength in left hip flexors, knee extensors (pain limited) 2/5 ankle DF 0/5 EHL (-) Homans bilat Left ankle (-) mild TTP medial/lateral malleoli, no warmth/erythema, no instability SKIN: left lateral ankle ulcer (dry) pedal pulses palpable, left ear laceration with dried blood ASSESSMENT:84-year-old M with past medical history of Afib and stroke who presents status post fall with IVH and SAH PLAN: 1. 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 Neuro: pmh CVA with left sided paresis, now s/p traumatic SAH and IVH- c/u ASA and statin therapy 3. Cardiac: hx Afib, starting eliquis today, d/c ASA -c/u beta judson, medicine consulted to assist in management -grade 2 diastolic dysfunction c/u diuretics and fluid restriction -HTN- c/u losartan 4. Resp: encourage incentive spirometry, monitor for infection 5. Ortho: s/p fall with left superior and inferior pubic rami fractures, and left sacral ala fracture- WBAT 6. : urinary retention likely due to pelvic fracture, s/p 3 day course of IV Zosyn at [facility], Ucx negative, c/u Flomax, voiding well 7. Endo: pmh hypothyroidism, c/u Synthroid, -TSH mildly elevated, however appears patient was off Synthroid for about 2 weeks while at [facility]- c/u home dosing 8. GI ppx: hx of GI bleed, c/u protonix 9. DVT ppx: eliquis and TEDs 10. Pain: tylenol and oxycodone prn 11. Rheum: hx of gout, left swollen ankle improved, s/p short steroid taper 12. Dispo: TBD Allergies Coded Allergies: donepezil (Verified Adverse Reaction, Intermediate, "HAD GI BLEED AND THAT WAS ONE OF THE SIDE EFFECTS", 08/03/19) promethazine (Verified Adverse Reaction, Intermediate, HALLUCINATION, NAUSEA, ARRHYTHMIA, 08/03/19) Vital Signs Vital Signs Date Time Temp Pulse Resp B/P (MAP) Pulse Ox O2 Delivery O2 Flow Rate FiO2 08/31/19 08:57 60 148/70 08/31/19 06:00 98.9 18 96 Room Air Laboratory Data CBC/BMP Laboratory Tests 08/31/19 06:59 Labs 24H Laboratory Tests 2 08/31/19 06:59: Immature Granulocyte % (Auto) 0.6, Neutrophils (%) (Auto) 60.2, Lymphocytes (%) (Auto) 22.6L, Monocytes (%) (Auto) 12.4H, Eosinophils (%) (Auto) 3.6H, Basophils (%) (Auto) 0.6, Neutrophils # (Auto) 2.9, Lymphocytes # (Auto) 1.1L, Monocytes # (Auto) 0.6, Eosinophils # (Auto) 0.2, Basophils # (Auto) 0.0, Nucleated Red Blood Cells % (auto) 0.0, Anion Gap 5L, Glomerular Filtration Rate > 60.0, Calcium Level 8.8 Microbiology Microbiology 08/23/19 Urine Culture - Final, Complete Current Medications Current Medications Current Medications Medications (Trade) Dose Ordered Sig/Sean Route PRN Reason Start Time Stop Time Status Last Admin Dose Admin Acetaminophen (Tylenol Tab) 1,000 mg TID PO 08/22/19 21:00 08/31/19 08:56 Allopurinol (Zyloprim) 100 mg DAILY PO 08/23/19 09:00 08/31/19 08:57 Apixaban (Eliquis) 5 mg BID PO 08/31/19 09:00 08/31/19 08:57 Artificial Tears (Akwa Tears) 1 drop QID OU 08/23/19 17:00 08/31/19 08:58 Aspirin (Aspirin Chewable) 81 mg DAILY PO 08/23/19 09:00 08/30/19 12:00 DC 08/30/19 09:14 Atorvastatin Calcium (Lipitor) 40 mg QHS PO 08/22/19 21:00 08/30/19 21:15 Carvedilol (COReg) 3.125 mg Q12H PO 08/22/19 21:00 08/31/19 08:57 Docusate Sodium (Colace) 100 mg BID PO 08/22/19 21:00 08/31/19 08:56 Enoxaparin Sodium (Lovenox) 40 mg DAILY SC 08/23/19 09:00 08/30/19 12:00 DC 08/30/19 09:14 Fluoxetine HCl (PROzac) 20 mg DAILY PO 08/23/19 09:00 08/31/19 08:57 Furosemide (Lasix) 20 mg DAILY PO 08/23/19 09:00 08/31/19 08:57 Home Med (Med Rec Complete!) ASDIRECTED XX 08/22/19 16:45 08/22/19 16:38 DC Latanoprost (Xalatan 0.005% Op Soln) 1 drop QHS OU 08/23/19 21:00 08/30/19 21:16 Levothyroxine Sodium (Synthroid) 50 mcg DAILY@06 PO 08/23/19 06:00 08/31/19 06:31 Lidocaine/ Diphenhydr/Alum/ Mg/Simeth (Magic Mouthwash) 5ML AC SSP 08/23/19 07:30 08/31/19 08:57 Losartan Potassium (Cozaar) 12.5 mg QHS PO 08/22/19 21:00 08/30/19 21:14 Magnesium Hydroxide (Milk Of Magnesia) 30 ml DAILYPRN PRN PO CONSTIPATION 08/22/19 17:45 Miscellaneous (Unresolved Clarification Entry) SEE LABEL COMMENTS DAILY XX 08/28/19 09:00 08/29/19 10:19 DC Non-Formulary Medication ( See Comment Field Below ) ASDIRECTED XX 08/22/19 18:15 08/23/19 14:27 DC Non-Formulary Medication ( See Comment Field Below ) ASDIRECTED XX 08/23/19 14:30 UNV Non-Formulary Medication ( See Comment Field Below ) ASDIRECTED XX 08/23/19 14:45 08/23/19 15:38 DC Oxycodone HCl (Roxicodone, Oxyir) 2.5 mg Q6HP PRN PO PAIN 08/22/19 17:45 Cancel Pantoprazole Sodium (Protonix) 40 mg DAILY PO 08/23/19 09:00 08/31/19 08:56 Patient Own Medication (Patient'S Own Med) 1 DROP BID OU 08/23/19 21:00 08/31/19 08:58 Senna (Senokot) 1 tab QHS PO 08/22/19 21:00 08/30/19 21:13 Sucralfate (Carafate) 1 gm ACHS PO 08/22/19 21:00 08/31/19 08:57 Tamsulosin HCl (Flomax) 0.4 mg QHS PO 08/24/19 21:00 08/30/19 21:14 HUMAIRA BLACKWOOD MD Aug 31, 2019 10:09
[2019-08-31 14:00] VITALS: BP 129/65
[2019-08-31 20:00] VITALS: BP 139/70
[2019-08-31] MEDS: TAMSULOSIN 0.4 MG CAP PO SCH (21:08)
[2019-08-31] MEDS: LOSARTAN 25 MG TAB PO SCH (21:08)
[2019-08-31] MEDS: LATANOPROST 0.005% OPHTH SOLN 2.5 ML OU SCH (21:11)
[2019-08-31] MEDS: SENNA 8.6 MG TAB (SENOKOT) PO SCH (21:12)
[2019-08-31] MEDS: ATORVASTATIN 20 MG TAB PO SCH (21:12)
[2019-09-01] MEDS: LEVOTHYROXINE 50MCG TABLET (0.05MG) PO SCH (05:51)
[2019-09-01 06:00] VITALS: BP_SYST 113; BP_SYST 142; BP_DIAS 65; BP_DIAS 78
[2019-09-01] MEDS: MAGIC MOUTHWASH SUSPENSION BTL SSP SCH ×3 (07:30→17:58)
[2019-09-01] MEDS: SUCRALFATE 1 GM TAB PO SCH ×4 (07:30→21:06)
[2019-09-01] MEDS: FLUoxetine 20 MG CAP PO SCH (09:00)
[2019-09-01] MEDS: ACETAMINOPHEN 500 MG TAB PO SCH ×3 (09:00→21:09)
[2019-09-01] MEDS: POLYVINYL ALCOHOL OPHTH SOLN 15 ML(LIQUITEARS) OU SCH ×4 (09:00→21:10)
[2019-09-01] MEDS: RESTASIS EYE DROPS (PATIENT'S OWN MED) OU SCH ×2 (09:00→21:10)
[2019-09-01] MEDS: FUROSEMIDE 20 MG TAB PO SCH (13:32)
[2019-09-01] MEDS: APIXABAN 5 MG TAB (ELIQUIS) PO SCH ×2 (13:33→21:08)
[2019-09-01] MEDS: DOCUSATE SODIUM 100 MG CAP PO SCH ×2 (13:33→21:09)
[2019-09-01] MEDS: allopurinoL 100 MG TAB PO SCH (13:33)
[2019-09-01] MEDS: PANTOPRAZOLE 40MG TAB (PROTONIX) PO SCH (13:34)
[2019-09-01] MEDS: CARVedilol 3.125 MG TAB PO SCH ×2 (13:34→21:06)
[2019-09-01 14:00] VITALS: BP 148/73
[2019-09-01 21:00] VITALS: BP 132/65
[2019-09-01] MEDS: SENNA 8.6 MG TAB (SENOKOT) PO SCH (21:06)
[2019-09-01] MEDS: ATORVASTATIN 20 MG TAB PO SCH (21:06)
[2019-09-01] MEDS: LOSARTAN 25 MG TAB PO SCH (21:08)
[2019-09-01] MEDS: TAMSULOSIN 0.4 MG CAP PO SCH (21:09)
[2019-09-01] MEDS: LATANOPROST 0.005% OPHTH SOLN 2.5 ML OU SCH (21:10)
[2019-09-02] MEDS: LEVOTHYROXINE 50MCG TABLET (0.05MG) PO SCH (05:43)
[2019-09-02 06:00] VITALS: BP 158/78
[2019-09-02] MEDS: MAGIC MOUTHWASH SUSPENSION BTL SSP SCH ×3 (07:30→16:57)
[2019-09-02] MEDS: PANTOPRAZOLE 40MG TAB (PROTONIX) PO SCH (09:28)
[2019-09-02] MEDS: ACETAMINOPHEN 500 MG TAB PO SCH ×3 (09:28→22:02)
[2019-09-02] MEDS: CARVedilol 3.125 MG TAB PO SCH ×2 (09:29→22:03)
[2019-09-02] MEDS: DOCUSATE SODIUM 100 MG CAP PO SCH ×2 (09:29→22:03)
[2019-09-02] MEDS: FUROSEMIDE 20 MG TAB PO SCH (09:29)
[2019-09-02] MEDS: SUCRALFATE 1 GM TAB PO SCH ×4 (09:29→22:02)
[2019-09-02] MEDS: APIXABAN 5 MG TAB (ELIQUIS) PO SCH ×2 (09:29→22:01)
[2019-09-02] MEDS: RESTASIS EYE DROPS (PATIENT'S OWN MED) OU SCH ×2 (09:34→22:04)
[2019-09-02] MEDS: allopurinoL 100 MG TAB PO SCH (09:34)
[2019-09-02] MEDS: POLYVINYL ALCOHOL OPHTH SOLN 15 ML(LIQUITEARS) OU SCH ×4 (09:34→21:00)
[2019-09-02] MEDS: FLUoxetine 20 MG CAP PO SCH (09:34)
[2019-09-02 14:00] VITALS: BP 130/68
[2019-09-02 20:00] VITALS: BP 140/68
[2019-09-02] MEDS: TAMSULOSIN 0.4 MG CAP PO SCH (22:01)
[2019-09-02] MEDS: ATORVASTATIN 20 MG TAB PO SCH (22:02)
[2019-09-02] MEDS: LOSARTAN 25 MG TAB PO SCH (22:03)
[2019-09-02] MEDS: SENNA 8.6 MG TAB (SENOKOT) PO SCH (22:03)
[2019-09-02] MEDS: LATANOPROST 0.005% OPHTH SOLN 2.5 ML OU SCH (22:04)
[2019-09-03 06:00] VITALS: BP 132/71
[2019-09-03] MEDS: LEVOTHYROXINE 50MCG TABLET (0.05MG) PO SCH (06:11)
[2019-09-03 06:31] LABS: HEMATOCRIT 35.2 % (42.0-52.0); HEMOGLOBIN 11.1 g/dl (13.5-17.5); MEAN CORPUSCULAR HEMOGLOBIN 30.6 pg (27.0-33.0); MEAN CORPUSCULAR HGB CONC 31.5 g/dl (32.0-36.5); PLATELET COUNT, AUTOMATED 208 10^3/uL (150-450); RED BLOOD COUNT 3.63 10^6/uL (4.30-6.10); WHITE BLOOD COUNT 4.9 10^3/uL (4.0-10.0)
[2019-09-03 06:46] LABS: BLOOD UREA NITROGEN 14 MG/DL (7-18); CALCIUM LEVEL 8.2 MG/DL (8.8-10.2); CARBON DIOXIDE LEVEL 27 MEQ/L (21-32); CHLORIDE LEVEL 107 MEQ/L (98-107); CREATININE FOR GFR 0.92 MG/DL (0.70-1.30); GLOMERULAR FILTRATION RATE > 60.0 (>35); GLUCOSE, FASTING 81 MG/DL (70-100); POTASSIUM SERUM 3.9 MEQ/L (3.5-5.1); SODIUM LEVEL 141 MEQ/L (136-145)
[2019-09-03] MEDS: MAGIC MOUTHWASH SUSPENSION BTL SSP SCH ×3 (07:30→17:04)
--- NOTE | 2019-09-03 08:12 | IPN ---
DATE: 09/01/2019 He had an intracranial bleed with small subdural hemorrhage. He has a history of hypertension, hyperlipidemia, gout on allopurinol with no recent flare-ups, hypothyroidism on levothyroxine, history of GI bleed in the past, continues with Protonix and Carafate. He was started back on his Eliquis on the , continues on Carafate. Vital signs have been stable. Patient is doing well. White count normal. Hemoglobin and hematocrit 11.3 and 34.7 on the . Electrolytes were normal. OBJECTIVE: Blood pressure 140/68, pulse 57, respirations 19, temperature 97.9, oxygen saturation 97% on room air. The patient is alert and oriented times three. Pupils equal and reactive to light. Extraocular movements intact. Cornea and sclerae clear. Conjunctiva is normal. No facial asymmetry. Pharynx, tongue and gums are pink and moist. Tongue is midline. Neck is supple without lymphadenopathy. No thyromegaly. No goiter. Carotids 2+ without bruit. Chest clear to auscultation without wheeze or retraction. Heart is regular. Abdomen is benign. Bowel sounds are positive. /rectal not done. Extremities show arm and leg weaker on the right. Homans sign negative bilaterally. Pedal pulses palpable. IMPRESSION/PLAN: Continue rehab, physical therapy/occupational therapy (PT/OT). Cardiac history of atrial fibrillation. Eliquis has been restarted. Aspirin has been discontinued. Continue with beta-judson. Blood pressure is stable. Hypertension stable. Status post fall with left superior and inferior pubic rami fractures, left sacral fracture. Continue weightbearing as tolerated. Urinary retention. Patient is Flomax, voiding well. Hypothyroidism. Continue Synthroid. Pain. Tylenol and oxycodone as needed. Deep vein thrombosis (DVT) prophylaxis. Eliquis and the patient has thromboembolic deterrent stockings (TEDS). Continue physical therapy/occupational therapy (PT/OT).
[2019-09-03] MEDS: SUCRALFATE 1 GM TAB PO SCH ×4 (08:49→21:24)
[2019-09-03] MEDS: DOCUSATE SODIUM 100 MG CAP PO SCH ×2 (08:49→21:24)
[2019-09-03] MEDS: CARVedilol 3.125 MG TAB PO SCH ×2 (08:49→21:24)
[2019-09-03] MEDS: FUROSEMIDE 20 MG TAB PO SCH (08:49)
[2019-09-03] MEDS: PANTOPRAZOLE 40MG TAB (PROTONIX) PO SCH (08:49)
[2019-09-03] MEDS: allopurinoL 100 MG TAB PO SCH (08:49)
[2019-09-03] MEDS: POLYVINYL ALCOHOL OPHTH SOLN 15 ML(LIQUITEARS) OU SCH ×4 (08:50→21:25)
[2019-09-03] MEDS: APIXABAN 5 MG TAB (ELIQUIS) PO SCH ×2 (08:50→21:23)
[2019-09-03] MEDS: RESTASIS EYE DROPS (PATIENT'S OWN MED) OU SCH ×2 (08:50→21:25)
[2019-09-03] MEDS: FLUoxetine 20 MG CAP PO SCH (08:50)
[2019-09-03] MEDS: ACETAMINOPHEN 500 MG TAB PO SCH ×3 (08:50→21:25)
[2019-09-03 14:00] VITALS: BP 159/75
[2019-09-03 20:00] VITALS: BP 136/68
[2019-09-03] MEDS: SENNA 8.6 MG TAB (SENOKOT) PO SCH (21:23)
[2019-09-03] MEDS: TAMSULOSIN 0.4 MG CAP PO SCH (21:23)
[2019-09-03] MEDS: LOSARTAN 25 MG TAB PO SCH (21:24)
[2019-09-03] MEDS: LATANOPROST 0.005% OPHTH SOLN 2.5 ML OU SCH (21:25)
[2019-09-03] MEDS: ATORVASTATIN 20 MG TAB PO SCH (21:25)
[2019-09-04 05:37] VITALS: BP 145/77
[2019-09-04] MEDS: LEVOTHYROXINE 50MCG TABLET (0.05MG) PO SCH (05:59)
[2019-09-04] MEDS: PANTOPRAZOLE 40MG TAB (PROTONIX) PO SCH (08:13)
[2019-09-04] MEDS: FUROSEMIDE 20 MG TAB PO SCH (08:13)
[2019-09-04] MEDS: DOCUSATE SODIUM 100 MG CAP PO SCH ×2 (08:13→20:25)
[2019-09-04] MEDS: ACETAMINOPHEN 500 MG TAB PO SCH ×3 (08:13→20:24)
[2019-09-04] MEDS: SUCRALFATE 1 GM TAB PO SCH ×4 (08:13→20:23)
[2019-09-04] MEDS: FLUoxetine 20 MG CAP PO SCH (08:13)
[2019-09-04] MEDS: APIXABAN 5 MG TAB (ELIQUIS) PO SCH ×2 (08:14→20:23)
[2019-09-04] MEDS: MAGIC MOUTHWASH SUSPENSION BTL SSP SCH ×3 (08:14→17:05)
[2019-09-04] MEDS: POLYVINYL ALCOHOL OPHTH SOLN 15 ML(LIQUITEARS) OU SCH ×4 (08:14→20:25)
[2019-09-04] MEDS: CARVedilol 3.125 MG TAB PO SCH ×2 (08:14→20:24)
[2019-09-04] MEDS: allopurinoL 100 MG TAB PO SCH (08:14)
[2019-09-04] MEDS: RESTASIS EYE DROPS (PATIENT'S OWN MED) OU SCH ×2 (08:14→20:25)
[2019-09-04 14:00] VITALS: BP 133/63
[2019-09-04 20:00] VITALS: BP 138/72
[2019-09-04] MEDS: TAMSULOSIN 0.4 MG CAP PO SCH (20:23)
[2019-09-04] MEDS: SENNA 8.6 MG TAB (SENOKOT) PO SCH (20:23)
[2019-09-04] MEDS: ATORVASTATIN 20 MG TAB PO SCH (20:24)
[2019-09-04] MEDS: LATANOPROST 0.005% OPHTH SOLN 2.5 ML OU SCH (20:25)
[2019-09-04] MEDS: LOSARTAN 25 MG TAB PO SCH (20:25)
[2019-09-05 06:00] VITALS: BP 147/65
[2019-09-05] MEDS: LEVOTHYROXINE 50MCG TABLET (0.05MG) PO SCH (06:10)
[2019-09-05] MEDS: CARVedilol 3.125 MG TAB PO SCH ×2 (08:12→21:11)
[2019-09-05] MEDS: SUCRALFATE 1 GM TAB PO SCH ×4 (08:12→21:11)
[2019-09-05] MEDS: DOCUSATE SODIUM 100 MG CAP PO SCH ×2 (08:12→21:11)
[2019-09-05] MEDS: PANTOPRAZOLE 40MG TAB (PROTONIX) PO SCH (08:12)
[2019-09-05] MEDS: FLUoxetine 20 MG CAP PO SCH (08:12)
[2019-09-05] MEDS: ACETAMINOPHEN 500 MG TAB PO SCH ×3 (08:12→21:12)
[2019-09-05] MEDS: APIXABAN 5 MG TAB (ELIQUIS) PO SCH ×2 (08:12→21:11)
[2019-09-05] MEDS: allopurinoL 100 MG TAB PO SCH (08:12)
[2019-09-05] MEDS: FUROSEMIDE 20 MG TAB PO SCH (08:12)
[2019-09-05] MEDS: MAGIC MOUTHWASH SUSPENSION BTL SSP SCH ×3 (08:13→17:15)
[2019-09-05] MEDS: RESTASIS EYE DROPS (PATIENT'S OWN MED) OU SCH ×2 (08:13→21:12)
[2019-09-05] MEDS: POLYVINYL ALCOHOL OPHTH SOLN 15 ML(LIQUITEARS) OU SCH ×4 (08:13→21:12)
[2019-09-05 14:00] VITALS: BP 127/66
[2019-09-05 20:00] VITALS: BP 152/72
[2019-09-05] MEDS: TAMSULOSIN 0.4 MG CAP PO SCH (21:11)
[2019-09-05] MEDS: SENNA 8.6 MG TAB (SENOKOT) PO SCH (21:11)
[2019-09-05] MEDS: ATORVASTATIN 20 MG TAB PO SCH (21:11)
[2019-09-05] MEDS: LOSARTAN 25 MG TAB PO SCH (21:13)
[2019-09-05] MEDS: LATANOPROST 0.005% OPHTH SOLN 2.5 ML OU SCH (21:13)
[2019-09-06 06:00] VITALS: BP 124/57
[2019-09-06] MEDS: LEVOTHYROXINE 50MCG TABLET (0.05MG) PO SCH (06:31)
[2019-09-06] MEDS: SUCRALFATE 1 GM TAB PO SCH ×4 (07:30→20:40)
[2019-09-06] MEDS: ACETAMINOPHEN 500 MG TAB PO SCH ×3 (10:26→20:40)
[2019-09-06] MEDS: PANTOPRAZOLE 40MG TAB (PROTONIX) PO SCH (10:26)
[2019-09-06] MEDS: FLUoxetine 20 MG CAP PO SCH (10:26)
[2019-09-06] MEDS: DOCUSATE SODIUM 100 MG CAP PO SCH ×2 (10:26→21:00)
[2019-09-06] MEDS: APIXABAN 5 MG TAB (ELIQUIS) PO SCH ×2 (10:27→20:40)
[2019-09-06] MEDS: allopurinoL 100 MG TAB PO SCH (10:27)
[2019-09-06] MEDS: CARVedilol 3.125 MG TAB PO SCH ×2 (10:27→20:41)
[2019-09-06] MEDS: POLYVINYL ALCOHOL OPHTH SOLN 15 ML(LIQUITEARS) OU SCH ×4 (10:28→20:41)
[2019-09-06] MEDS: FUROSEMIDE 20 MG TAB PO SCH (10:28)
[2019-09-06] MEDS: RESTASIS EYE DROPS (PATIENT'S OWN MED) OU SCH ×2 (10:28→20:43)
[2019-09-06] MEDS: MAGIC MOUTHWASH SUSPENSION BTL SSP SCH ×3 (10:29→16:41)
--- NOTE | 2019-09-06 11:09 | IPNPDOC ---
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 REVIEW OF SYSTEMS: The following is a completed review of systems and has been reviewed. Review of systems otherwise unremarkable. PAIN: Patient self reports left ankle pain and pelvic pain EYES: No recent vision changes EARS, NOSE, & THROAT: No throat pain, or dysphagia, or rhinorrhea CARDIOVASCULAR: Denies chest pain or palpitations PULMONARY: Denies shortness of breath GASTROINTESTINAL: Denies constipation/diarrhea GENITOURINARY: +retention MUSCULOSKELETAL: left pelvic fracture and left ankle pain NEUROLOGICAL:+left sided paresis HEMATOLOGICAL: denies easy bruising SKIN:no rash PSYCHIATRIC: +dementia All other review of systems found to be negative. PHYSICAL EXAMINATION: VITAL SIGNS: Please see below. GENERAL: Pleasant and cooperative. No acute distress. HEENT: PERRL. Extraocular movements intact. Clear conjunctiva CARDIOVASCULAR: Regular rate and rhythm. No murmurs, rubs, or gallops LUNGS: Clear to auscultation bilaterally. No wheezes. No rhonchi ABDOMEN: Soft, nontender, nondistended. Positive bowel sounds. Normal active bowel sounds NEUROLOGICAL: Alert and oriented to self and place, repeating questions Cranial nerves II through XII grossly intact. Sensation grossly intact EXTREMITIES: 5\\5 strength bilateral upper extremities, except 3-/5 arm abduction. 5\\5 strength right lower extremity. 4/5 strength in left hip flexors, knee extensors (pain limited) 2/5 ankle DF 0/5 EHL (-) Homans bilat Left ankle (-) mild TTP medial/lateral malleoli, no warmth/erythema, no instability SKIN: left lateral ankle ulcer (dry) pedal pulses palpable, left ear laceration with dried blood ASSESSMENT:84-year-old M with past medical history of Afib and stroke who presents status post fall with IVH and SAH PLAN: 1. 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 Neuro: pmh CVA with left sided paresis, now s/p traumatic SAH and IVH- c/u ASA and statin therapy 3. Cardiac: hx Afib, starting eliquis today, d/c ASA -c/u beta judson, medicine consulted to assist in management -grade 2 diastolic dysfunction c/u diuretics and fluid restriction -HTN- c/u losartan 4. Resp: encourage incentive spirometry, monitor for infection 5. Ortho: s/p fall with left superior and inferior pubic rami fractures, and left sacral ala fracture- WBAT 6. : urinary retention likely due to pelvic fracture, s/p 3 day course of IV Zosyn at [facility], Ucx negative, c/u Flomax, voiding well 7. Endo: pmh hypothyroidism, c/u Synthroid, -TSH mildly elevated, however appears patient was off Synthroid for about 2 weeks while at [facility]- c/u home dosing 8. GI ppx: hx of GI bleed, c/u protonix 9. DVT ppx: eliquis and TEDs 10. Pain: tylenol and oxycodone prn 11. Rheum: hx of gout, left swollen ankle improved, s/p short steroid taper 12. Dispo: TBD Allergies Coded Allergies: donepezil (Verified Adverse Reaction, Intermediate, "HAD GI BLEED AND THAT WAS ONE OF THE SIDE EFFECTS", 08/03/19) promethazine (Verified Adverse Reaction, Intermediate, HALLUCINATION, NAUSEA, ARRHYTHMIA, 08/03/19) Vital Signs Vital Signs Date Time Temp Pulse Resp B/P (MAP) Pulse Ox O2 Delivery O2 Flow Rate FiO2 09/06/19 10:27 65 124/57 09/06/19 06:00 98.1 18 97 Room Air Current Medications Current Medications Current Medications Medications (Trade) Dose Ordered Sig/Sean Route PRN Reason Start Time Stop Time Status Last Admin Dose Admin Acetaminophen (Tylenol Tab) 1,000 mg TID PO 08/22/19 21:00 09/06/19 10:26 Allopurinol (Zyloprim) 100 mg DAILY PO 08/23/19 09:00 09/06/19 10:27 Apixaban (Eliquis) 5 mg BID PO 08/31/19 09:00 09/06/19 10:27 Artificial Tears (Akwa Tears) 1 drop QID OU 08/23/19 17:00 09/06/19 10:28 Aspirin (Aspirin Chewable) 81 mg DAILY PO 08/23/19 09:00 08/30/19 12:00 DC 08/30/19 09:14 Atorvastatin Calcium (Lipitor) 40 mg QHS PO 08/22/19 21:00 09/05/19 21:11 Carvedilol (COReg) 3.125 mg Q12H PO 08/22/19 21:00 09/06/19 10:27 Docusate Sodium (Colace) 100 mg BID PO 08/22/19 21:00 09/06/19 10:26 Enoxaparin Sodium (Lovenox) 40 mg DAILY SC 08/23/19 09:00 08/30/19 12:00 DC 08/30/19 09:14 Fluoxetine HCl (PROzac) 20 mg DAILY PO 08/23/19 09:00 09/06/19 10:26 Furosemide (Lasix) 20 mg DAILY PO 08/23/19 09:00 09/06/19 10:28 Home Med (Med Rec Complete!) ASDIRECTED XX 08/22/19 16:45 08/22/19 16:38 DC Latanoprost (Xalatan 0.005% Op Soln) 1 drop QHS OU 08/23/19 21:00 09/05/19 21:13 Levothyroxine Sodium (Synthroid) 50 mcg DAILY@06 PO 08/23/19 06:00 09/06/19 06:31 Lidocaine/ Diphenhydr/Alum/ Mg/Simeth (Magic Mouthwash) 5ML AC SSP 08/23/19 07:30 09/06/19 10:29 Losartan Potassium (Cozaar) 12.5 mg QHS PO 08/22/19 21:00 09/05/19 21:13 Magnesium Hydroxide (Milk Of Magnesia) 30 ml DAILYPRN PRN PO CONSTIPATION 08/22/19 17:45 Miscellaneous (Unresolved Clarification Entry) SEE LABEL COMMENTS DAILY XX 08/28/19 09:00 08/29/19 10:19 DC Non-Formulary Medication ( See Comment Field Below ) ASDIRECTED XX 08/22/19 18:15 08/23/19 14:27 DC Non-Formulary Medication ( See Comment Field Below ) ASDIRECTED XX 08/23/19 14:30 UNV Non-Formulary Medication ( See Comment Field Below ) ASDIRECTED XX 08/23/19 14:45 08/23/19 15:38 DC Oxycodone HCl (Roxicodone, Oxyir) 2.5 mg Q6HP PRN PO PAIN 08/22/19 17:45 Cancel Pantoprazole Sodium (Protonix) 40 mg DAILY PO 08/23/19 09:00 09/06/19 10:26 Patient Own Medication (Patient'S Own Med) 1 DROP BID OU 08/23/19 21:00 09/06/19 10:28 Senna (Senokot) 1 tab QHS PO 08/22/19 21:00 09/05/19 21:11 Sucralfate (Carafate) 1 gm ACHS PO 08/22/19 21:00 09/05/19 21:11 Tamsulosin HCl (Flomax) 0.4 mg QHS PO 08/24/19 21:00 09/05/19 21:11 HUMAIRA BLACKWOOD MD Sep 06, 2019 11:08
--- NOTE | 2019-09-06 11:12 | IPNPDOC ---
PM&R Progress Note DATE OF SERVICE: Sep 06, 2019 Transcribing Operator Head Progress Note Subjective: Patient reporting he is in good spirits and understands he has to become more independent while her in order to return to [place]. REVIEW OF SYSTEMS: The following is a completed review of systems and has been reviewed. Review of systems otherwise unremarkable. PAIN: Patient self reports left ankle pain and pelvic pain EYES: No recent vision changes EARS, NOSE, & THROAT: No throat pain, or dysphagia, or rhinorrhea CARDIOVASCULAR: Denies chest pain or palpitations PULMONARY: Denies shortness of breath GASTROINTESTINAL: Denies constipation/diarrhea GENITOURINARY: +retention (improving) MUSCULOSKELETAL: left pelvic fracture and left ankle pain NEUROLOGICAL:+left sided paresis HEMATOLOGICAL: denies easy bruising SKIN:no rash PSYCHIATRIC: +dementia All other review of systems found to be negative. PHYSICAL EXAMINATION: VITAL SIGNS: Please see below. GENERAL: Pleasant and cooperative. No acute distress. HEENT: PERRL. Extraocular movements intact. Clear conjunctiva CARDIOVASCULAR: Regular rate and rhythm. No murmurs, rubs, or gallops LUNGS: Clear to auscultation bilaterally. No wheezes. No rhonchi ABDOMEN: Soft, nontender, nondistended. Positive bowel sounds. Normal active bowel sounds NEUROLOGICAL: Alert and oriented to self and place, repeating questions Cranial nerves II through XII grossly intact. Sensation grossly intact EXTREMITIES: 5\\5 strength bilateral upper extremities, except 3-/5 arm abduction. 5\\5 strength right lower extremity. 4/5 strength in left hip flexors, knee extensors (pain limited) 2/5 ankle DF 0/5 EHL (-) Homans bilat Left ankle (-) mild TTP medial/lateral malleoli, no warmth/erythema, no instability SKIN: left lateral ankle ulcer (dry) pedal pulses palpable, left ear laceration with dried blood ASSESSMENT:84-year-old M with past medical history of Afib and stroke who presents status post fall with IVH and SAH PLAN: 1. 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 Neuro: pmh CVA with left sided paresis, now s/p traumatic SAH and IVH- c/u ASA and statin therapy 3. Cardiac: hx Afib, starting eliquis today, d/c ASA -c/u beta judson, medicine consulted to assist in management -grade 2 diastolic dysfunction c/u diuretics and fluid restriction -HTN- c/u losartan 4. Resp: encourage incentive spirometry, monitor for infection 5. Ortho: s/p fall with left superior and inferior pubic rami fractures, and left sacral ala fracture- WBAT -will consult orthotics for AFO fitting, patient will need assistance donning AFO, but does provide added stability to his ankle and will hopefully help prevent future falls 6. : urinary retention likely due to pelvic fracture, s/p 3 day course of IV Zosyn at [facility], Ucx negative, c/u Flomax, voiding well 7. Endo: pmh hypothyroidism, c/u Synthroid, -TSH mildly elevated, however appears patient was off Synthroid for about 2 weeks while at [facility]- c/u home dosing 8. GI ppx: hx of GI bleed, c/u protonix 9. DVT ppx: eliquis and TEDs 10. Pain: tylenol and oxycodone prn 11. Rheum: hx of gout, left swollen ankle improved, s/p short steroid taper 12. Dispo: 09-11-18 to Assisted living Allergies Coded Allergies: donepezil (Verified Adverse Reaction, Intermediate, "HAD GI BLEED AND THAT WAS ONE OF THE SIDE EFFECTS", 08/03/19) promethazine (Verified Adverse Reaction, Intermediate, HALLUCINATION, NAUSEA, ARRHYTHMIA, 08/03/19) Vital Signs Vital Signs Date Time Temp Pulse Resp B/P (MAP) Pulse Ox O2 Delivery O2 Flow Rate FiO2 09/06/19 10:27 65 124/57 09/06/19 06:00 98.1 18 97 Room Air Current Medications Current Medications Current Medications Medications (Trade) Dose Ordered Sig/Sean Route PRN Reason Start Time Stop Time Status Last Admin Dose Admin Acetaminophen (Tylenol Tab) 1,000 mg TID PO 08/22/19 21:00 09/06/19 10:26 Allopurinol (Zyloprim) 100 mg DAILY PO 08/23/19 09:00 09/06/19 10:27 Apixaban (Eliquis) 5 mg BID PO 08/31/19 09:00 09/06/19 10:27 Artificial Tears (Akwa Tears) 1 drop QID OU 08/23/19 17:00 09/06/19 10:28 Aspirin (Aspirin Chewable) 81 mg DAILY PO 08/23/19 09:00 08/30/19 12:00 DC 08/30/19 09:14 Atorvastatin Calcium (Lipitor) 40 mg QHS PO 08/22/19 21:00 09/05/19 21:11 Carvedilol (COReg) 3.125 mg Q12H PO 08/22/19 21:00 09/06/19 10:27 Docusate Sodium (Colace) 100 mg BID PO 08/22/19 21:00 09/06/19 10:26 Enoxaparin Sodium (Lovenox) 40 mg DAILY SC 08/23/19 09:00 08/30/19 12:00 DC 08/30/19 09:14 Fluoxetine HCl (PROzac) 20 mg DAILY PO 08/23/19 09:00 09/06/19 10:26 Furosemide (Lasix) 20 mg DAILY PO 08/23/19 09:00 09/06/19 10:28 Home Med (Med Rec Complete!) ASDIRECTED XX 08/22/19 16:45 08/22/19 16:38 DC Latanoprost (Xalatan 0.005% Op Soln) 1 drop QHS OU 08/23/19 21:00 09/05/19 21:13 Levothyroxine Sodium (Synthroid) 50 mcg DAILY@06 PO 08/23/19 06:00 09/06/19 06:31 Lidocaine/ Diphenhydr/Alum/ Mg/Simeth (Magic Mouthwash) 5ML AC SSP 08/23/19 07:30 09/06/19 10:29 Losartan Potassium (Cozaar) 12.5 mg QHS PO 08/22/19 21:00 09/05/19 21:13 Magnesium Hydroxide (Milk Of Magnesia) 30 ml DAILYPRN PRN PO CONSTIPATION 08/22/19 17:45 Miscellaneous (Unresolved Clarification Entry) SEE LABEL COMMENTS DAILY XX 08/28/19 09:00 08/29/19 10:19 DC Non-Formulary Medication ( See Comment Field Below ) ASDIRECTED XX 08/22/19 18:15 08/23/19 14:27 DC Non-Formulary Medication ( See Comment Field Below ) ASDIRECTED XX 08/23/19 14:30 UNV Non-Formulary Medication ( See Comment Field Below ) ASDIRECTED XX 08/23/19 14:45 08/23/19 15:38 DC Oxycodone HCl (Roxicodone, Oxyir) 2.5 mg Q6HP PRN PO PAIN 08/22/19 17:45 Cancel Pantoprazole Sodium (Protonix) 40 mg DAILY PO 08/23/19 09:00 09/06/19 10:26 Patient Own Medication (Patient'S Own Med) 1 DROP BID OU 08/23/19 21:00 09/06/19 10:28 Senna (Senokot) 1 tab QHS PO 08/22/19 21:00 09/05/19 21:11 Sucralfate (Carafate) 1 gm ACHS PO 08/22/19 21:00 09/05/19 21:11 Tamsulosin HCl (Flomax) 0.4 mg QHS PO 08/24/19 21:00 09/05/19 21:11 HUMAIRA BLACKWOOD MD Sep 06, 2019 11:12
[2019-09-06 14:00] VITALS: BP 124/66
[2019-09-06 20:00] VITALS: BP 157/76
[2019-09-06] MEDS: ATORVASTATIN 20 MG TAB PO SCH (20:40)
[2019-09-06] MEDS: SENNA 8.6 MG TAB (SENOKOT) PO SCH (20:40)
[2019-09-06] MEDS: LOSARTAN 25 MG TAB PO SCH (20:41)
[2019-09-06] MEDS: TAMSULOSIN 0.4 MG CAP PO SCH (20:41)
[2019-09-06] MEDS: LATANOPROST 0.005% OPHTH SOLN 2.5 ML OU SCH (20:41)
[2019-09-07] MEDS: LEVOTHYROXINE 50MCG TABLET (0.05MG) PO SCH (05:39)
[2019-09-07 06:00] VITALS: BP 162/79
[2019-09-07 06:52] LABS: BASO % 0.4 % (0.0-1.0); EOS # 0.2 10^3/uL (0.0-0.5); EOS % 3.3 % (0.0-3.0); HEMATOCRIT 31.6 % (42.0-52.0); HEMOGLOBIN 10.3 g/dl (13.5-17.5); LYMPH # 1.2 10^3/uL (1.5-5.0); LYMPH % 25.5 % (24.0-44.0); MEAN CORPUSCULAR HEMOGLOBIN 31.4 pg (27.0-33.0); MEAN CORPUSCULAR HGB CONC 32.6 g/dl (32.0-36.5); MEAN CORPUSCULAR VOLUME 96.3 fl (80.0-96.0); MONO # 0.5 10^3/uL (0.0-0.8); MONO % 11.6 % (0.0-5.0); NEUTROPHILS # 2.7 10^3/uL (1.5-8.5); PLATELET COUNT, AUTOMATED 176 10^3/uL (150-450); RED BLOOD COUNT 3.28 10^6/uL (4.30-6.10); WHITE BLOOD COUNT 4.6 10^3/uL (4.0-10.0)
[2019-09-07 07:20] LABS: BLOOD UREA NITROGEN 16 MG/DL (7-18); CALCIUM LEVEL 8.2 MG/DL (8.8-10.2); CARBON DIOXIDE LEVEL 28 MEQ/L (21-32); CHLORIDE LEVEL 108 MEQ/L (98-107); CREATININE FOR GFR 0.94 MG/DL (0.70-1.30); GLOMERULAR FILTRATION RATE > 60.0 (>35); GLUCOSE, FASTING 80 MG/DL (70-100); POTASSIUM SERUM 3.7 MEQ/L (3.5-5.1); SODIUM LEVEL 141 MEQ/L (136-145)
[2019-09-07] MEDS: ACETAMINOPHEN 500 MG TAB PO SCH ×3 (09:00→21:01)
[2019-09-07] MEDS: FLUoxetine 20 MG CAP PO SCH (09:02)
[2019-09-07] MEDS: allopurinoL 100 MG TAB PO SCH (09:03)
[2019-09-07] MEDS: DOCUSATE SODIUM 100 MG CAP PO SCH ×2 (09:03→21:02)
[2019-09-07] MEDS: FUROSEMIDE 20 MG TAB PO SCH (09:03)
[2019-09-07] MEDS: CARVedilol 3.125 MG TAB PO SCH ×2 (09:03→21:01)
[2019-09-07] MEDS: SUCRALFATE 1 GM TAB PO SCH ×4 (09:03→21:01)
[2019-09-07] MEDS: APIXABAN 5 MG TAB (ELIQUIS) PO SCH ×2 (09:03→21:00)
[2019-09-07] MEDS: PANTOPRAZOLE 40MG TAB (PROTONIX) PO SCH (09:03)
[2019-09-07] MEDS: RESTASIS EYE DROPS (PATIENT'S OWN MED) OU SCH ×2 (09:04→21:02)
[2019-09-07] MEDS: POLYVINYL ALCOHOL OPHTH SOLN 15 ML(LIQUITEARS) OU SCH ×4 (09:04→21:02)
[2019-09-07] MEDS: MAGIC MOUTHWASH SUSPENSION BTL SSP SCH ×3 (09:04→17:22)
[2019-09-07 14:00] VITALS: BP 150/71
[2019-09-07 20:13] VITALS: BP 129/65
[2019-09-07] MEDS: TAMSULOSIN 0.4 MG CAP PO SCH (21:00)
[2019-09-07] MEDS: ATORVASTATIN 20 MG TAB PO SCH (21:01)
[2019-09-07] MEDS: LATANOPROST 0.005% OPHTH SOLN 2.5 ML OU SCH (21:02)
[2019-09-07] MEDS: LOSARTAN 25 MG TAB PO SCH (21:02)
[2019-09-07] MEDS: SENNA 8.6 MG TAB (SENOKOT) PO SCH (21:02)
[2019-09-08] MEDS: LEVOTHYROXINE 50MCG TABLET (0.05MG) PO SCH (05:36)
[2019-09-08 06:00] VITALS: BP 118/60
[2019-09-08] MEDS: FUROSEMIDE 20 MG TAB PO SCH (07:47)
[2019-09-08] MEDS: FLUoxetine 20 MG CAP PO SCH (07:47)
[2019-09-08] MEDS: DOCUSATE SODIUM 100 MG CAP PO SCH ×2 (07:47→20:56)
[2019-09-08] MEDS: MAGIC MOUTHWASH SUSPENSION BTL SSP SCH ×3 (07:47→17:25)
[2019-09-08] MEDS: SUCRALFATE 1 GM TAB PO SCH ×4 (07:47→20:57)
[2019-09-08] MEDS: APIXABAN 5 MG TAB (ELIQUIS) PO SCH ×2 (07:48→20:57)
[2019-09-08] MEDS: allopurinoL 100 MG TAB PO SCH (07:48)
[2019-09-08] MEDS: CARVedilol 3.125 MG TAB PO SCH ×2 (07:48→20:57)
[2019-09-08] MEDS: PANTOPRAZOLE 40MG TAB (PROTONIX) PO SCH (07:48)
[2019-09-08] MEDS: ACETAMINOPHEN 500 MG TAB PO SCH ×3 (07:48→20:56)
[2019-09-08] MEDS: RESTASIS EYE DROPS (PATIENT'S OWN MED) OU SCH ×2 (07:49→20:55)
[2019-09-08] MEDS: POLYVINYL ALCOHOL OPHTH SOLN 15 ML(LIQUITEARS) OU SCH ×4 (07:49→20:56)
[2019-09-08 14:00] VITALS: BP 114/67
[2019-09-08 20:24] VITALS: BP 146/80
[2019-09-08] MEDS: LATANOPROST 0.005% OPHTH SOLN 2.5 ML OU SCH (20:56)
[2019-09-08] MEDS: SENNA 8.6 MG TAB (SENOKOT) PO SCH (20:57)
[2019-09-08] MEDS: TAMSULOSIN 0.4 MG CAP PO SCH (20:57)
[2019-09-08] MEDS: LOSARTAN 25 MG TAB PO SCH (20:57)
[2019-09-08] MEDS: ATORVASTATIN 20 MG TAB PO SCH (20:57)
[2019-09-09 06:19] VITALS: BP 144/79
[2019-09-09] MEDS: LEVOTHYROXINE 50MCG TABLET (0.05MG) PO SCH (06:26)
[2019-09-09] MEDS: DOCUSATE SODIUM 100 MG CAP PO SCH ×2 (09:52→20:42)
[2019-09-09] MEDS: SUCRALFATE 1 GM TAB PO SCH ×4 (09:53→20:43)
[2019-09-09] MEDS: APIXABAN 5 MG TAB (ELIQUIS) PO SCH ×2 (09:53→20:43)
[2019-09-09] MEDS: PANTOPRAZOLE 40MG TAB (PROTONIX) PO SCH (09:53)
[2019-09-09] MEDS: CARVedilol 3.125 MG TAB PO SCH ×2 (09:53→20:44)
[2019-09-09] MEDS: FUROSEMIDE 20 MG TAB PO SCH (09:53)
[2019-09-09] MEDS: allopurinoL 100 MG TAB PO SCH (09:53)
[2019-09-09] MEDS: RESTASIS EYE DROPS (PATIENT'S OWN MED) OU SCH ×2 (09:54→20:42)
[2019-09-09] MEDS: FLUoxetine 20 MG CAP PO SCH (09:54)
[2019-09-09] MEDS: POLYVINYL ALCOHOL OPHTH SOLN 15 ML(LIQUITEARS) OU SCH ×4 (09:54→20:42)
[2019-09-09] MEDS: ACETAMINOPHEN 500 MG TAB PO SCH ×3 (09:54→20:43)
[2019-09-09] MEDS: MAGIC MOUTHWASH SUSPENSION BTL SSP SCH ×3 (09:54→17:19)
[2019-09-09 14:00] VITALS: BP 115/60
[2019-09-09 20:00] VITALS: BP 141/70
[2019-09-09] MEDS: SENNA 8.6 MG TAB (SENOKOT) PO SCH (20:42)
[2019-09-09] MEDS: LATANOPROST 0.005% OPHTH SOLN 2.5 ML OU SCH (20:42)
[2019-09-09] MEDS: ATORVASTATIN 20 MG TAB PO SCH (20:43)
[2019-09-09] MEDS: TAMSULOSIN 0.4 MG CAP PO SCH (20:43)
[2019-09-09] MEDS: LOSARTAN 25 MG TAB PO SCH (20:43)
[2019-09-10] MEDS: LEVOTHYROXINE 50MCG TABLET (0.05MG) PO SCH (05:42)
[2019-09-10 06:00] VITALS: BP 146/80
[2019-09-10 08:00] VITALS: BP 142/76
[2019-09-10] MEDS: FLUoxetine 20 MG CAP PO SCH (08:01)
[2019-09-10] MEDS: SUCRALFATE 1 GM TAB PO SCH ×4 (08:01→20:51)
[2019-09-10] MEDS: DOCUSATE SODIUM 100 MG CAP PO SCH ×2 (08:01→20:51)
[2019-09-10] MEDS: APIXABAN 5 MG TAB (ELIQUIS) PO SCH ×2 (08:01→20:53)
[2019-09-10] MEDS: FUROSEMIDE 20 MG TAB PO SCH (08:02)
[2019-09-10] MEDS: MAGIC MOUTHWASH SUSPENSION BTL SSP SCH ×3 (08:02→17:08)
[2019-09-10] MEDS: CARVedilol 3.125 MG TAB PO SCH ×2 (08:03→20:53)
[2019-09-10] MEDS: allopurinoL 100 MG TAB PO SCH (08:03)
[2019-09-10] MEDS: RESTASIS EYE DROPS (PATIENT'S OWN MED) OU SCH ×2 (08:03→20:54)
[2019-09-10] MEDS: PANTOPRAZOLE 40MG TAB (PROTONIX) PO SCH (08:03)
[2019-09-10] MEDS: ACETAMINOPHEN 500 MG TAB PO SCH ×3 (08:04→20:53)
[2019-09-10] MEDS: POLYVINYL ALCOHOL OPHTH SOLN 15 ML(LIQUITEARS) OU SCH ×4 (08:04→20:53)
[2019-09-10] MEDS ORDERED: ELIQ5TAB PO (09:48)
[2019-09-10] MEDS ORDERED: FLOM0.4C39 PO (09:48)
[2019-09-10] MEDS ORDERED: FURO20TA2 PO (09:48)
[2019-09-10] MEDS ORDERED: ALLO10TA PO (09:49)
[2019-09-10 10:19] LABS: BASO % 0.4 % (0.0-1.0); EOS # 0.1 10^3/uL (0.0-0.5); EOS % 2.5 % (0.0-3.0); HEMATOCRIT 39.3 % (42.0-52.0); HEMOGLOBIN 12.2 g/dl (13.5-17.5); LYMPH # 0.9 10^3/uL (1.5-5.0); MEAN CORPUSCULAR HEMOGLOBIN 30.7 pg (27.0-33.0); MONO # 0.5 10^3/uL (0.0-0.8); MONO % 9.4 % (0.0-5.0); NEUTROPHILS # 3.3 10^3/uL (1.5-8.5); NEUTROPHILS % 68.3 % (36.0-66.0); PLATELET COUNT, AUTOMATED 144 10^3/uL (150-450); RED BLOOD COUNT 3.97 10^6/uL (4.30-6.10); WHITE BLOOD COUNT 4.9 10^3/uL (4.0-10.0)
[2019-09-10 10:45] LABS: BLOOD UREA NITROGEN 16 MG/DL (7-18); CALCIUM LEVEL 8.8 MG/DL (8.8-10.2); CARBON DIOXIDE LEVEL 28 MEQ/L (21-32); CHLORIDE LEVEL 106 MEQ/L (98-107); CREATININE FOR GFR 0.98 MG/DL (0.70-1.30); GLOMERULAR FILTRATION RATE > 60.0 (>35); GLUCOSE, FASTING 87 MG/DL (70-100); POTASSIUM SERUM 3.9 MEQ/L (3.5-5.1); SODIUM LEVEL 139 MEQ/L (136-145)
--- NOTE | 2019-09-10 12:52 | IPNPDOC ---
PM&R Progress Note DATE OF SERVICE: Sep 07, 2019 Colon Therapist Progress Note Subjective: Patient reporting he feels well today and has no complaints. REVIEW OF SYSTEMS: The following is a completed review of systems and has been reviewed. Review of systems otherwise unremarkable. PAIN: Patient self reports left ankle pain and pelvic pain EYES: No recent vision changes EARS, NOSE, & THROAT: No throat pain, or dysphagia, or rhinorrhea CARDIOVASCULAR: Denies chest pain or palpitations PULMONARY: Denies shortness of breath GASTROINTESTINAL: Denies constipation/diarrhea GENITOURINARY: +retention (improving) MUSCULOSKELETAL: left pelvic fracture and left ankle pain NEUROLOGICAL:+left sided paresis HEMATOLOGICAL: denies easy bruising SKIN:no rash PSYCHIATRIC: +dementia All other review of systems found to be negative. PHYSICAL EXAMINATION: VITAL SIGNS: Please see below. GENERAL: Pleasant and cooperative. No acute distress. HEENT: PERRL. Extraocular movements intact. Clear conjunctiva CARDIOVASCULAR: Regular rate and rhythm. No murmurs, rubs, or gallops LUNGS: Clear to auscultation bilaterally. No wheezes. No rhonchi ABDOMEN: Soft, nontender, nondistended. Positive bowel sounds. Normal active bowel sounds NEUROLOGICAL: Alert and oriented to self and place, repeating questions Cranial nerves II through XII grossly intact. Sensation grossly intact EXTREMITIES: 5\\5 strength bilateral upper extremities, except 3-/5 arm abductio n. 5\\5 strength right lower extremity. 4/5 strength in left hip flexors, knee extensors (pain limited) 2/5 ankle DF 0/5 EHL (-) Homans bilat Left ankle (-) mild TTP medial/lateral malleoli, no warmth/erythema, no instability SKIN: left lateral ankle ulcer (dry) pedal pulses palpable, left ear laceration with dried blood ASSESSMENT:84-year-old M with past medical history of Afib and stroke who presents status post fall with IVH and SAH PLAN: 1. 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 Neuro: pmh CVA with left sided paresis, now s/p traumatic SAH and IVH- c/u statin therapy 3. Cardiac: hx Afib, c/u eliquis (ASA d/c'ed) -c/u beta judson, medicine consulted to assist in management -grade 2 diastolic dysfunction c/u diuretics and fluid restriction -HTN- c/u losartan 4. Resp: encourage incentive spirometry, monitor for infection 5. Ortho: s/p fall with left superior and inferior pubic rami fractures, and left sacral ala fracture- WBAT -consulted orthotics for AFO fitting, patient will need assistance donning AFO, but does provide added stability to his ankle and will hopefully help prevent future falls 6. : urinary retention likely due to pelvic fracture, s/p 3 day course of IV Z osyn at [facility], Ucx negative, c/u Flomax, voiding well 7. Endo: pmh hypothyroidism, c/u Synthroid, -TSH mildly elevated, however appears patient was off Synthroid for about [address] [facility]- c/u home dosing 8. GI ppx: hx of GI bleed, c/u protonix 9. DVT ppx: eliquis and TEDs 10. Pain: tylenol and oxycodone prn 11. Rheum: hx of gout, left swollen ankle improved, s/p short steroid taper 12. Dispo: 09-11-18 to Assisted living Allergies Coded Allergies: donepezil (Verified Adverse Reaction, Intermediate, "HAD GI BLEED AND THAT WAS ONE OF THE SIDE EFFECTS", 08/03/19) promethazine (Verified Adverse Reaction, Intermediate, HALLUCINATION, NAUSEA, ARRHYTHMIA, 08/03/19) Vital Signs Vital Signs Date Time Temp Pulse Resp B/P (MAP) Pulse Ox O2 Delivery O2 Flow Rate FiO2 09/10/19 08:03 60 142/76 09/10/19 06:00 96.7 19 96 Room Air Laboratory Data CBC/BMP Laboratory Tests 09/10/19 09:58 Labs 24H Laboratory Tests 2 09/10/19 09:58: Immature Granulocyte % (Auto) 0.4, Neutrophils (%) (Auto) 68.3H, Lymphocytes (%) (Auto) 19.0L, Monocytes (%) (Auto) 9.4H, Eosinophils (%) (Auto) 2.5, Basophils (%) (Auto) 0.4, Neutrophils # (Auto) 3.3, Lymphocytes # (Auto) 0.9L, Monocytes # (Auto) 0.5, Eosinophils # (Auto) 0.1, Basophils # (Auto) 0.0, Nucleated Red Blood Cells % (auto) 0.0, Anion Gap 5L, Glomerular Filtration Rate > 60.0, Calcium Level 8.8 Current Medications Current Medications Current Medications Medications (Trade) Dose Ordered Sig/Sean Route PRN Reason Start Time Stop Time Status Last Admin Dose Admin Acetaminophen (Tylenol Tab) 1,000 mg TID PO 08/22/19 21:00 09/10/19 08:04 Allopurinol (Zyloprim) 100 mg DAILY PO 08/23/19 09:00 09/10/19 08:03 Apixaban (Eliquis) 5 mg BID PO 08/31/19 09:00 09/10/19 08:01 Artificial Tears (Akwa Tears) 1 drop QID OU 08/23/19 17:00 09/10/19 12:22 Aspirin (Aspirin Chewable) 81 mg DAILY PO 08/23/19 09:00 08/30/19 12:00 DC 08/30/19 09:14 Atorvastatin Calcium (Lipitor) 40 mg QHS PO 08/22/19 21:00 09/09/19 20:43 Carvedilol (COReg) 3.125 mg Q12H PO 08/22/19 21:00 09/10/19 08:03 Docusate Sodium (Colace) 100 mg BID PO 08/22/19 21:00 09/10/19 08:01 Enoxaparin Sodium (Lovenox) 40 mg DAILY SC 08/23/19 09:00 08/30/19 12:00 DC 08/30/19 09:14 Fluoxetine HCl (PROzac) 20 mg DAILY PO 08/23/19 09:00 09/10/19 08:01 Furosemide (Lasix) 20 mg DAILY PO 08/23/19 09:00 09/10/19 08:02 Home Med (Med Rec Complete!) ASDIRECTED XX 08/22/19 16:45 08/22/19 16:38 DC Latanoprost (Xalatan 0.005% Op Soln) 1 drop QHS OU 08/23/19 21:00 09/09/19 20:42 Levothyroxine Sodium (Synthroid) 50 mcg DAILY@06 PO 08/23/19 06:00 09/10/19 05:42 Lidocaine/ Diphenhydr/Alum/ Mg/Simeth (Magic Mouthwash) 5ML AC SSP 08/23/19 07:30 09/10/19 12:22 Losartan Potassium (Cozaar) 12.5 mg QHS PO 08/22/19 21:00 09/09/19 20:43 Magnesium Hydroxide (Milk Of Magnesia) 30 ml DAILYPRN PRN PO CONSTIPATION 08/22/19 17:45 Miscellaneous (Unresolved Clarification Entry) SEE LABEL COMMENTS DAILY XX 08/28/19 09:00 08/29/19 10:19 DC Non-Formulary Medication ( See Comment Field Below ) ASDIRECTED XX 08/22/19 18:15 08/23/19 14:27 DC Non-Formulary Medication ( See Comment Field Below ) ASDIRECTED XX 08/23/19 14:30 UNV Non-Formulary Medication ( See Comment Field Below ) ASDIRECTED XX 08/23/19 14:45 08/23/19 15:38 DC Oxycodone HCl (Roxicodone, Oxyir) 2.5 mg Q6HP PRN PO PAIN 08/22/19 17:45 Cancel Pantoprazole Sodium (Protonix) 40 mg DAILY PO 08/23/19 09:00 09/10/19 08:03 Patient Own Medication (Patient'S Own Med) 1 DROP BID OU 08/23/19 21:00 09/10/19 08:03 Senna (Senokot) 1 tab QHS PO 08/22/19 21:00 09/09/19 20:42 Sucralfate (Carafate) 1 gm ACHS PO 08/22/19 21:00 09/10/19 12:22 Tamsulosin HCl (Flomax) 0.4 mg QHS PO 08/24/19 21:00 09/09/19 20:43 HUMAIRA BLACKWOOD MD Sep 10, 2019 12:52
--- NOTE | 2019-09-10 12:53 | IPNPDOC ---
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 REVIEW OF SYSTEMS: The following is a completed review of systems and has been reviewed. Review of systems otherwise unremarkable. PAIN: Patient self reports left ankle pain and pelvic pain EYES: No recent vision changes EARS, NOSE, & THROAT: No throat pain, or dysphagia, or rhinorrhea CARDIOVASCULAR: Denies chest pain or palpitations PULMONARY: Denies shortness of breath GASTROINTESTINAL: Denies constipation/diarrhea GENITOURINARY: +retention (improving) MUSCULOSKELETAL: left pelvic fracture and left ankle pain NEUROLOGICAL:+left sided paresis HEMATOLOGICAL: denies easy bruising SKIN:no rash PSYCHIATRIC: +dementia All other review of systems found to be negative. PHYSICAL EXAMINATION: VITAL SIGNS: Please see below. GENERAL: Pleasant and cooperative. No acute distress. HEENT: PERRL. Extraocular movements intact. Clear conjunctiva CARDIOVASCULAR: Regular rate and rhythm. No murmurs, rubs, or gallops LUNGS: Clear to auscultation bilaterally. No wheezes. No rhonchi ABDOMEN: Soft, nontender, nondistended. Positive bowel sounds. Normal active bowel sounds NEUROLOGICAL: Alert and oriented to self and place, repeating questions Cranial nerves II through XII grossly intact. Sensation grossly intact EXTREMITIES: 5\\5 strength bilateral upper extremities, except 3-/5 arm abduction. 5\\5 strength right lower extremity. 4/5 strength in left hip flexors, knee extensors (pain limited) 2/5 ankle DF 0/5 EHL (-) Homans bilat Left ankle (-) mild TTP medial/lateral malleoli, no warmth/erythema, no instability SKIN: left lateral ankle ulcer (dry) pedal pulses palpable, left ear laceration with dried blood ASSESSMENT:84-year-old M with past medical history of Afib and stroke who presents status post fall with IVH and SAH PLAN: 1. 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 Neuro: pmh CVA with left sided paresis, now s/p traumatic SAH and IVH- c/u statin therapy 3. Cardiac: hx Afib, c/u eliquis (ASA d/c'ed) -c/u beta judson, medicine consulted to assist in management -grade 2 diastolic dysfunction c/u diuretics and fluid restriction -HTN- c/u losartan 4. Resp: encourage incentive spirometry, monitor for infection 5. Ortho: s/p fall with left superior and inferior pubic rami fractures, and left sacral ala fracture- WBAT -consulted orthotics for AFO fitting, patient will need assistance donning AFO, but does provide added stability to his ankle and will hopefully help prevent future falls 6. : urinary retention likely due to pelvic fracture, s/p 3 day course of IV Zosyn at [facility], Ucx negative, c/u Flomax, voiding well 7. Endo: pmh hypothyroidism, c/u Synthroid, -TSH mildly elevated, however appears patient was off Synthroid for about 2 weeks while at [facility]- c/u home dosing 8. GI ppx: hx of GI bleed, c/u protonix 9. DVT ppx: eliquis and TEDs 10. Pain: tylenol and oxycodone prn 11. Rheum: hx of gout, left swollen ankle improved, s/p short steroid taper 12. Dispo: 09-11-18 to Assisted living, progressing towards goals Allergies Coded Allergies: donepezil (Verified Adverse Reaction, Intermediate, "HAD GI BLEED AND THAT WAS ONE OF THE SIDE EFFECTS", 08/03/19) promethazine (Verified Adverse Reaction, Intermediate, HALLUCINATION, NAUSEA, ARRHYTHMIA, 08/03/19) Vital Signs Vital Signs Date Time Temp Pulse Resp B/P (MAP) Pulse Ox O2 Delivery O2 Flow Rate FiO2 09/10/19 08:03 60 142/76 09/10/19 06:00 96.7 19 96 Room Air Laboratory Data CBC/BMP Laboratory Tests 09/10/19 09:58 Labs 24H Laboratory Tests 2 09/10/19 09:58: Immature Granulocyte % (Auto) 0.4, Neutrophils (%) (Auto) 68.3H, Lymphocytes (%) (Auto) 19.0L, Monocytes (%) (Auto) 9.4H, Eosinophils (%) (Auto) 2.5, Basophils (%) (Auto) 0.4, Neutrophils # (Auto) 3.3, Lymphocytes # (Auto) 0.9L, Monocytes # (Auto) 0.5, Eosinophils # (Auto) 0.1, Basophils # (Auto) 0.0, Nucleated Red Blood Cells % (auto) 0.0, Anion Gap 5L, Glomerular Filtration Rate > 60.0, Calcium Level 8.8 Current Medications Current Medications Current Medications Medications (Trade) Dose Ordered Sig/Sean Route PRN Reason Start Time Stop Time Status Last Admin Dose Admin Acetaminophen (Tylenol Tab) 1,000 mg TID PO 08/22/19 21:00 09/10/19 08:04 Allopurinol (Zyloprim) 100 mg DAILY PO 08/23/19 09:00 09/10/19 08:03 Apixaban (Eliquis) 5 mg BID PO 08/31/19 09:00 09/10/19 08:01 Artificial Tears (Akwa Tears) 1 drop QID OU 08/23/19 17:00 09/10/19 12:22 Aspirin (Aspirin Chewable) 81 mg DAILY PO 08/23/19 09:00 08/30/19 12:00 DC 08/30/19 09:14 Atorvastatin Calcium (Lipitor) 40 mg QHS PO 08/22/19 21:00 09/09/19 20:43 Carvedilol (COReg) 3.125 mg Q12H PO 08/22/19 21:00 09/10/19 08:03 Docusate Sodium (Colace) 100 mg BID PO 08/22/19 21:00 09/10/19 08:01 Enoxaparin Sodium (Lovenox) 40 mg DAILY SC 08/23/19 09:00 08/30/19 12:00 DC 08/30/19 09:14 Fluoxetine HCl (PROzac) 20 mg DAILY PO 08/23/19 09:00 09/10/19 08:01 Furosemide (Lasix) 20 mg DAILY PO 08/23/19 09:00 09/10/19 08:02 Home Med (Med Rec Complete!) ASDIRECTED XX 08/22/19 16:45 08/22/19 16:38 DC Latanoprost (Xalatan 0.005% Op Soln) 1 drop QHS OU 08/23/19 21:00 09/09/19 20:42 Levothyroxine Sodium (Synthroid) 50 mcg DAILY@06 PO 08/23/19 06:00 09/10/19 05:42 Lidocaine/ Diphenhydr/Alum/ Mg/Simeth (Magic Mouthwash) 5ML AC SSP 08/23/19 07:30 09/10/19 12:22 Losartan Potassium (Cozaar) 12.5 mg QHS PO 08/22/19 21:00 09/09/19 20:43 Magnesium Hydroxide (Milk Of Magnesia) 30 ml DAILYPRN PRN PO CONSTIPATION 08/22/19 17:45 Miscellaneous (Unresolved Clarification Entry) SEE LABEL COMMENTS DAILY XX 08/28/19 09:00 08/29/19 10:19 DC Non-Formulary Medication ( See Comment Field Below ) ASDIRECTED XX 08/22/19 18:15 08/23/19 14:27 DC Non-Formulary Medication ( See Comment Field Below ) ASDIRECTED XX 08/23/19 14:30 UNV Non-Formulary Medication ( See Comment Field Below ) ASDIRECTED XX 08/23/19 14:45 08/23/19 15:38 DC Oxycodone HCl (Roxicodone, Oxyir) 2.5 mg Q6HP PRN PO PAIN 08/22/19 17:45 Cancel Pantoprazole Sodium (Protonix) 40 mg DAILY PO 08/23/19 09:00 09/10/19 08:03 Patient Own Medication (Patient'S Own Med) 1 DROP BID OU 08/23/19 21:00 09/10/19 08:03 Senna (Senokot) 1 tab QHS PO 08/22/19 21:00 09/09/19 20:42 Sucralfate (Carafate) 1 gm ACHS PO 08/22/19 21:00 09/10/19 12:22 Tamsulosin HCl (Flomax) 0.4 mg QHS PO 08/24/19 21:00 09/09/19 20:43 HUMAIRA BLACKWOOD MD Sep 10, 2019 12:53
[2019-09-10 14:00] VITALS: BP 138/82
[2019-09-10 20:00] VITALS: BP 145/78
[2019-09-10] MEDS: LOSARTAN 25 MG TAB PO SCH (20:52)
[2019-09-10] MEDS: ATORVASTATIN 20 MG TAB PO SCH (20:52)
[2019-09-10] MEDS: TAMSULOSIN 0.4 MG CAP PO SCH (20:53)
[2019-09-10] MEDS: SENNA 8.6 MG TAB (SENOKOT) PO SCH (20:53)
[2019-09-10] MEDS: LATANOPROST 0.005% OPHTH SOLN 2.5 ML OU SCH (20:54)
[2019-09-11 06:00] VITALS: BP 121/69
[2019-09-11] MEDS: SUCRALFATE 1 GM TAB PO SCH (06:36)
[2019-09-11] MEDS: LEVOTHYROXINE 50MCG TABLET (0.05MG) PO SCH (06:36)
[2019-09-11] MEDS: MAGIC MOUTHWASH SUSPENSION BTL SSP SCH (06:38)
[2019-09-11] MEDS: APIXABAN 5 MG TAB (ELIQUIS) PO SCH (09:24)
[2019-09-11] MEDS: allopurinoL 100 MG TAB PO SCH (09:24)
[2019-09-11] MEDS: ACETAMINOPHEN 500 MG TAB PO SCH (09:24)
[2019-09-11] MEDS: DOCUSATE SODIUM 100 MG CAP PO SCH (09:24)
[2019-09-11] MEDS: FLUoxetine 20 MG CAP PO SCH (09:24)
[2019-09-11 09:25] VITALS: BP 121/69
[2019-09-11] MEDS: PANTOPRAZOLE 40MG TAB (PROTONIX) PO SCH (09:25)
[2019-09-11] MEDS: RESTASIS EYE DROPS (PATIENT'S OWN MED) OU SCH (09:25)
[2019-09-11] MEDS: FUROSEMIDE 20 MG TAB PO SCH (09:25)
[2019-09-11] MEDS: CARVedilol 3.125 MG TAB PO SCH (09:25)
[2019-09-11] MEDS: POLYVINYL ALCOHOL OPHTH SOLN 15 ML(LIQUITEARS) OU SCH (09:25)
--- NOTE | 2019-09-11 12:36 | PMRDS ---
DATE OF ADMISSION: 08/22/2019 DATE OF DISCHARGE: 09/11/2019 CHIEF COMPLAINT/DISCHARGE DIAGNOSES: Subarachnoid hemorrhage and intraventricular hemorrhage. HISTORY OF PRESENT ILLNESS: An 84-year-old man with a past medical history of stroke in March 2019 with decreased vision in the left eye and decreased strength and sensation in the left lower extremity, atrial fibrillation (AFib) on Eliquis, pacemaker, history of gastrointestinal (GI) bleed, hypothyroidism, benign prostatic hypertrophy (BPH), dementia, coronary artery disease (CAD), who fell while in assisted living, hit his head, and was transferred to the [facility] Emergency Department (ED), then to [facility] on 08/15/2019 with CTH showing, Interval increase in the amount of intraventricular hemorrhage within the occipital horn of the right lateral ventricle. Unchanged size and configuration of the ventricular system...Small amount of subarachnoid hemorrhage along the inferior aspect of the right temporal lobe. He was admitted to the neuro-ICU where his Eliquis was held, no surgical intervention was recommended, and he had serial CTHs to monitor his intravenous (IV) hydration and SAH. He was started on aspirin and told to stop it on 08/30/2019 and restart Eliquis on 08/31/2019 . The patient had an episode of pulmonary congestion with chest x-ray on 08/18/2019 showing, mild central pulmonary congestion/edema and moderate right pleural effusions, for which he received diuretics. Echocardiogram showed grade 2 diastolic dysfunction with preserved ejection fraction (EF). 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 He was not deemed an appropriate surgical candidate and was made weightbearing as tolerated to the left lower extremity. He had urinary retention with Gamino insertion. He was evaluated by therapy and found to be well below his prior level of function with impairments in mobility and activities of daily living (ADLs) and deemed medically appropriate for discharge to ARU on 08/22/2019. PAST MEDICAL HISTORY: As per history of present illness (HPI). HOSPITAL COURSE: The patient was admitted and enrolled in a comprehensive physical therapy (PT), occupational therapy (OT), speech language pathology program. He received 24-hour nursing supervision, and weekly team meetings were held to discuss his progress. The patient was maintained on diuretics and fluid restriction in the setting of grade 2 diastolic dysfunction. The patient was also maintained on aspirin and then transitioned to Eliquis for his history of AFib with no decline in function in the setting of recent IVH and SAH. The patient was restarted on his Synthroid, which had been held for likely up to 2 weeks and found to have a mildly elevated thyroid-stimulating hormone (TSH) during his hospital course. The patient initially arrived with some left ankle swelling on his steroid dosing, which was quickly tapered and thought to be due to dependent edema in the setting of a recent pelvic fracture. The patient was evaluated by an sales agent protective service for ankle-foot orthosis (AFO) as a fall prevention measure and made significant gains in therapy and was deemed medically and functionally appropriate for discharge to assisted living. Discharge medications as per instructions. FUNCTIONAL HISTORY ON DISCHARGE: The patient was modified independent for functional transfers and for ambulation 250 feet; and in occupational therapy, he was modified independent for functional transfers, standby assist for dressing and grooming. Thank you for this referral. edited: 09/12/2019 1149 arabella MARTIN
== END 2019-09-11 12:37 | disposition home or self-care (01) | DRG 57 ==
LOC: M PM&R 16:14
PROVIDERS: ADMIT Physical Medicine & Rehabilitation; ATTEND Physical Medicine & Rehabilitation
DX: I69.354 Hemiplegia and hemiparesis following cerebral infarction affecting left non-dominant side (principal); I48.91 Unspecified atrial fibrillation; Z79.01 Long term (current) use of anticoagulants; Z95.0 Presence of cardiac pacemaker; E03.9 Hypothyroidism, unspecified; I11.9 Hypertensive heart disease without heart failure; R33.9 Retention of urine, unspecified; Z79.899 Other long term (current) drug therapy; Z79.82 Long term (current) use of aspirin; Z88.8 Allergy status to other drugs, medicaments and biological substances; I25.5 Ischemic cardiomyopathy; D64.9 Anemia, unspecified; Z95.2 Presence of prosthetic heart valve; E78.5 Hyperlipidemia, unspecified; M10.9 Gout, unspecified; I25.10 Atherosclerotic heart disease of native coronary artery without angina pectoris; I69.398 Other sequelae of cerebral infarction

== ENCOUNTER → 2019-09-24 | Outpatient (REF) | payer MEDICARE ==
[~2019-09-24] MED LIST changes: +ACET1TAB55 PO; +ENOX40IN3 SC; +FLOM0.4C39 PO; +PRED20TA PO
== END ==
LOC: M LAB REF 16:46
PROVIDERS: ATTEND Internal Medicine
DX: M10.9 Gout, unspecified (principal)

== ENCOUNTER 2019-10-09 09:47 | Emergency (ER) | payer MEDICARE ==
[~2019-10-09] VITALS: Ht 170.2 cm; Wt 69.7 kg
--- NOTE | 2019-10-09 10:29 | REP ---
CT brain without contrast: History: Altered mental status. Comparison head CT study August 15, 2019. CT findings: Preliminary digital air analysis technician radiograph is unremarkable. Bone window settings demonstrate an intact bony calvarium. Visualized paranasal sinuses are clear. There is moderate vascular calcification. There is moderate generalized atrophy. Physiologic calcification is seen in the basal ganglia bilaterally. There is encephalomalacia and some enlargement of the posterior aspect of the lateral horn of the right ventricle consistent with an old infarct in the right parietal lobe. There is some subarachnoid blood in 1 hour to of the sulci in the right frontal parietal region which is a new finding. No intraventricular hemorrhage is visible today. There is however a hematoma in the superior midline of the cerebellum involving the cerebellar vermis. There is parenchymal hematoma measures 1.5 x 0.9 by 1.1 cm. There is some subtle increased density in the coon matter of the left inferior cerebellar hemisphere as well. No other evidence of subarachnoid hemorrhage is seen. No mass or midline shift is observed. Impression: Findings consistent with small hemorrhagic infarct in the cerebellar vermis superiorly. In addition, there is a suggestion of subarachnoid blood adjacent to a previous right parietal lobe infarct in the right frontal parietal region. There is subtle increased attenuation in the coon matter of the left cerebellar hemisphere which may be an acute finding as well. Findings were telephoned to Dr. Marti in the ED at the time of this dictation. Electronically Signed by Kun Dubois MD 10/09/2019 10:21 A
[2019-10-09 10:38] LABS: BASO % 0.6 % (0.0-1.0); EOS # 0.1 10^3/uL (0.0-0.5); EOS % 2.2 % (0.0-3.0); HEMOGLOBIN 12.1 g/dl (13.5-17.5); LYMPH # 1.5 10^3/uL (1.5-5.0); LYMPH % 28.4 % (24.0-44.0); MEAN CORPUSCULAR VOLUME 96.8 fl (80.0-96.0); MONO # 0.6 10^3/uL (0.0-0.8); MONO % 10.8 % (0.0-5.0); NEUTROPHILS % 57.8 % (36.0-66.0); PLATELET COUNT, AUTOMATED 124 10^3/uL (150-450); RED BLOOD COUNT 4.03 10^6/uL (4.30-6.10); WHITE BLOOD COUNT 5.1 10^3/uL (4.0-10.0)
[2019-10-09 10:48] LABS: INR 1.39; PROTHROMBIN TIME 16.8 SECONDS (11.8-14.0)
[2019-10-09 10:49] LABS: PARTIAL THROMBOPLASTIN TIME 42.5 SECONDS (25.0-38.4)
--- NOTE | 2019-10-09 10:50 | REP ---
Portable chest x-ray: Single view. History: CVA. Comparison chest x-ray: August 15, 2019. Findings: Monitoring electrodes are seen. Bipolar pacemaker remains in place in the right heart. Cardiomegaly is again observed. There is pleural opacity at the left base suggesting small left pleural effusion. Pulmonary vasculature is not increased. No infiltrate is seen. There are degenerative changes in the shoulders bilaterally. Impression: Moderate cardiomegaly with pacemaker. Small left pleural effusion suspected. Otherwise no acute disease. Electronically Signed by Kun Dubois MD 10/09/2019 10:42 A
[2019-10-09] MEDS ORDERED: DILUENT IV ONE (11:00)
[2019-10-09] MEDS ORDERED: PROTHROMBIN COMPLEX CONCEN IV ONE (11:00)
[2019-10-09 11:08] LABS: BLOOD UREA NITROGEN 18 MG/DL (7-18); CALCIUM LEVEL 9.2 MG/DL (8.8-10.2); CARBON DIOXIDE LEVEL 31 MEQ/L (21-32); CHLORIDE LEVEL 103 MEQ/L (98-107); CK-MB VALUE MASS 2.3 NG/ML (<3.6); CPK CREATINE PHOSPHOKINASE 98 U/L (39-308); CREATININE FOR GFR 0.89 MG/DL (0.70-1.30); GLOMERULAR FILTRATION RATE > 60.0 (>35); GLUCOSE, FASTING 72 MG/DL (70-100); MB/CK RELATIVE INDEX 2.35 (< OR =4); POTASSIUM SERUM 3.9 MEQ/L (3.5-5.1); SODIUM LEVEL 139 MEQ/L (136-145); TROPONIN I < 0.02 NG/ML (< 0.10)
[2019-10-09 11:31] VITALS: BP 183/102
--- NOTE | 2019-10-10 14:50 | ECGEPIP ---
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
== END 2019-10-09 11:50 | disposition short-term general hospital (02) ==
LOC: EDBD 09:47 → M ED 09:47
DX: I62.9 Nontraumatic intracranial hemorrhage, unspecified (principal); I51.7 Cardiomegaly; R90.89 Other abnormal findings on diagnostic imaging of central nervous system; M19.011 Primary osteoarthritis, right shoulder; M19.012 Primary osteoarthritis, left shoulder; I48.91 Unspecified atrial fibrillation; Z95.1 Presence of aortocoronary bypass graft; Z88.8 Allergy status to other drugs, medicaments and biological substances; Z79.899 Other long term (current) drug therapy
CPT/HCPCS: 36415; 70450; 71045; 80048; 82550; 82553; 84484; 85025; 85610; 85730; 86850; 86900; 86901; 93005; 93041; 96365; 99285; C9132

== ENCOUNTER → 2019-10-15 | Outpatient (REF) | payer MEDICARE ==
[~2019-10-15] MED LIST changes: -FLUO20CA19 PO; +FLUO20CA22 PO; -SUCR10SS PO; +SUCR1ORA2 PO
--- NOTE | 2019-10-15 12:36 | REP ---
Clinical: Pain. Technique: AP, lateral, bilateral oblique views of the left foot. Findings: Age-related osteopenia and degenerative changes primarily involving the phalanges and interphalangeal joints noted. No definite acute fracture or dislocation. No subcutaneous emphysema or radiodense foreign body. Impression: Age-related osteopenia and degenerative changes. Electronically Signed by Mich Souza MD 10/15/2019 12:28 P
== END ==
LOC: M RAD 09:39 → SKLAB3 09:39
PROVIDERS: ATTEND Internal Medicine
DX: M81.0 Age-related osteoporosis without current pathological fracture (principal); M19.072 Primary osteoarthritis, left ankle and foot

== ENCOUNTER → 2019-11-13 | Outpatient (REF) | payer MEDICARE, OTHER ==
[2019-11-13 11:53] LABS: HEMATOCRIT 45.8 % (42.0-52.0); HEMOGLOBIN 14.6 g/dl (13.5-17.5); MEAN CORPUSCULAR HEMOGLOBIN 30.6 pg (27.0-33.0); MEAN CORPUSCULAR HGB CONC 31.9 g/dl (32.0-36.5); PLATELET COUNT, AUTOMATED 185 10^3/uL (150-450); RED BLOOD COUNT 4.77 10^6/uL (4.30-6.10)
[2019-11-13 13:01] LABS: BLOOD UREA NITROGEN 35 MG/DL (7-18); CALCIUM LEVEL 9.5 MG/DL (8.8-10.2); CARBON DIOXIDE LEVEL 30 MEQ/L (21-32); CHLORIDE LEVEL 101 MEQ/L (98-107); CREATININE FOR GFR 1.07 MG/DL (0.70-1.30); GLOMERULAR FILTRATION RATE > 60.0 (>35); GLUCOSE, FASTING 128 MG/DL (70-100); POTASSIUM SERUM 4.2 MEQ/L (3.5-5.1); SODIUM LEVEL 138 MEQ/L (136-145)
== END ==
PROVIDERS: ATTEND Internal Medicine
DX: I63.9 Cerebral infarction, unspecified (principal); I10 Essential (primary) hypertension

== ENCOUNTER → 2019-12-17 | Outpatient (REF) | payer MEDICARE, OTHER ==
[~2019-12-17] MED LIST changes: +VITA-243 PO; -VITA500T PO
[2019-12-17 12:13] LABS: HEMOGLOBIN 13.2 g/dl (13.5-17.5); MEAN CORPUSCULAR HEMOGLOBIN 31.3 pg (27.0-33.0); MEAN CORPUSCULAR VOLUME 94.8 fl (80.0-96.0); PLATELET COUNT, AUTOMATED 143 10^3/uL (150-450); RED BLOOD COUNT 4.22 10^6/uL (4.30-6.10); WHITE BLOOD COUNT 5.8 10^3/uL (4.0-10.0)
[2019-12-17 12:30] LABS: BLOOD UREA NITROGEN 25 MG/DL (7-18); CALCIUM LEVEL 9.3 MG/DL (8.8-10.2); CARBON DIOXIDE LEVEL 30 MEQ/L (21-32); CHLORIDE LEVEL 101 MEQ/L (98-107); CREATININE FOR GFR 0.92 MG/DL (0.70-1.30); GLOMERULAR FILTRATION RATE > 60.0 (>35); GLUCOSE, FASTING 71 MG/DL (70-100); POTASSIUM SERUM 4.5 MEQ/L (3.5-5.1); SODIUM LEVEL 139 MEQ/L (136-145)
== END ==
PROVIDERS: ATTEND Internal Medicine
DX: I63.9 Cerebral infarction, unspecified (principal); I10 Essential (primary) hypertension

== ENCOUNTER 2020-01-09 10:31 | Emergency (ER) | payer MEDICARE ==
[~2020-01-09] VITALS: Ht 170.2 cm; Wt 65.9 kg
[2020-01-09 11:30] LABS: BASO % 0.2 % (0.0-1.0); EOS # 0.1 10^3/uL (0.0-0.5); EOS % 1.5 % (0.0-3.0); HEMATOCRIT 37.4 % (42.0-52.0); HEMOGLOBIN 12.3 g/dl (13.5-17.5); LYMPH # 1.2 10^3/uL (1.5-5.0); LYMPH % 20.7 % (24.0-44.0); MEAN CORPUSCULAR HEMOGLOBIN 31.5 pg (27.0-33.0); MEAN CORPUSCULAR HGB CONC 32.9 g/dl (32.0-36.5); MEAN CORPUSCULAR VOLUME 95.9 fl (80.0-96.0); MONO # 0.6 10^3/uL (0.0-0.8); MONO % 10.8 % (0.0-5.0); NEUTROPHILS % 66.6 % (36.0-66.0); PLATELET COUNT, AUTOMATED 123 10^3/uL (150-450); WHITE BLOOD COUNT 5.9 10^3/uL (4.0-10.0)
[2020-01-09 11:40] LABS: BLOOD UREA NITROGEN 27 MG/DL (7-18); CARBON DIOXIDE LEVEL 32 MEQ/L (21-32); CHLORIDE LEVEL 102 MEQ/L (98-107); CK-MB VALUE MASS 2.3 NG/ML (<3.6); CPK CREATINE PHOSPHOKINASE 89 U/L (39-308); CREATININE FOR GFR 0.92 MG/DL (0.70-1.30); GLOMERULAR FILTRATION RATE > 60.0 (>35); GLUCOSE, FASTING 93 MG/DL (70-100); MAGNESIUM LEVEL 2.8 MG/DL (1.8-2.4); MB/CK RELATIVE INDEX 2.58 (< OR =4); POTASSIUM SERUM 4.6 MEQ/L (3.5-5.1); SODIUM LEVEL 138 MEQ/L (136-145); TROPONIN I 0.03 NG/ML (< 0.10)
[2020-01-09] MEDS ORDERED: CARV3.12 PO (11:55)
[2020-01-09] MEDS ORDERED: RA S8.6T3 PO (11:55)
[2020-01-09] MEDS ORDERED: CVS1SPR4 MT (11:55)
[2020-01-09] MEDS ORDERED: ENSU1LIQ36 PO (11:55)
[2020-01-09] MEDS ORDERED: XALA0.007 OU (11:55)
[2020-01-09] MEDS ORDERED: SODIGEL (11:55)
[2020-01-09] MEDS ORDERED: REFR0.1D OU (11:55)
[2020-01-09] MEDS ORDERED: RAMI1CAP21 PO (11:55)
[2020-01-09] MEDS ORDERED: NITR4TASL SL (11:55)
[2020-01-09] MEDS ORDERED: HYDR1CRE9 TOP (11:55)
[2020-01-09] MEDS ORDERED: FLUO20CA20 PO (11:55)
[2020-01-09] MEDS ORDERED: LASI20TA3 PO (11:55)
[2020-01-09] MEDS ORDERED: VITMTA PO (11:55)
[2020-01-09] MEDS ORDERED: MILKSUS3 PO (11:55)
[2020-01-09] MEDS ORDERED: APAP325T4 PO (11:55)
[2020-01-09] MEDS ORDERED: BISA10SU4 PR (11:55)
[2020-01-09] MEDS ORDERED: ASPI-161 PO (11:55)
[2020-01-09] MEDS ORDERED: ACET-683 PO (11:55)
[2020-01-09] MEDS ORDERED: COLA100C5 PO (11:55)
[2020-01-09] MEDS ORDERED: ALLO10TA PO (11:55)
[2020-01-09] MEDS ORDERED: ENEMENE PR (11:55)
[2020-01-09] MEDS ORDERED: AMOX500C PO (11:55)
[2020-01-09] MEDS ORDERED: REST0.05 OU (11:55)
[2020-01-09] MEDS ORDERED: ATOR1TAB21 PO (11:55)
[2020-01-09] MEDS ORDERED: LEVO50TA45 PO (11:55)
--- NOTE | 2020-01-09 11:58 | REP ---
CT BRAIN WITHOUT CONTRAST: HISTORY: Syncope. Comparison head CT study October 09, 2019. A prior study from August 15, [address] FINDINGS: Digital preliminary cannoneer radiographs are unremarkable. Bone window settings demonstrate that the visualized paranasal sinuses are clear. Vascular calcifications is again noted in the distal vertebral and distal internal carotid arteries bilaterally. The bony calvarium appears intact. There is no evidence of intracranial hemorrhage. The previously noted areas of subarachnoid blood and vermian hemorrhagic change have resolved. There is generalized volume loss. Extensive small vessel changes are seen in the periventricular white matter. There is evidence of an old right parietal lobe infarction. These findings are unchanged. There is physiologic calcification in the basal ganglia bilaterally. There is no evidence of intracranial hemorrhage, infarct, mass or midline shift. IMPRESSION: Small vessel changes. Vascular calcification and diffuse atrophy. Old right parietal infarction. No acute intracranial abnormality. Electronically Signed by Kun Dubois MD 01/09/2020 03:20 P
--- NOTE | 2020-01-09 12:23 | REP ---
CT STUDY OF THE CERVICAL SPINE WITHOUT CONTRAST: HISTORY: Syncope. Comparison cervical spine CT study is from August 15, 2019. TECHNIQUE: Helical scanning is acquired and overlapping 2 mm high resolution axial images were generated and reviewed at bone and soft tissue window settings. Coronal and sagittal multiplanar re-formations images are generated. CT FINDINGS: There is no evidence of cervical spine element fracture. There is straightening of the normal cervical lordosis. There is advanced multilevel spondylosis and degenerative disc and facet disease. There is developmental fusion at the C2-3, C4-5 and C5-6 intervertebral disc spaces unchanged from the comparison study August 15, 2019. There is a degenerative grade 1 spondylolisthesis measuring 5.7 mm at C7-T1. This is unchanged as well from August 15, 2019. There is right-sided neural foraminal narrowing at C6-7 which is moderate. This is also unchanged. Vascular calcification is noted. The lung apices are clear. IMPRESSION: Advanced degenerative spondylosis changes including a 5.7 mm C7-T1 spondylolisthesis. These findings are unchanged. No acute bony abnormality. Developmental fusion at multiple levels as above. Electronically Signed by Kun Dubois MD 01/09/2020 03:20 P
--- NOTE | 2020-01-09 12:25 | REP ---
CHEST, SINGLE VIEW: Single view of the chest is performed. There is mild cardiomegaly. There is mild elevation of the left hemidiaphragm. I see no acute infiltrate or pulmonary edema. There is calcification and tortuosity of the thoracic aorta. The mediastinal silhouette is unchanged. Multiple sternal wires are present. Left dual-lead pacemaker is again noted. IMPRESSION: Mild cardiomegaly. No acute infiltrate. Electronically Signed by Bryn Robb MD 01/09/2020 12:37 P
[2020-01-09 12:51] VITALS: BP 147/76
--- NOTE | 2020-01-09 20:25 | ECGEPIP ---
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
== END 2020-01-09 13:44 | disposition home or self-care (01) ==
LOC: M ED 10:31 → EDBD 10:31 → M ED 13:44
DX: R29.6 Repeated falls (principal); Y92.128 Other place in nursing home as the place of occurrence of the external cause; I48.91 Unspecified atrial fibrillation; I25.10 Atherosclerotic heart disease of native coronary artery without angina pectoris; I11.9 Hypertensive heart disease without heart failure; J84.10 Pulmonary fibrosis, unspecified; F03.90 Unspecified dementia, unspecified severity, without behavioral disturbance, psychotic disturbance, mood disturbance, and anxiety; Z95.0 Presence of cardiac pacemaker; Z88.8 Allergy status to other drugs, medicaments and biological substances; Z79.899 Other long term (current) drug therapy; Z79.82 Long term (current) use of aspirin; Z79.02 Long term (current) use of antithrombotics/antiplatelets

== ENCOUNTER → 2020-01-14 | Outpatient (REF) | payer MEDICARE ==
[~2020-01-14] MED LIST changes: +APAP325T4 PO; +ASPI-161 PO; +BISA10SU4 PR; +CVS1SPR4 MT; +ENEMENE PR; +ENSU1LIQ36 PO; +HYDR1CRE9 TOP; +LASI20TA3 PO; +RA S8.6T3 PO; +RAMI1CAP21 PO; +REFR0.1D OU; +SODIGEL; +VITMTA PO
[2020-01-14 10:03] LABS: HEMATOCRIT 37.4 % (42.0-52.0); HEMOGLOBIN 12.3 g/dl (13.5-17.5); MEAN CORPUSCULAR HEMOGLOBIN 31.1 pg (27.0-33.0); MEAN CORPUSCULAR HGB CONC 32.9 g/dl (32.0-36.5); MEAN CORPUSCULAR VOLUME 94.7 fl (80.0-96.0); PLATELET COUNT, AUTOMATED 127 10^3/uL (150-450); RED BLOOD COUNT 3.95 10^6/uL (4.30-6.10); WHITE BLOOD COUNT 5.5 10^3/uL (4.0-10.0)
[2020-01-14 10:24] LABS: BLOOD UREA NITROGEN 23 MG/DL (7-18); CALCIUM LEVEL 8.8 MG/DL (8.8-10.2); CARBON DIOXIDE LEVEL 29 MEQ/L (21-32); CHLORIDE LEVEL 105 MEQ/L (98-107); CREATININE FOR GFR 0.85 MG/DL (0.70-1.30); GLOMERULAR FILTRATION RATE > 60.0 (>35); GLUCOSE, FASTING 83 MG/DL (70-100); POTASSIUM SERUM 4.4 MEQ/L (3.5-5.1); SODIUM LEVEL 139 MEQ/L (136-145)
== END ==
PROVIDERS: ATTEND Internal Medicine
DX: I10 Essential (primary) hypertension (principal)

== ENCOUNTER → 2020-01-22 | Outpatient (REF) ==
[~2020-01-22] MED LIST changes: +COLC0.6T47 PO; -COLC1TAB13 PO; +CYMB1CAP5 PO; +PANT40TA29 PO; -PANT40TA3 PO; +TRAM50TA2 PO
== END ==
PROVIDERS: ATTEND Internal Medicine
DX: Z03.818 Encounter for observation for suspected exposure to other biological agents ruled out (principal)

== ENCOUNTER → 2020-03-19 | Outpatient (REF) | payer MEDICARE ==
[~2020-03-19] MED LIST changes: -COLC0.6T47 PO; +COLC1TAB13 PO; -CYMB1CAP5 PO; -PANT40TA29 PO; +PANT40TA3 PO; -TRAM50TA2 PO
[2020-03-19 12:02] LABS: HEMATOCRIT 41.4 % (42.0-52.0); HEMOGLOBIN 13.4 g/dl (13.5-17.5); MEAN CORPUSCULAR HEMOGLOBIN 32.2 pg (27.0-33.0); MEAN CORPUSCULAR HGB CONC 32.4 g/dl (32.0-36.5); MEAN CORPUSCULAR VOLUME 99.5 fl (80.0-96.0); PLATELET COUNT, AUTOMATED 148 10^3/uL (150-450); RED BLOOD COUNT 4.16 10^6/uL (4.30-6.10); WHITE BLOOD COUNT 5.3 10^3/uL (4.0-10.0)
[2020-03-19 12:49] LABS: BLOOD UREA NITROGEN 19 MG/DL (7-18); CARBON DIOXIDE LEVEL 29 MEQ/L (21-32); CHLORIDE LEVEL 101 MEQ/L (98-107); CREATININE FOR GFR 0.87 MG/DL (0.70-1.30); GLOMERULAR FILTRATION RATE > 60.0 (>35); GLUCOSE, FASTING 98 MG/DL (70-100); POTASSIUM SERUM 4.1 MEQ/L (3.5-5.1); SODIUM LEVEL 137 MEQ/L (136-145)
== END ==
PROVIDERS: ATTEND Internal Medicine
DX: I10 Essential (primary) hypertension (principal); I63.9 Cerebral infarction, unspecified

== ENCOUNTER → 2020-05-19 | Outpatient (REF) | payer MEDICARE ==
[~2020-05-19] MED LIST changes: +PANT40TA29 PO; -PANT40TA3 PO
[2020-05-19 11:04] LABS: HEMATOCRIT 36.4 % (42.0-52.0); HEMOGLOBIN 12.3 g/dl (13.5-17.5); MEAN CORPUSCULAR HEMOGLOBIN 33.4 pg (27.0-33.0); MEAN CORPUSCULAR HGB CONC 33.8 g/dl (32.0-36.5); MEAN CORPUSCULAR VOLUME 98.9 fl (80.0-96.0); PLATELET COUNT, AUTOMATED 131 10^3/uL (150-450); RED BLOOD COUNT 3.68 10^6/uL (4.30-6.10); WHITE BLOOD COUNT 5.3 10^3/uL (4.0-10.0)
[2020-05-19 11:49] LABS: BLOOD UREA NITROGEN 21 MG/DL (7-18); CALCIUM LEVEL 9.1 MG/DL (8.8-10.2); CARBON DIOXIDE LEVEL 30 MEQ/L (21-32); CHLORIDE LEVEL 99 MEQ/L (98-107); CHOLESTEROL LEVEL 152 MG/DL (<200); CHOLESTEROL RISK RATIO 2.338 (<5); CREATININE FOR GFR 0.79 MG/DL (0.70-1.30); GLOMERULAR FILTRATION RATE > 60.0 (>35); GLUCOSE, FASTING 81 MG/DL (70-100); HDL CHOLESTEROL 65 MG/DL (>40); LDL CHOLESTEROL 68 MG/DL (<100); NON-HDL-C 87 MG/DL; SODIUM LEVEL 134 MEQ/L (136-145); TRIGLYCERIDES LEVEL 95 MG/DL (<150)
== END ==
PROVIDERS: ATTEND Internal Medicine
DX: I10 Essential (primary) hypertension (principal); Z86.73 Personal history of transient ischemic attack (TIA), and cerebral infarction without residual deficits

== ENCOUNTER → 2020-05-19 | Outpatient (REF) | payer MEDICARE | PROVIDERS: ATTEND Internal Medicine | DX: R41.82 Altered mental status, unspecified (principal) ==

== ENCOUNTER → 2020-05-19 | Outpatient (REF) | payer MEDICARE ==
[2020-05-19 18:41] LABS: HEMATOCRIT 38.8 % (42.0-52.0); HEMOGLOBIN 12.8 g/dl (13.5-17.5); MEAN CORPUSCULAR HEMOGLOBIN 32.7 pg (27.0-33.0); MEAN CORPUSCULAR VOLUME 99.2 fl (80.0-96.0); PLATELET COUNT, AUTOMATED 146 10^3/uL (150-450); RED BLOOD COUNT 3.91 10^6/uL (4.30-6.10); WHITE BLOOD COUNT 5.7 10^3/uL (4.0-10.0)
[2020-05-19 19:13] LABS: BLOOD UREA NITROGEN 22 MG/DL (7-18); CALCIUM LEVEL 8.8 MG/DL (8.8-10.2); CARBON DIOXIDE LEVEL 29 MEQ/L (21-32); CHLORIDE LEVEL 98 MEQ/L (98-107); CREATININE FOR GFR 0.82 MG/DL (0.70-1.30); GLOMERULAR FILTRATION RATE > 60.0 (>35); GLUCOSE, FASTING 69 MG/DL (70-100); POTASSIUM SERUM 4.3 MEQ/L (3.5-5.1); SODIUM LEVEL 133 MEQ/L (136-145)
== END ==
PROVIDERS: ATTEND Internal Medicine
DX: R41.82 Altered mental status, unspecified (principal); I10 Essential (primary) hypertension; Z86.73 Personal history of transient ischemic attack (TIA), and cerebral infarction without residual deficits

== ENCOUNTER → 2020-05-20 | Outpatient (CLI) | payer MEDICARE ==
--- NOTE | 2020-05-20 11:02 | REPVR ---
PROCEDURE INFORMATION: Exam: CT Head Without Contrast Exam date and time: 05/20/2020 10:47 AM Age: 85 years old Clinical indication: Pain; Headache; Additional info: Altered mental status TECHNIQUE: Imaging protocol: Computed tomography of the head without contrast. Radiation optimization: All CT scans at this facility use at least one of these dose optimization techniques: automated exposure control; mA and/or kV adjustment per patient size (includes targeted exams where dose is matched to clinical indication); or iterative reconstruction. COMPARISON: CT Head without contrast 01/09/2020 11:03 AM FINDINGS: Brain: There is no acute intracranial hemorrhage. There is lucency in the cerebral white matter, likely microvascular disease although non-specific. There are chronic infarcts in bilateral frontal and right parietal lobes. Robb white differentiation is otherwise intact without evidence of acute territorial infarct. There are no extra-axial fluid collections. No evidence of mass. There is no mass effect or midline shift. Ventricles: The ventricles and sulci are enlarged, consistent with volume loss / atrophy. No hydrocephalus. Bones/joints: No acute fracture. Paranasal sinuses: Visualized sinuses are unremarkable. No fluid levels. Mastoid air cells: No significant mastoid effusion. Orbits: There have been bilateral intraocular lens replacements likely related to cataract surgery. Vasculature: There is vascular calcification. Soft tissues: Unremarkable as visualized. IMPRESSION: 1. No evidence of acute intracranial abnormality. No evidence of acute infarction, hemorrhage, or mass. 2. Atrophy and microvascular disease. Chronic cerebral infarcts as described. Electronically signed by: Jasmin Conley On 05/20/2020 11:02:20 AM
== END ==
LOC: M RAD 10:30
PROVIDERS: ATTEND Physician Assistant
DX: R41.82 Altered mental status, unspecified (principal)

== ENCOUNTER → 2020-07-17 | Outpatient (REF) | PROVIDERS: ATTEND Internal Medicine | DX: Z20.828 Contact with and (suspected) exposure to other viral communicable diseases (principal) ==

== ENCOUNTER → 2020-07-24 | Outpatient (REF) | payer MEDICARE ==
[~2020-07-24] MED LIST changes: +COLC0.6T47 PO; -COLC1TAB13 PO; +CYMB1CAP5 PO; +TRAM50TA2 PO
== END ==
LOC: EDSTATUS 09-02 08:10
PROVIDERS: ATTEND Internal Medicine
DX: Z20.828 Contact with and (suspected) exposure to other viral communicable diseases (principal)

== ENCOUNTER → 2020-07-30 | Outpatient (REF) | payer MEDICARE | PROVIDERS: ATTEND Internal Medicine | DX: Z20.828 Contact with and (suspected) exposure to other viral communicable diseases (principal) ==

== ENCOUNTER → 2020-08-17 | Outpatient (REF) | payer MEDICARE ==
[~2020-08-17] MED LIST changes: -CYMB1CAP5 PO; -TRAM50TA2 PO
== END ==
PROVIDERS: ATTEND Internal Medicine
DX: Z20.828 Contact with and (suspected) exposure to other viral communicable diseases (principal)

== ENCOUNTER → 2020-08-21 | Outpatient (REF) | payer MEDICARE ==
[~2020-08-21] MED LIST changes: +CYMB1CAP5 PO; +TRAM50TA2 PO
== END ==
PROVIDERS: ATTEND Internal Medicine
DX: Z20.828 Contact with and (suspected) exposure to other viral communicable diseases (principal)

== ENCOUNTER → 2020-08-27 | Outpatient (REF) | payer MEDICARE | PROVIDERS: ATTEND Internal Medicine | DX: Z20.828 Contact with and (suspected) exposure to other viral communicable diseases (principal) ==

== ENCOUNTER → 2020-09-01 | Outpatient (REF) | payer MEDICARE ==
[~2020-09-01] MED LIST changes: -CYMB1CAP5 PO; -TRAM50TA2 PO
[2020-09-01 13:45] LABS: RSV AMPLIFICATION NEGATIVE (NEGATIVE)
== END ==
PROVIDERS: ATTEND Internal Medicine
DX: Z20.828 Contact with and (suspected) exposure to other viral communicable diseases (principal)

== ENCOUNTER → 2020-09-08 | Outpatient (REF) | payer MEDICARE ==
[~2020-09-08] MED LIST changes: +CYMB1CAP5 PO; +TRAM50TA2 PO
== END ==
PROVIDERS: ATTEND Internal Medicine
DX: Z11.52 Encounter for screening for COVID-19 (principal)

== ENCOUNTER → 2020-09-12 | Outpatient (REF) | payer MEDICARE | PROVIDERS: ATTEND Internal Medicine | DX: Z11.52 Encounter for screening for COVID-19 (principal) ==

== ENCOUNTER → 2020-09-17 | Outpatient (REF) | payer MEDICARE | PROVIDERS: ATTEND Internal Medicine | DX: Z11.52 Encounter for screening for COVID-19 (principal) ==

== ENCOUNTER → 2020-09-24 | Outpatient (REF) | payer MEDICARE | PROVIDERS: ATTEND Internal Medicine | DX: Z20.822 Contact with and (suspected) exposure to COVID-19 (principal) ==

== ENCOUNTER → 2020-10-01 | Outpatient (REF) | payer MEDICARE | PROVIDERS: ATTEND Internal Medicine | DX: Z20.822 Contact with and (suspected) exposure to COVID-19 (principal) ==

== ENCOUNTER → 2020-10-07 | Outpatient (REF) | payer MEDICARE ==
[2020-10-07 14:21] LABS: HEMATOCRIT 36.8 % (42.0-52.0); HEMOGLOBIN 12.4 g/dl (13.5-17.5); MEAN CORPUSCULAR HEMOGLOBIN 33.2 pg (27.0-33.0); MEAN CORPUSCULAR HGB CONC 33.7 g/dl (32.0-36.5); MEAN CORPUSCULAR VOLUME 98.7 fl (80.0-96.0); PLATELET COUNT, AUTOMATED 135 10^3/uL (150-450); RED BLOOD COUNT 3.73 10^6/uL (4.30-6.10); WHITE BLOOD COUNT 6.3 10^3/uL (4.0-10.0)
[2020-10-07 14:59] LABS: BLOOD UREA NITROGEN 26 MG/DL (7-18); CARBON DIOXIDE LEVEL 32 MEQ/L (21-32); CHLORIDE LEVEL 91 MEQ/L (98-107); CREATININE FOR GFR 0.88 MG/DL (0.70-1.30); GLOMERULAR FILTRATION RATE > 60.0 (>35); GLUCOSE, FASTING 74 MG/DL (70-100); POTASSIUM SERUM 4.8 MEQ/L (3.5-5.1); SODIUM LEVEL 128 MEQ/L (136-145); VALPROIC ACID (DEPAKOTE) 29.2 UG/ML (50.0-100.0)
== END ==
PROVIDERS: ATTEND Internal Medicine
DX: R41.82 Altered mental status, unspecified (principal); R53.83 Other fatigue

== ENCOUNTER → 2020-10-08 | Outpatient (REF) | payer MEDICARE ==
[2020-10-08 12:32] LABS: BLOOD UREA NITROGEN 24 MG/DL (7-18); CALCIUM LEVEL 8.9 MG/DL (8.8-10.2); CARBON DIOXIDE LEVEL 30 MEQ/L (21-32); CHLORIDE LEVEL 92 MEQ/L (98-107); GLOMERULAR FILTRATION RATE > 60.0 (>35); GLUCOSE, FASTING 88 MG/DL (70-100); POTASSIUM SERUM 4.2 MEQ/L (3.5-5.1); SODIUM LEVEL 129 MEQ/L (136-145)
== END ==
PROVIDERS: ATTEND Internal Medicine
DX: E87.1 Hypo-osmolality and hyponatremia (principal); Z20.822 Contact with and (suspected) exposure to COVID-19
CPT/HCPCS: 36415; 80048; 82533; 84443; U0003

== ENCOUNTER 2020-10-09 14:59 | Inpatient (IN) | payer MEDICARE ==
[~2020-10-09] VITALS: Ht 177.8 cm; Wt 67.0 kg
[~2020-10-09 14:59] MED LIST changes: -CYMB1CAP5 PO; -TRAM50TA2 PO
[2020-10-09] MEDS ORDERED: TRAM50TA2 PO (15:45)
[2020-10-09] MEDS ORDERED: CYMB1CAP5 PO (15:45)
--- NOTE | 2020-10-09 15:50 | REP ---
INDICATION: Altered Mental Status. COMPARISON: 01/09/2020. TECHNIQUE: SINGLE PORTABLE AP VIEW OF THE CHEST WAS PERFORMED. FINDINGS: Lungs appear clear with no infiltrate. There is mild cardiomegaly again noted. There is calcification of the thoracic aorta. The mediastinal silhouette is unchanged. The multiple sternal wires and mediastinal clips present. A left dual lead pacemaker is unchanged. IMPRESSION: NO ACUTE PULMONARY DISEASE. <Electronically signed by Bryn Robb > 10/09/20 [id number]
[2020-10-09 15:53] LABS: BASO % 0.3 % (0.0-1.0); EOS # 0.1 10^3/uL (0.0-0.5); EOS % 1.1 % (0.0-3.0); HEMOGLOBIN 11.7 g/dl (13.5-17.5); LYMPH # 1.4 10^3/uL (1.5-5.0); MEAN CORPUSCULAR HEMOGLOBIN 33.4 pg (27.0-33.0); MEAN CORPUSCULAR HGB CONC 34.4 g/dl (32.0-36.5); MEAN CORPUSCULAR VOLUME 97.1 fl (80.0-96.0); MONO # 0.9 10^3/uL (0.0-0.8); MONO % 11.7 % (0.0-5.0); NEUTROPHILS % 67.6 % (36.0-66.0); PLATELET COUNT, AUTOMATED 130 10^3/uL (150-450); WHITE BLOOD COUNT 7.3 10^3/uL (4.0-10.0)
--- NOTE | 2020-10-09 15:59 | REP ---
INDICATION: Altered Mental Status. COMPARISON: May 20, 2020.. TECHNIQUE: Helical scanning is acquired. 5 mm axial images were reformatted. Coronal MPR images were generated. FINDINGS: Digital preliminary product development ecologist radiograph is unremarkable. The. Bone window settings demonstrate intact bony calvarium. There is heavy vascular calcification again noted at the skull base. The visualized paranasal sinuses are clear. No intraorbital abnormality is seen. There is generalized volume loss. Old areas of cortical encephalomalacia are again noted in the right parietal and right frontal lobes suggesting old watershed distribution cerebral infarction. These are unchanged from the May 20, 2020 study. Small-vessel atherosclerotic changes are noted. No evidence of intracranial hemorrhage is seen. Punctate physiologic calcification is seen in the basal ganglia bilaterally. No extra-axial fluid collection is seen. No acute infarction or midline shift is observed. IMPRESSION: Small-vessel atherosclerotic changes, diffuse atrophy, vascular calcification, old right-sided cortical infarcts. No acute infarction is seen. No hemorrhage or mass lesion is observed.. <Electronically signed by Bill Dubois > 10/09/20 [id number]
[2020-10-09 16:42] LABS: ACETAMINOPHEN LEVEL < 2.0 UG/ML (10.0-30.0); ALBUMIN 3.9 GM/DL (3.2-5.2); ALT/SGPT 32 U/L (12-78); BILIRUBIN,DIRECT 0.3 MG/DL (0.0-0.2); BILIRUBIN,TOTAL 0.8 MG/DL (0.2-1.0); BLOOD UREA NITROGEN 22 MG/DL (7-18); CARBON DIOXIDE LEVEL 29 MEQ/L (21-32); CHLORIDE LEVEL 91 MEQ/L (98-107); CPK CREATINE PHOSPHOKINASE 150 U/L (39-308); CREATININE FOR GFR 0.84 MG/DL (0.70-1.30); ETHYL ALCOHOL (ETHANOL) < 0.003 % (0.000-0.010); GLOMERULAR FILTRATION RATE > 60.0 (>35); GLUCOSE, FASTING 90 MG/DL (70-100); POTASSIUM SERUM 4.7 MEQ/L (3.5-5.1); SALICYLATE LEVEL < 1.7 MG/DL (5.0-30.0); SODIUM LEVEL 127 MEQ/L (136-145); TOTAL PROTEIN 6.9 GM/DL (6.4-8.2); TROPONIN I 0.02 NG/ML (< 0.10)
[2020-10-09 16:48] LABS: MB/CK RELATIVE INDEX 2.66 (< OR =4)
[2020-10-09] MEDS ORDERED: CARVedilol 3.125 MG TAB PO ONE (19:30)
[2020-10-09] MEDS ORDERED: FUROSEMIDE 20 MG TAB PO ONE (19:30)
[2020-10-09] MEDS ORDERED: ramipriL 1.25 MG CAP PO ONE (19:30)
--- NOTE | 2020-10-09 19:31 | HPEPDOC ---
[facility] Medical History & Physical Date of Admission Oct 09, 2020 Date of Service: Oct 09, 2020 History and Physical CHIEF COMPLAINT: L. sided facial droop HISTORY OF PRESENT ILLNESS: Patient is 85 year old male with dementia, resident of [facility] with PMH Afib, ischemic cardiomyopathy EF 40%, TIA, CVA, hemorrhagic infarct of cerebellar vermis, hx GI bleed, HTN, HLD, GERD, Hypothyroidism, chronic hearing loss, hx pulmonary nodules, pulmonary fibrosis and gout was brought to the ER from with concern for L. sided facial droop. History obtain from ER provider and previous documentations, unable to obtain from patient due to confusion. It appears that patient has dementia at baseline but appear to have been more confused for about a week and uncertain duration of L. sided facial droop. He is moving all extremities and only appropriately stated his name when asked, otherwise does not answer other questions appropriately or follow most commands. He appear to also be hard of hearing. He does say no when asked if he is in any pain or discomfort. CT head performed in ER shows old R. sided cortical infarct but no acute disease, unable to obtain MRI due to presence of pacemaker. PAST MEDICAL HISTORY: Refer to [facility] PAST SURGICAL HISTORY: CABG 2011 Pacemaker 2001 PCI w/ BMS 2009 Colonoscopy b/l cataract extraction SOCIAL HISTORY: No tobacco, alcohol or illicit drug use. FAMILY HISTORY: Noncontributory ALLERGIES: Please see below. REVIEW OF SYSTEMS: 10 point review of system negative except as stated in [facility] HOME MEDICATIONS: Please see below. PHYSICAL EXAMINATION: General: No acute distress, Alert but confused, hard of hearing, answer few questions. Eyes: Normal sclera, EOMI HENT: Atraumatic Cardiovascular: Normal rate, irregular rhythm. Pulmonary: Clear to auscultation b/l, no wheezing GI: Soft, nontender, nondistended Skin: Warm and dry Neuro: CN grossly intact, moving all extremities. Strength appear to be equal b/l when lying in bed despite diffuse weakness. Unable to fully assess as patient follow limited verbal commands. Psych: oriented x 1 to person LABORATORY DATA: See below. IMAGING: CT Head: Small-vessel atherosclerotic changes, diffuse atrophy, vascular calcifi cation, old right-sided cortical infarcts. No acute infarction is seen. No hemorrhage or mass lesion is observed. CXR: No acute pulmonary disease. MICROBIOLOGY: Please see below. ASSESSMENT AND PLAN: 1. L. sided facial droop - Minimal droop appreciated. Previous documentation noted L. sided weakness although unable to appreciate this deficit on exam from what patient can do in bed. - No evidence of acute stroke on CT scan. Symptoms ongoing for 1 week or more, would not be a candidate for tpa therapy. - Previously on Eliquis for Afib but had been held for unknown duration. hx GI bleed and hemorrhagic stroke. - Unable to peform MRI due to pacemaker. Will repeat CT head tomorrow with carotid dopplers. - hx hemorrhagic infarct 08/2019 of R. lateral ventricle and subarachnoid hemorrhage in R. temporal lobe. - Cerebellar vermis hemorrhagic infarct Sep 2019. - c/w ASA, statin. - PT and OT eval and treat in AM. Neurochecks q4h. 2. HTN - resume home meds if patient passes bedside swallow eval. - Losartan, coreg. 3. HLD - atorvastatiin 40mg daily. 4. gout - c/w allopurinol. 5. Hypothyroidism - c/w synthroid 50mcg daily. 6. hx GI bleed - c/w protonix and carafate. 7. CAD - PR in 2001 s/p CABG in 2001.BMS - c/w ASA, statin, coreg, ramipril. 8. Afib - Previously on Eliquis, no longer taking it according to med list. - Likely due to age vs. risk of falls vs. hx GI bleed. - c/w ASA and Coreg. DVT ppx: SCD and Lovenox. Code status: DNR/DNI Vital Signs Vital Signs Date Time Temp Pulse Resp B/P (MAP) Pulse Ox O2 Delivery O2 Flow Rate FiO2 10/09/20 19:14 97.3 66 29 201/125 (150) 80 Room Air Laboratory Data Labs 24H Laboratory Tests 2 10/09/20 15:41: Immature Granulocyte % (Auto) 0.3, Neutrophils (%) (Auto) 67.6H, Lymphocytes (%) (Auto) 19.0L, Monocytes (%) (Auto) 11.7H, Eosinophils (%) (Auto) 1.1, Basophils (%) (Auto) 0.3, Neutrophils # (Auto) 5.0, Lymphocytes # (Auto) 1.4L, Monocytes # (Auto) 0.9H, Eosinophils # (Auto) 0.1, Basophils # (Auto) 0.0, Nucleated Red Blood Cells % (auto) 0.0, Anion Gap 7L, Glomerular Filtration Rate > 60.0, Calcium Level 9.0, Total Bilirubin 0.8, Direct Bilirubin 0.3H, Aspartate Amino Transf (AST/SGOT) 27, Alanine Aminotransferase (ALT/SGPT) 32, Alkaline Phosphatase 124H, Ammonia 18, Total Creatine Kinase 150, Creatine Kinase MB 4.0H, Creatine Kinase MB Relative Index 2.66, Troponin I 0.02, Total Protein 6.9, Albumin 3.9, Albumin/Globulin Ratio 1.3, Thyroid Stimulating Hormone (TSH) 3.170, Salicylates Level < 1.7L, Acetaminophen Level < 2.0L, Ethyl Alcohol Level < 0.003 10/09/20 17:00: Urine Color YELLOW, Urine Appearance CLEAR, Urine pH 6.0, Urine Specific [place]acey 1.018, Urine Protein NEGATIVE, Urine Glucose (UA) NEGATIVE, Urine Ketones NEGATIVE, Urine Blood NEGATIVE, Urine Nitrite NEGATIVE, Urine Bilirubin NEGAT DYLLAN, Urine Urobilinogen 0.2, Urine Leukocyte Esterase NEGATIVE, Urine WBC (Auto) 1, Urine RBC (Auto) 10H, Urine Hyaline Casts (Auto) 1, Urine Bacteria (Auto) NEGATIVE, Urine Squamous Epithelial Cells 0, Urine Sperm (Auto) CBC/BMP Laboratory Tests 10/09/20 15:41 Home Medications Scheduled Acetaminophen (Acetaminophen) 500 Mg Tablet, 500 MG PO TID Allopurinol (Allopurinol) 100 Mg Tablet, 200 MG PO DAILY Aspirin (Aspirin EC) 81 Mg Tablet.dr, 81 MG PO DAILY Atorvastatin Calcium (Atorvastatin Calcium) 20 Mg Tablet, 20 MG PO DAILY Carboxymethylcellulose Sodium (Refresh Plus) 1 Each Droperette, 1 DROP OU QID Carvedilol (Carvedilol) 3.125 Mg Tablet, 3.125 MG PO BID Cyclosporine (Restasis) 0.05% Droperette, 1 DROP OU BID Docusate Sodium (Colace) 100 Mg Capsule, 300 MG PO DAILY Duloxetine Hcl (Cymbalta) 30 Mg Capsule.dr, 30 MG PO QHS Furosemide (Lasix) 20 Mg Tablet, 20 MG PO BID Lactose-Reduced Food (Ensure Enlive) 237 Ml Liquid, 240 ML PO BID Latanoprost (Xalatan) 0.005% 2.5ML Drops, 1 DROP OU QHS Levothyroxine Sodium (Levoxyl) 50 Mcg Tablet, 50 MCG PO DAILY Multivitamins (Thera M Plus Tablet) 1 Each Tablet, 1 TAB PO DAILY Ramipril (Ramipril) 1.25 Mg Capsule, 1.25 MG PO QHS Saliva Stimulant Comb. No.4 (Dry Mouth) 45 Ml [place], 2 SPRAY MT QID Sennosides (Senna Lax) 8.6 Mg Tablet, 17.2 MG PO QHS Scheduled PRN Acetaminophen (Acetaminophen) 325 Mg Tablet, 650 MG PO Q4H PRN for PAIN / FEVER Amoxicillin (Amoxicillin) 500 Mg Capsule, 2,000 MG PO ONCE PRN for DENTAL PROCEDURE Bisacodyl (Bisacodyl) 10 Mg Supp.rect, 10 MG SD DAILY PRN for CONSTIPATION Hydrocortisone (Hydrocortisone) 28 Gm Cream..g., 1 DOSE TOP BID PRN for ITCHING Magnesium Hydroxide (Milk of Magnesia) 400 Mg/5 Ml Oral.susp, 30 ML PO DAILY PRN for CONSTIPATION Nitroglycerin (Nitrostat) 0.4 Mg Tab.subl, 0.4 MG SL NITRO PRN for CHEST PAIN Sodium Chloride (Dyer Saline Nasal Gel) 14.1 Gm Gel..gram., 1 DOSE NA BID PRN for NASAL DRYNESS Sodium Phosphate,Dunn-Dibasic (Enema) 133 Ml Enema, 1 JACKIE SD DAILY PRN for CONSTIPATION Tramadol HCl (Tramadol HCl) 50 Mg Tablet, 50 MG PO DAILY PRN for PAIN Allergies Coded Allergies: donepezil (Verified Adverse Reaction, Intermediate, "HAD GI BLEED AND THAT WAS ONE OF THE SIDE EFFECTS", 08/03/19) promethazine (Verified Adverse Reaction, Intermediate, HALLUCINATION, NAUSEA, ARRHYTHMIA, 08/03/19) A-FIB/CHADSVASC A-FIB History Current/History of A-Fib/PAF?: Yes Current PO Anticoag Therapy: No VIKTORIA GROVE MD Oct 09, 2020 19:31
--- OUTSIDE RECORDS SUMMARY | 2020-10-09 20:41 | CCD | Continuity of Care Document ---
Author Author Travis CONNELL PA-C Organization Unknown Address [address] [place] [address], [place] [address] Phone [phone] Care Team Providers Care Sewer Tapper Name Role Phone Yann Yancey MD AUTM [phone] Opal Fajardo MD AUTM [phone] Marge Abbott DO AUTM [phone] Sigifredo Loomis DO AUTM [phone] Other, Provider AUTM Unavailable [facility] AUTM Sigifredo Pablo MD AUTM [phone] Orlando Duncan JR, MD AUTM Problems Active Problems Provider Date Coronary arteriosclerosis ROXANE Sosa Onset: 01/12/2012 Old myocardial infarction ROXANE Sosa Onset: 01/12/2012 Coronary artery bypass grafts x 4 MIGUEL Sosa Onset: 01/12/2012 Arteriosclerosis of autologous vein coronary artery by pass graft ROXANE Sosa Onset: 01/12/2012 Patient post percutaneous transluminal coronary angiop lasty ROXANE Sosa Onset: 01/12/2012 Chronic diastolic heart failure Sigifredo Castaneda MD Onset: 01/24/2013 Benign hypertensive heart disease without congestive h eart failure ROXANE Sosa Onset: 01/12/2012 Atrial fibrillation Sigifredo Castaneda MD Onset: 12/06/2012 Aortic valve disorder ROXANE Sosa Onset: 05/2012 Mitral valve disorder Kaylen King ROXANE Onset: 05/2012 Pure hypercholesterolemia Kaylen Martin Fernando ROXANE Onset: 01/12/2012 Sinus node dysfunction Kaylen Martin Fernando ROXANE Onset: Cardiac pacemaker in situ ROXANE Sosa Onset: 01/12/2012 History of coronary artery bypass grafting Shannan Langeobedhong P A-C Onset: 10/22/2015 Paroxysmal atrial fibrillation Shannan Connell PA-C Onset: 0 04/21/2016 Chronic atrial fibrillation Shannan Connell PA-C Onset: 05/07 Permanent atrial fibrillation MUKESH Terrell-C Onset: Social History Type Date Description Comments Sex Unknown Tobacco Use Start: Unknown Never Smoked Cigarettes ETOH Use Does not consume alcohol Tobacco Use Start: Unknown Patient has never smoked Smoking Status Reviewed: 08/04/20 Patient has never smoked Exercise Type/Frequency Physical Therapy daily o r twice weekly - depending Exercise Limitations Imbalance Exercise Limitations Shortness Of Breath Exercise Limitations Joint Pain right knee and left hip Allergies, Adverse Reactions, Alerts Active Allergies Reaction Severity Comments Date Coumadin GI Bleed GI bleeding 01/04/2008 Promethazine Hallucinations, Nausea 08/09 Donepezil memory loss 02/13/2014 Inactive Allergies NKDA 09/26/2006 Medications Active Medications SIG Qnty Indications Ordering Provide r Date Divalproex Sodium 250mg Tablets DR 1 by mouth twice daily Orlando Duncan JR, MD 08/03 Biotene Dry Mouth Moisturizing [place] Solution spray as directed by mouth as needed 4 times daily Orlando Duncan JR, MD 08/03/2020 Colace 100mg Capsules 3 by mouth once a day Orlando Duncan JR, MD 020 Senna 8.6mg Tablets 2 by mouth every night at bedtime Orlando Duncan JR, MD 020 Tylenol Extra Strength 500mg Table ts 1 by mouth three times daily as needed Orlando Duncan JR, MD 08/03/2020 Ensure Enlive Liquid 240 mls by mouth twice daily Orlando Duncan JR, MD [address] Part 1 by mouth every day Orlando Duncan JR, MD 020 Tramadol HCL 50mg Tablets 1 by mouth once daily as needed, as directed Perla EDMONDSON MD, Jamie oliver F 08/03/2020 Bengay Greaseless 10-15% Cream apply topically to affected area (knees) twice daily as needed Orlando Duncan JR, MD 08/03/2020 Multi Vitamin Tablets daily Unknown 01/29/2020 Dulcolax 10mg Suppository 1 per rectum as needed if no bm Unknown 01/29/2020 Acetaminophen 325mg Tablets 1-2 every 4 hours as needed Unknown 01/29/2020 Refresh Plus 0.5% Solution 1 drop 4 times daily both eyes Unknown 01/29/2020 Latanoprost 0.005% Solution 1 drop both eyes every night at bedtime Unknown 01/04 Restasis 0.05% Emulsion 1 drop in both eyes twice a day Unknown 01/29/2020 Enema Disposable Enema 1 rectally every day as needed Unknown 01/29/2020 [place] 0.65% Solution administer 2 drops nasal as needed every two hours Unknown 01/29/2020 Ramipril 1.25mg Capsules 1 by mouth every night at bedtime Unknown 01/29/[address]in [address] 1 by mouth every day Unknown 07/29/2019 Atorvastatin Calcium 20mg Tablets 1 by mouth every night at bedtime Unknown Milk Of Magnesia 400mg/5ML Suspens ion 30 milliliters by mouth once daily as needed Unknow n 07/29/2019 Hydrocortisone 1% Cream apply as directed to affected area as needed Unknown 07/29 Amoxicillin 500mg Tablets 4 tablets one hour prior to dental procedures Unknown 07/29/2019 Allopurinol 100mg Tablets 2 p o daily Opal Fajardo MD 01/24/2019 Furosemide 20mg Tablets 1 by mouth twice a day I50.31 Des Everett MD 12/22/2016 Carvedilol 6.25mg Tablets 1/2 po bid 60tabs Other, Provider 01/23/2013 Levothyroxine Sodium 50mcg Tablets 1 po qd Opal Fajardo MD 01/12/2012 Nitroglycerin 0.4mg Tablets Sub 1 SL Q 5Min Times 3 Doses Chest Disc 25tabs Des Everett MD Immunizations Description No Information Available Vital Signs Date Vital Result Comment 08/04/2020 10:04am Home Weight 150lb Height 67 inches 5'7" Heart Rate 60 /min Regular Respiratory Rate 16 /min BP Systolic Right Arm 126 mmHg sitting, regular c uff BP Diastolic Right Arm 74 mmHg sitting, regular cuff BP Systolic Left Arm 124 mmHg sitting BP Diastolic Left Arm 70 mmHg sitting 01/30/2020 10:25am Home Weight 142lb home weight Height 67 inches 5'7" Heart Rate 64 /min Regular Respiratory Rate 16 /min BP Systolic Right Arm 122 mmHg sitting, regular c uff BP Diastolic Right Arm 64 mmHg sitting, regular cuff BP Systolic Left Arm 118 mmHg sitting BP Diastolic Left Arm 64 mmHg sitting Results Test Acquired Date Facility Test Result H/L Range Note CBC without Differential 05/19/2020 [facility] - not inter faced (315)- - White Blood Count 5.3 4.0-10.0 Red Blood Count 3.68 Low 4.30-6.10 Platelets 131 Low 150-450 Hemoglobin 12.3 Hematocrit 36.4 Laboratory test finding 05/19/2020 [facility] - not interf aced (315)- - Thyroid Stimulating Hormone 2.250 BMP 05/19/2020 [facility] - not interfaced (315)- - Calcium Ser/Plasma Mass/Vol 9.1 Sodium 134 Carbon Dioxide Ser/Plasm 30 Chloride Serum/Plasma 99 Potassium 4.0 Glucose 81 70-100 Blood Urea Nitrogen 21 High 7-18 Creatinine 0.79 0.70-1.30 G F R >60.0 Lipid Profile/Cardiac Risk Pro 05/19/2020 [facility] - not interfaced (315)- - Triglycerides 95 <150 Cholesterol 152 <200 HDL 65 >40.0 LDL Cholesterol 68 Chol/HDL Ratio 2.338 <5 CBC without Differential 03/19/2020 [facility] - not inter faced (315)- - White Blood Count 5.3 4.0-10.0 Red Blood Count 4.16 Low 4.30-6.10 Platelets 148 Low 150-450 Hemoglobin 13.4 Hematocrit 41.4 Laboratory test finding 03/19/2020 [facility] - not interf aced (315)- - Thyroid Stimulating Hormone 1.510 BMP 03/19/2020 [facility] - not interfaced (315)- - Calcium Ser/Plasma Mass/Vol 9.0 Sodium 137 Carbon Dioxide Ser/Plasm 29 Chloride Serum/Plasma 101 Potassium 4.1 Glucose 98 70-100 Blood Urea Nitrogen 19 High 7-18 Creatinine 0.87 0.70--1.30 G F R >60.0 Procedures Date Code Description Status 08/04/2020 52729 ECG 12-Lead Completed 07/28/2020 79836 Remote Pacemaker/Cardio-Defibril lator Data Acquistion Completed 07/28/2020 55233 Remote Interrogation Device Eval Pacemaker System Up To 90 Days Completed Medical Devices Description No Information Available Encounters Type Date Location Provider Dx Diagnosis Office Visit 08/04/2020 10:15a Main Office Shannan Connell PA-C I25.1 0 Athscl heart disease of [place] coronary artery w/o ang pctrs I25.2 Old myocardial infarction Z95.1 Presence of aortocoronary by pass graft Z95.5 Presence of coronary angiopl asty implant and graft I50.32 Chronic diastolic (congestiv e) heart failure I11.9 Hypertensive heart disease w ithout heart failure I48.21 Permanent atrial fibrillatio n I35.1 Nonrheumatic aortic (valve) insufficiency I34.0 Nonrheumatic mitral (valve) insufficiency E78.00 Pure hypercholesterolemia, u nspecified I49.5 Sick sinus syndrome Z95.0 Presence of cardiac pacemake r Assessments Date Code Description Provider 08/04/2020 I25.10 Atherosclerotic heart disease of [place] coronary artery with Shannan Connell PA-C 08/04/2020 I25.2 Old myocardial infarction ROSALIO TerrellC 08/04/2020 Z95.1 Presence of aortocoronary bypass graft Shannna Connell PA-C 08/04/2020 Z95.5 Presence of coronary angioplasty implant and graft Shannan Connell PA-C 08/04/2020 I50.32 Chronic diastolic (congestive) h eart failure ROSALIO TerrellC 08/04/2020 I11.9 Hypertensive heart disease witho ut heart failure Shannan Connell PA-C 08/04/2020 I48.21 Permanent atrial fibrillation ROSALIO RossC 08/04/2020 I35.1 Nonrheumatic aortic (valve) insu fficiency ROSALIO TerrellC 08/04/2020 I34.0 Nonrheumatic mitral (valve) insu fficiency ROSALIO TerrellC 08/04/2020 E78.00 Pure hypercholesterolemia, unspe cified Shannan Connell PA-C 08/04/2020 I49.5 Sick sinus syndrome Shannan mead PA-C 08/04/2020 Z95.0 Presence of cardiac pacemaker Jean Richardson PA-C 07/28/2020 Z95.0 Presence of cardiac pacemaker [facility] Plan of Treatment Future Appointment(s):* 02/03/2021 11:15 am - Shannan Connell PA-C at Main Office * 10/27/2020 7:00 am - [facility] at Main Office 08/04/2020 - Shannan Connell PA-C* I25.10 Atherosclerotic heart disease of [place] coronary artery with * I25.2 Old myocardial infarction * Z95.1 Presence of aortocoronary bypass graft * Z95.5 Presence of coronary angioplasty implant and graft * I50.32 Chronic diastolic (congestive) heart failure* Recommendations:* Follow a 2 grams sodium diet and 50 ounces fluid restriction per 24 hour and do daily weights. Call the office for weight gain of 3 lbs or more. * I11.9 Hypertensive heart disease without heart failure * I48.21 Permanent atrial fibrillation * I35.1 Nonrheumatic aortic (valve) insufficiency * I34.0 Nonrheumatic mitral (valve) insufficiency * E78.00 Pure hypercholesterolemia, unspecified * I49.5 Sick sinus syndrome * Z95.0 Presence of cardiac pacemaker * All * Follow up:* 6 month follow up. Functional Status Functional Condition Comment Date Status Requires assistance with bathing Active Requires assistance with dressing Active Requires assistance with grooming Active Requires assistance with standing Active Requires assistance with toileting Active Independent with feeding Active Dependent with ambulating uses wheelchair all the time Active Mental Status Description No Information Available Referrals Description No Information Available
--- OUTSIDE RECORDS SUMMARY | 2020-10-09 20:42 | CCD | Continuity of Care Document ---
Author Travis Mcmullen-Mario Organization Unknown Address [address] [place] [address], [place] [address] Phone [phone] Care Team Providers Care Underwriting Manager Name Role Phone Yann Yancey MD AUTM [phone] Opal Fajardo MD AUTM [phone] Marge Abbott DO AUTM [phone] Sigifredo Loomis DO AUTM [phone] Other, Provider AUTM Unavailable [facility] [place] [facility] Sigifredo Pablo MD AUTM [phone] Problems Active Problems Provider Date Coronary arteriosclerosis [...] ROXANE Sosa Onset: 05/2012 Mitral valve disorder ROXANE Sosa Onset: 05/2012 Pure hypercholesterolemia ROXANE Sosa Onset: 01/12/2012 Sinus node dysfunction ROXANE Sosa Onset: Cardiac pacemaker in situ ROXANE Sosa Onset: 01/12/2012 History of coronary artery bypass grafting Shannan Rivera Panchito P A-C Onset: 10/22/2015 Paroxysmal atrial fibrillation Shannan Rivera Panchito PA-C Onset: 0 04/21/2016 Chronic atrial fibrillation Shannan Rivera MUKESH Flanagan-C Onset: 05/07 Permanent atrial fibrillation Shannan FlanaganMUKESH-C Onset: Social History Type Date Description Comments Sex Unknown Tobacco Use Start: Unknown Never Smoked Cigarettes ETOH Use Does not consume alcohol Tobacco Use Start: Unknown Patient has never smoked Smoking Status Reviewed: 01/30/20 Patient has never smoked Exercise Type/Frequency 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 Exercise Limitations Imbalance Exercise Limitations Shortness Of Breath Exercise Limitations Joint Pain right knee Allergies, Adverse Reactions, Alerts Active Allergies Reaction Severity Comments Date Coumadin GI Bleed GI bleeding 01/04/2008 Promethazine Hallucinations, Nausea 08/09 Donepezil memory loss 02/13/2014 Inactive Allergies NKDA 09/26/2006 Medications Active Medications SIG Qnty Indications Ordering Provide r Date Ramipril 1.25mg Capsules 1 by mouth every night at bedtime Unknown 01/29/2020 [place] 0.65% Solution administer 2 drops nasal as needed every two hours Unknown 01/29/2020 Biotene PBF Dry Mouth Mouthwash L iquid rinse twice daily,prn Unknown 01/29/2020 Enema Disposable Enema 1 rectally every day as needed Unknown 01/29/2020 Restasis 0.05% Emulsion 1 drop in both eyes twice a day Unknown 01/29/2020 Latanoprost 0.005% Solution 1 drop both eyes every night at bedtime Unknown 01/04 Refresh Plus 0.5% Solution 1 drop 4 times daily both eyes Unknown 01/29/2020 Acetaminophen 325mg Tablets 1-2 every 4 hours as needed Unknown 01/29/2020 Dulcolax 10mg Suppository 1 per rectum as needed if no bm Unknown 01/29/2020 Ensure Enlive Liquid 180 milliliters by mouth twice daily Unknown 01/29/2020 Multi Vitamin Tablets daily Unknown 01/29/2020 Amoxicillin 500mg Tablets 4 tablets one hour prior to dental procedures Unknown 07/29/2019 Hydrocortisone 1% Cream apply as directed to affected area as needed Unknown 07/29 Senna 8.6mg Tablets 1 by mouth every night at bedtime Unknown 07/29/2019 Milk Of Magnesia 400mg/5ML Suspens ion 30 milliliters by mouth once daily as needed Unknow n 07/29/2019 Colace 100mg Capsules 1 by mouth twice a day as needed Unknown 07/29/2019 Atorvastatin Calcium 20mg Tablets 1 by mouth every night at bedtime Unknown Fluoxetine HCL (PMDD) 20mg Tablets 1 by mouth every day Unknown 07/29/[address] 1 by mouth every day Unknown 07/29/2019 Allopurinol 100mg Tablets 2 p o daily Opal Fajardo MD 01/24/2019 Furosemide 20mg Tablets 1 by mouth twice a day I50.31 Des Everett MD 12/22/2016 Carvedilol 6.25mg Tablets 1/2 po bid 60tabs Other, Provider 01/23/2013 Levothyroxine Sodium 50mcg Tablets 1 po qd Opal Fajardo MD 01/12/2012 Tylenol Extra Strength 500mg Table ts 1 PO bid Unknown 12/28/2007 Nitroglycerin 0.4mg Tablets Sub 1 SL Q 5Min Times 3 Doses Chest Disc 25tabs Des Everett MD Immunizations Description No Information Available Vital Signs Date Vital Result Comment 01/30/2020 10:25am Home Weight 142lb home weight Height 67 inches 5'7" Heart Rate 64 /min Regular Respiratory Rate 16 /min BP Systolic Right Arm 122 mmHg sitting, regular c uff BP Diastolic Right Arm 64 mmHg sitting, regular cuff BP Systolic Left Arm 118 mmHg sitting BP Diastolic Left Arm 64 mmHg sitting 07/30/2019 8:45am Weight 154.00 lb Height 67 inches 5'7" BMI (Body Mass Index) 24.1 kg/m2 Heart Rate 60 /min Regular Respiratory Rate 16 /min BP Systolic Right Arm 126 mmHg Sitting, regular c uff BP Diastolic Right Arm 72 mmHg Sitting, regular cuff BP Systolic Left Arm 122 mmHg Sitting BP Diastolic Left Arm 72 mmHg Sitting Results Test Acquired Date Facility Test Result H/L Range Note CBC without Differential 05/19/2020 [facility] - not inter faced (315)- - White Blood Count 5.3 4.0-10.0 Red Blood Count 3.68 Low 4.30-6.10 Platelets 131 Low 150-450 Hemoglobin 12.3 Hematocrit 36.4 Laboratory test finding 05/19/2020 [facility] - not interf aced (315)- - Thyroid Stimulating Hormone 2.250 BMP 05/19/2020 [facility] - not interfaced (315)- - Calcium Ser/Plasma Mass/Vol 9.1 Sodium 134 Carbon Dioxide Ser/Plasm 30 Chloride Serum/Plasma 99 Potassium 4.0 Glucose 81 70-100 Blood Urea Nitrogen 21 High 7-18 Creatinine 0.79 0.70-1.30 G F R >60.0 Lipid Profile/Cardiac Risk Pro 05/19/2020 [facility] - not interfaced (315)- - Triglycerides 95 <150 Cholesterol 152 <200 HDL 65 >40.0 LDL Cholesterol 68 Chol/HDL Ratio 2.338 <5 CBC without Differential 03/19/2020 [facility] - not inter faced (315)- - White Blood Count 5.3 4.0-10.0 Red Blood Count 4.16 Low 4.30-6.10 Platelets 148 Low 150-450 Hemoglobin 13.4 Hematocrit 41.4 Laboratory test finding 03/19/2020 [facility] - not interf aced (315)- - Thyroid Stimulating Hormone 1.510 BMP 03/19/2020 [facility] - not interfaced (315)- - Calcium Ser/Plasma Mass/Vol 9.0 Sodium 137 Carbon Dioxide Ser/Plasm 29 Chloride Serum/Plasma 101 Potassium 4.1 Glucose 98 70-100 Blood Urea Nitrogen 19 High 7-18 Creatinine 0.87 0.70--1.30 G F R >60.0 Procedures Date Code Description Status 07/28/2020 60633 Remote Pacemaker/Cardio-Defibril lator Data Acquistion Completed 07/28/2020 15476 Remote Interrogation Device Eval Pacemaker System Up To 90 Days Completed 01/30/2020 31667 Pacer Interrogation Any Leads Co mpleted 01/30/2020 49220 ECG 12-Lead Completed Medical Devices Description No Information Available Encounters Type Date Location Provider Dx Diagnosis Office Visit 01/30/2020 10:15a Main Office Shannan Flanagan PA-C I25.1 0 Athscl heart disease of [place] coronary artery w/o ang pctrs I25.2 Old [...] pacemake r Assessments Date Code Description Provider 07/28/2020 Z95.0 Presence of cardiac pacemaker Pa jen/Icd Clinic 01/30/2020 I25.10 Atherosclerotic heart disease of [place] coronary artery with ROSALIO TerrellC 01/30/2020 I25.2 Old myocardial infarction Shannan Flanagan PA-C 01/30/2020 Z95.1 Presence of aortocoronary bypass graft MUKESH Terrell-C 01/30/2020 Z95.5 Presence of coronary angioplasty implant and graft Shannan Flanagan PA-C 01/30/2020 I50.32 Chronic diastolic (congestive) h eart failure Shannan Flanagan PA-C 01/30/2020 I11.9 Hypertensive heart disease witho ut heart failure Shannan Flanagan PA-C 01/30/2020 I48.21 Permanent atrial fibrillation Jean Richardson PA-C 01/30/2020 I35.1 Nonrheumatic aortic (valve) insu fficiency Shannan Flanagan PA-C 01/30/2020 I34.0 Nonrheumatic mitral (valve) insu fficiency Shannan Flanagan PA-C 01/30/2020 E78.00 Pure hypercholesterolemia, unspe cified Shannna Flanagan PA-C 01/30/2020 I49.5 Sick sinus syndrome ROSALIO CastilloC 01/30/2020 Z95.0 Presence of cardiac pacemaker Jean Richardson PA-C Plan of Treatment Future Appointment(s):* 10/27/2020 7:00 am - Pacer/Icd Clinic at Main Office * 02/03/2021 9:15 am - Shannan Flanagan PA-C at Main Office * 08/04/2020 10:15 am - Shannan Flanagan PA-C at Main Office 01/30/2020 - Shannan Flanagan PA-C* I25.10 Atherosclerotic heart disease of [place] coronary artery with * I25.2 Old myocardial [...] cardiac pacemaker * All * Follow up:* [facility] home pacer check. 6 month follow up. 12 month office pacer check. Functional Status Functional Condition Comment Date Status Requires assistance with ambulating in wheelchair Active Requires assistance with bathing Active Requires assistance with dressing Active Requires assistance with grooming Active Requires assistance with standing Active Requires assistance with toileting Active Independent with feeding Active Mental Status Description No Information Available Referrals Description No Information Available
--- OUTSIDE RECORDS SUMMARY | 2020-10-09 20:42 | CCD | Continuity of Care Document ---
Author Travis Mcmullen-Mario Organization Unknown Address [address] [place] [address], [place] [address] Phone [phone] Care Team Providers Care Audiovisual Technician Name Role Phone Yann Yancey MD AUTM [phone] Opal Fajardo MD AUTM [phone] Marge Abbott DO AUTM [phone] Sigifredo Loomis DO AUTM [phone] Other, Provider AUTM Unavailable [facility] [place] AUTM [phone] Sigifredo Pablo MD AUTM [phone] Problems Active Problems Provider Date Coronary arteriosclerosis [...] ROXANE Sosa Onset: 05/2012 Mitral valve disorder ROAXNE Sosa Onset: 05/2012 Pure hypercholesterolemia ROXANE Sosa [...] 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 - not inter faced (315)- - White Blood Count 5.3 4.0-10.0 Red Blood Count 4.16 Low 4.30-6.10 Platelets 148 Low 150-450 Hemoglobin 13.4 Hematocrit 41.4 Laboratory test finding 03/19/2020 [facility] - not interf aced (315)- - Thyroid Stimulating Hormone 1.510 BMP 03/19/2020 [facility] - not interfaced (315)- - Calcium Ser/Plasma Mass/Vol 9.0 Sodium 137 Carbon Dioxide Ser/Plasm 29 Chloride Serum/Plasma 101 Potassium 4.1 Glucose 98 70-100 Blood Urea Nitrogen 19 High 7-18 Creatinine 0.87 0.70--1.30 G F R >60.0 Procedures Date Code Description Status 07/28/2020 30150 Remote Pacemaker/Cardio-Defibril lator Data Acquistion Completed 07/28/2020 01813 Remote Interrogation Device Eval Pacemaker System Up To 90 Days Completed 01/30/2020 99613 Pacer Interrogation Any Leads Co mpleted 01/30/2020 02229 ECG 12-Lead Completed Medical Devices Description No Information Available Encounters Type Date Location Provider Dx Diagnosis Office Visit 01/30/2020 10:15a Main Office Shannan Flanagan PA-C I25.1 0 Athscl heart disease of [place] coronary artery w/o ang pctrs I25.2 Old [...] Presence of cardiac pacemaker Pa cer/Icd Clinic 01/30/2020 I25.10 Atherosclerotic heart disease of [place] coronary artery with Shannan Flanagan PA-C 01/30/2020 I25.2 Old myocardial infarction Shannan Flanagan PA-C 01/30/2020 Z95.1 Presence of aortocoronary bypass graft ROSALIO TerrellC 01/30/2020 Z95.5 Presence of coronary angioplasty implant and graft Shannan Flanagan PA-C 01/30/2020 I50.32 Chronic diastolic (congestive) h eart failure ROSALIO TerrellC 01/30/2020 I11.9 Hypertensive heart disease witho ut heart failure ROSALIO TerrellC 01/30/2020 I48.21 Permanent atrial fibrillation ROSALIO RossC 01/30/2020 I35.1 Nonrheumatic aortic (valve) insu fficiency ROSALIO TerrellC 01/30/2020 I34.0 Nonrheumatic mitral (valve) insu fficiency ROSALIO TerrellC 01/30/2020 E78.00 Pure hypercholesterolemia, unspe cified ROSALIO TerrellC 01/30/2020 I49.5 Sick sinus syndrome Shannan mead PA-C 01/30/2020 Z95.0 Presence of cardiac pacemaker Jean Richardson PA-C Plan of Treatment Future Appointment(s):* 10/27/2020 7:00 am - Pacer/Icd Clinic at Main Office * 02/03/2021 9:15 am - Shannan Flanagan PA-C at Main Office * 08/04/2020 10:15 am - Shannan Flanagan PA-C at Main Office 01/30/2020 - Shannan Flanagan PA-C* I25.10 Atherosclerotic heart disease of [place] coronary artery with * I25.2 Old myocardial [...] cardiac pacemaker * All * Follow up:* 91 day [facility] home pacer check. 6 month follow up. [...]
--- OUTSIDE RECORDS SUMMARY | 2020-10-09 20:42 | CCD | Continuity of Care Document ---
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 Exercise Limitations Imbalance Exercise Limitations Shortness Of [...] mouth every night at bedtime Unknown 01/29/2020 [place] 0.65% Solution administer 2 drops nasal as [...] H/L Range Note CBC without Differential 03/19/2020 [facility] - not inter faced (315)- - White Blood Count 5.3 4.0-10.0 Red Blood Count 4.16 Low 4.30-6.10 Platelets 148 Low 150-450 Hemoglobin 13.4 Hematocrit 41.4 Laboratory test finding 03/19/2020 [facility] - not interf aced (315)- - Thyroid Stimulating Hormone 1.510 BMP 03/19/2020 [facility] - not interfaced (315)- - Calcium Ser/Plasma Mass/Vol 9.0 Sodium 137 Carbon Dioxide Ser/Plasm 29 Chloride Serum/Plasma 101 Potassium 4.1 Glucose 98 70-100 Blood Urea Nitrogen 19 High 7-18 Creatinine 0.87 0.70--1.30 G F R >60.0 Procedures Date Code Description Status 07/28/2020 67995 Remote Pacemaker/Cardio-Defibril lator Data Acquistion Completed 07/28/2020 84842 Remote Interrogation Device Eval Pacemaker System Up To 90 Days Completed 01/30/2020 22062 Pacer Interrogation Any Leads Co mpleted 01/30/2020 80137 ECG 12-Lead Completed Medical Devices Description No Information Available Encounters Type Date Location Provider Dx Diagnosis Office Visit 01/30/2020 10:15a Main Office Shannan Flanagan PA-C I25.1 0 Athscl heart disease of [place] coronary artery w/o ang pctrs I25.2 Old [...] Clinic 01/30/2020 I25.10 Atherosclerotic heart disease of [place] coronary artery with Shannan Flanagan PA-C 01/30/2020 [...] Flanagan PA-C* I25.10 Atherosclerotic heart disease of [place] coronary artery with * I25.2 Old myocardial [...]
--- OUTSIDE RECORDS SUMMARY | 2020-10-09 20:43 | CCD ---
Author Author [facility] Organization [facility] Address Unknown Phone Unavailable Care Team Providers Care Courtesy Booth Cashier Name Role Phone ESTRELLITA NEAL MD Unavailable Unavailable ESTRELLITA NEAL MD Unavailable Unavailable ESTRELLITA NEAL MD Unavailable Unavailable ESTRELLITA NEAL MD Unavailable Unavailable ESTRELLITA NEAL MD Unavailable Unavailable ESTRELLITA NEAL MD Unavailable Unavailable ESTRELLITA NEAL MD Unavailable Unavailable ESTRELLITA NEAL MD Unavailable Unavailable ESTRELLITA NEAL MD Unavailable Unavailable ESTRELLITA NEAL MD Unavailable Unavailable ESTRELLITA NEAL MD Unavailable Unavailable ESTRELLITA NEAL MD Unavailable Unavailable ESTRELLITA NEAL MD Unavailable Unavailable ESTRELLITA NEAL MD Unavailable Unavailable ESTRELLITA NEAL MD Unavailable Unavailable ESTRELLITA NEAL MD Unavailable Unavailable ESTRELLITA NEAL MD Unavailable Unavailable ESTRELLITA NEAL MD Unavailable Unavailable ESTRELLITA NEAL MD Unavailable Unavailable ESTRELLITA NEAL MD Unavailable Unavailable ESTRELLITA NEAL MD Unavailable Unavailable ESTRELLITA NEAL MD Unavailable Unavailable ESTRELLITA NEAL MD Unavailable Unavailable ESTRELLITA NEAL MD Unavailable Unavailable ESTRELLITA NEAL MD Unavailable Unavailable ESTRELLITA NELA MD Unavailable Unavailable ESTRELLITA NEAL MD Unavailable Unavailable ESTRELLITA NEAL MD Unavailable Unavailable ESTRELLITA NEAL MD Unavailable Unavailable Maxwell, Hafsa PA Unavailable Unavailable Cherokee, Hafsa PA Unavailable Unavailable Cherokee, Hafsa PA Unavailable Unavailable Cherokee, Hafsa PA Unavailable Unavailable Symenow, Haydee Shannan PA Unavailable Unavailable Symenow, Haydee Shannan PA Unavailable Unavailable Symenow, Haydee Shannan PA Unavailable Unavailable Symenow, Haydee Shannan PA Unavailable Unavailable Symenow, Haydee Shannan PA Unavailable Unavailable Symenow, Haydee Shannan PA Unavailable Unavailable Symenow, Haydee Shannan PA Unavailable Unavailable Symenow, Haydee Shannan PA Unavailable Unavailable Symenow, Haydee Shannan PA Unavailable Unavailable Symenow, Haydee Shannan PA Unavailable Unavailable Symenow, Haydee Shannan PA Unavailable Unavailable Symenow, Haydee Shannan PA Unavailable Unavailable Symenow, Haydee Shannan PA Unavailable Unavailable Symenow, Haydee Shannan PA Unavailable Unavailable Symenow, Haydee Shannan PA Unavailable Unavailable Symenow, Haydee Shannan PA Unavailable Unavailable Symenow, Haydee Shannan PA Unavailable Unavailable Symenow, Haydee Shannan PA Unavailable Unavailable Symenow, Haydee Shannan PA Unavailable Unavailable Symenow, Haydee Shannan PA Unavailable Unavailable Symenow, Haydee Shannan PA Unavailable Unavailable Symenow, Haydee Shannan PA Unavailable Unavailable Symenow, Haydee Shannan PA Unavailable Unavailable Symenow, Haydee Shannan PA Unavailable Unavailable Symenow, Haydee Shannan PA Unavailable Unavailable Symenow, Haydee Shannan PA Unavailable Unavailable Symenow, Haydee Shannan PA Unavailable Unavailable Symenow, Haydee Shannan PA Unavailable Unavailable Symenow, Haydee Shannan PA Unavailable Unavailable Symenow, Haydee Shannan PA Unavailable Unavailable Symenow, Haydee Shannan PA Unavailable Unavailable Symenow, Haydee Campbell PA Unavailable Unavailable Symenow, Haydee Campbell PA Unavailable Unavailable Symenow, Haydee Campbell PA Unavailable Unavailable Symenow, Haydee Campbell PA Unavailable Unavailable Symenow, Haydee Campbell PA Unavailable Unavailable Charito, Draper Neville Gene MD Unavailable Unavailabl e Charito, Draper Neville Gene MD Unavailable Unavailabl e Charito, Draper Neville Gene MD Unavailable Unavailabl e Charito, Draper Neville Gene MD Unavailable Unavailabl e Charito, Draper Neville Gene MD Unavailable Unavailabl e Charito, Draper Neville Gene MD Unavailable Unavailabl e Charito, Draper Neville Gene MD Unavailable Unavailabl e Charito, Draper Neville Gene MD Unavailable Unavailabl e Charito, Draper Neville Gene MD Unavailable Unavailabl e Charito, Draper Neville Gene MD Unavailable Unavailabl e Charito, Draper Neville Gene MD Unavailable Unavailabl e Charito, Draper Neville Gene MD Unavailable Unavailabl e Charito, Draper Neville Gene MD Unavailable Unavailabl e Charito, Draper Neville Gene MD Unavailable Unavailabl e Charito, Draper Neville Gene MD Unavailable Unavailabl e Charito, Draper Neville Gene MD Unavailable Unavailabl e Charito, Draper Neville Gene MD Unavailable Unavailabl e Charito, Draper Neville Gene MD Unavailable Unavailabl e Charito, Draper Neville Gene MD Unavailable Unavailabl e Charito, Draper Neville Gene MD Unavailable Unavailabl e Charito, Draper Neville Gene MD Unavailable Unavailabl e Charito, Draper Neville Gene MD Unavailable Unavailabl e Charito, Draper Neville Gene MD Unavailable Unavailabl e Charito, Draper Neville Gene MD Unavailable Unavailabl e Charito, Draper Neville Gene MD Unavailable Unavailabl e Charito, Draper Neville Gene MD Unavailable Unavailabl e Charito, Draper Neville Gene MD Unavailable Unavailabl e Charito, Draper Neville Gene MD Unavailable Unavailabl e Charito, Draper Neville Gene MD Unavailable Unavailabl e Kendrick, P Jones Unavailable Unavailable Kendrick, P Jones Unavailable Unavailable Kendrick, P Jones Unavailable Unavailable Kendrick, P Jones Unavailable Unavailable Kendrick, P Jones Unavailable Unavailable Kendrick, P Jones Unavailable Unavailable Mariano, Sonia STOVE REFINISHER Unavailable Unavailable Mariano, Sonia STOVE REFINISHER Unavailable Unavailable Mariano, Sonia STOVE REFINISHER Unavailable Unavailable Mariano, Sonia STOVE REFINISHER Unavailable Unavailable Mariano, Sonia STOVE REFINISHER Unavailable Unavailable Mariano, Sonia STOVE REFINISHER Unavailable Unavailable Mariano, Sonia STOVE REFINISHER Unavailable Unavailable Mariano, Sonia STOVE REFINISHER Unavailable Unavailable Mariano, Sonia STOVE REFINISHER Unavailable Unavailable Mariano, Sonia STOVE REFINISHER Unavailable Unavailable Mariano, Sonia STOVE REFINISHER Unavailable Unavailable Mariano, Sonia STOVE REFINISHER Unavailable Unavailable Mariano, Sonia STOVE REFINISHER Unavailable Unavailable Mariano, Sonia STOVE REFINISHER Unavailable Unavailable Mariano, Sonia STOVE REFINISHER Unavailable Unavailable Mariano, Sonia STOVE REFINISHER Unavailable Unavailable Mariano, Sonia STOVE REFINISHER Unavailable Unavailable Mariano, Sonia STOVE REFINISHER Unavailable Unavailable Mariano, Sonia STOVE REFINISHER Unavailable Unavailable Mariano, Sonia STOVE REFINISHER Unavailable Unavailable Mariano, Sonia STOVE REFINISHER Unavailable Unavailable Mariano, Sonia STOVE REFINISHER Unavailable Unavailable Mariano, Sonia STOVE REFINISHER Unavailable Unavailable Mariano, Sonia STOVE REFINISHER Unavailable Unavailable Mariano, Sonia STOVE REFINISHER Unavailable Unavailable Mariano, Sonia STOVE REFINISHER Unavailable Unavailable Mariano, Sonia STOVE REFINISHER Unavailable Unavailable Mariano, Sonia STOVE REFINISHER Unavailable Unavailable Mariano, Sonia STOVE REFINISHER Unavailable Unavailable Mariano, Sonia STOVE REFINISHER Unavailable Unavailable Mariano, Sonia STOVE REFINISHER Unavailable Unavailable Mariano, Sonia STOVE REFINISHER Unavailable Unavailable Mariano, Sonia STOVE REFINISHER Unavailable Unavailable Mariano, Sonia STOVE REFINISHER Unavailable Unavailable Mariano, Sonia STOVE REFINISHER Unavailable Unavailable Mariano, Sonia STOVE REFINISHER Unavailable Unavailable Mariano, Sonia STOVE REFINISHER Unavailable Unavailable Mariano, Sonia STOVE REFINISHER Unavailable Unavailable Mariano, Sonia STOVE REFINISHER Unavailable Unavailable Mariano, Sonia STOVE REFINISHER Unavailable Unavailable Mariano, Sonia STOVE REFINISHER Unavailable Unavailable Mariano, Sonia STOVE REFINISHER Unavailable Unavailable Mariano, Sonia STOVE REFINISHER Unavailable Unavailable Mariano, Sonia STOVE REFINISHER Unavailable Unavailable Mariano, Sonia STOVE REFINISHER Unavailable Unavailable Mariano, Sonia STOVE REFINISHER Unavailable Unavailable Mariano, Sonia STOVE REFINISHER Unavailable Unavailable Mariano, Sonia STOVE REFINISHER Unavailable Unavailable Mariano, Sonia STOVE REFINISHER Unavailable Unavailable Amriano, Sonia STOVE REFINISHER Unavailable Unavailable Mariano, Sonia STOVE REFINISHER Unavailable Unavailable Sonia Quintana STOVE REFINISHER Unavailable Unavailable Mariano, Sonia STOVE REFINISHER Unavailable Unavailable WALLACE PENA MD Unavailable WALLACE PENA MD Unavailable WALLACE PENA MD Unavailable WALLACE PENA MD Unavailable WALLACE PENA MD Unavailable JENNA [id number], E MANAV [id number] Unavailable Unavailab le JENNA [id number], E MANAV [id number] Unavailable Unavailab le JENNA [id number], E MANAV [id number] Unavailable Unavailab le Otite, Raymond Fadar Unavailable Unavailable Otite, Raymond Fadar Unavailable Unavailable Re-disclosure Warning The records that you are about to access may contain information from federally-assisted alcohol or drug abuse programs. If such information is present, then the following federally mandated warning applies: This information has been disclosed to you from records protected by federal confidentiality rules (42 CFR part 2). The federal rules prohibit you from making any further disclosure of this information unless further disclosure is expressly permitted by the written consent of the person to whom it pertains or as otherwise permitted by 42 CFR part 2. A general authorization for the release of medical or other information is NOT sufficient for this purpose. The Federal rules restrict any use of the information to criminally investigate or prosecute any alcohol or drug abuse patient.The records that you are about to access may contain highly sensitive health information, the redisclosure of which is protected by Article 27-F of the [facility] Public Health law. If you continue you may have access to information: Regarding HIV / AIDS; Provided by facilities licensed or operated by the [facility] Office of Mental Health; or Provided by the [facility] Office for People With Developmental Disabilities. If such information is present, then the following [facility] mandated warning applies: This information has been disclosed to you from confidential records which are protected by state law. State law prohibits you from making any further disclosure of this information without the specific written consent of the person to whom it pertains, or as otherwise permitted by law. Any unauthorized further disclosure in violation of state law may result in a fine or fdc sentence or both. A general authorization for the release of medical or other information is NOT sufficient authorization for further disc losure. Allergies and Adverse Reactions Type Description Substance Reaction Status Data Source(s ) Drug Class NO KNOWN ALLERGIES NO KNOWN ALLERGIES [facility] DRUG INGREDI PROMETHAZINE PROMETHAZINE N&V [facility] DRUG INGREDI DONEPEZIL DONEPEZIL Other [facility] Family History Family Member Name Family Member Gender Family Member Status Date o f Status Description Data Source(s) Unknown Unknown Problem [facility] ([facility]) Encounters Encounter Providers Location Date Indications Data Source(s ) Outpatient Attender: Shannan MAYORGA Main Office 08/04/2020 09:15:00 AM EST [facility] ([facility]) Outpatient Attender: Shannan MAYORGA Main Office 01/30/2020 10:15:00 AM EDT [facility] (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 Outpatient Referrer: Sonia ALDANA 09/16/2019 05:26:0 0 PM EST [facility] Inpatient Attender: Kenrick Garcia r: Jones KendrickAttender: WALLACE PENA MDAttender: ESTRELLITA NEAL MDAdmitter: WALLACE PENA MDReferrer: WALLACE PENA MDConsultant: Neville Mcneill MDConsultant: MANAV WEST [id number] 08/15/2019 12:00:00 AM EST - 08/22/2019 01:55:00 PM EST Nontraumatic intracerebral hemorrhage, intraventricular [facility] Nontraumatic intracerebral hemorrhage, i ntraventricular Patient discharged. Medications Medication Brand Name Start Date Product Form Dose Route Admi nistrative Instructions Pharmacy Instructions Status Indications Reaction Description Data Source(s) Docusate Sodium 100 MG Oral Capsule [Colace] Colace 12:00:00 AM EST ORAL active [facility] ( [facility]) Biotene Dry Mouth Moisturizing [place] 08/03/2020 12:00:00 AM EST ORAL active [facility] ([facility]) sennosides, FCI 8.6 MG Oral Tablet Senna 08/03/2020 12:00:00 AM EST ORAL active [facility] ([facility]) Acetaminophen 500 MG Oral Tablet [Tylenol] Tylenol Extra Str ength 08/03/2020 12:00:00 AM EST ORAL active M [facility] ([facility]) Menthol 160 MG/ML / methyl salicylate 300 MG/ML Topical Crea m Bengay Greaseless 08/03/2020 12:00:00 AM EST active [facility] ([facility]) tramadol hydrochloride 50 MG Oral Tablet Tramadol HCL 08/03/2020 12:00:00 AM EST ORAL active [facility] duloxetine 30 MG Delayed Release Oral Capsule [Cymbalta] Cym noemi 08/03/2020 12:00:00 AM EST ORAL active M [facility] ([facility]) Ensure Enlive 08/03/2020 12:00:00 AM EST ORAL acti ve [facility] ([facility]) Divalproex Sodium 250 MG Delayed Release Oral Tablet Divalpr oex Sodium 08/03/2020 12:00:00 AM EST ORAL active [facility] ([facility]) Cyclosporine 0.5 MG/ML Ophthalmic Suspension [Restasis] Rest asis 01/29/2020 12:00:00 AM EDT OPHTHALMIC active [facility] ([facility]) Ramipril 1.25 MG Oral Capsule Ramipril 01/29/2020 12:00:00 AM EDT ORAL active [facility] ([facility]) Sodium Chloride 0.111 MEQ/ML Nasal [place] [Pavo Saline Nasal] Pavo 01/29/2020 12:00:00 AM EDT active M [facility] ([facility]) Eucalyptol 0.92 MG/ML / Menthol 0.42 MG/ ML / methyl salicylate 0.6 MG/ML / Thymol 0.64 MG/ML Mouthwash Biotene PBF Dry Mouth Mouthwash 01/29/2020 12:00:00 AM EDT active [facility] ([facility] Sodium Phosphate, Dibasic 35.5 MG/ML / S odium Phosphate, Monobasic 96.4 MG/ML Enema Enema Disposable 01/29/2020 12:00:00 AM EDT active [facility] ([facility]) Multi Vitamin 01/29/2020 12:00:00 AM EDT acti ve [facility] ([facility]) Bisacodyl 10 MG Rectal Suppository [Dulcolax] Dulcolax 01/29/2020 12:00:00 AM EDT active [facility] ([facility] Ensure Enlive 01/29/2020 12:00:00 AM EDT ORAL acti ve [facility] ([facility]) Carboxymethylcellulose Sodium 5 MG/ML Ophthalmic Solution Re fresh Plus 01/29/2020 12:00:00 AM EDT OPHTHALMIC active [facility] ([facility]) Acetaminophen 325 MG Oral Tablet Acetaminophen 01/29/2020 12:00:00 AM EDT active [facility] ([facility]) latanoprost 0.05 MG/ML Ophthalmic Solution Latanoprost 01/29/2020 12:00:00 AM EDT OPHTHALMIC active [facility] ([facility]) Tamsulosin hydrochloride 0.4 MG Oral Capsule tamsulosi n (FLOMAX) capsule 0.4 mg tamsulosin (FLOMAX) capsule 0.4 mg 10/10/2019 09:45:00 AM EST 0.4 mg Oral active 0.4 mg, Oral, Daily Standard, First dose on Tue10/10/19 at 0945, For 30 days
Swallow whole. Do not crush, chew or open.
[facility] Medication administered onsite atorvastatin 20 MG Oral Tablet atorvastatin (LIPITOR) tablet 20 mg atorvastatin (LIPITOR) tablet 20 mg 10/10/2019 09:00:00 AM EST 20 mg Oral active 20 mg, Oral, Daily Standard, First dose on Tue10/10/19 at 0900, For 30 days
Hazardous drug. Follow precautions. Dispose of properly.
[facility] Medication administered onsite Fluoxetine 20 MG Oral Capsule fluoxetine (PROZAC) caps ule 20 mg fluoxetine (PROZAC) capsule 20 mg 10/10/2019 09:00:00 AM EST 20 mg Oral active 20 mg, Oral, Daily Standard, First dose on Tue10/10/19 at 0900, For 30 days [facility] Medication administered onsite pantoprazole 4 MG/ML Injectable Solution pantoprazole (PROTONIX) injection 40 mg pantoprazole (PROTONIX) injection 40 mg 10/10/2019 09:00:00 AM EST 40 mg Intravenous active 40 mg, Intrav enous, Daily Standard, First dose on Tue10/10/19 at 0900, For 30 days [facility] Medication administered onsite Allopurinol 100 MG Oral Tablet allopurinol (ZYLOPRIM) tablet 200 mg allopurinol (ZYLOPRIM) tablet 200 mg 10/10/2019 09:00:00 AM EST 200 mg Oral active 200 mg, Oral, Daily Standard, First dose on Tue 0 at 0900, For 30 days [facility] Medication administered onsite Levothyroxine Sodium 0.05 MG Oral Tablet levothyroxine (SYNTHROID, LEVOTHROID) tablet 50 mcg levothyroxine (SYNTHROID, LEVOTHROID) tablet 50 mcg 07:00:00 AM EST 50 ug Oral active 50 mcg, Oral, Daily Standard, First dose on Tue10/10/19 at 0700, For 30 days [facility] Medication administered onsite latanoprost 0.05 MG/ML Ophthalmic Soluti on latanoprost (XALATAN) 0.005 % ophthalmic solution 1 drop latanoprost (XALATAN) 0.005 % ophthalmic solution 1 drop 10/09/2019 10:00:00 PM EST 1 [drp] Both Eyes active 1 drop, Both Eyes, Nightly, First dose on Tue10/09/19 at 2200, For 30 days [facility] Medication administered onsite Losartan Potassium 25 MG Oral Tablet losartan (COZAAR) tablet 12.5 mg losartan (COZAAR) tablet 12.5 mg 10/09/2019 10:00:00 PM EST 12.5 mg Oral active 12.5 mg, Oral, Nightly, First dose on 10/09/19 at 2200, For 30 days
Check vital signs before administering
[facility] Medication administered onsite Magnesium Hydroxide 80 MG/ML Oral Suspen deyanira magnesium hydroxide (MILK OF MAGNESIA) 400 MG/5ML suspension 45 mL magnesium hydroxide (MILK OF MAGNESIA) 4 00 MG/5ML suspension 45 mL 10/09/2019 10:00:00 PM EST 45 mL Oral active 45 mL, Oral, Nightly, First dose on Tue10/09/19 at 2200, For 30 days
If serum creatinine > 2 notify provider before administering.
[facility] Medication administered onsite carvedilol 6.25 MG Oral Tablet carvedilol (COREG) tabl et 3.125 mg carvedilol (COREG) tablet 3.125 mg 10/09/2019 09:00:00 PM EST 3.125 mg Oral active 3.125 mg, Oral, 2 Times Daily, First dos e on Tue10/09/19 at 2100, For 30 days
Check vital signs before administering
[facility] Medication administered onsite Furosemide 20 MG Oral Tablet furosemide (LASIX) tablet 20 mg furosemide (LASIX) tablet 20 mg 10/09/2019 09:00:00 PM EST 20 mg Oral activ e 20 mg, Oral, 2 Times Daily, First dose on Tue10/09/19 at 2100, For 30 days [facility] Medication administered onsite ondansetron (ZOFRAN) 4 MG/2ML injection [id number] 10/09/19 04:49:47 PM EST completed Starting Tue at 1649, For 1 dose
Katerin Shelton : julitat override
[facility] Medication administered onsite ondansetron (ZOFRAN) injection 4 mg [id number] 10/09/2019 04:48:2 6 PM EST 4 mg Intravenous active 4 mg, In travenous, Every 8 hours PRN, Nausea, Vomiting, Starting Tue10/09/19 at 1648, For 30 days [facility] Medication administered onsite iohexol (OMNIPAQUE) 350 MG/ML contrast injection 75 mL [id number] 10/09/2019 03:45:00 PM EST 75 mL Given by IV completed 75 mL, Given by IV, 1 TIME IMAGING, Tue10/09/19 at 1545, For 1 dose [facility] Medication administered onsite desmopressin (DDAVP) injection 20 mcg [id number] 10/09/2019 02:45 :00 PM EST 20 ug Intravenous completed 20 mcg, Intravenous, Once, e 10/09/19 at 1445, For 1 dose
Dilute in 50 mL NS over 30 minutes
[facility] Medication administered onsite NaCl infusion 0.9 % [id number] 10/09/2019 01:15:00 PM EST Intravenous aborted at 75 mL/hr, Intrave nous, Continuous, Starting Tue10/09/19 at 1315, For 30 days [facility] Medication administered onsite Hydralazine Hydrochloride 20 MG/ML Injec table Solution hydrALAZINE (APRESOLINE) injection 10 mg hydrALAZINE (APRESOLINE) injection 10 mg 10/09/2019 01 :11:38 PM EST 10 mg Intravenous active 10 m g, Intravenous, Every 6 hours PRN, Other, Starting Tue10/09/19 at 1311, For 30 days
Dilute in 25-50 ml normal saline. Administer over 30 minutes.
[facility] Medication administered onsite sennosides, FCI 35.2 MG/ML Oral Solution senna (SENOKO T) syrup 10 mL senna (SENOKOT) syrup 10 mL 10/09/2019 01:11:38 PM EST 10 mL Oral active 10 mL, Oral, Nightly PRN, Constipation, Starting Tue10/09/19 at 1311, For 30 days [facility] Medication administered onsite sennosides, FCI 8.6 MG Oral Tablet senna 8.6 MG 2 tablet sen na 8.6 MG 2 tablet 10/09/2019 01:11:38 PM EST 2 {tbl} Oral active 2 tablet, Oral, Nightly PRN, Constipation, Starting Tue10/09/19 at 1311, For 30 days [facility] Medication administered onsite 4 ML Labetalol hydrochloride 5 MG/ML Car tridge labetalol (NORMODYNE,TRANDATE) injection 10 mg labetalol (NORMODYNE,TRANDATE) injection 10 mg 020 01:11:38 PM EST 10 mg Intravenous active 10 mg, Intravenous, Every 6 hours PRN, High Blood Pressure, Starting 10/09/19 at 1311, For 30 days [facility] Medication administered onsite Acetaminophen 325 MG Oral Tablet acetaminophen (TYLENO L) tablet 650 mg acetaminophen (TYLENOL) tablet 650 mg 10/09/2019 01:11:37 PM EST 65 0 mg Oral active 650 mg, Oral, E very 6 hours PRN, Headaches, Fever, Starting 10/09/19 at 1311, For 30 days
Maximum daily dose of acetaminophen is 3,000 mg from all sources in 24 hours.
[facility] Medication administered onsite Bisacodyl 10 MG Rectal Suppository bisacodyl (DULCOLAX ) suppository 10 mg bisacodyl (DULCOLAX) suppository 10 mg 10/09/2019 01:11:37 PM EST 10 mg Rectal active 10 mg, Rectal, Every 72 hours PRN, Constipation, Starting 10/09/19 at 1311, For 30 days
Hold if patient has had BM within the past 2 days.
[facility] Medication administered onsite Cyclosporine 0.5 MG/ML Ophthalmic Suspension [Restasis] Rest asis 09/24/2019 12:00:00 AM EST OPHTHALMIC active [facility] ([facility]) Furosemide 20 MG Oral Tablet Furosemide 09/24/2019 12:00:00 AM EST ORAL active [facility] ([facility]) carvedilol 3.125 MG Oral Tablet Carvedilol 09/24/2019 12:00:00 AM EST ORAL active [facility] ([facility]) Allopurinol 100 MG Oral Tablet Allopurinol 09/24/2019 12:00:00 AM EST ORAL active [facility] ([facility]) latanoprost 0.05 MG/ML Ophthalmic Solution Latanoprost 09/24/2019 12:00:00 AM EST OPHTHALMIC active [facility] ([facility]) Carboxymethylcellulose Sodium 5 MG/ML Ophthalmic Solution Re fresh Tears 09/24/2019 12:00:00 AM EST OPHTHALMIC active [facility] ([facility]) Tamsulosin hydrochloride 0.4 MG Oral Capsule Tamsulosin HCL 09/12/2019 12:00:00 AM EST ORAL completed [facility] ([facility]) atorvastatin 40 MG Oral Tablet Atorvastatin Calcium 40 MG Oral Tablet (LIPITOR) Atorvastatin Calcium 40 MG Oral Tablet (LIPITOR) 08/20/2019 12:00:00 AM EST 40 mg Oral aborted Take 1 tablet by mouth e very evening [facility] Aspirin 81 MG Delayed Release Oral Tablet Aspirin 04/02/2019 1 2:00:00 AM EDT ORAL completed [facility] ([facility] [facility]) Amoxicillin 500 MG Oral Capsule Amoxicillin 500 MG Ora l Capsule (AMOXIL) Amoxicillin 500 MG Oral Capsule (AMOXIL) 2000 mg Oral aborted Take 2,000 mg by mouth 1 hour prior to dental procedure. [facility] Magnesium Hydroxide 80 MG/ML Oral Suspen deyanira Magnesium Hydroxide 400 MG/5ML Oral Suspension (MILK OF MAGNESIA) Magnesium Hydroxide 400 MG/5ML Oral Susp ension (MILK OF MAGNESIA) 30 mL Oral aborted Take 30 mLs by mouth daily as needed for Constipation [facility] Acetaminophen 500 MG Oral Tablet Acetaminophen 500 MG Oral Tablet (TYLENOL) Acetaminophen 500 MG Oral Tablet (TYLENOL) 500 mg Oral aborted Take 500 mg by mouth Three times daily as needed for Pain or Fever [facility] Sucralfate 1000 MG Oral Tablet Sucralfate 1 GM Oral Ta blet (CARAFATE) Sucralfate 1 GM Oral Tablet (CARAFATE) 1 g Oral aborted Take 1 g by mouth Four times daily [facility] pantoprazole 40 MG Delayed Release Oral Tablet Pantoprazole Sodium 40 MG Oral Tablet Delayed Release (PROTONIX) Pantoprazole Sodium 40 MG Oral Tablet De layed Release (PROTONIX) 40 mg Oral aborted Take 40 mg by mouth Two Times Daily [facility] sennosides, FCI 8.6 MG Oral Tablet Senna 8.6 MG Oral T ablet Senna 8.6 MG Oral Tablet 1 {tbl} Oral aborted Take 1 tablet b y mouth daily as needed [facility] Nitroglycerin 0.4 MG Sublingual Tablet N itroglycerin 0.4 MG Sublingual Tablet Sublingual (NITROSTAT) Nitroglycerin 0.4 MG Sublingual Tablet S ublingual (NITROSTAT) 0.[address] 0.4 mg under the tongue every 5 (five) minutes as needed for Chest pain [facility] Aspirin 81 MG Delayed Release Oral Table t Aspirin 81 MG Oral Tablet Delayed Release Aspirin 81 MG Oral Tablet Delayed Release 81 mg Oral aborted Take 81 mg by mouth daily [facility] Insurance Providers Payer name Policy type / Coverage type Policy ID Covered democrat ID Covered democrat's relationship to montalvo Policy Monatlvo Plan Information WELLCARE [id number] SP [id number] MEDICARE [id number] SP [id number] VA CCN OPTUM [id number] SP [id number] OPTUM VA CCN [id number] SP [id number] 'S ADMINISTRATION [id number] SP [id number] TODAYS OPTIONSDO NOT USE [id number] SP [id number] SPECIAL FUNDS CONSERVATION-DEW [facility] - [id number] SP [facility] - [id number] OTHER B [id number] Self [id number] WELLCARE O [id number] S [id number] WELLCARE MEDICARE O G [id number] Self [id number] WPS MVH-VAPCCC [facility] [id number] SP [id number] WEST O [id number] S [id number] WELLCARE MEDICARE O G [id number] Self [id number] TODAYS OPTIONS [id number] SP [id number] Medicare Natl Govt Servic Medicare Primary [id number] Self [id number] Wellcare/Todays Optmcr Commercial [id number] Self [id number] Medicare Natl Govt Servic Medicare Primary [id number] Self [id number] MEDICARE C [id number] S [id number] WELLCARE [facility] O [id number] S [id number] WELLCARE HEALTH PLANS [id number] S [id number] MEDICARE [id number] SP [id number] MEDICARE PART A [facility] [id number] 18 [id number] Medicare Natl Govt Servic Medicare Primary [id number] Self [id number] MEDICARE [id number] SP [id number] Wellcare MCR - To Ppo Commercial [id number] Self [id number] Medicare (Part B) Medicare Primary [id number] Self [id number] Today's Options Ppo Commercial [id number] Self [id number] Today's Options PFFS Commercial [id number] Self [id number] Medicare Natl Govt Servic Medicare Primary [id number] Self [id number] Medicare Natl Govt Servic Medicare Primary [id number] Self [id number] Medicare Natl Govt Servic Medicare Primary [id number] Self [id number] URUGUAYAN PROGRESSIVE [id number] SP [id number] TODAYS OPTIONS [id number] SP [id number] ANSI-Medicare Part [id number] Medicare Natl Govt Servic Medicare Primary [id number] Self [id number] Todays Option Medicare Commercial [id number] Self [id number] TODAYS OPTIONS [id number] SP [id number] Medicare (Part B) Medicare Primary [id number] Self [id number] Today's Options Ppo Commercial [id number] Self [id number] Medicare (Part B) Medicare Primary [id number] Self [id number] Today's Options Ppo Commercial [id number] Self [id number] TODAYS OPTIONS/URUGUAYAN O [id number] S [id number] Medicare Natl Govt Servic Medicare Primary [id number] Self [id number] Medicare Natl Govt Servic Medicare Primary [id number] Self [id number] Medicare Natl Govt Servic Medicare Primary [id number] Self [id number] Medicare Natl Govt Servic Medicare Primary [id number] Self [id number] Medicare Natl Govt Servic Medicare Primary [id number] Self [id number] Medicare Natl Govt Servic Medicare Primary [id number] Self [id number] Medicare Natl Govt Servic Medicare Primary [id number] Self [id number] Medicare Natl Govt Servic Medicare Primary [id number] Self [id number] Todays Option Medicare Commercial [id number] Self [id number] Todays Options Commercial [id number] Self [id number] TODAYS OPTIONS [id number] SP [id number] TODAYS OPTIONS [id number] SP [id number] TODAYS OPTIONS [id number] SP [id number] MEDICARE C [id number] S [id number] Medicare Natl Govt Servic Medicare Primary [id number] Self [id number] Medicare (Part B) Medicare Primary [id number] Self [id number] Today's Options Ppo Commercial [id number] Self [id number] Medicare Natl Govt Servic Medicare Primary [id number] Self [id number] STATE INSURANCE FUND O [id number] S [id number] Medicare Natl Govt Servic Medicare Primary [id number] Self [id number] Medicare Natl Govt Servic Medicare Primary [id number] Self [id number] STATE INSURANCE FUND O [id number] S [id number] Medicare (Part B) Medicare Primary [id number] Self [id number] Today's Options Ppo Commercial [id number] Self [id number] Medicare Natl Govt Servic Medicare Primary [id number] Self [id number] Medicare (Part B) Medicare Primary [id number] Self [id number] Today's Options Ppo Commercial [id number] Self [id number] Medicare Natl Govt Servic Medicare Primary Self Todays Option Medicare Commercial Advantage 200 Ppo Self Advantage 200 Ppo SPECIAL FUNDS CONSERVATION-DEW [facility] - [id number] SP WCB - [id number] SPECIAL FUNDS CONSERVATION-DEW [id number] SP [id number] Medicare (Part B) Medicare Primary Self Today's Options PFFS Commercial Self Today's Options Ppo Commercial Self URUGUAYAN PROGRESSIVE [id number] SP [id number] TODAYS OPTIONS [id number] SP [id number] SP [id number] URUGUAYAN PROGRESSIVE [id number] SP [id number] SPECIAL FUNDS CONSERVATION-DEW [id number] SP [id number] Medicare Medicare Primary Self SELF PAY UNAVAILABLE SP UNAVAILA BLE SPECIAL FUNDS CONSERVATION-DEW [id number] SP [id number] TODAYS OPTIONS [id number] SP [id number] [facility] P [id number] S [id number] SPECIAL FUNDS P [id number] S [id number] Problems, Conditions, and Diagnoses Code Display Name Description Problem Type Effective Dates Data Source(s) 311170998 Permanent atrial fibrillation Permanent atrial fibrill ation Problem 04/30/2020 12:00:00 AM EDT [facility] ([facility], ) [id number] Permanent atrial fibrillation Permanent atrial fibrill ation Problem 01/30/2020 12:00:00 AM EDT [facility] (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 Diagnosis 10/10/2019 02:00:50 P M [facility] ICH ICH Diagnosis 10/09/2019 01:03:21 PM [facility] I61.5 Nontraumatic intracerebral hemorrhage, i ntraventricular Nontraumatic intracerebral hemorrhage, intraventricular Diagnosis 08/17/2019 01:44: 31 AM [facility] I48.91 Unspecified atrial fibrillation Unspecified atri al fibrillation Diagnosis 08/16/2019 03:35:19 AM [facility] F03.90 Unspecified dementia without behavioral disturbance Unspecified dementia without behavioral disturbance Diagnosis 08/16/2019 03:34:53 AM [facility] W19.XXXA Unspecified fall, initial encounter Unsp ecified fall, initial encounter Diagnosis 08/15/2019 11:19:38 PM [facility] 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 s alf (current) use of anticoagulants Diagnosis 08/15/2019 11:19:38 PM [facility] 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 Hemiplegia and hemiparesis following cer ebral infarction affecting left non-dominant side Diagnosis 08/15/2019 11:19:38 PM [facility] S01.312A Laceration without foreign body of left ear, initial encounter Laceration without foreign body of left ear, initial encounter Diagnosis 08/15/2019 11:19:38 PM [facility] S06.349A Traumatic hemorrhage of righ t cerebrum with loss of consciousness of unspecified duration, initial encounter Traumatic hemorrhage of right cerebrum with loss of consciousness of unspecified duration, initial encounter Diagnosis 08/15/2019 11:19:38 PM [facility] s/p fall with Right occipital horn of ve ntrical bleed. Pt on eliquis. s/p fall with Right occipital horn of ventrical bleed. Pt on eliquis. Diagnosis 08/15/2019 11:19:38 PM [facility] Surgeries/Procedures Procedure Description Date Indications Data Source(s) ECG ROUTINE ECG W/LEAST 12 LDS W/I&R 08/04/2020 12:00: 00 AM EST [facility] ([facility]) INTERROGATION EVAL REMOTE </90 D 1/2/SHIPPING ASSISTANT LEAD PM 07/28 12:00:00 AM EST [facility] ([facility]) INTERROGATION REMOTE </90 D JEWEL BEARING FACER REVIEW 07/28/20 12:00:00 AM EST [facility] ([facility]) ECG ROUTINE ECG W/LEAST 12 LDS W/I&R 01/30/2020 12:00: 00 AM EDT [facility] ([facility]) INTERROGATION EVAL IN PERSON 1/DUAL/SHIPPING ASSISTANT LEAD PM 2019 12:00:00 AM EDT [facility] ([facility]) XR CHEST FRONTAL ONLY 64154 XR CHEST FRONTAL ONLY 05692 Routine 10/12/2019 8:51 AM EST 10/12/2019 01:51:00 PM [facility] BASIC METABOLIC PANEL CALCIUM TOTAL BASIC METABOLIC PANEL STAT 10/12/2019 7:47 AM EST 10/12/2019 12:47:00 PM [facility] BLOOD COUNT COMPLETE AUTOMATED CBC Routine 10/12/2019 3:58 A M EST 10/12/2019 08:58:00 AM [facility] BASIC METABOLIC PANEL CALCIUM TOTAL BASIC METABOLIC PANEL Routi ne 10/12/2019 3:58 AM EST 10/12/2019 08:58:00 AM [facility] BLOOD COUNT COMPLETE AUTOMATED CBC Routine 10/11/2019 4:38 A M EST 10/11/2019 09:38:00 AM [facility] BASIC METABOLIC PANEL CALCIUM TOTAL BASIC METABOLIC PANEL Routi ne 10/11/2019 4:38 AM EST 10/11/2019 09:38:00 AM [facility] BLOOD COUNT COMPLETE AUTOMATED CBC Routine 10/10/2019 3:19 A M EST 10/10/2019 08:19:00 AM [facility] THYROID STIMULATING HORMONE TSH TSH Routine 10/10/2019 3:19 AM EST 10/10/2019 08:19:00 AM [facility] BASIC METABOLIC PANEL CALCIUM TOTAL BASIC METABOLIC PANEL Routi ne 10/10/2019 3:19 AM EST 10/10/2019 08:19:[address] [facility] [address] HEAD/BRAIN W/O CONTRAST MATERIAL CT HEAD WITHOUT CONTRAST 70 450 Routine 10/09/2019 10:14 PM EST 10/10/2019 03:14:07 AM [facility] CT ANGIOGRAPHY NECK W/CONTRAST/NONCONTRAST CT ANGIOGRAPHY NECK 39746 Routine 10/09/2019 4:41 PM EST 10/09/2019 09:41:45 PM [facility] CT ANGIOGRAPHY HEAD W/CONTRAST/NONCONTRAST CT ANGIOGRAPHY HEAD 88691 Routine 10/09/2019 4:41 PM EST 10/09/2019 09:41:45 PM [facility] XR CHEST FRONTAL ONLY 60157 XR CHEST FRONTAL ONLY 44723 Routine 10/09/2019 2:18 PM EST 10/09/2019 07:18:05 PM [facility] THROMBOPLASTIN TIME PARTIAL PLASMA/WHOLE BLOOD PARTIA L THROMBOPLASTIN TIME (PTT) STAT 10/09/2019 2:05 PM EST 10/09/2019 07:05 :00 PM [facility] PROTHROMBIN TIME PROTIME INR STAT 10/09/2019 2:05 PM EST 10/09/2019 07:05:00 PM [facility] BLOOD COUNT COMPLETE AUTO&AUTO DIFRNTL WBC COUNT CBC AND DIFFER ENTIAL STAT 10/09/2019 2:05 PM EST 10/09/2019 07:05:00 PM [facility] BLOOD TYPING ABO TYPE AND SCREEN STAT 10/09/2019 2:05 PM EST 10/09/2019 07:05:00 PM [facility] PHOSPHORUS INORGANIC PHOSPHORUS LEVEL STAT 10/09/2019 2:[address] 10/09/2019 07:05:00 PM [facility] MAGNESIUM MAGNESIUM LEVEL STAT 10/09/2019 2:05 PM EST 10/09/2019 07:05:00 PM [facility] HEMOGLOBIN GLYCOSYLATED A1C HEMOGLOBIN A1C STAT 10/09/2019 2:05 PM EST 10/09/2019 07:05:00 PM [facility] CALCIUM IONIZED CALCIUM, IONIZED STAT 10/09/2019 2:05 PM EST 10/09/2019 07:05:00 PM [facility] HEPATIC FUNCTION PANEL HEPATIC FUNCTION PANEL A STAT 0 2:05 PM EST 10/09/2019 07:05:00 PM [facility] LIPID PANEL LIPID PANEL STAT 10/09/2019 2:05 PM EST 10/09/2019 07:05:00 PM [facility] BASIC METABOLIC PANEL CALCIUM TOTAL BASIC METABOLIC PANEL STAT 10/09/2019 2:05 PM EST 10/09/2019 07:05:00 PM EST [facility] EKG 12-LEAD - CMAXX REPORT EKG 12-LEAD - CMAXX REPORT 10/09/2019 1:48 PM EST 10/09/2019 06:48:[address] [facility] EKG 12-LEAD - CMAXX REPORT EKG 12-LEAD - CMAXX REPORT 10/09/2019 1:48 PM EST 10/09/2019 06:48:[address] [facility] EKG 12-LEAD EKG 12-LEAD STAT 10/09/2019 1:48 PM EST 10/09/2019 06:48:43 PM [facility] Results ID Date Data Source [id number] 09/24/2020 10:45:00 AM EST [facility] Name Value Range Interpretation Code Description Data Josefina rce(s) Supporting Document(s) SARS coronavirus 2 RNA Not Detected [facility] [place] This lab was ordered by [facility] and reported by [facility]. ID Date Data Source [id number] 09/17/2020 11:00:00 AM EST [facility] Name Value Range Interpretation Code Description Data Josefina rce(s) Supporting Document(s) SARS coronavirus 2 RNA Not Detected [facility] [place] This lab was ordered by [facility] and reported by [facility]. ID Date Data Source [id number] 09/12/2020 11:30:00 AM EST [facility] Name Value Range Interpretation Code Description Data Josefina rce(s) Supporting Document(s) SARS coronavirus 2 RNA Not Detected [facility] [place] This lab was ordered by [facility] and reported by [facility]. ID Date Data Source [id number] 09/08/2020 09:30:00 AM EST [facility] Name Value Range Interpretation Code Description Data Josefina rce(s) Supporting Document(s) SARS coronavirus 2 RNA Not Detected [facility] [place] This lab was ordered by [facility] and reported by [facility]. ID Date Data Source [id number] 09/01/2020 10:17:00 AM EST [facility] Name Value Range Interpretation Code Description Data Josefina rce(s) Supporting Document(s) SARS coronavirus 2 RNA [Presence] in Res piratory specimen by GEOVANNA with probe detection [facility] This lab was ordered by [facility] a nd reported by [facility]. ID Date Data Source [id number] 08/27/2020 11:00:00 AM EST [facility] Name Value Range Interpretation Code Description Data Josefina rce(s) Supporting Document(s) SARS coronavirus 2 RNA [facility] This lab was ordered by [facility] and reported by [facility]. ID Date Data Source [id number] 08/21/2020 10:45:00 AM EST [facility] Name Value Range Interpretation Code Description Data Josefina rce(s) Supporting Document(s) SARS coronavirus 2 RNA [facility] This lab was ordered by [facility] and reported by [facility]. ID Date Data Source [id number] 08/17/2020 05:00:00 PM EST [facility] Name Value Range Interpretation Code Description Data Josefina rce(s) Supporting Document(s) SARS coronavirus 2 RNA [facility] This lab was ordered by [facility] and reported by [facility]. ID Date Data Source [id number] 07/30/2020 12:00:00 PM EST [facility] Name Value Range Interpretation Code Description Data Josefina rce(s) Supporting Document(s) SARS coronavirus 2 RNA [facility] This lab was ordered by [facility] and reported by [facility]. ID Date Data Source [id number] 07/24/2020 02:00:00 PM EST [facility] Name Value Range Interpretation Code Description Data Josefina rce(s) Supporting Document(s) SARS coronavirus 2 RNA [facility] This lab was ordered by [facility] and reported by [facility]. ID Date Data Source [id number] 07/17/2020 01:50:00 PM EST [facility] Name Value Range Interpretation Code Description Data Josefina rce(s) Supporting Document(s) SARS coronavirus 2 RNA [facility] This lab was ordered by [facility] and reported by [facility]. ID Date Data Source [id number] 05/19/2020 02:58:00 PM EDT [facility] ([facility]) Name Value Range Interpretation Code Description Data Josefina rce(s) Supporting Document(s) Triglycerides 95 [facility] ([facility]) HDL 65 [facility] ([facility]) Cholesterol 152 [facility] ([facility]) Cholesterol in LDL [Mass/volume] in Serum or Plasma by calculation 68 [facility] ([facility]) Chol/HDL Ratio 2.338 [facility] ([facility]) ID Date Data Source [id number] 05/19/2020 02:58:00 PM EDT [facility] ([facility]) Name Value Range Interpretation Code Description Data Josefina rce(s) Supporting Document(s) Calcium [Mass/volume] in Serum or Plasma 9.1 [facility] ([facility]) Sodium 134 [facility] ([facility]) Potassium [Moles/volume] in Serum or Plasma 4.0 [facility] ([facility]) Carbon dioxide, total [Moles/volume] in Serum or Plasma 30 [facility] ([facility]) Chloride [Moles/volume] in Serum or Plasma 99 [facility] ([facility]) Glucose 81 70-100 [facility] ([facility]) Creatinine 0.79 0.70-1.30 [facility] ([facility]) Blood Urea Nitrogen 21 7-18 [facility] ([facility]) Glomerular filtration rate/1.73 sq M.pre dicted [Volume Rate/Area] in Serum or Plasma by Creatinine-based formula (MDRD) Laboratory test result [facility] ([facility]) ID Date Data Source [id number] 05/19/2020 02:58:00 PM EDT [facility] ([facility]) Name Value Range Interpretation Code Description Data Josefina rce(s) Supporting Document(s) Thyroid Stimulating Hormone 2.250 [place] [facility] ([facility]) ID Date Data Source [id number] 05/19/2020 02:58:00 PM EDT [facility] ([facility]) Name Value Range Interpretation Code Description Data Josefina rce(s) Supporting Document(s) Platelets 131 150-450 [facility] ([facility]) White Blood Count 5.3 4.0-10.0 [facility] ([facility]) Red Blood Count 3.68 4.30-6.10 [facility] ([facility]) Hematocrit 36.4 [facility] ([facility]) Hemoglobin 12.3 [facility] ([facility]) ID Date Data Source [id number] 03/19/2020 02:43:00 PM EDT [facility] ([facility]) Name Value Range Interpretation Code Description Data Josefina rce(s) Supporting Document(s) Sodium 137 [facility] ([facility]) Calcium [Mass/volume] in Serum or Plasma 9.0 [facility] ([facility]) Chloride [Moles/volume] in Serum or Plasma 101 [facility] ([facility]) Potassium [Moles/volume] in Serum or Plasma 4.1 [facility] ([facility]) Carbon dioxide, total [Moles/volume] in Serum or Plasma 29 [facility] ([facility]) Glucose 98 70-100 [facility] ([facility]) Glomerular filtration rate/1.73 sq M.pre dicted [Volume Rate/Area] in Serum or Plasma by Creatinine-based formula (MDRD) Laboratory test result [facility] ([facility]) Blood Urea Nitrogen 19 7-18 [facility] ([facility]) Creatinine 0.87 [facility] ([facility]) ID Date Data Source [id number] 03/19/2020 02:43:00 PM EDT [facility] ([facility]) Name Value Range Interpretation Code Description Data Josefina rce(s) Supporting Document(s) Thyroid Stimulating Hormone 1.510 [place] [facility] ([facility]) ID Date Data Source [id number] 03/19/2020 02:43:00 PM EDT [facility] ([facility]) Name Value Range Interpretation Code Description Data Josefina rce(s) Supporting Document(s) White Blood Count 5.3 4.0-10.0 [facility] ([facility]) Hemoglobin 13.4 [facility] ([facility]) Platelets 148 150-450 [facility] Red Blood Count 4.16 4.30-6.10 [facility] Hematocrit 41.4 [facility] ([facility]) ID Date Data Source [id number] 01/22/2020 11:45:00 AM EDT [facility] Name Value Range Interpretation Code Description Data Josefina rce(s) Supporting Document(s) SARS CORONAVIRUS 2 RNA [facility] This lab was ordered by [facility] and reported by [facility]. ID Date Data Source [id number] 01/14/2020 02:03:00 PM EDT [facility] ([facility]) Name Value Range Interpretation Code Description Data Josefina rce(s) Supporting Document(s) Blood Urea Nitrogen 23 7-18 [facility] ([facility]) Glucose 83 83-110 [facility] Sodium 139 136-145 [facility] Potassium 4.4 3.5-5.1 [facility] ([facility] Creatinine 0.85 0.6-1.0 [facility] ([facility]) Calcium 8.8 8.2-9.6 [facility] ([facility] Carbon Dioxide 29 21-32 [facility] ([facility]) Chloride 105 98-107 [facility] ([facility] Glomerular filtration rate/1.73 sq M.pre dicted [Volume Rate/Area] in Serum or Plasma by Creatinine-based formula (MDRD) Laboratory test result [facility] ([facility]) ID Date Data Source [id number] 01/14/2020 02:03:00 PM EDT [facility] ([facility]) Name Value Range Interpretation Code Description Data Josefina rce(s) Supporting Document(s) White Blood Count 5.5 5.0-10.0 [facility] ([facility]) Platelets 127 172-450 [facility] ([facility] Red Blood Count 3.95 4.00-5.40 [facility] ([facility]) Hemoglobin 12.3 [facility] ([facility]) Hematocrit 37.4 [facility] ([facility]) ID Date Data Source [id number] 10/12/2019 06:14:42 PM EST [facility] Name Value Range Interpretation Code Description Data Josefina rce(s) Supporting Document(s) Discharge Summary [facility] [id number]/PJTtlBIAvw6H[id number] lbm PoLfoMHfXsIQGxTonKSkBeWHefUudgrYEiIU5ZxTY9SAXbB58oBBXoRIWkD1MmYKKsWOX+Hp4XODHgtG HjOO5NHcnE7K6ov9rBXZ2k7A0qWBFIRXGF6OMfHrMP8VdlTQlH1JRaTM3yUduvIuB1Pm5V9+lSp2xgXI /3wHClEeVFsHgR9Xo7iVxWCOI/38TAcwzDEMV/qz+9 fUGwnyjlp6V3VBlqSl3zdPQ2cMI0q4mjcQ+G7uCIQj+K/N2Kfl4fJim70DJgOWo4SkbSKI44Pw/E5a/C qKTlpBmlNiIgvyZyjsnDqQgSCKSEmprfh25LoL2WG1miFvQMLwlKt02Bih3TCARtZLCdVd8PCWTAo/fI PmwtQ/RQOkqAWqUVeiTZgdz3hXev69ektRQbMfTQhS m4trkS+vd0SEpWp6mgZ9fsmlc5kzqRQVMp0Jc722GIc1coIKrvPbqqU5tQCZRqnLeabJ4gT24VBgg1/3 xvqwFg+dOzMMgTgI7jQjKCsCO9pQS33yz6H0wmUYCDq0utiZpao+Ksjr9zEkM7FHoBWe6WrRRDy3UZA2 sosjTIKyLSXCsVpPemYfUA58pY8HdtpE3ATZFxVbDX r9vgpEfDiVOaIvK+fULy9r1AbTK1n/BUVk2ye+Catherine/nxRQGer3jw3qO87dV24rl1OccPZFGs5Sq77xXv [file] H5XVQ9O6PrUVB1UbNvFBIgLXHmEd4xCUZIYo7+SNxauZXpuLnvEFJUJcP4GRR7GWshNAPTRh5Q ID Date Data Source [id number] 10/12/2019 11:30:22 AM [facility] XR CHEST FRONTAL ONLY [id number] RESULTI nterpreted by:Martha Scruggs MDINDICATION: Dyspnea please evaluate for changesTECHNIQUE: Portable AP view at 75 degrees upright.COMPARISON: 10/09/2019.FINDINGS: The median sternotomy wires and dual-lead pacemaker are in stable position.The chest wall and cardiomediastinal contours remain unchanged. Small left pleural effusion is present. There are persistent confluent opacities within the retrocardiac lung bases which are unchanged in the prior examination. The lungs are otherwise clear. No acute disease in the chest wall.The osseous structures unchanged in interval.IMPRESSION:No change in the persistent confluent opacities in the lung bases most compatible with atelectasis, however superimposed airspace disease cannot be excluded.This document has been electronically signed by Fredy Us MD on 10/12/2019 11:28 AM Name Value Range Interpretation Code Description Data Josefina rce(s) Supporting Document(s) ID Date Data Source [id number] 10/12/2019 08:30:05 AM [facility] Name Value Range Interpretation Code Description Data Josefina rce(s) Supporting Document(s) Bicarbonate [Moles/volume] in Serum 25 mmol/L 22-29 [facility] Chloride [Moles/volume] in Serum or Plasma 91 mmol/L 98-107 L [facility] Creatinine [Mass/volume] in Serum or Plasma 0.77 mg/dL 0.70-1.20 [facility] Glucose [Mass/volume] in Serum or Plasma 89 mg/dL 70-140 [facility] Potassium [Moles/volume] in Serum or Plasma 3.8 mmol/L 3.4-5.1 [facility] Sodium [Moles/volume] in Serum or Plasma 132 mmol/L 136-145 L [facility] Urea nitrogen [Mass/volume] in Serum or Plasma 13 mg/dL 8-23 [facility] Anion gap 3 in Serum or Plasma 15 mmol/L 8-15 [facility] Osmolality of Serum or Plasma by calculation 277 mosm/kg 275-300 [facility] Creatinine/Urea nitrogen [Mass Ratio] in Serum or Plasma 17 [facility] Calcium [Mass/volume] in Serum or Plasma 8.5 mg/dL 8.8-10.2 L [facility] Glomerular filtration rate/1.73 sq M pre dicted among non-blacks [Volume Rate/Area] in Serum or Plasma by Creatinine-based formula (MDRD) >6 0 [facility] Glomerular filtration rate/1.73 sq M pre dicted among blacks [Volume Rate/Area] in Serum or Plasma by Creatinine-based formula (MDRD) >60 [facility] ID Date Data Source [id number] 10/12/2019 04:17:25 AM [facility] Name Value Range Interpretation Code Description Data Josefina rce(s) Supporting Document(s) Leukocytes [#/volume] in Blood by Automated count 6.7 10*3/uL 4-10 [facility] Erythrocytes [#/volume] in Blood by Automated count 3.85 10*6/uL 4.6- 6.1 L [facility] Hemoglobin [Mass/volume] in Blood 12.0 g/dL 13.5-18 L [facility] Hematocrit [Volume Fraction] of Blood by Automated count 35.8 % 4 1-53 L [facility] Erythrocyte mean corpuscular volume [Entitic volume] by Auto mated count 92.9 fL 80-96 [facility] Erythrocyte mean corpuscular hemoglobin [Entitic mass] by Automated count 31.1 pg 27-33 [facility] Erythrocyte mean corpuscular hemoglobin concentration [Mass/volume] by Automated count 33.5 g/dL [facility]0-[facility] distribution width [Ratio] by Automated count 14.2 % 11.5-14.5 [facility] Platelets [#/volume] in Blood by Automated count 112 10*3/uL 150-400 L [facility] ID Date Data Source [id number] 10/12/2019 04:56:29 AM [facility] Name Value Range Interpretation Code Description Data Josefnia rce(s) Supporting Document(s) Bicarbonate [Moles/volume] in Serum 25 mmol/L - [facility] Confirmed Chloride [Moles/volume] in Serum or Plasma 92 mmol/L 98-107 L [facility] Confirmed Creatinine [Mass/volume] in Serum or Plasma 0.77 mg/dL 0.70-1.20 [facility] Glucose [Mass/volume] in Serum or Plasma 97 mg/dL 70-140 [facility] Potassium [Moles/volume] in Serum or Plasma 3.8 mmol/L 3.4-5.1 [facility] Confirmed Sodium [Moles/volume] in Serum or Plasma 131 mmol/L 136-145 L [facility] Confirmed Urea nitrogen [Mass/volume] in Serum or Plasma 14 mg/dL 8- [facility] Anion gap 3 in Serum or Plasma 14 mmol/L 8-15 [facility] Confirmed Osmolality of Serum or Plasma by calculation 272 mosm/kg 275-300 L [facility] Confirmed Creatinine/Urea nitrogen [Mass Ratio] in Serum or Plasma 18 [facility] Calcium [Mass/volume] in Serum or Plasma 8.7 mg/dL 8.8-10.2 [facility] Glomerular filtration rate/1.73 sq M pre dicted among non-blacks [Volume Rate/Area] in Serum or Plasma by Creatinine-based formula (MDRD) >6 0 [facility] Glomerular filtration rate/1.73 sq M pre dicted among blacks [Volume Rate/Area] in Serum or Plasma by Creatinine-based formula (MDRD) >60 [facility] ID Date Data Source [id number] 10/11/2019 05:30:39 AM [facility] Name Value Range Interpretation Code Description Data Josefina rce(s) Supporting Document(s) Leukocytes [#/volume] in Blood by Automated count 5.1 10*3/uL 4-10 [facility] Erythrocytes [#/volume] in Blood by Automated count 3.61 10*6/uL 4.6- 6.1 L [facility] Hemoglobin [Mass/volume] in Blood 11.5 g/dL 13.5-18 L [facility] Hematocrit [Volume Fraction] of Blood by Automated count 33.8 % 4 1-53 L [facility] Erythrocyte mean corpuscular volume [Entitic volume] by Auto mated count 93.6 fL 80-96 [facility] Erythrocyte mean corpuscular hemoglobin [Entitic mass] by Automated count 31.9 pg 27-33 [facility] Erythrocyte mean corpuscular hemoglobin concentration [Mass/volume] by Automated count 34.0 g/dL 32.0-36.0 [facility] Erythrocyte distribution width [Ratio] by Automated count 14.9 % 11.5-14.5 H [facility] Platelets [#/volume] in Blood by Automated count 141 10*3/uL 150-400 L [facility] ID Date Data Source [id number] 10/11/2019 05:51:07 AM [facility] Value Range Interpretation Code Description Data Josefina rce(s) Supporting Document(s) Bicarbonate [Moles/volume] in Serum 22-29 [facility] Hemolyzed Chloride [Moles/volume] in Serum or Plasma 98-107 [facility] Creatinine [Mass/volume] in Serum or Plasma 0.70-1.20 [facility] Glucose [Mass/volume] in Serum or Plasma 70-140 [facility] Potassium [Moles/volume] in Serum or Plasma 3.4-5.1 [facility] Hemolyzed. FELICIANO MCCORMICK RN [phone] [id number] BY [id number] Sodium [Moles/volume] in Serum or Plasma 136-145 [facility] Urea nitrogen [Mass/volume] in Serum or Plasma 8-23 [facility] Anion gap 3 in Serum or Plasma 8-15 [facility] Osmolality of Serum or Plasma by calculation 275-300 [facility] Creatinine/Urea nitrogen [Mass Ratio] in Serum or Plasma [facility] Calcium [Mass/volume] in Serum or Plasma 8.8-10.2 [facility] Glomerular filtration rate/1.73 sq M pre dicted among non-blacks [Volume Rate/Area] in Serum or Plasma by Creatinine-based formula (MDRD) >6 0 [facility] Glomerular filtration rate/1.73 sq M pre dicted among blacks [Volume Rate/Area] in Serum or Plasma by Creatinine-based formula (MDRD) >60 [facility] ID Date Data Source [id number] 10/10/2019 06:35:13 PM [facility] Name Value Range Interpretation Code Description Data Josefina rce(s) Supporting Document(s) Discharge Summary [facility] LTZEXh1kZdJQFnJj68/YBJznWBQdo5RbXWglPWt1FTdzIWPmR1ZpRRG0rX3eMKD3DPqNCyTfMfXoMmQ3 lbm [file] ICAgICAgICAgICAgICAgICAgICAgICAgICAgICAgIC AgICAgICAgICAgICAgICAgICAgICAgICAgICAgICAgICAgICAgICAgICAgICAgICAgICAgICAgICAgIA 0KICAgICAgICAgICAgICAgICAgICAgICAgICAgICAgICAgICAgICAgICAgICAgICAgICAgICAgICAgIC AgICAgICAgICAgICAgICAgICAgICAgICAgICAgICAg TXAdSCGzUFXsCA9NDTYwNKUaVVZjZEGuZCZhNAOuZENhLQBcNJPmTIWjFDAoDQTzGLCxZQLrUSKkFNHw VXTmBMVkIRTpCVVrKDEyBCYyOVIpNUKqFMMqDEShSRVgPGRbKUPeXNDvHMMhDUPzFZEkBZ9ONZHoEZLc ICAgICAgICAgICAgICAgICAgICAgICAgICAgICAgIC AgICAgICAgICAgICAgICAgICAgICAgICAgICAgICAgICAgICAgICAgICAgICAgICAgICAgICAgICAgIC JkGT9SGSPiECUlANLoQRVzRXAbYCHiNUOhPWLyUBBfZWEgXYSwCLHcYXLsGTMuGJFuTYKmIOFhTWGrEX AgICAgICAgICAgICAgICAgICAgICAgICAgICAgICAg LFPfCDStMYDkNXSnJP5MRVWxIRLaXUJcWPCqEISkVBIxWVScQCUpRLTjVDDrDARuLYLcDUAbFGVeJTYw IXQoFTTiDCXdMWSiMCLuLVFoYLNpJCVnYJNvECEoXUQqLOFaNAWxFYFuUYYbJFEkNOWrCQKyPJ4WORZs ICAgICAgICAgICAgICAgICAgICAgICAgICAgICAgIC AgICAgICAgICAgICAgICAgICAgICAgICAgICAgICAgICAgICAgICAgICAgICAgICAgICAgICAgICAgIC JyMEYqCX4RTNNfYEVqTXVkRMPaYZTeQWAqWGMxTLKqRMIoREYoJTXnCJDeGHPzVSFiQIQiVEAtKLGpJM AgICAgICAgICAgICAgICAgICAgICAgICAgICAgICAg TXFoNLQjWRXoGQQbPWYcVF0YDEAjTAJrFERrUBCvCVFgTUKcWCOgUMUgTKEyNISvWUShSTYzVJRmHSCq KLKrSEYtEQDrXNBpFZIlVGQcNDJtHTJmEEPiZUEsUKPpFEQxDXTeBCQmNLRfAKUfMNFiJQIrCZBiBN0C TM48dAKjv1Y0WQDdLK1ojqj/Wa1SWHwcgzPtjVFhOC 4MXeKrJO6kiw4WJjHwBG6lbp5LVSxBTdSqZ2U5aHImKXKlJWMOUcYzG67pFZfaMl80DUtuADVmYsCeIU a0Kt6QEzVnW3xbIADqYwK5AWPeJcL9FWWtZiB4WGWoAuUwUQEmKJBtROJsEIDVDSP3UDUjBzLkUZeeVT 2Rx9FpsGS3TXe+Tz4QHE8gv0YpQNbfMzTuUD7vuh0G RLmXIxNwQ5LytjH3CDHuAVGbYv1NONMiDGMxyOUjJfLjAXLIRxFtQ3NbfK73ALEKCu9+DQplbmRvYmoN MfGpZPZkl7UqGGn6VV0UECLlGDh6xRSsAVwyO9gqggdgPMB2sQ7vojibVhasZtJcvPLjCGtdAaPQSRWk cnJlLCBNRCBhdCAyLzUvMjAyMCAxMjoxOSBQTSkNCi UgQ3Xdx2HpZkL4BLLuDxWcCMmmRLIzXlV0YH54uQhyNZ8UETNlUZHgXY35CXCbCSLnAv4TCw6DLgCgSQ 8ceh4WEyStUINxMmlUBfc8KOdgEN0PiGTfN0LznKTci7gNMxBjJ1HEYFLfELYzSo1XPCHlMhNqIZHjNW oeRB1oTUAsLOFJlAaalgE1ZG3EXR8xcfFbLX8KUmSg Wp4yAo2JKpWiA1EnN3SmHMBdZBHIXPfoJA3RLLztHS5xGF0We0JOeGAynY3jao7TYNEyUDGmStquju2I FtxfV4K0pNteHTDeXhWwBWVGOMouOO0VSKCnHGL8NPLxFHEtSWKEFxVuB00sMJ5IY7Rsk68wOaK7GQMi WjUnJUuoGM75tAcqwyLvzISrjJfiYL7MXs7+DQplbm SxZfhVQoelKIPMSrQsXvTWLbLoVDLiWPPgAFKmSvB4MoKrHm7EBWCfQQYvXEVaVkJgYCZzOJZhAUiaJH JxTNAgJOE6ARDoRRMpRL1GDrRmWNDsHhG1ZORtLOJkDZQbfw8HLLXuDDLlWPZ5AjQeGISdUQVdQGxsIL XuSCMzODPcHCVjJJQhTQ7KGlFvEORiMRHaRxDaWVZn PMIqaz3QAWVgFMSpWmSkLdJvRQPrDKDoEQamZKBnEPL8YDC0ECSaFZGsVL3YHwBrADTgALL6CfenJNTw GOTqdz1XWQZzNYOgWAT3LSXsADQnYTSnBIxgBEOfTGBdTuK4SUTkLBEjST2TDeOlPBYhDIY3ElTpYNDq NHOnyb0EHSEaKZEsMJQ2GQEdJBNyHLDeHYbjOVEjAV Y9RQg8BPVrFRGkNC2PCqLfJJNcGTT8DTYiRKRgXJHkpa2AYYBkJDLsNsW3FXMqQQYnPDYsURqrMSWdBA N0OaMoQGQhXYTrCL1IMcCrKGTrARq2YNkeCDFtKIHjvn1KLBYnSFLgRsx2UFNbGOBuWDOpFYpqHBLpCK F4IGZeTJNxJFKvFN6VSsDxZZReYAmpPNCoUUSkIDHt xn5SFWYhIRGeCSO9PZNcKVYuZATpEBotOQIuDEPpJlA7NSAfLJAtEQ4ORpQjUCUpKgBwWVSmJNJrMIAx ql0AJQYiMFVtZCX5HbBmLXKlIMOmRGsrXJThOLCyUWmiCGUeZGWmTH9OBzAlJYRpWoD6YrpmTACvPRHz qf8KPOGkFQMaVjL5EVGqHMIuXJDsSJucMAXzYEKcHx O1NDXuONJyUR4VCuIuXPQsUxS2IQinCUHjFVLdmu1VJGSaUPLyEoT4QOExMEAyIOCeIMhzVYImJLR0FD C9SERxJUFeVZ7JXsVnJLZcSkR2CTIeCEWuNSIbcw8ZWMJvEURbECR2URMlPKVmYMNfHZi4qlRhhZBcBR a6XY2WM3SbywBhOkGFNo2Au123NRB1AEFnNg6QG5os Rx2xSRIrVRXEAo9GKGd4NvO5FIKzMhX6WOG3PjseNcx9UXw3KUXdEly6PBZ1QuX+BAmqZHG3YRF3YZUp KhP0KQW0QMB9ZIW6YpTmBIz7NvloKi3sTUTJEo5+UNpepVLbqLvjNOBEYeL6BmN5UWjtCIMDDh1D ID Date Data Source [id number] 10/10/2019 06:24:32 PM [facility] Name Value Range Interpretation Code Description Data Josefina e(s) Supporting Document(s) History and Physical [facility] IRKVBn4dZpJXNfTc44/PKZvaPHHag7GiIJubPDc2ZLsrNSLmW4GoIXY9nL9wUTL1VZbPKsLhKvIpWgU1 lbm DzXznIZwGcRSFpCugVDeDoNGluXwxbmZXhME1UbON4FAImN85eSBSfXLZsC7XiHSW3PPB+Sk3PNKYqmX QjUW3KYheX9J7sq4pSQk9wnL/IZrMBY3VY2JOyNqXLZ2rYuK2sf7GFie9gy6gS7xTA6Qw5/myhVPdc8X 5qlqK3GNHmcC1x78Vw51kykOOy60z7N7cNVpyex7AT INLqcqL+/TzFW2I2qgr3u53nD5kmkWFlidVfC487c+dI4aorpXIwCchwV99S1NkxNGA1hqAkQseZJe1c qZjMf1HZMA291FE8oleRf6NQu9Kq54Qfpe/8hPw1cRqsG2iJKzUPFhkjKftpdl0sbjAPtwfuYC5wF4/s OPhlSlHptF3uGNkPo+JjgPlmByFd2Evh+lh5KG0xU3 lt+t61YxIH+DpRBoHbtu+qcPciHujkOtV5qwEYvAdWQCanQm3OgQO43A+82mORlUo+TJG+Yjr1UPDJEb ZqvRCLSDyFZfat3moSxXSdJjby4kzAH7U0vF/NGHKvdcUzTdgdj2i4t2uRdXDLUmTUsWaw+W4mOI/9mW py9MvXg3jEKBC9Xq1Xa0lF56VFa1jsd0M8Abfbjoof xsKtoJ7BHssoepC1yGp1R9IF0xBzXlDso8jczEXjC2q3KR/Oyecg1K1/B+0jY8xcH3upcl0gVE2DGy7S Ud3WvQ79IA2uo06Xenn/0Ziyl7AD9TL1d1F1m60+k6azy3WtsPc28Pg08IX1FDrKGoBq/BzbexWE+pXr +SZ8wkX6bkFuC1lFrMZqolz6+hUbFErEqJY0iV9tKw nKkIsPjTUKTY3Q9AF2sAGmAbVjSUpBtRjTIAEJM2CQBzuNEn19Jldjw1+FmKyBwy10H0NRBB9Iq8L4d+ q0gw4I20h27mGNFhr+5ajTJ/JESSICA/6S23i+gIGQc6tqWtWhYL7P3OGDZTkw0zjs1zXRw52eizUvDjIrIT [file] ICAgICAgICAgICAgICAgICAgICAgICAgICAgICAgICAgICAgICAgICAgICAgICAgICAgICAgICAgICAg DVKhKLFiKQKjENBwQDInAWAyCARuOSQcXO0RTOSdEY AgICAgICAgICAgICAgICAgICAgICAgICAgICAgICAgICAgICAgICAgICAgICAgICAgICAgICAgICAgIC UhINSdHQUrQYAgGPAkWEQxKHOcQEXdGGNuZTUgGFNqUHCgRH2LWFKvWMHuOJBrISNpUZIpBUAyGNZrPA AgICAgICAgICAgICAgICAgICAgICAgICAgICAgICAg RYKfKHWmLQNfMOFoOLWlNOZeAWCmTUJyWZSkMTQhFDBfCNEwMHFkGOJyFDIpJA0AWAAdZQHaBBTvDHTx ICAgICAgICAgICAgICAgICAgICAgICAgICAgICAgICAgICAgICAgICAgICAgICAgICAgICAgICAgICAg WIMiLSLxJHZeLPEgGVHvMFBeUFPmZLDuALRgZF1DUK AgICAgICAgICAgICAgICAgICAgICAgICAgICAgICAgICAgICAgICAgICAgICAgICAgICAgICAgICAgIC XyDAXzXIZlULDfRUXsTOIfDXCaOYAgZJHsJWTmNCRyLDDjCIWoXU4UOXIxLDCfFOEcZYSgEOYbVJAnKI AgICAgICAgICAgICAgICAgICAgICAgICAgICAgICAg OGUySGRwWRWfYEQoMPNhHUJgLSUjBJXvJCMpIDZzLLJzDXQjDIZfMOTrORIcXOZnAL2PHKAzWYZhERYp ICAgICAgICAgICAgICAgICAgICAgICAgICAgICAgICAgICAgICAgICAgICAgICAgICAgICAgICAgICAg ICAgICAgICAgICAgICAgICAgICAgICAgICAgICAgIA 0KICAgICAgICAgICAgICAgICAgICAgICAgICAgICAgICAgICAgICAgICAgICAgICAgICAgICAgICAgIC OaWSHsWZFmENPkDMTqJBUmSVQgPYFtAMKpBHPaLIEdVKAaNFRgFVYuPC7FOBWkHZGlTXCdHPVmNSItHA AgICAgICAgICAgICAgICAgICAgICAgICAgICAgICAg JIMjVBOrUXDnIRPoSUOcIALdJHLvPAMnSEUfFGPiEGFcVUKyMWYqERArMRRlZUUeAMKxVU8YIWOnGIMe ICAgICAgICAgICAgICAgICAgICAgICAgICAgICAgICAgICAgICAgICAgICAgICAgICAgICAgICAgICAg ICAgICAgICAgICAgICAgICAgICAgICAgICAgICAgIC KjAU7YSV69uQFny2H2GFXrYA3grcl/Xr3TMWpdmmKkeHOpAR9PVmSaWK4rtu0ASzYrWP7drq8UACcNJx BpG3G9pJFgOAUuPZYSYgWlB86tLQmtPc70EAdfVVUzQoJlYZp8Dd5SDjSjM7rtTFYcQuH3YGOxHjB4PU LbUpO5VAShSkNbWRUiNAYeRHLdOCUUINF0UFLyAlRo LjZoFZUsOM3HTQEwN143omMyTs6SFb0OHeCvRV5iuc3ZAuZkTEUpZqcJVbs5FFnlCF2UtNOtxWVaPNVi VJAEOqCkE5hkd9QsZaHxXFLOPMcoJJ3Sa2NgzGNgGHc+Ad0NES6kk2NwEChiIHFqTO6hoa1QUNkFWiEz O9VbxXyoJExzWXNsmNIXdJkcyQGmYkZPGUgptA9zdk FaMI8BRYO1NRGtHF1aRGPfQTRrUaJ1TCNSRU5YFWVrORAchQPoFIGgWBNXYX7VRCffIXC5ULMsekThfK ViCRcvLO7ASTUyjeWnMmXyDTGLIHj+Fn6MSA0dj4PiAKfaTpNpQA6qps8CYVjIEyAiO5Q4qRZlQ4B8KW cgZr7NDLUdMEKbOrJtKPNPGXbgHR0HSD5fqvW8WX9A fPKcEEZeYKTxrGGsGRe1G15cgSPyRDgnKV9PUKS+Dany+Fv8TUGYzVXNbBHUrQuDtCCFOLcIxU7XxI7KO z6FuH2RmGB98fPhnduJgAKaaRO2SYX1gFPSqJQKCHC5PyAKbjU5wpzYsEXGzANZFZaEaI48ckNEjPZIg TQBeJVQpYh0LFVDtT4KgqaSywWnqtxKlPWXlVNPETM 3NUTneezNxpRTbqQiqSS97bZobWY3IMv4NMlRzTS9ian0RvOMvAu5PKEBtGi4JSOJqDQBqKOSxYQT2AP FtTgBgFQbtKOIdTBIzWWL7CSKkMAXmOQ5SSnSbFEDgUofkFQxeXOUgAZPyxu3PRQChKJRnIBc3DuKgVA PgVTYsMFdvARKzFCUdVVK1XCHjHAWfSE1LRcEsPFRr IAC6NPVhZRIdAAMdvp3IMZFaCLRpDmf2PmFxQDKlONXdHXdlZBJxNDZ5ToStSCTzTTIrMS3TJxMwLBAd ENo3OCWzZRNrPPBrsv3THZIxTLMqFXDuXwIfXULrRSOdDZfcOWAzXJNoUvH3JCSlMBIrTB9WRjPwFBYt IFTtKOQdPRLlJZXrod9TIDBnKUDeWGMnLRPhDWLgVM OgUUlqRSSvZHT7DFTxJBLuUYGsAL7TWyFnGEThKXwbRitaKAYjBNKjeu5FMZJyGSHhNBWfTVUxNNFgFO GpBRszSHFdCWI2KiGuWMFeBXSyTY4AIbMmMFBgIhE5HoOjZFJfDLEked9JCDRzDOUgYPeqZUKjIJRaVN PaYQlvSJDgOLZwEQn8XLKsQPHmGZ7GWwPgLAJzCxDa EZTfNCWxOHZusb8QOKGlFNQtHxT6TEFgPKJiFBCsXPskNTIlTQBuKfR7UMZzTHOhGV9XKnMnQVJvLfE9 ZmTeOKOhDNNsko2WGVGfNIFyCtCgAZPfNNTnUCCxWFwyLKEbGQP2RRTyWMKtQFCsNL6XGjTgUFWaFmOb XaQaQDDiZUIyzf8ZQWBeSQPrQKLoJAHtRCIcRGQqIK jaSOAqEOW9XhS5YANkPZBnXJ1QNhEiKBOlXfI6ESNnAEIqGOKmra5NVBVvLQGzQic1VDYaBMHjBBIjMY ptZXQyROG5QSN0JNOaQPFcJD7QXnMaBDQfKrukCrBjAHNvUNFuql4ZNZCgBGCmYeL5LkHhWYExQUDyGT qsGOToVEJ9QLTyDEUgUFSnIU9ATeIqMREjCgrcXHXh GNEaHINlwh2GJQAwJHNuXXCrPgXaXBIdMUXnSGm8gpMknEWoDLx6QN4XU4WocuOeVtmAEm8Yj103LGC0 GTPdNz5ZI4ksPa9uFJWgMJYGRp0BKNy4IHLaChVwLIV2JECtGbmhEcbgDhW2GkB5QiGnXUU3MFD+IDw1 MDNiZTJlYzgwYzFjOTJjNzMzNjcyMDYyZDJlMTlhYj 8aZUQRLx1+RPdgbRFahUadIEENYvW8LAe0BUtpJVMMZa9X ID Date Data Source [id number] 10/10/2019 03:55:52 PM [facility] Name Value Range Interpretation Code Description Data Josefina e(s) Supporting Document(s) Consultation [facility] ISQTPz9aYgMXTuTm99/BCPfiYBIim7EwYRfnTVg8OAuwGKNwW4LhYQC5zU1aYPL6UKmFVwBfLbPkYyS5 lbm [file] mobile lounge driver+jlz5Zhjhegfv8vP4lttnE3XzcLhYzVwiudvBbqw [file] PmKXr5KPLuAvVtUZ7UXh0SEsI8KPG7uIOuHm0ZGXN9RLUXImPhBS6OMKu= ID Date Data Source [id number] 10/10/2019 03:24:04 PM [facility] CT ANGIOGRAPHY HEAD [id number] RESULTInt erpreted by:Miranda Bryant MDINDICATION: Intracranial hemorrhage. TECHNIQUE: Non-contrast axial CT head images were obtained. CT angiography of the head and neck was performed following the administration of intravenous contrast. Multiple reconstructed images including MIP and 3D volume rendered images were then acquired using the source data at a separate workstation. Automated dose lowering techniques and/or adjustment according to patient size were utilized for this examination.COMPARISON: CT Head dated 10/09/2019 performed at [facility]. FINDINGS:NECT: Redemonstration of hyperdensity along the sulci of the vermis, appears stable in size compared to prior study. Redemonstration of hyperdensity along the right precentral and post central suggestive of small subarachnoid hemorrhages. There is also prominence of the posterior falx consistent with redistribution of hemorrhage. No new acute intracranial hemorrhage or acute territorial infarct. Areas of hypodensity are noted in the periventricular and subcortical white matter consistent with chronic microvascular ischemic disease. There is generalized cerebral volume loss with commensurate enlargement of the ventricles. Ventricles are enlarged. The basal cisterns are unchanged. No extra- axial fluid collections are identified. The calvarium is intact. The visualized paranasal sinuses are clear. There is partial opacification of the right mastoid air cells. Stable area of encephalomalacia in the right posterior parietal lobe.CTA head: Atherosclerotic plaque in the cavernous segments of the internal carotid arteries is without evidence of hemodynamically significant flow stenosis. The intracranial segments of both internal carotid, anterior, middle and posterior cerebral arteries are patent. The intracranial segments of the vertebral arteries and basilar artery are patent. No aneurysm, hemodynamically significant flow stenosis or arteriovenous malformation is identified. There is vascular calcification of the intracranial portion of the left vertebral artery.The superior sagittal sinus, internal cerebral veins, straight sinus, vein of Chad, transverse sinuses and sigmoid sinuses are patent. CTA neck: There is atherosclerotic calcification without hemodynamically significant stenosis at the origins of the bilateral common carotid arteries. Atherosclerotic calcification is noted at the bilateral carotid artery bifurcations. The left vertebral artery is dominant. A normal three-vessel aortic arch is visualized and the origins of the brachiocephalic, left common carotid, left subclavian arteries are patent. The common carotid, external carotid, cervical segments of the internal carotid, and the cervical vertebral arteries are patent. There is no evidence of hemodynamically significant flow stenosis or dissection. There is a left-sided pleural effusion. There is a small right-sided pleural effusion. Multiple small nodular densities are noted in the bilateral lung apices the largest measuring up to [address] thorax for further evaluation.IMPRESSION:1. Stable appearing subarachnoid hemorrhages as described above.2. No evidence of hemodynamically significant flow stenosis or dissection of the major arteries of the neck. No intracranial occlusion, aneurysm or arteriovenous malformation.3. Of incidental note bilateral pleural effusions as well as multiple nodular densities noted in the bilateral lung apices, consider dedicated thoracic imaging for further evaluation.4. Ventriculomegaly.The degree of stenosis was assessed utilizing NASCET Criteria.This document has been electronically signed by Richard Thapa MD on 10/10/2019 3:21 PM Name Value Range Interpretation Code Description Data Josefina rce(s) Supporting Document(s) ID Date Data Source [id number] 10/10/2019 03:24:04 PM [facility] CT ANGIOGRAPHY NECK [id number] RESULTInt erpreted by:Richard Thapa, Miranda Hernandez MDINDICATION: Intracranial hemorrhage. TECHNIQUE: Non-contrast axial CT head images were obtained. CT angiography of the head and neck was performed following the administration of intravenous contrast. Multiple reconstructed images including MIP and 3D volume rendered images were then acquired using the source data at a separate workstation. Automated dose lowering techniques and/or adjustment according to patient size were utilized for this examination.COMPARISON: CT Head dated 10/09/2019 performed at [facility]. FINDINGS:NECT: Redemonstration of hyperdensity along the sulci of the vermis, appears stable in size compared to prior study. Redemonstration of hyperdensity along the right precentral and post central suggestive of small subarachnoid hemorrhages. There is also prominence of the posterior falx consistent with redistribution of hemorrhage. No new acute intracranial hemorrhage or acute territorial infarct. Areas of hypodensity are noted in the periventricular and subcortical white matter consistent with chronic microvascular ischemic disease. There is generalized cerebral volume loss with commensurate enlargement of the ventricles. Ventricles are enlarged. The basal cisterns are unchanged. No extra- axial fluid collections are identified. The calvarium is intact. The visualized paranasal sinuses are clear. There is partial opacification of the right mastoid air cells. Stable area of encephalomalacia in the right posterior parietal lobe.CTA head: Atherosclerotic plaque in the cavernous segments of the internal carotid arteries is without evidence of hemodynamically significant flow stenosis. The intracranial segments of both internal carotid, anterior, middle and posterior cerebral arteries are patent. The intracranial segments of the vertebral arteries and basilar artery are patent. No aneurysm, hemodynamically significant flow stenosis or arteriovenous malformation is identified. There is vascular calcification of the intracranial portion of the left vertebral artery.The superior sagittal sinus, internal cerebral veins, straight sinus, vein of Chad, transverse sinuses and sigmoid sinuses are patent. CTA neck: There is atherosclerotic calcification without hemodynamically significant stenosis at the origins of the bilateral common carotid arteries. Atherosclerotic calcification is noted at the bilateral carotid artery bifurcations. The left vertebral artery is dominant. A normal three-vessel aortic arch is visualized and the origins of the brachiocephalic, left common carotid, left subclavian arteries are patent. The common carotid, external carotid, cervical segments of the internal carotid, and the cervical vertebral arteries are patent. There is no evidence of hemodynamically significant flow stenosis or dissection. There is a left-sided pleural effusion. There is a small right-sided pleural effusion. Multiple small nodular densities are noted in the bilateral lung apices the largest measuring up to [address] thorax for further evaluation.IMPRESSION:1. Stable appearing subarachnoid hemorrhages as described above.2. No evidence of hemodynamically significant flow stenosis or dissection of the major arteries of the neck. No intracranial occlusion, aneurysm or arteriovenous malformation.3. Of incidental note bilateral pleural effusions as well as multiple nodular densities noted in the bilateral lung apices, consider dedicated thoracic imaging for further evaluation.4. Ventriculomegaly.The degree of stenosis was assessed utilizing NASCET Criteria.This document has been electronically signed by Richard Thapa MD on 10/10/2019 3:21 PM Name Value Range Interpretation Code Description Data Josefina rce(s) Supporting Document(s) ID Date Data Source [id number] 10/10/2019 03:22:04 PM [facility] CT HEAD WITHOUT CONTRAST [id number] RESU LTInterpreted by:Miranda Bryant MDINDICATION: 84-year-old male evaluate bleed.TECHNIQUE: Multiaxial CT images of the brain were obtained from the skull base to vertex and displayed at 5 mm and 1.25 mm increments. Automated dose lowering techniques and/or adjustment according to patient size were utilized for this examCOMPARISON: CT angiography head dated 10/09/2019 at 4:32 PM.FINDINGS: Study is limited due to motion artifact. Stable appearance of subarachnoid hemorrhage along the vermis, right frontoparietal lobes and posterior falx. Stable area of encephalomalacia in the right posterior parietal lobe. There is no evidence of new acute hemorrhage or large territorial infarction. No edema or mass effect is appreciated. Stable ventriculomegaly. The basal cisterns are patent. The visualized paranasal sinuses and mastoid air cells are unchanged. The calvarium is intact.IMPRESSION: 1. Stable subarachnoid hemorrhage with ventriculomegaly.2. No evidence of new intracranial hemorrhage or large territorial infarction.This document has been electronically signed by Richard Thapa MD on 10/10/2019 3:20 PM Name Value Range Interpretation Code Description Data Josefina rce(s) Supporting Document(s) ID Date Data Source [id number] 10/10/2019 03:36:47 AM [facility] Name Value Range Interpretation Code Description Data Josefina rce(s) Supporting Document(s) Leukocytes [#/volume] in Blood by Automated count 7.3 10*3/uL 4-10 [facility] Erythrocytes [#/volume] in Blood by Automated count 3.56 10*6/uL 4.6- 6.1 L [facility] Hemoglobin [Mass/volume] in Blood 11.4 g/dL 13.5-18 L [facility] Hematocrit [Volume Fraction] of Blood by Automated count 33.5 % 4 1-53 L [facility] Erythrocyte mean corpuscular volume [Entitic volume] by Auto mated count 94.0 fL 80-96 [facility] Erythrocyte mean corpuscular hemoglobin [Entitic mass] by Automated count 32.1 pg 27-33 [facility] Erythrocyte mean corpuscular hemoglobin concentration [Mass/volume] by Automated count 34.1 g/dL 32.0-36.0 [facility] width [Ratio] by Automated count 15.3 % 11.5-14.5 H [facility] Platelets [#/volume] in Blood by Automated count 148 10*3/uL 150-400 L [facility] ID Date Data Source [id number] 10/10/2019 04:08:06 AM [facility] Name Value Range Interpretation Code Description Data Josefina rce(s) Supporting Document(s) Bicarbonate [Moles/volume] in Serum 23 mmol/L 22-29 [facility] Chloride [Moles/volume] in Serum or Plasma 101 mmol/L 98-107 [facility] Creatinine [Mass/volume] in Serum or Plasma 0.86 mg/dL 0.70-1.20 [facility] Glucose [Mass/volume] in Serum or Plasma 105 mg/dL 70-140 [facility] Potassium [Moles/volume] in Serum or Plasma 5.1 mmol/L 3.4-5.1 [facility] Hemolyzed Sodium [Moles/volume] in Serum or Plasma 135 mmol/L 136-145 L [facility] Urea nitrogen [Mass/volume] in Serum or Plasma 16 mg/dL 8-23 [facility] Anion gap 3 in Serum or Plasma 11 mmol/L 8-15 [facility] Osmolality of Serum or Plasma by calculation 282 mosm/kg 275-300 [facility] Creatinine/Urea nitrogen [Mass Ratio] in Serum or Plasma 19 [facility] Calcium [Mass/volume] in Serum or Plasma 9.0 mg/dL 8.8-10.2 [facility] Glomerular filtration rate/1.73 sq M pre dicted among non-blacks [Volume Rate/Area] in Serum or Plasma by Creatinine-based formula (MDRD) >6 0 [facility] Glomerular filtration rate/1.73 sq M pre dicted among blacks [Volume Rate/Area] in Serum or Plasma by Creatinine-based formula (MDRD) >60 [facility] ID Date Data Source [id number] 10/10/2019 04:08:06 AM [facility] Name Value Range Interpretation Code Description Data Josefina rce(s) Supporting Document(s) Thyrotropin [Units/volume] in Serum or Plasma 0.708 u[IU]/mL 0.270-4. 200 [facility] ID Date Data Source [id number] 10/09/2019 07:26:42 PM [facility] Name Value Range Interpretation Code Description Data Josefina rce(s) Supporting Document(s) [facility] GFVSIt0bHzEFSkZl29/ILYdrQOPcf3XvDFhtFLe9OUjuGMMpT3VyNQZ6mM6aUFT7SViCVhWtOyMvXmC7 [facility] [file] SzO3ClGrvAOWV86WUcYaCcTQ2zRRSEYgwP/p9Js4AnOnhoqe50DaStF1fBxqYPh6N8c1+IpWa+VoJ/López [file] ICAgICAgICAgICAgICAgICAgICAgICAgICAgICAgICAgICAgICAgICAgICAgICAgICAgICAgICAgICAg ICAgICAgICAgICANCiAgICAgICAgICAgICAgICAgIC AgICAgICAgICAgICAgICAgICAgICAgICAgICAgICAgICAgICAgICAgICAgICAgICAgICAgICAgICAgIC AgICAgICAgICAgICAgICAgICAgICANCiAgICAgICAgICAgICAgICAgICAgICAgICAgICAgICAgICAgIC AgICAgICAgICAgICAgICAgICAgICAgICAgICAgICAg ICAgICAgICAgICAgICAgICAgICAgICAgICAgICAgICANCiAgICAgICAgICAgICAgICAgICAgICAgICAg ICAgICAgICAgICAgICAgICAgICAgICAgICAgICAgICAgICAgICAgICAgICAgICAgICAgICAgICAgICAg ICAgICAgICAgICAgICANCiAgICAgICAgICAgICAgIC AgICAgICAgICAgICAgICAgICAgICAgICAgICAgICAgICAgICAgICAgICAgICAgICAgICAgICAgICAgIC AgICAgICAgICAgICAgICAgICAgICAgICANCiAgICAgICAgICAgICAgICAgICAgICAgICAgICAgICAgIC AgICAgICAgICAgICAgICAgICAgICAgICAgICAgICAg ICAgICAgICAgICAgICAgICAgICAgICAgICAgICAgICAgICANCiAgICAgICAgICAgICAgICAgICAgICAg ICAgICAgICAgICAgICAgICAgICAgICAgICAgICAgICAgICAgICAgICAgICAgICAgICAgICAgICAgICAg ICAgICAgICAgICAgICAgICANCiAgICAgICAgICAgIC AgICAgICAgICAgICAgICAgICAgICAgICAgICAgICAgICAgICAgICAgICAgICAgICAgICAgICAgICAgIC AgICAgICAgICAgICAgICAgICAgICAgICAgICANCiAgICAgICAgICAgICAgICAgICAgICAgICAgICAgIC AgICAgICAgICAgICAgICAgICAgICAgICAgICAgICAg ICAgICAgICAgICAgICAgICAgICAgICAgICAgICAgICAgICAgICANCiAgICAgICAgICAgICAgICAgICAg ICAgICAgICAgICAgICAgICAgICAgICAgICAgICAgICAgICAgICAgICAgICAgICAgICAgICAgICAgICAg ICAgICAgICAgICAgICAgICAgICANCjw/lJTwH2cnzP MqpjS3J9gmTp5LBc9ULB5xd3NdRCWyRUqnvwNjPohQZwLtNUMzGbdVNoq2KErgUF0LpFPjZ7LlE9XvDD irYP4TGHLwNXQfoPBdOACtRHQcAbD3XNXpJEroHE7NrQAdGBfhHGSbWMDeWwWmYWYzAEQxLXXoNUViDH DVHTBeGZJnTjVaRDMfVPEdFAfeUOGYBF7GOvBiF3Ky fT99TAtUOn9+FDdhexOcWfpCSqD5PADvs0JvGKq4BI9KTIVhQjkap0VpOecuCWAFZTdnOT2HVWX0XLM1 NBNwVb1WJLSiY402arFpQN8WHq1BLzXdAL3agq3VWeydZZQsGfkXLwd3HTjxRE8SxLCfJRoUu01ttRi1 auLcdCPZDXuxqI4eQQKTciRcfcNwTWvpTqDgPWEzWl 50PwBsYbSmSZP8GTwpWV5zURihBO6EDCB1JWqyYHBiQLNsP6sYKbZdWPZdPzIgtGjdYB2DQrVwF5Eglr VudCAzNyAwIFINCj4+WQcklqHlLlkYFvJ6BFCvg7WiELb2UU1NAMGeJOzpKY9SJETstL5dDOnyVU2PMw NgHTHbSQVSFpGeW74ioSRpRRo4U1UgXxOsZOJcWfzv ZXMgPDwvTmFtZXMgWyBdDQogID4+ID4+UGfuPU1HDBpjruKfCPAdAs9DHIKdZYXuPL8hEXNpZULjJ4S1 vAdwDRBIDhKpD1vjcqkaAF2bNVAeV764eLrcikViAQS2GFTkQp8TYXOnTNC0MDKzlXQrOvPyEHGBLRso SN7KnITlXZK3hJ5wLMdnVMTsEFTpG3gVJhHefQdnUD 51bGwgbnVsbCBdDQo+Ec0NLA8kp6RlKYi4prZfSRzvQORoPNbeCYRkRFJxNDSfHBC4XGP7TFJBEiZtYX UgUDNnNWijNVKjHIUnyn4SBLWtBMXaZVH8EKHwOOOsFMAxIEuzNPTdCTAyDpowHQYmFVKbFO7HAkMaYA EqGOOiKXalADBmJQJgmg8RPMZmYAQrVuv8VgDnBAOy IGQnZZkrLHKtIBI9OXk1UEOmAPPySZ1CQzNxJBRpSRXoZmwkDZGnSBQsbo6UFVJgFPQfUuU8VpZtTGVw RJQtZOblSYMmUWZ1VgC3XDBjGKUbIE4RCeZfNDDoGTp3VUIaFQRsEVZefr3JELWaPIVbWzvoQuTnVPUn UALnJAjvZRSnUMYjDKUtQNSeWRVdZL2WLtFzRRAvJE L5IcEaMDAyWMOmns8FPNXhVSZeLIU4OMZfZDJxWQBsGAomOLOsTJY1KOL9BFJxBCLgSI7HAaIlPWGlNF cjHnSjQFMdYMUusm5VOVGlIFNrJNo2AaOhMWPtDWEgPKvcCYWhTCDcKHuxKLBoDONmSW2CHnSpXPZwLm U6OZIvDPGaJLDvix5QBVNyFLXjHkL0WKMtLJKeVROp PRwzRAGzUNCsPdXvJGArYMNcAX2GWlOpCFWbMbCdGPAeKGZnEUVowo0MXJLfPENgBOB9YJDsSUVjSZCd XSulTGMcMQH7KbwoHXTeMLRyTT6KVfTvPGHwGfN5OgSqXKGoXJGucv4NQSYzVDTjTHhjBVWkHPTfYZMk HBgkEDKtMIN3SUHvONXsRETtAF5INkKiZGQlHvwyHM mwOCSoOBAijb5OGQYdQJNvZwwcDVCcIWZvCFSoUGhyLALsFVP3RPV0OZBjIEJiCM4GRuQfPCZlKuofRh GmRADnGCXzxn5CTKCuLCJaWRCsSRTzBEAwWXRzIKeuNVMtBBJ0IeEaLDJtUECwUP2HZcOoCOOhTpl0JX LxAQXiTBWkcs1BZNBbVHAsMGKbVGWgFGYwIDUeHCqi LTYyKGNhRFJpGDVbRTXqRA6RPwCzYGDlKRU2QjKkBXNrKOYjzc6OKZUeHGM0QWAqZUFyLUInRLPbYXlg WYGaEUVwIqS0EEVfZFUcNQ5XExYwGZwaDGXEPpo9TFsrK6o6IDL1VH5NQ3Gpa3JzNvilRSMATVwhIP4q fvRgQMKoNz9FL9xOXgzrZRJeSRYhQbY5KBBkZHZeNC DaQaZ4USWrEbGaPzFoDr5bCIXtJmRiQoXnZOPyHjP2WGLpVtA0EKlrB0UnTWX3WiX9OxMuNS3LJr3DPn U9CDV4yATdEs2MGBX9JZYUAbCcUI7HRWs= ID Date Data Source [id number] 10/09/2019 05:58:16 PM [facility] XR CHEST FRONTAL ONLY [id number] RESULTI nterpreted by:Fredy Us, Martha Henriquez MDINDICATION: Subarachnoid HemorrhageTECHNIQUE: Portable AP view of the chest at 85 degrees upright.COMPARISON: 08/21/2019.FINDINGS: The lead wires of a dual-lead pacemaker are in stable position overlying the right atrium and right ventricle. The chest wall and cardiomediastinal contours remain unchanged. The trachea and central airways are patent.There are persistent confluent opacities within the retrocardiac left lung base. Small left pleural effusion is present. No evidence of a pneumothorax. The right lung is essentially clear. No acute disease in the chest wall.The osseous structures are unchanged in interval.IMPRESSION:Persistent confluent opacity within the left lung base most compatible with atelectasis, however superimposed airspace disease cannot be excluded.This document has been electronically signed by Fredy Us MD on 10/09/2019 5:56 PM Name Value Range Interpretation Code Description Data Josefina rce(s) Supporting Document(s) ID Date Data Source [id number] 10/09/2019 02:22:35 PM [facility] Name Value Range Interpretation Code Description Data Josefina rce(s) Supporting Document(s) [facility] NUSGMq3dMkNNKmAjp7NiCiMqHZNvVY3svde4T6Q6xHXeH9ZuoJYcl6qiB9CcJ9LfTYEyICJGXH0ScFDk jb2 [file] Pw7LyN7eHh1i8yOo81E+PHOTOVOLTAIC FABRICATION TECHNICIAN/+TgG3eJM+5Jdks8hZchJ/v51NsC8SG4et/p13x3Ft+TggF9DEPWMt2Yxy [file] CdNMYjRPDTGv1Gf918ZVYrXIVYQhx+JhkvnHPybVifCIQTGwi5LFHXVDYHI1W= ID Date Data Source [id number] 10/09/2019 03:12:39 PM [facility] Name Value Range Interpretation Code Description Data Josefina rce(s) Supporting Document(s) ABO and Rh group [Type] in Blood [facility] Blood group antibody screen [Presence] in Serum or Plasma [facility] Blood bank comment [facility] ID Date Data Source [id number] 10/09/2019 02:31:17 PM [facility] Name Value Range Interpretation Code Description Data Josefina rce(s) Supporting Document(s) Leukocytes [#/volume] in Blood by Automated count 4.8 10*3/uL 4-10 [facility] Erythrocytes [#/volume] in Blood by Automated count 4.16 10*6/uL 4.6- 6.1 L [facility] Hemoglobin [Mass/volume] in Blood 13.3 g/dL 13.5-18 L [facility] Hematocrit [Volume Fraction] of Blood by Automated count 39.6 % 4 1-53 L [facility] Erythrocyte mean corpuscular volume [Entitic volume] by Auto mated count 95.3 fL 80-96 [facility] Erythrocyte mean corpuscular hemoglobin [Entitic mass] by Automated count 31.9 pg 27-33 [facility] Erythrocyte mean corpuscular hemoglobin concentration [Mass/volume] by Automated count 33.5 g/dL 32.0-36.0 [facility] Erythrocyte distribution width [Ratio] by Automated count 15.1 % 11.5-14.5 H [facility] Platelets [#/volume] in Blood by Automated count 130 10*3/uL 150-400 L [facility] Differential cell count method - Blood [facility] Neutrophils/100 leukocytes in Blood by Automated count 55 % [facility] Lymphocytes/100 leukocytes in Blood by Automated count 32 % [facility] Monocytes/100 leukocytes in Blood by Automated count 10 % [facility] Eosinophils/100 leukocytes in Blood by Automated count 2 % [facility] Basophils/100 leukocytes in Blood by Automated count 1 % [facility] Neutrophils [#/volume] in Blood by Automated count 2.66 10*3/uL 1.8-7 .0 [facility] Lymphocytes [#/volume] in Blood by Automated count 1.55 10*3/uL 1.2-4 .0 [facility] Monocytes [#/volume] in Blood by Automated count 0.49 10*3/uL 0-0.8 [facility] Eosinophils [#/volume] in Blood by Automated count 0.11 10*3/uL 0-0.5 [facility] Basophils [#/volume] in Blood by Automated count 0.04 10*3/uL 0-0.2 [facility] Nucleated erythrocytes/100 leukocytes [Ratio] in Blood by Automated count 0 /100{WBCs} 0-0 [facility] ID Date Data Source [id number] 10/09/2019 02:45:00 PM [facility] Value Range Interpretation Code Description Data Josefina rce(s) Supporting Document(s) Prothrombin time (PT) 14.7 s 12.5-14.9 [facility] INR in Platelet poor plasma by Coagulation assay 1.11 [facility] Routine intensity oral anticoagulation I NR is typically 2.0-3.0. Target INR must be clinically individualized. ID Date Data Source [id number] 10/09/2019 02:45:00 PM [facility] Value Range Interpretation Code Description Data Josefina rce(s) Supporting Document(s) aPTT in Platelet poor plasma by Coagulation assay 36.5 s 24.0-34. 0 H [facility] ID Date Data Source [id number] 10/09/2019 03:12:29 PM [facility] Value Range Interpretation Code Description Data Josefina rce(s) Supporting Document(s) Albumin [Mass/volume] in Serum or Plasma by Bromocresol green (BCG) dye binding method 4.1 g/dL 3.5-5.2 [facility] Bilirubin.total [Mass/volume] in Serum or Plasma 0.8 mg/dL <1.2 [facility] Bilirubin.direct [Mass/volume] in Serum or Plasma 0.2 mg/dL <0.3 [facility] Alkaline phosphatase [Enzymatic activity/volume] in Serum or Plasma 254 U/L 40-129 H [facility] Aspartate aminotransferase [Enzymatic activity/volume] in Serum or Plasma 21 U/L <40 [facility] Alanine aminotransferase [Enzymatic activity/volume] in Seru m or Plasma 12 U/L <41 [facility] Protein [Mass/volume] in Serum or Plasma 6.9 g/dL 6.4-8.3 [facility] ID Date Data Source [id number] 10/09/2019 03:12:29 PM [facility] Name Value Range Interpretation Code Description Data Josefina rce(s) Supporting Document(s) Cholesterol [Mass/volume] in Serum or Plasma 123 mg/dL <200 [facility] Triglyceride [Mass/volume] in Serum or Plasma 85 mg/dL <150 [facility] Cholesterol in HDL [Mass/volume] in Serum or Plasma 49 mg/dL >40 [facility] Cholesterol in LDL [Mass/volume] in Serum or Plasma by calcu lation 57 mg/dL <100 [facility] Cholesterol in VLDL [Mass/volume] in Serum or Plasma by calc ulation 17 mg/dl 16-42 [facility] Cholesterol non HDL [Mass/volume] in Serum or Plasma 73 mg/dL <130 [facility] ID Date Data Source [id number] 10/09/2019 03:12:29 PM [facility] Name Value Range Interpretation Code Description Data Josefina rce(s) Supporting Document(s) Bicarbonate [Moles/volume] in Serum 23 mmol/L 22-29 [facility] Chloride [Moles/volume] in Serum or Plasma 98 mmol/L 98-107 [facility] Creatinine [Mass/volume] in Serum or Plasma 0.86 mg/dL 0.70-1.20 [facility] Glucose [Mass/volume] in Serum or Plasma 77 mg/dL 70-140 [facility] Potassium [Moles/volume] in Serum or Plasma 4.1 mmol/L 3.4-5.1 [facility] Sodium [Moles/volume] in Serum or Plasma 135 mmol/L 136-145 L [facility] Urea nitrogen [Mass/volume] in Serum or Plasma 16 mg/dL 8-23 [facility] Anion gap 3 in Serum or Plasma 13 mmol/L 8-15 [facility] Osmolality of Serum or Plasma by calculation 280 mosm/kg 275-300 [facility] Creatinine/Urea nitrogen [Mass Ratio] in Serum or Plasma 19 [facility] Calcium [Mass/volume] in Serum or Plasma 9.1 mg/dL 8.8-10.2 [facility] Glomerular filtration rate/1.73 sq M pre dicted among non-blacks [Volume Rate/Area] in Serum or Plasma by Creatinine-based formula (MDRD) >6 0 [facility] Glomerular filtration rate/1.73 sq M pre dicted among blacks [Volume Rate/Area] in Serum or Plasma by Creatinine-based formula (MDRD) >60 [facility] ID Date Data Source [id number] 10/09/2019 03:12:29 PM [facility] Name Value Range Interpretation Code Description Data Josefina rce(s) Supporting Document(s) Phosphate [Mass/volume] in Serum or Plasma 3.1 mg/dL 2.5-4.5 [facility] ID Date Data Source [id number] 10/09/2019 03:12:29 PM [facility] Value Range Interpretation Code Description Data Josefina rce(s) Supporting Document(s) Magnesium [Mass/volume] in Serum or Plasma 2.1 mg/dL 1.6-2.4 [facility] ID Date Data Source [id number] 10/09/2019 02:55:42 PM [facility] Value Range Interpretation Code Description Data Josefina rce(s) Supporting Document(s) Hemoglobin A1c/Hemoglobin.total in Blood by HPLC 5.2 % 4.0-6.0 [facility] (NOTE)<5.7% Average risk of diabetes (ADA)5.7-6.4% Increased risk of diabetes(ADA)>/= 6.5% Diagnostic for diabetes(ADA) Glucose mean value [Mass/volume] in Blood Estimated fr om glycated hemoglobin 104 mg/dL <126 [facility] ID Date Data Source [id number] 10/09/2019 02:31:41 PM EST [facility] Name Value Range Interpretation Code Description Data Josefina rce(s) Supporting Document(s) Calcium.ionized [Moles/volume] in Arterial blood 1.13 mmol/L 1.13-1.3 2 [facility] ID Date Data Source [id number] 09/24/2019 03:28:00 PM EST [facility] ([facility]) Name Value Range Interpretation Code Description Data Josefina rce(s) Supporting Document(s) Urate [Mass/volume] in Serum or Plasma 4.3 mg/dL 3.5-7.2 [facility] ([facility]) ID Date Data Source [id number] 09/24/2019 03:27:00 PM EST [facility] ([facility]) Name Value Range Interpretation Code Description Data Josefina rce(s) Supporting Document(s) Glucose [Mass/volume] in Serum or Plasma 89 mg/dL 74-99 [facility] ([facility]) 100-125 mg/dL PRE-DIABETES/FASTING >126 mg/dL DIABETES/FASTING Urea nitrogen [Mass/volume] in Serum or Plasma 14 mg/dL 7-18 [facility] ([facility]) Sodium [Moles/volume] in Serum or Plasma 139 meq/L 136-145 [facility] ([facility]) Creatinine 1.0 mg/dL 0.6-1.3 [facility] Potassium [Moles/volume] in Serum or Plasma 4.1 meq/L 3.5-5.1 [facility] ([facility]) Carbon dioxide, total [Moles/volume] in Serum or Plasma 32 meq/L 21 -32 [facility] ([facility]) Calcium [Mass/volume] in Serum or Plasma 8.7 mg/dL 8.5-10.1 [facility] ([facility]) Chloride [Moles/volume] in Serum or Plasma 103 meq/L 98-107 [facility] ([facility]) Glomerular filtration rate/1.73 sq M pre dicted among blacks [Volume Rate/Area] in Serum or Plasma by Creatinine-based formula (MDRD) >= 60 mL/min [facility] ([facility]) <content>CHRONIC KIDNEY DISEASE STAGING PER NKF</content>
<content></content>
<content>STAGE I & II GFR >= 60 NORMAL TO MILDLY DECREASED</content>
<content>STAGE III GFR 30-59 MODERATELY DECREASED</content>
<content>STAGE IV GFR 15-29 SEVERELY DECREASED</content>
<content>STAGE V GFR <15 VERY LITTLE GFR LEFT</content>
<content>ESRD GFR <15 ON [facility]ILD [facility] [facility]</content>
<content></content> Glomerular filtration rate/1.73 sq M pre dicted among non-blacks [Volume Rate/Area] in Serum or Plasma by Creatinine-based formula (MDRD) >= 60 mL/min [facility] ([facility]) ID Date Data Source [id number] 09/24/2019 03:27:00 PM EST [facility] ([facility]) Name Value Range Interpretation Code Description Data Josefina rce(s) Supporting Document(s) Magnesium 2.3 mg/dL 1.8-2.4 [facility] Creatine kinase [Enzymatic activity/volume] in Serum or Plasma 95 U /L 39-308 [facility] ID Date Data Source [id number] 09/24/2019 03:27:00 PM EST [facility] Name Value Range Interpretation Code Description Data Josefina rce(s) Supporting Document(s) Leukocytes [#/volume] in Blood by Automated count 4.3 x10*3/UL 4.1-10 .9 [facility] ([facility]) Hematocrit [Volume Fraction] of Blood by Automated count 35.8 % 3 7.0-51.0 [facility] Erythrocytes [#/volume] in Blood by Automated count 3.87 x10*6/UL 4.2 0-6.30 [facility] ([facility]) Hemoglobin [Mass/volume] in Blood 11.9 g/dL 12.0-18.0 [facility] MCHC 33.1 g/dL 31.0-38.0 [facility] MCV 92.7 fL 80.0-97.0 [facility] MCH 30.7 pg 26.0-32.0 [facility] MPV 8.6 FL 7.8-11.0 [facility] Erythrocyte distribution width [Ratio] by Automated count 14.0 % 11.6-13.7 [facility] ([facility]) Lymph % 27.7 % 10.0-58.5 [facility] Platelets [#/volume] in Blood by Automated count 178 x10*3/UL 140-440 [facility] ([facility]) Mid % 7.1 % 1.7-9.3 [facility] Lymph # 1.1 x10*3/UL 0.6-4.1 [facility] ([facility]) Neut % 65.2 % 37.0-92.0 [facility] Mid # 0.4 x10*3/UL 0.1-0.6 [facility] ([facility]) Neut # 2.8 x10*3/UL 2.0-7.8 [facility] ([facility]) ID Date Data Source [id number] 08/28/2019 10:44:20 PM [facility] Name Value Range Interpretation Code Description Data Josefina rce(s) Supporting Document(s) Discharge Summary [facility] KWITMh7wHnAUGjKg53/XIFjbRBQtb3OmAFueKGa9CCdvBTVvO7BuIIP1mL1zGIH2JSqWGkDcDBjtBgZ3 lbm [file] fmOhMf/vj4Zd5qgpSrsGEDPVG04qNGCTlqRgeh7Q+8gixV5DhU6e7xvPe3jNmlCEtG3bNHDZZKXpq+López [file] LVNc5bdgkrbe256UIRJtbuaSZLbHzm8qH9vrBe/ORDOÑEZ/ [file] 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/jlKTulwbV+zp1DdXd+qsRnE6WdTxIdD7iEwWPAWxq30O65rj0A9h0wlb90H2a slkxi5CmubZpktci+Q9GmA1ijGj7uQmG+K9K7z80yC f4tdGflfww1tj5E1aQe3eQN472AyaPl8nTZBA+LQk2G6r/igyUslo4Jpmy5x7pmxCG3csKl5m6fij5FZ i/JviMaqRvHUAZ6Y3iIS3K+HH0kx/BD2g6/W7GVcJ1XfM1zASCFgon1qunaMG2nYNlx/tPeRW8FQyWM6 qpIbSh0Nn+wADPQktFF1HaWyHCF90Ic/3O+wrMr+Zackary [file] [id number]= ID Date Data Source [id number] 08/22/2019 11:26:41 PM EST [facility] Name Value Range Interpretation Code Description Data Josefina rce(s) Supporting Document(s) ED Provider Note [facility] QCZSNb4pUtACAmZv37/MHQtbFQQgg4GuFZmhUWo4KAwuVYPmF1RrWWS6uL8jAIT8RCmGSgDoHFmeAdA9 lbm [file] wBBfYy9MFGK9CZXPRiOwDR1VTOd= ID Date Data Source [id number] 08/22/2019 05:59:35 AM [facility] Name Value Range Interpretation Code Description Data Josefina rce(s) Supporting Document(s) Leukocytes [#/volume] in Blood by Automated count 7.7 10*3/uL 4-10 [facility] Erythrocytes [#/volume] in Blood by Automated count 3.47 10*6/uL 4.6- 6.1 L [facility] Hemoglobin [Mass/volume] in Blood 11.1 g/dL 13.5-18 L [facility] Hematocrit [Volume Fraction] of Blood by Automated count 33.2 % 4 1-53 L [facility] Erythrocyte mean corpuscular volume [Entitic volume] by Auto mated count 95.6 fL 80-96 [facility] Erythrocyte mean corpuscular hemoglobin [Entitic mass] by Automated count 32.0 pg 27-33 [facility] Erythrocyte mean corpuscular hemoglobin concentration [Mass/volume] by Automated count 33.4 g/dL 32.0-36.0 [facility] E[facility]th[facility] distribution width [Ratio] by Automated count 14.1 % 11.5-14.5 [facility] Platelets [#/volume] in Blood by Automated count 176 10*3/uL 150-400 [facility] ID Date Data Source [id number] 08/22/2019 06:18:24 AM [facility] Name Value Range Interpretation Code Description Data Josefina rce(s) Supporting Document(s) Bicarbonate [Moles/volume] in Serum 24 mmol/L 22-29 [facility] Chloride [Moles/volume] in Serum or Plasma 100 mmol/L 98-107 [facility] Creatinine [Mass/volume] in Serum or Plasma 0.84 mg/dL 0.70-1.20 [facility] Glucose [Mass/volume] in Serum or Plasma 141 mg/dL 70-140 H [facility] Potassium [Moles/volume] in Serum or Plasma 4.1 mmol/L 3.4-5.1 [facility] Sodium [Moles/volume] in Serum or Plasma 136 mmol/L 136-145 [facility] Urea nitrogen [Mass/volume] in Serum or Plasma 16 mg/dL 8-23 [facility] Anion gap 3 in Serum or Plasma 12 mmol/L 8-15 [facility] Osmolality of Serum or Plasma by calculation 286 mosm/kg 275-300 [facility] Creatinine/Urea nitrogen [Mass Ratio] in Serum or Plasma 19 [facility] Calcium [Mass/volume] in Serum or Plasma 8.5 mg/dL 8.8-10.2 [facility] Glomerular filtration rate/1.73 sq M pre dicted among non-blacks [Volume Rate/Area] in Serum or Plasma by Creatinine-based formula (MDRD) >6 0 [facility] Glomerular filtration rate/1.73 sq M pre dicted among blacks [Volume Rate/Area] in Serum or Plasma by Creatinine-based formula (MDRD) >60 [facility] ID Date Data Source [id number] 08/21/2019 11:26:20 PM [facility] Name Value Range Interpretation Code Description Data Josefina rce(s) Supporting Document(s) Consultation [facility] CCABFn6aEwGCQdDm31/YBDrkZXQrl8NlEBscMXc5PIgeNJJnV7UfOKF0iH0cBSP7IJmIVyXzPAiwKiH3 lbm [file] DQogICAgICAgICAgICAgICAgICAgICAgICAgICAgICAgICAgICAgICAgICAgICAgICAgICAgICAgICAg ICAgICAgICAgICAgICAgICAgICAgICAgICAgICAgIC AgICAgICAgICAgDQogICAgICAgICAgICAgICAgICAgICAgICAgICAgICAgICAgICAgICAgICAgICAgIC AgICAgICAgICAgICAgICAgICAgICAgICAgICAgICAgICAgICAgICAgICAgICAgICAgICAgDQogICAgIC AgICAgICAgICAgICAgICAgICAgICAgICAgICAgICAg ICAgICAgICAgICAgICAgICAgICAgICAgICAgICAgICAgICAgICAgICAgICAgICAgICAgICAgICAgICAg ICAgDQogICAgICAgICAgICAgICAgICAgICAgICAgICAgICAgICAgICAgICAgICAgICAgICAgICAgICAg ICAgICAgICAgICAgICAgICAgICAgICAgICAgICAgIC AgICAgICAgICAgICAgDQogICAgICAgICAgICAgICAgICAgICAgICAgICAgICAgICAgICAgICAgICAgIC AgICAgICAgICAgICAgICAgICAgICAgICAgICAgICAgICAgICAgICAgICAgICAgICAgICAgICAgDQogIC AgICAgICAgICAgICAgICAgICAgICAgICAgICAgICAg ICAgICAgICAgICAgICAgICAgICAgICAgICAgICAgICAgICAgICAgICAgICAgICAgICAgICAgICAgICAg ICAgICAgDQogICAgICAgICAgICAgICAgICAgICAgICAgICAgICAgICAgICAgICAgICAgICAgICAgICAg ICAgICAgICAgICAgICAgICAgICAgICAgICAgICAgIC AgICAgICAgICAgICAgICAgDQogICAgICAgICAgICAgICAgICAgICAgICAgICAgICAgICAgICAgICAgIC AgICAgICAgICAgICAgICAgICAgICAgICAgICAgICAgICAgICAgICAgICAgICAgICAgICAgICAgICAgDQ ogICAgICAgICAgICAgICAgICAgICAgICAgICAgICAg ICAgICAgICAgICAgICAgICAgICAgICAgICAgICAgICAgICAgICAgICAgICAgICAgICAgICAgICAgICAg ICAgICAgICAgDQogICAgICAgICAgICAgICAgICAgICAgICAgICAgICAgICAgICAgICAgICAgICAgICAg ICAgICAgICAgICAgICAgICAgICAgICAgICAgICAgIC OpQROqJSAsCLMsOXWlOHTjIMXiALn5K1xnAQDiLNVeUT5fJUb7Uv2+VMqPNxFtNDE2xiRhcY7LTN9wd6 RyTVzgVVLzt1EtOIl4SL5CAZLeVTogKX7NLIyqfk1BYOGcKZBneFHPg0vfYlTuABC1NRTkFawmSE9NCD AdT2mkavOlYDLfWXCAKVpiPVHGSPysPMWSSNZwGYWs YqNdYFauVO9Ca1TyrCL9AIe+Fb7ALM2ko1ObSFaoITPiGY7sbf4RFTtXJrTnW6NjlaQ5BKKmSHDbBx9D FSWeFTStnBTfBEClHHOROqAxX5AzfE66AXFEHt3+JNfpzpSbUeiBYcZbEHIwz7KkGLb2HU5KQMDwBSw6 uFUbJ07oz6XdrYUdZspzArNjlAGjKgLCa9LofvJUiX rxz2lyUANRBOCzzSOiOo4qQj6yFWX2IDAgKwOfQLRMHA4IEDBhDKEyyLRbUYXlQQVEGF3YGKccVFX7XN SlcuPpaWHdOZzbZD1QHZGbutFsXqNiQMMDWOc+Yo5NGY0xc5GuAWyzAkVwFR5ubx8XTFfRJgUaH3A6dE ZfP1E3CHcaZv2CECWxJRZnEgxkRBZUAZfaLS5IYE5w dsE4PR7MiLAiNPAdKFBspHDxEYv7E57xvHWsUBjoOQ7YVDN+Dany+Ym3DKZZkNFZkDQTbGiPkTFJWUzEa X7LyJ3AOn1YuE9ViRI98nAxothKwKXhmPK6WYV4qJCTcLAUZDN5LqCGonY7nejAlNCQtNGBCBxFyI60e mKMfFJBgYMQ5FMHbFq5PSBJyN6NkhqSzzAqzzwYoXS EqNXRVCG2UITlbpcHxkCEebRiwRK13hWlhYN1UVv8HDqVaGG2rir0ItKQsPc7IBAGaPm6WCTPkWHWyNW LjWQP6PDRjQnKeCZxqFWZxUEQfSLA8IWKxVARfVC8EErCcULSlNavrKvViHYBcLYBfgq7UWNLiBWMzZP e6XCAqITFxEBOpSXtkGBJrWLVeXQU2ARXmBIMkDH2R ZcHcQEVnOJHzBHRpQCPhRPEcbf4LIVOtUJIbOlQ9JvQuUKBrPRWlODicZMVnXUP8BoU7KSFtANZcCK6V JgAuPFUrKTL2LDFsNDJgTVKaxf2TVRHfGORgSgm2RAByPQUyPPAnXOfwMRBqAFC7MWi5UKJiDILlWZ6I YnUuZOEsKNe9EAmvCOFyJOHkcd3LHHGkDUHgUWc4KS WzJQYhLTFdENctDKVgQPB1DVC2ZVIsTOHoUF9GNuPaZNSsJUPeHiVyFADrUAGchm8ICKAmDAUcTSGmMW QrLCHaSGXqREbkDSWtLLZmPPWvAKDlEULlWH6ZZxHnPTVxNHVzXpVwXOArGMSjjp6TRZMePSQnBSW3Wp ChCRVeRLDrVEfyJMTtPWQrWPY4WNYrGPOkJO2VWcPu LHNzYyXrJALbOJEhIWFyzj4YRLDmLQQzIzK3OKYtFOGlHGPlTEynPGDcQOPgArN7AFQuYVEzKR3FSwWg DGMsMeH7ERHdVHSfQHXcys3KSALxSUYoMGx1QHIpFKKnUEDtTDbhOYNeTKS3EMpgLVCmURQzOH5AAbFv AUKwUlGnWyIuXBGgQJMkhy8FZIJyYTCiKVOqITDmTP JvMAFfJZrnWFHuCVM7LxOxAPWgRFTfSW4WTjLmXGOuBbu9IWxfBQUsYJCoqm0XFNEuPWEqYPAwMyViDH UrLSOfYVaoUMTtGKM4OQd5OBPaSXQbCE5YIwWpIOYyLctwFcsfUMCjLGCcmi1MgJPerEwixg8MTQfEOl 4UzWamHYIpEWpfCf5qeZAwKyTgIOHEUh6GubBzRPBl PXLBASyzDMXoDGM0XWLhIYGfWBw6NRSnVZNjKTirFWB9McA5Gks8UUFoBcI1EiXyNLS5JKPnAQS3M1Nj TLT1CQG1HpKpOTunNVZnZXJ+BB2bNDf+Af1Ev1VtgmU9obUxHIduUFQ6Jb1GEYUTC9CVQl== ID Date Data Source [id number] 08/21/2019 02:32:27 PM [facility] Name Value Range Interpretation Code Description Data Josefina rce(s) Supporting Document(s) Color of Urine [facility] Clarity of Urine [facility] Specific gravity of Urine by Refractometry automated 1.028 1.003 -1.030 [facility] pH of Urine by Automated test strip 6.0 5.0-8.0 [facility] Protein [Mass/volume] in Urine by Automated test strip 100 mg/dL Neg [facility] Glucose [Mass/volume] in Urine by Automated test strip Neg [facility] Ketones [Mass/volume] in Urine by Automated test strip Neg [facility] Bilirubin.total [Presence] in Urine by Automated test strip Negative [facility] Hemoglobin [Presence] in Urine by Automated test strip Neg [facility] Leukocyte esterase [Presence] in Urine by Automated test strip Negative [facility] Nitrite [Presence] in Urine by Automated test strip Negati [facility] Leukocytes [#/area] in Urine sediment by Automated count 0 -5 [facility] Erythrocytes [#/area] in Urine sediment by Automated count 6 /HPF 0-3 H [facility] Service comment [facility] Mucus [#/area] in Urine sediment by Microscopy low power field None [facility] ID Date Data Source [id number] 08/21/2019 10:02:49 AM [facility] XR ANKLE 2 VIEWS [id number] RESULTInterp reted by:Floyd Stone MDINDICATION: Ankle pain and swelling.TECHNIQUE: 2 views of the left ankle were obtained.COMPARISON: None.FINDINGS/IMPRESSION:A bony density seen adjacent to the tip of the lateral malleolus which is likely related to an age-indeterminate injury and correlation with point tenderness is recommended. A limited CT through the left ankle may be helpful to further evaluate. Remainder the osseous structures appear intact. Mild soft tissue swelling seen about the left ankle. No significant ankle joint effusion is present. Atherosclerotic vascular calcifications identified.This document has been electronically signed by Floyd Stone MD on 08/21/2019 10:00 AM Name Value Range Interpretation Code Description Data Josefina rce(s) Supporting Document(s) ID Date Data Source [id number] 08/21/2019 05:14:28 AM [facility] XR CHEST FRONTAL ONLY [id number] RESULTI nterpreted by:RACHAEL MartinROCEDURE INFORMATION: Exam: XR Chest, 1 View Exam date and time: 08/21/2019 4:38 AM Age: 84 years old Clinical history: Other: Please eval pulm status; Prior surgery TECHNIQUE: Imaging protocol: XR of the chest Views: 1 view. COMPARISON: CR XR CHEST FRONTAL ONLY [id number] PORTABLE 08/19/2019 12:38 PM FINDINGS: Tubes, catheters and devices: A left sided cardiac pacemaker is present. Lungs: There is evidence of old granulomatous disease. There is bilateral lower lobe atelectasis or infiltrate, decreased in appearance. Mild subsegmental atelectasis or scarring involving the mid zone of the right lung. Pleural space: Small left pleural effusion, decreased in size. Heart/Mediastinum: Stable cardiomegaly. Vasculature: Atherosclerotic aorta. Bones/joints: Prior sternotomy. There are degenerative changes involving the spine, shoulders. IMPRESSION: 1. Interval decrease in bilateral lower lobe atelectasis or infiltrate. Small left pleural effusion, decreased in size. 2. Stable cardiomegaly. THIS DOCUMENT HAS BEEN ELECTRONICALLY SIGNED BY TOMY COCHRAN MDThis document has been electronically signed by Tomy Cochran MD on 08/21/2019 5:14 AM Name Value Range Interpretation Code Description Data Josefina rce(s) Supporting Document(s) ID Date Data Source [id number] 08/21/2019 05:15:54 AM [facility] Name Value Range Interpretation Code Description Data Josefina rce(s) Supporting Document(s) Leukocytes [#/volume] in Blood by Automated count 7.2 10*3/uL 4-10 [facility] Erythrocytes [#/volume] in Blood by Automated count 3.25 10*6/uL 4.6- 6.1 L [facility] Hemoglobin [Mass/volume] in Blood 10.6 g/dL 13.5-18 L [facility] Hematocrit [Volume Fraction] of Blood by Automated count 30.9 % 4 1-53 L [facility] Erythrocyte mean corpuscular volume [Entitic volume] by Auto mated count 95.0 fL 80-96 [facility] Erythrocyte mean corpuscular hemoglobin [Entitic mass] by Automated count 32.5 pg 27-33 [facility] Erythrocyte mean corpuscular hemoglobin concentration [Mass/volume] by Automated count 34.2 g/dL 32.0-36.0 [facility] Erythrocyte distribution width [Ratio] by Automated count 14.3 % 11.5-14.5 [facility] Platelets [#/volume] in Blood by Automated count 152 10*3/uL 150-400 [facility] ID Date Data Source [id number] 08/21/2019 05:24:02 AM EST [facility] Name Value Range Interpretation Code Description Data Josefina rce(s) Supporting Document(s) Bicarbonate [Moles/volume] in Serum 25 mmol/L 22-29 [facility] Chloride [Moles/volume] in Serum or Plasma 98 mmol/L 98-107 [facility] Creatinine [Mass/volume] in Serum or Plasma 0.98 mg/dL 0.70-1.20 [facility] Glucose [Mass/volume] in Serum or Plasma 91 mg/dL 70-140 [facility] Potassium [Moles/volume] in Serum or Plasma 3.7 mmol/L 3.4-5.1 [facility] Sodium [Moles/volume] in Serum or Plasma 135 mmol/L 136-145 L [facility] Urea nitrogen [Mass/volume] in Serum or Plasma 14 mg/dL 8-23 [facility] Anion gap 3 in Serum or Plasma 12 mmol/L 8-15 [facility] Osmolality of Serum or Plasma by calculation 280 mosm/kg 275-300 [facility] Creatinine/Urea nitrogen [Mass Ratio] in Serum or Plasma 14 [facility] Calcium [Mass/volume] in Serum or Plasma 8.5 mg/dL 8.8-10.2 L [facility] Glomerular filtration rate/1.73 sq M pre dicted among non-blacks [Volume Rate/Area] in Serum or Plasma by Creatinine-based formula (MDRD) >6 0 [facility] Glomerular filtration rate/1.73 sq M pre dicted among blacks [Volume Rate/Area] in Serum or Plasma by Creatinine-based formula (MDRD) >60 [facility] ID Date Data Source [id number] 08/21/2019 05:40:01 PM [facility] Name Value Range Interpretation Code Description Data Josefina rce(s) Supporting Document(s) Urate [Mass/volume] in Serum or Plasma 2.5 mg/dl 3.4-7.0 [facility] ID Date Data Source [id number] 08/20/2019 04:23:58 AM [facility] Value Range Interpretation Code Description Data Josefina rce(s) Supporting Document(s) Leukocytes [#/volume] in Blood by Automated count 5.7 10*3/uL 4-10 [facility] Erythrocytes [#/volume] in Blood by Automated count 3.14 10*6/uL 4.6- 6.1 [facility] Hemoglobin [Mass/volume] in Blood 10.1 g/dL 13.5-18 [facility] Hematocrit [Volume Fraction] of Blood by Automated count 30.0 % 4 1-53 [facility] Erythrocyte mean corpuscular volume [Entitic volume] by Auto mated count 95.5 fL 80-96 [facility] Erythrocyte mean corpuscular hemoglobin [Entitic mass] by Automated count 32.1 pg 27-33 [facility] Erythrocyte mean corpuscular hemoglobin concentration [Mass/volume] by Automated count 33.6 g/dL 32.0-36.0 [facility] Erythrocyte distribution width [Ratio] by Automated count 14.4 % 11.5-14.5 [facility] Platelets [#/volume] in Blood by Automated count 142 10*3/uL 150-400 [facility] ID Date Data Source [id number] 08/20/2019 04:48:31 AM [facility] Value Range Interpretation Code Description Data Josefina rce(s) Supporting Document(s) Bicarbonate [Moles/volume] in Serum 25 mmol/L 22-29 [facility] Chloride [Moles/volume] in Serum or Plasma 102 mmol/L 98-107 [facility] Creatinine [Mass/volume] in Serum or Plasma 0.86 mg/dL 0.70-1.20 [facility] Glucose [Mass/volume] in Serum or Plasma 86 mg/dL 70-140 [facility] Potassium [Moles/volume] in Serum or Plasma 3.8 mmol/L 3.4-5.1 [facility] Sodium [Moles/volume] in Serum or Plasma 138 mmol/L 136-145 [facility] Urea nitrogen [Mass/volume] in Serum or Plasma 14 mg/dL 8 [facility] Anion gap 3 in Serum or Plasma 11 mmol/L 04-19 [facility] Osmolality of Serum or Plasma by calculation 286 mosm/kg 275-300 [facility] Creatinine/Urea nitrogen [Mass Ratio] in Serum or Plasma 16 [facility] Calcium [Mass/volume] in Serum or Plasma 8.3 mg/dL 8.8-10.2 L [facility] Glomerular filtration rate/1.73 sq M pre dicted among non-blacks [Volume Rate/Area] in Serum or Plasma by Creatinine-based formula (MDRD) >6 0 [facility] Glomerular filtration rate/1.73 sq M pre dicted among blacks [Volume Rate/Area] in Serum or Plasma by Creatinine-based formula (MDRD) >60 [facility] ID Date Data Source [id number] 08/19/2019 03:58:27 PM [facility] Name Value Range Interpretation Code Description Data Josefina rce(s) Supporting Document(s) Bicarbonate [Moles/volume] in Serum 26 mmol/L 22-29 [facility] Chloride [Moles/volume] in Serum or Plasma 102 mmol/L 98-107 [facility] Creatinine [Mass/volume] in Serum or Plasma 0.89 mg/dL 0.70-1.20 [facility] Glucose [Mass/volume] in Serum or Plasma 89 mg/dL 70-140 [facility] Potassium [Moles/volume] in Serum or Plasma 4.0 mmol/L 3.4-5.1 [facility] Sodium [Moles/volume] in Serum or Plasma 139 mmol/L 136-145 [facility] Urea nitrogen [Mass/volume] in Serum or Plasma 15 mg/dL 8 [facility] Anion gap 3 in Serum or Plasma 11 mmol/L 04-19 [facility] Osmolality of Serum or Plasma by calculation 288 mosm/kg 275-300 [facility] Creatinine/Urea nitrogen [Mass Ratio] in Serum or Plasma 17 [facility] Calcium [Mass/volume] in Serum or Plasma 8.1 mg/dL 8.8-10.2 L [facility] Glomerular filtration rate/1.73 sq M pre dicted among non-blacks [Volume Rate/Area] in Serum or Plasma by Creatinine-based formula (MDRD) >6 0 [facility] Glomerular filtration rate/1.73 sq M pre dicted among blacks [Volume Rate/Area] in Serum or Plasma by Creatinine-based formula (MDRD) >60 [facility] ID Date Data Source [id number] 08/19/2019 01:52:49 PM [facility] XR CHEST FRONTAL ONLY [id number] RESULTI nterpreted by:Seth Hansen [facility] Exam: XR Chest, 1 View Exam date and time: 08/19/2019 12:52 PM Age: 84 years old Clinical history: Other: Fluid status TECHNIQUE: Imaging protocol: XR of the chest Views: 1 view. COMPARISON: CR XR CHEST FRONTAL ONLY [id number] PORTABLE 08/18/2019 12:23 PM FINDINGS: Lungs: Probable atelectatic changes left lung base. Underlying infiltrate or pneumonia however not excluded. Pleural space: Stable mild central pulmonary congestion and moderate left as well as small right pleural effusions. Heart/Mediastinum: Status post midline sternotomy and CABG. Cardiac pacer overlying the left chest wall. Bones/joints: Unremarkable. IMPRESSION: 1. Stable cardiomegaly with mild central pulmonary congestion as well as stable moderate right and small left pleural effusions. 2. Probable atelectasis left lung base though superimposed pneumonia not excluded in the appropriate clinical setting. THIS DOCUMENT HAS BEEN ELECTRONICALLY SIGNED BY SETH HANSEN MDThis document has been electronically signed by Seth Hansen MD on 08/19/2019 1:52 PM Name Value Range Interpretation Code Description Data Josefina rce(s) Supporting Document(s) ID Date Data Source [id number] 08/19/2019 04:56:27 AM [facility] Name Value Range Interpretation Code Description Data Josefina rce(s) Supporting Document(s) Leukocytes [#/volume] in Blood by Automated count 5.8 10*3/uL 4-10 [facility] Erythrocytes [#/volume] in Blood by Automated count 3.21 10*6/uL 4.6- 6.1 L [facility] Hemoglobin [Mass/volume] in Blood 10.4 g/dL 13.5-18 L [facility] Hematocrit [Volume Fraction] of Blood by Automated count 30.6 % 4 1-53 L [facility] Erythrocyte mean corpuscular volume [Entitic volume] by Auto mated count 95.4 fL 80-96 [facility] Erythrocyte mean corpuscular hemoglobin [Entitic mass] by Automated count 32.4 pg 27-33 [facility] Erythrocyte mean corpuscular hemoglobin concentration [Mass/volume] by Automated count 34.0 g/dL 32.0-36.0 [facility] Erythrocyte distribution width [Ratio] by Automated count 14.3 % 11.5-14.5 [facility] Platelets [#/volume] in Blood by Automated count 121 10*3/uL 150-400 L [facility] ID Date Data Source [id number] 08/19/2019 05:27:25 AM [facility] Name Value Range Interpretation Code Description Data Josefina rce(s) Supporting Document(s) Bicarbonate [Moles/volume] in Serum 26 mmol/L 22-29 [facility] Chloride [Moles/volume] in Serum or Plasma 98 mmol/L 98-107 [facility] Creatinine [Mass/volume] in Serum or Plasma 0.80 mg/dL 0.70-1.20 [facility] Glucose [Mass/volume] in Serum or Plasma 84 mg/dL 70-140 [facility] Potassium [Moles/volume] in Serum or Plasma 3.3 mmol/L 3.4-5.1 [facility] Sodium [Moles/volume] in Serum or Plasma 133 mmol/L 136-145 [facility] Urea nitrogen [Mass/volume] in Serum or Plasma 16 mg/dL 8-23 [facility] Anion gap 3 in Serum or Plasma 9 mmol/L 8-15 [facility] Osmolality of Serum or Plasma by calculation 276 mosm/kg 275-300 [facility] Creatinine/Urea nitrogen [Mass Ratio] in Serum or Plasma 20 [facility] Calcium [Mass/volume] in Serum or Plasma 8.4 mg/dL 8.8-10.2 L [facility] Glomerular filtration rate/1.73 sq M pre dicted among non-blacks [Volume Rate/Area] in Serum or Plasma by Creatinine-based formula (MDRD) >6 0 [facility] Glomerular filtration rate/1.73 sq M pre dicted among blacks [Volume Rate/Area] in Serum or Plasma by Creatinine-based formula (MDRD) >60 [facility] ID Date Data Source [id number] 08/18/2019 08:51:07 PM [facility] Name Value Range Interpretation Code Description Data Josefina rce(s) Supporting Document(s) [facility] [id number] lbm [file] [id number]= ID Date Data Source [id number] 08/18/2019 03:23:28 [address] [facility] CT HEAD WITHOUT CONTRAST [id number] RESU LTInterpreted by:Pam Clifford MDHISTORY: Follow-up intraventricular hemorrhage.COMPARISON: CT August 16, 2019.TECHNIQUE: Noncontrast CT head.Described is reductionFINDINGS:There has been interval decrease in the amount of dense blood byproducts in the ventricular system especially in the right occipital horn. There is no evidence of new acute intracranial bleeding.Generalized atrophy with commensurate enlargement of the ventricular system relatively disproportionate enlargement of the ventricular system with regards to the peripheral subarachnoid space remains unchanged. 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 The calvarium is intact.IMPRESSION: Interval decrease in the amount of intraventricular hemorrhage. No evidence of new acute intracranial bleeding.This document has been electronically signed by Pam Clifford MD on 08/18/2019 3:21 PM Name Value Range Interpretation Code Description Data Josefina rce(s) Supporting Document(s) ID Date Data Source [id number] 08/18/2019 01:03:11 PM [facility] XR CHEST FRONTAL ONLY [id number] RESULTI nterpreted by:RACHAEL HudsonROCEDURE INFORMATION: Exam: XR Chest, 1 View Exam date and time: 08/18/2019 12:31 PM Age: 84 years old Clinical history: Other: Hypoxemia TECHNIQUE: Imaging protocol: XR of the chest Views: 1 view. COMPARISON: CR CHEST, CHEST AP X-CASTILLO 55" VG 08/15/2019 8:02 PM FINDINGS: Lungs: Interval increase in mild central pulmonary congestion/edema. Interval increase in moderate layering pleural effusions. Heart/Mediastinum: Cardiomegaly in patient status post midline sternotomy and CABG. Cardiac pacer overlying the left chest wall. Bones/joints: Unremarkable. IMPRESSION: 1. Interval increase in mild central pulmonary congestion/edema and moderate right pleural effusions. 2. Stable cardiomegaly. THIS DOCUMENT HAS BEEN ELECTRONICALLY SIGNED BY SETH HANSEN MDThis document has been electronically signed by Seth Hansen MD on 08/18/2019 1:03 PM Name Value Range Interpretation Code Description Data Josefina rce(s) Supporting Document(s) ID Date Data Source [id number] 08/18/2019 06:01:31 AM [facility] Name Value Range Interpretation Code Description Data Josefina rce(s) Supporting Document(s) Leukocytes [#/volume] in Blood by Automated count 6.2 10*3/uL 4-10 [facility] Erythrocytes [#/volume] in Blood by Automated count 3.19 10*6/uL 4.6- 6.1 L [facility] Hemoglobin [Mass/volume] in Blood 10.3 g/dL 13.5-18 L [facility] Hematocrit [Volume Fraction] of Blood by Automated count 30.9 % 4 1-53 L [facility] Erythrocyte mean corpuscular volume [Entitic volume] by Auto mated count 97.1 fL 80-96 H [facility] Erythrocyte mean corpuscular hemoglobin [Entitic mass] by Automated count 32.2 pg 27-33 [facility] Erythrocyte mean corpuscular hemoglobin concentration [Mass/volume] by Automated count 33.2 g/dL [facility].0[facility].0 [facility] distribution width [Ratio] by Automated count 14.4 % 11.5-14.5 [facility] Platelets [#/volume] in Blood by Automated count 118 10*3/uL 150-400 L [facility] ID Date Data Source [id number] 08/18/2019 06:17:27 AM [facility] Name Value Range Interpretation Code Description Data Josefina rce(s) Supporting Document(s) Bicarbonate [Moles/volume] in Serum 25 mmol/L 22-29 [facility] Chloride [Moles/volume] in Serum or Plasma 103 mmol/L 98-107 [facility] Creatinine [Mass/volume] in Serum or Plasma 0.74 mg/dL 0.70-1.20 [facility] Glucose [Mass/volume] in Serum or Plasma 86 mg/dL 70-140 [facility] Potassium [Moles/volume] in Serum or Plasma 3.5 mmol/L 3.4-5.1 [facility] Sodium [Moles/volume] in Serum or Plasma 137 mmol/L 136-145 [facility] Urea nitrogen [Mass/volume] in Serum or Plasma 19 mg/dL 8-23 [facility] Anion gap 3 in Serum or Plasma 9 mmol/L 8-15 [facility] Osmolality of Serum or Plasma by calculation 285 mosm/kg 275-300 [facility] Creatinine/Urea nitrogen [Mass Ratio] in Serum or Plasma 25 [facility] Calcium [Mass/volume] in Serum or Plasma 8.2 mg/dL 8.8-10.2 [facility] Glomerular filtration rate/1.73 sq M pre dicted among non-blacks [Volume Rate/Area] in Serum or Plasma by Creatinine-based formula (MDRD) >6 0 [facility] Glomerular filtration rate/1.73 sq M pre dicted among blacks [Volume Rate/Area] in Serum or Plasma by Creatinine-based formula (MDRD) >60 [facility] ID Date Data Source [id number] 08/18/2019 11:43:37 AM [facility] Service Cmnt XXX-Imp : Microorganism XXX Cult : No growth (qualifier value) Name Value Range Interpretation Code Description Data Josefina rce(s) Supporting Document(s) ID Date Data Source [id number] 08/17/2019 10:47:32 PM [facility] Name Value Range Interpretation Code Description Data Josefina rce(s) Supporting Document(s) Color of Urine [facility] Clarity of Urine [facility] Specific gravity of Urine by Refractometry automated 1.027 1.003 -1.030 [facility] pH of Urine by Automated test strip 5.0 5.0-8.0 [facility] Protein [Mass/volume] in Urine by Automated test strip 100 mg/dL Neg [facility] Glucose [Mass/volume] in Urine by Automated test strip Neg [facility] Ketones [Mass/volume] in Urine by Automated test strip Neg [facility] Bilirubin.total [Presence] in Urine by Automated test strip Negative [facility] Hemoglobin [Presence] in Urine by Automated test strip Neg ative [facility] Leukocyte esterase [Presence] in Urine by Automated test strip Negative [facility] Nitrite [Presence] in Urine by Automated test strip Negati [facility] Leukocytes [#/area] in Urine sediment by Automated count 19 /HPF 0 -5 H [facility] Erythrocytes [#/area] in Urine sediment by Automated count 23 /HPF 0-3 H [facility] Leukocyte clumps [#/area] in Urine sediment by Automated count None [facility] Bacteria [#/area] in Urine sediment by Automated count Non e [facility] Mucus [#/area] in Urine sediment by Microscopy low power field None [facility] Hyaline casts [#/area] in Urine sediment by Microscopy low p ower field 2 /LPF None [facility] ID Date Data Source [id number] 08/17/2019 11:27:16 PM [facility] Name Value Range Interpretation Code Description Data Josefina rce(s) Supporting Document(s) Protein [Mass/volume] in Urine 113 mg/dl [facility] Creatinine [Mass/volume] in Urine 209.5 mg/dL [facility] Protein/Creatinine [Mass Ratio] in Urine 0.54 mg/mg{creat} [facility] ID Date Data Source [id number] 08/17/2019 11:27:16 PM [facility] Name Value Range Interpretation Code Description Data Josefina rce(s) Supporting Document(s) Sodium [Moles/volume] in Urine [facility] Confirmed ID Date Data Source [id number] 08/17/2019 11:21:07 PM [facility] Name Value Range Interpretation Code Description Data Josefina rce(s) Supporting Document(s) Creatinine [Mass/volume] in Urine 207.8 mg/dl [facility] ID Date Data Source [id number] 08/17/2019 04:25:32 PM [facility] Name Value Range Interpretation Code Description Data Josefina rce(s) Supporting Document(s) [facility] MPVNQv4gNaYPBwEn28/RMXkeNUCgj1EbZMftBLs2KIbaAGZlC6WjBZV6dP3iYJN2UOaMNjPbPHrqAdMb lb [file] ICAgICAgICAgICAgICAgICAgICAgICAgICAgICAgICAgICAgICAgICAgICAgICAgICAgICAgICAgICAg ICAgICAgICAgICAgICAgICAgICAgICANCiAgICAgICAgICAgICAgICAgICAgICAgICAgICAgICAgICAg ICAgICAgICAgICAgICAgICAgICAgICAgICAgICAgIC AgICAgICAgICAgICAgICAgICAgICAgICAgICAgICAgICANCiAgICAgICAgICAgICAgICAgICAgICAgIC AgICAgICAgICAgICAgICAgICAgICAgICAgICAgICAgICAgICAgICAgICAgICAgICAgICAgICAgICAgIC AgICAgICAgICAgICAgICANCiAgICAgICAgICAgICAg ICAgICAgICAgICAgICAgICAgICAgICAgICAgICAgICAgICAgICAgICAgICAgICAgICAgICAgICAgICAg ICAgICAgICAgICAgICAgICAgICAgICAgICANCiAgICAgICAgICAgICAgICAgICAgICAgICAgICAgICAg ICAgICAgICAgICAgICAgICAgICAgICAgICAgICAgIC AgICAgICAgICAgICAgICAgICAgICAgICAgICAgICAgICAgICANCiAgICAgICAgICAgICAgICAgICAgIC AgICAgICAgICAgICAgICAgICAgICAgICAgICAgICAgICAgICAgICAgICAgICAgICAgICAgICAgICAgIC AgICAgICAgICAgICAgICAgICANCiAgICAgICAgICAg ICAgICAgICAgICAgICAgICAgICAgICAgICAgICAgICAgICAgICAgICAgICAgICAgICAgICAgICAgICAg ICAgICAgICAgICAgICAgICAgICAgICAgICAgICANCiAgICAgICAgICAgICAgICAgICAgICAgICAgICAg ICAgICAgICAgICAgICAgICAgICAgICAgICAgICAgIC AgICAgICAgICAgICAgICAgICAgICAgICAgICAgICAgICAgICAgICANCiAgICAgICAgICAgICAgICAgIC AgICAgICAgICAgICAgICAgICAgICAgICAgICAgICAgICAgICAgICAgICAgICAgICAgICAgICAgICAgIC AgICAgICAgICAgICAgICAgICAgICANCiAgICAgICAg ICAgICAgICAgICAgICAgICAgICAgICAgICAgICAgICAgICAgICAgICAgICAgICAgICAgICAgICAgICAg ICAgICAgICAgICAgICAgICAgICAgICAgICAgICAgICANCjw/gQIdQ6siaJEygpQ9K7ioZl7UJl1AOW0b g3ChQRXnVShycdHeWffRSwHgUDWcTmgTOup8AZdgQL 6EePSfK5AfD8IbLOuoJT3MRJGjAWNclHBrDOJjVKRcDsT0WIQnDGuzLB9MnFDpEFcxOZSpXQOjDxKrRV RtOKJfMLHwZJDlXBUIAXQfCPTfWrQdQKWuUAFlLLswFRWNTYX6YTHzQmBoXAzvRY5Qg0UgaHN7VBc+Pg 0DOE5os2PuZMvkFrJmII3wan6AGNdUBjFbT0PkmmM3 EBX8RGXsYx4BZYFvVVYphHThNPJnOLZCKnWeN8DstE46WXVMVr9+QTccmuNfThlUNsV4BAZpw5AvJCc7 YE6ZBJZkDIq8rZXkC20fo4JwyAKyQzoyVpBkouDyGSL7ZYJMqN2xWELIPRTcmQBnZw0rEr5yVVN0HYBq NxYvJQKHYW8IBLYyBLTucHIzGUApGJYQYC7PKTmiBU U1SYIwxzYdqUUxZVteWZ7AZWPvrbNqKnPqWEMTLNw+Wr3QVQ4du1BaYCdsAGFhVR7xui0VJEfAUhNnJ8 S2zMWnN6W6XIaaKy1JPEEvJWLlIvTaQXTFDMsdVA8BOZ8hseE0HU8MiWZiUOUkDJHweWMzPLs8E28egR YcJWutKG7UPBW+Dany+Mz8PEJPfHGYrONGtYoIrDVDK TeQcB3FxM7OJh2VoB1CtSG69tRqsipXvPPdhNK9FZR9bHISeFZWISC2JrULxdN8mggGeHmTqORINDiIj M40oeYStTFXoWYGdLBXfPr7REWVxD9KkpxJytKrjebUwPLErXCFOXP6GLErpjwYnlQWdzHjiXO90bCuq KD0KPi6ELgVfWC9ksl1McICbEr1SGWNrYs8JGMJxAQ HtQPTzFTH1YCIkCzRfOZaxWQIbOUQmHLU7QDNjUXMsBD5OTjSzCAMsKJA6HvxcNRNpJTVnmp2OZSRlSQ M8ECH8KsAnVGTiUZMsQCeaIMXoPQFbAUT9ITWaLSJcEB4PMlPbIBGqDWP4LBCuOVOaPKQxon0KWYPsTQ OuBjkaCFGjIWXiIXEwMJquOMMgRUB3ZWb2XNKmYDJe WW0EFvXnBZXjJKhnAGIhIITdLXUast4CPPPsXBPpGIo0ANFeXMYlSETvXFgxZBDtYBZlFXwzLJGqSSHf DD9HLyMxKWSdKFH1MuJlQNIkQQTjed1APZOqJZObFMe5OcUjNFCcGFWiURgaTMOeZVO4JTTfKHZlYGYc RZ4HXhTjSDBlWMo2CgbrIHRvCQDlfq4TSGUsMBQhNy C8PqKeOVEdXIGiXHxnVLUuKLPfNEWoYJZqQUVvGW6UCxGbYGRkPlBaBcNwMBKzZDAdvl4YLGQcZDSxBo T4AQMnXYYcIEAoISpkQTMoJVY8RvQmGWXtUEYmSF7GWlDeFVSjAtd0QVqyOYSgJNHgnt1UAUXrWYPjLS hwSJOxLPUcFCFcKKnuPTVcCBOgOIX3KRLpIIRyKR8R KtIdLPGmTaIpEFufDNTnWQGtnk8ZDYGvXHWvWQB1NWCcPRVlMJPdACroYDYnUBTaTqRxTQXxZXAvTK6O WvDtSFEnOyQ9SQpcHFPbEREoqm8NTLCwBYL7YqtmCuQaUHCjIDBnAJfkSFJqFLGsVlJdRJFtZPQwGJ3K JeJlZLRhMRW4FtCeBNYjYUWymg0WOGSfLKO0XpV8PM ThTYVbUEQiLKjmKUJpXMBpBAZ4BSZrQQRcND8AZvDrRKYhGUUbZZDuXFVeVVSjtf0KUSVqPWS5TRhmCK ToRUIrLEQfYPchZHSdGNH7CQVlKFEgNFCfFI7ETlWyEWVbOSP0GNhnUHVwOKTgzw0EvXSynXwpjt1EWA eUWo6EoUhdXUN3YTvqHs8joEXoAKPtKMMHMt6FnvJj XOEyRQEZBDztVFNaISPeELS8G2HjLjriJPMbAGcpZsT5OrArQRn0IMA9TvUtTrX8HpG6LIGrHJZyMGI1 FdVvX0IcLMHfFJAuZwO4HoRoIxU+FL0nSOg+Ri9Tt6IsllC3zgMvPUc8BkD2VN0GQVNPG0EBDw== ID Date Data Source [id number] 08/17/2019 10:15:48 AM [facility] Name Value Range Interpretation Code Description Data Josefina rce(s) Supporting Document(s) Lactate [Moles/volume] in Serum or Plasma 1.3 mmol/l 0.5-2.2 [facility] ID Date Data Source [id number] 08/17/2019 10:37:28 AM [facility] Name Value Range Interpretation Code Description Data Josefina rce(s) Supporting Document(s) Bicarbonate [Moles/volume] in Serum 24 mmol/L 22-29 [facility] Chloride [Moles/volume] in Serum or Plasma 102 mmol/L 98-107 [facility] Creatinine [Mass/volume] in Serum or Plasma 0.89 mg/dL 0.70-1.20 [facility] Glucose [Mass/volume] in Serum or Plasma 125 mg/dL 70-140 [facility] Potassium [Moles/volume] in Serum or Plasma 3.5 mmol/L 3.4-5.1 [facility] Sodium [Moles/volume] in Serum or Plasma 139 mmol/L 136-145 [facility] Urea nitrogen [Mass/volume] in Serum or Plasma 17 mg/dL 8-23 [facility] Anion gap 3 in Serum or Plasma 12 mmol/L 8-15 [facility] Osmolality of Serum or Plasma by calculation 291 mosm/kg 275-300 [facility] Creatinine/Urea nitrogen [Mass Ratio] in Serum or Plasma 20 [facility] Calcium [Mass/volume] in Serum or Plasma 8.6 mg/dL 8.8-10.2 L [facility] Glomerular filtration rate/1.73 sq M pre dicted among non-blacks [Volume Rate/Area] in Serum or Plasma by Creatinine-based formula (MDRD) >6 0 [facility] Glomerular filtration rate/1.73 sq M pre dicted among blacks [Volume Rate/Area] in Serum or Plasma by Creatinine-based formula (MDRD) >60 [facility] ID Date Data Source [id number] 08/17/2019 10:54:31 AM [facility] Name Value Range Interpretation Code Description Data Josefina rce(s) Supporting Document(s) Procalcitonin [Mass/volume] in Serum or Plasma 0.06 ng/mL <0.10 [facility] (NOTE) < 0.25 ng/mL Bacterial infec tion unlikely,particularly lower respiratory tract infections.0.25 -<0.50 ng/mL Low risk for progression to severe sepsis/septic shock. Localized infection is possible. Measurement done early (<6 hours) after systemic process starts may still be low.0.50 - 2.00 ng/mL Moderate risk for progression to sepsis/septic shock. > 2.00 ng/mL High risk for progression to sepsis/septic shock. ID Date Data Source [id number] 08/17/2019 06:28:20 AM [facility] Name Value Range Interpretation Code Description Data Josefina rce(s) Supporting Document(s) Troponin T.cardiac [Mass/volume] in Serum or Plasma 0.22 ng/mL <0.01 [facility] No Significant Change Since Last Result Called ID Date Data Source [id number] 08/17/2019 06:11:14 AM [facility] Name Value Range Interpretation Code Description Data Josefina rce(s) Supporting Document(s) Leukocytes [#/volume] in Blood by Automated count 7.4 10*3/uL 4-10 [facility] Erythrocytes [#/volume] in Blood by Automated count 3.35 10*6/uL 4.6- 6.1 L [facility] Hemoglobin [Mass/volume] in Blood 10.8 g/dL 13.5-18 L [facility] Hematocrit [Volume Fraction] of Blood by Automated count 32.2 % 4 1-53 L [facility] Erythrocyte mean corpuscular volume [Entitic volume] by Auto mated count 96.2 fL 80-96 H [facility] Erythrocyte mean corpuscular hemoglobin [Entitic mass] by Automated count 32.4 pg 27-33 [facility] Erythrocyte mean corpuscular hemoglobin concentration [Mass/volume] by Automated count 33.7 g/dL 32.0-36.0 [facility] E[facility]th[facility] distribution width [Ratio] by Automated count 14.4 % 11.5-14.5 [facility] Platelets [#/volume] in Blood by Automated count 126 10*3/uL 150-400 L [facility] ID Date Data Source [id number] 08/17/2019 01:56:26 AM EST [facility] Name Value Range Interpretation Code Description Data Josefina rce(s) Supporting Document(s) History and Physical [facility] YBLLMj9fCkPMDsDj08/FTTlbSQMsv6RnFHunYBo8NPkaFIWtU3BpPOQ9iK1aMIU0FClHJuNoTLqqJrQc [facility] PvRcsOLxArLEGsFrqVRoCpOPawGhuteQEuQO6KhSG8COLdC43mJRRjQGKfR9QfFRE6JfE+Np2JNAOgbG RdZC9QKlaC7D5Lm8lYPo0iEA3VSnbVKlPIQVNPdjmRixVkcayWPoo0sfWG6jRqTKAGKiAto1i6QltL43 SjGpydZD3Oijlvve3zcSp+35c0hXMSpkH7n/rPKNHq eq7++Q/V3Obp+zbrA1KCbWB6qNZIG3l/JvjAO7i+VIdvHWWgqcsbc/MOhlGkCpNWsV2wAz08wQ1/Ua7n zVfvWa0Det+nltzz0jfMUFZuReaUtjVtBLFaf/agOTzRFdxX3dWV8LJCwlKUpJcX8MB+vFA2zA76+IVIS [file] pqODotx+6/e0ezt//López/sawhz2EBgXZZaFDWbbB9x3 qVb/56n9EVvou632w37+wAQeUO4d0uSUk1os6tOmN3b9b8KmBWy7Dh9+TYG2VbngB0RjWaf/ffiNO/q/ i9N0+JGAvBgrTCk43mBU50ZiStu2Cps1h87e1oe3xN/sybi7b4wT6/uKb65gwk41rqnpMLVMo/rDy1fl w1++Go8qosSGI8bf2RtE5IRFZIAfCer05stpr1N07R w27coiigNE3lqEM2YU5QT1Mzf67ImhLgiFn1TQax06VCVuFN8VvFjE8MV5WoPk8F/1OsLrMZbIPi8Q1D BI0IrsFVYp7jNKduPrubvW92Ke3NRD7Tb7fQIdDnpgcxvcV6PKU/etptskdW1C/Y/l0vPtePc5wc5xZw vhxnjunalDYIT43/2mcvbWbkadLYzawP98SeWAL3Kv [file] ICAgICAgICAgICAgICAgICAgICAgICAgICAgICAgIC GsWGQcUEImXECxMSHhVCLyNOSbWHIsRWCvVFTpZXWfMG9ZCKLcOUMzOAEhGPZwZDFsGCNoJJWdWCKnXH AgICAgICAgICAgICAgICAgICAgICAgICAgICAgICAgICAgICAgICAgICAgICAgICAgICAgICAgICAgIC OmQDAfMXDkDRIiRLVhDK5CCWKlIXWwXHBxNVMnIQBq ICAgICAgICAgICAgICAgICAgICAgICAgICAgICAgICAgICAgICAgICAgICAgICAgICAgICAgICAgICAg GGFsTIPyQANtAYKhHIDnLTMnIIDhFERkJY9GXXMhXKIuNATfFAEnOFMbAQSwKIJqIIYbSYCiLBUvIYWr ICAgICAgICAgICAgICAgICAgICAgICAgICAgICAgIC YjQCMpNUWjQQErTGTcYCAkRZOpYDQsDIDoNRWmKUNwGOCdNG8XZXPkQQCyZGQyIASgURItOJUrJUZpLG AgICAgICAgICAgICAgICAgICAgICAgICAgICAgICAgICAgICAgICAgICAgICAgICAgICAgICAgICAgIC OaJQJwZTPnJSEfWSCcFYTuCY3MXSEjAMSdDJOgHOIv ICAgICAgICAgICAgICAgICAgICAgICAgICAgICAgICAgICAgICAgICAgICAgICAgICAgICAgICAgICAg CJPbLUGhKYVlTVGbKRGzZDXaOIUtGEAyJNEpQE9MTLWvSSDhOCQyWZXqQQPrRNRcCJVsPJIiGOHuMMOa ICAgICAgICAgICAgICAgICAgICAgICAgICAgICAgIC SvQPYkONGnEOSwUJQyUZGuUZNzACAyAYCrIOBtCIHlWZDnHWLfBN5ACAMcHEQlWEFrKTEmIDOiIIWhDI AgICAgICAgICAgICAgICAgICAgICAgICAgICAgICAgICAgICAgICAgICAgICAgICAgICAgICAgICAgIC UxXDQjYRArRCJeQBShSJTgVMLaXO0WKXAqWNCkEXYs ICAgICAgICAgICAgICAgICAgICAgICAgICAgICAgICAgICAgICAgICAgICAgICAgICAgICAgICAgICAg VQMmPHKcZJDkCWGrKBZgSXDeHKZzFFYvRFXuHNTjII6HJDUaDRMfEWGyIDRcPDFdUVZrWECpXKDbISNg ICAgICAgICAgICAgICAgICAgICAgICAgICAgICAgIC StUEYiKGIfGRRvHSTnWKSxCYVdEVIwEHVmYLMdWAJqJHCrSHHgAUUwAO2NPV82zCDvf9E6XJMlXN1pix c/Ra2LCEqjcfBfnQEtNI6TLrWbQD2ehz9VIkSmRO6keb1QFSfLGeIvA7J9aHYrVHYsSQBPMtBcP87iES fwPp44HUbfHDJySiZtJSd4Ay0IMpGeQ4btZDAkIsD5 NMTzEwV3NOSwSgOzCKCkBBQsRALxYOYAYLM9XQEgWuEiLiMlOWQhYB6HAFXdU438rqQoKo8IPm8RXtTr OO3mfh1QMwTcRWQeGcsAVcb6SCleXR2TkFCavLNeUMFkBEHKVwMtC2zhd9MuZfGjHSONCBpqVV8Ki0Mv dCAxDQo+Br8CNQ7wx3QyLKcuUALfZX5zqp6NQUbXDd OjW6CqpTzlQEdoWPIiiKDHxLXoFBIDO3wuyDN3TDDNHPCdtUMxJd7gKr5nDED0RSBpXcSrESLTIJ3CYH ZlSKVcnEJhCENbMTBOYW7ZQNffEVQ2ZOMkajRlrMTeOKveWE7ZKVNoxtSbYhGkROCBHEq+Vw8GKU0jm0 BjGKz9OTNkn5DgMVc2VD2KRPUvIGekXMWlHQ8yx8Sd I5Z8JwN4vTCzD2mvujnhI4NkwsJkbdQkGUKjQVQeZW8BMO8YVP3SISHdWFkhWS7AFCN1GVdjEwExEiUa AUF5IpMyDBjxMM8NUITsMVR4ZI4BZP6YGkhoK2EWGEuVwZmkYBOSTyBKGpajMKHsH7BTW3uYZ1mQL9Uu G02ZR87tG5OGPN2WZ4UKFSzeHh6vCPs+Dj9MVP6je2 MjTLucPeEuNG9axu7XBArLWaVtX0A5wIFsH9T6RBmaZa5XCMFtLNFqPaaaHZGCYWmeGZ3BEP2pchR6IY 7FaKZgRFIqBMXlzSFdHMi6Z92wgFEeYCqjXW6ITUB+Dany+Sn2GXCTeBKVoCTKtXrFcNMMOXdPfN4QiY0 RWt6SrB9OqGN34aKdigzQiFBlvYW6HCV3hBXDfJEVE BX2UwNMtiE1znkOtNWAsUSPKPcJfD40rwIVwKRQaPMM1INSwVr1MXZXaX1BrlzRegVbuurItGAMmKMPK RH8JYBejvrXmwKInvTftMA97lAwgHV2IKz3GHiHeAW5hbi2GeFNhSi4HPHVoFh5STYRpLDSoAFMsVTV5 BEZdDrQdOPowUTKfZPHiKKP2EGXqWRQeXJ7OMzKkMN CkJBW0VlZvQOMwSZJotg1XIZYwDNF0AXJ9SLYmBWDaQTUpGCoyZTQeGFYnKTX8BYXkYTHjTT3WFuSmYG GyDTXrROxdOMOfIPQceh1SZWLoHTL9GEukVBFuNSQyVBFgFGkxNQLkNYC2Nsq2MBAkACWoAL0QIiKlLT BjCBfgEXEhXOXnAQSrpc8NTYXlTQNcDeT2VZLeLQGe ADArRAieAXJyVAPbFWgiOKOgCXClBW4SOdKjCGTpLSVdUlaxUIEeSQCevg5VKUUsYFCgPRZ3YZPtMBRo QTHnFPtxHOUuBMJ8Yrw1RQCxFHSuRL9UAbOdDHSoOWu6JdhlZGDbNNKohv6HBJGoFFSsGSo4IIPiEYFg JUSzFHqhQDDvBXZxVBFcPBJeBGSvMO4RLeMyVXIrZu EyKddhKLStTERyql3WSHWiHETtJiI4ZnHmMBEdMYIxTJteQSInUWWrZip7VMXlMVFyMY2RZqBvFDOdJi Q3EoxwFYJmKFTqgq7YJMXzHQPpJEPfGwToUYLaOULcVHzuBXSqXCR9NlM3NKEpPOXoSW9JEwEnDJRvQh S3GAVzHINzHPQydd4UFJYwGYZ2WiM3IWHkOREgMVZb JAuhLNBzNYNtGWg2ENJdVHNsJN5XNbPaEJHzCIGrMZvhFQTgMRQhdp3NXHPfWFJ4LjV8EuZuWOEgFZWo ZKxvXVNaRNLrClTlQPQcOKDtFY4VViTvTVBgWIOlEUCzXFQgABIsqz4EDIXwCKG4HYPlOeNjZUIzIPKr LIkyJMVyUFW8CFa9VPHaZIDfUJ4GAmUzTYZvZPP3SV fvMELjCQUtqa5XtOXsdBuawu6RXVoVOg0OtKqcSCWvTImwGm4wqPUoUoTaDTIHVp0PczIgDVBmIOYWLP euKYIsKRK9P5QvNWs7ZZRuNWL3FOucCgh5MgI2TQTuWgE8ErTuEtV8Wbs9I7YfGxBaDDUxZqpkUKFeBK HgPVAsSxN2HxZpWZF+RZ0lVNp+Bt5Pv7OczcH2lxKdVFd5YjQ4Pq8LHFDFH9BVLs== ID Date Data Source [id number] 08/17/2019 01:05:51 AM [facility] Name Value Range Interpretation Code Description Data Josefina rce(s) Supporting Document(s) Troponin T.cardiac [Mass/volume] in Serum or Plasma 0.25 ng/mL <0.01 [facility] No Significant Change since last result called ID Date Data Source [id number] 08/16/2019 07:37:43 PM [facility] Name Value Range Interpretation Code Description Data Josefian rce(s) Supporting Document(s) Troponin T.cardiac [Mass/volume] in Serum or Plasma 0.21 ng/mL <0.01 [facility] Results called to and read back by 9F AYDEN DOUGHERTY AT 1937 BY [id number] ID Date Data Source [id number] 08/16/2019 05:27:40 [address] [facility] CT HEAD WITHOUT CONTRAST [id number] RESU LTInterpreted by:Steffany Bryant MDINDICATION: Evaluate status of intraventricular hemorrhage.TECHNIQUE: Contiguous axial CT images of the head from the base of the skull to the vertex without IV contrast. Automated dose lowering techniques and/or adjustment according to patient size were utilized for this exam.COMPARISON: 08/16/2019 CTA head.FINDINGS:Unchanged small amount of intraventricular hemorrhage within the occipital horn of the right lateral ventricle. Unchanged size and configuration of the ventricular system. Previously reported subarachnoid hemorrhage along the inferior aspect of the right temporal lobe is not well seen on the study. No new intracranial hemorrhage or acute territorial infarction. No new extra-axial collection or midline shift. The basal cisterns and foramen magnum are main patent. Redemonstration of generalized cerebral volume loss with commensurate enlargement of the ventricles and sulci. There is encephalomalacia of the right parietal lobe and again noted punctate hypodensities in the right cerebellum consistent with prior infarction. Nonspecific white matter hypodensities are commonly attributed to small vessel ischemic disease. Cavernous carotids and intracranial vertebral arteries are calcified. IMPRESSION:Previously reported subarachnoid hemorrhage along the inferior aspect of the right temporal lobe is not well seen on the study. Otherwise, no interval change from prior examination.This document has been electronically signed by Richard Thapa MD on 08/16/2019 5:25 PM Name Value Range Interpretation Code Description Data Josefina rce(s) Supporting Document(s) ID Date Data Source [id number] 08/16/2019 05:00:56 PM [facility] CT PELVIS WITHOUT CONTRAST [id number] RE SULTInterpreted by:Martha Mello MDINDICATION: Evaluate left leg fractureTECHNIQUE: Serial axial images from the iliac crests to the lesser trochanters were obtained without the initiation of intravenous contrast. Coronal and sagittal reformatted images were also submitted for interpretation. Automated dose lowering techniques and/or adjustment according to patient size were utilized for this examFINDINGS: There are acute nondisplaced fractures involving the left superior and inferior pubic ramus. There is also an acute nondisplaced left sacral alar fracture. There are advanced degenerative changes involving bilateral hip joints with bony sclerosis of the femoral head and subchondral degenerative cystic changes. In addition, there is an osteochondral defect within the left femoral head which may represent a sequelae of prior avascular necrosis. The femoral heads are well located within the acetabula and the femoral shafts are intact. There are advanced degenerative changes in the imaged lower lumbar spine with bilateral pars defects at L4-5. This grade 1 anterolisthesis at L5-S1 and vacuum disc phenomenon in the L4-5 and L5-S1 disc spaces. Degenerative changes are noted at the symphysis pubis with chondrocalcinosis within the joint space.There is focal outpouching of the infrarenal abdominal aorta just prior to its bifurcation which may represent a chronic dissection or focal calcified aneurysm. The appendix is visualized and is normal in appearance. There is a left-sided fat-containing inguinal hernia. Left-sided hydrocele is noted. There is atrophy of the pelvic musculature. There is a moderate amount of stool scattered throughout the colon. The bladder is collapsed around a Gamino's catheter. There is no free fluid within the dependent portions of the pelvis.Diffuse atherosclerotic calcifications are noted within the abdominal aorta and its branches.IMPRESSION:1. Acute minimally displaced left superior and inferior pubic rami fractures.2. Acute nondisplaced left sacral ala fracture.3. 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 Focal dilatation of the infrarenal abdominal aorta may represent a chronic dissection or calcified aneurysm.Findings were discussed with Dr. Kole Forbes by Dr. Henry Henriquez via phone on 08/16/2019 4:37 PM.This document has been electronically signed by Cash Pride MD on 08/16/2019 4:58 PM Name Value Range Interpretation Code Description Data Josefina rce(s) Supporting Document(s) ID Date Data Source [id number] 08/16/2019 02:16:18 PM [facility] Name Value Range Interpretation Code Description Data Josefina rce(s) Supporting Document(s) Troponin T.cardiac [Mass/volume] in Serum or Plasma 0.12 ng/mL <0.01 [facility] Results called to and read back by CATHERINE STEVENS RN [id number] BY [id number] ID Date Data Source [id number] 08/16/2019 01:06:01 PM [facility] CT ANGIOGRAPHY HEAD [id number] RESULTInt erpreted by:Steffany Bryant MDCLINICAL INDICATION: Evaluate vasculature. Pt with IVH. Status post fall. TECHNIQUE: Noncontrast axial head CT was acquired. A contrast-enhanced multidetector helical CTA head and neck was performed after the administration of Omnipaque IV contrast. Pertaining to the extracranial internal carotid arteries (ICAs), the degree of stenosis was accessed using NASCET Criteria. Automated dose lowering techniques and/or adjustment according to patient size were utilized for this exam.COMPARISON: 08/16/2019 2:[address] head[address]FINDINGS: Noncontrast CT Head: Interval increase in the amount of intraventricular hemorrhage within the occipital horn of the right lateral ventricle. Unchanged size and configuration of the ventricular system. Unchanged small amount of subarachnoid hemorrhage along the inferior aspect of the right temporal lobe.Again seen is generalized cerebral volume loss with commensurate enlargement of the ventricles and sulci. There is encephalomalacia of the right parietal lobe, again noted punctate hypodensities in the right cerebellum consistent with prior infarction.No new intracranial hemorrhage or acute territorial infarction. No new extra-axial collection or midline shift. The basal cisterns and foramen magnum are patent. There are white matter hypodensities which are nonspecific but are commonly attributed to small vessel ischemic disease. Cavernous carotids and intracranial vertebral arteries are calcified. CTA NECK: There is normal three vessel anatomy of the aortic arch. There are atherosclerotic changes of the aortic arch. The origins of the brachiocephalic trunk, left common carotid, and left subclavian arteries are calcified but patent.Right common carotid artery and its bifurcation are patent; there is mixed calcified and atheromatous plaque at its bifurcation. Right internal carotid artery is patent without hemodynamically significant stenosis.Left common carotid artery and its bifurcation is patent; there is mixed calcified and atheromatous plaque at its bifurcation. Left internal carotid artery is patent without hemodynamically significant stenosis. Bilateral cervical vertebral arteries are patent. Left vertebral artery is dominant.Lungs: No mass in the visualized lung apices.Bones: Multilevel degenerative changes are identified.Thyroid gland: Thyroid is unremarkable.CTA HEAD:Bilateral intracranial internal carotid arteries are patent. Cavernous and supraclinoid carotids are calcified.Bilateral anterior cerebral and anterior communicating arteries are patent. Bilateral middle cerebral arteries are patent.Bilateral intracranial vertebral arteries and basilar artery are patent.Bilateral posterior cerebral arteries are patent.No large intracerebral artery aneurysm is visualized. There is no arteriovenous malformation. Major dural venous sinuses are patent.IMPRESSION: - Slight interval increase in the amount of intraventricular hemorrhage layering within the occipital horn of the right lateral ventricle.- No new acute intracranial hemorrhage or large territory infarction.- No major vascular cutoff in the arteries of the [place]. - No occlusion or significant stenosis in the arteries of the neck.This document has been electronically signed by Richard Thapa MD on 08/16/2019 1:03 PM Name Value Range Interpretation Code Description Data Josefina rce(s) Supporting Document(s) ID Date Data Source [id number] 08/16/2019 01:06:01 PM [facility] CT ANGIOGRAPHY NECK [id number] RESULTInt erpreted by:Steffany Bryant [facility] IND[facility]: Evaluate vasculature. Pt with IVH. Status post fall. TECHNIQUE: Noncontrast axial head CT was acquired. A contrast-enhanced multidetector helical CTA head and neck was performed after the administration of Omnipaque IV contrast. Pertaining to the extracranial internal carotid arteries (ICAs), the degree of stenosis was accessed using NASCET Criteria. Automated dose lowering techniques and/or adjustment according to patient size were utilized for this exam.COMPARISON: 08/16/2019 2:[address] head[address]FINDINGS: Noncontrast CT Head: Interval increase in the amount of intraventricular hemorrhage within the occipital horn of the right lateral ventricle. Unchanged size and configuration of the ventricular system. Unchanged small amount of subarachnoid hemorrhage along the inferior aspect of the right temporal lobe.Again seen is generalized cerebral volume loss with commensurate enlargement of the ventricles and sulci. There is encephalomalacia of the right parietal lobe, again noted punctate hypodensities in the right cerebellum consistent with prior infarction.No new intracranial hemorrhage or acute territorial infarction. No new extra-axial collection or midline shift. The basal cisterns and foramen magnum are patent. There are white matter hypodensities which are nonspecific but are commonly attributed to small vessel ischemic disease. Cavernous carotids and intracranial vertebral arteries are calcified. CTA NECK: There is normal three vessel anatomy of the aortic arch. There are atherosclerotic changes of the aortic arch. The origins of the brachiocephalic trunk, left common carotid, and left subclavian arteries are calcified but patent.Right common carotid artery and its bifurcation are patent; there is mixed calcified and atheromatous plaque at its bifurcation. Right internal carotid artery is patent without hemodynamically significant stenosis.Left common carotid artery and its bifurcation is patent; there is mixed calcified and atheromatous plaque at its bifurcation. Left internal carotid artery is patent without hemodynamically significant stenosis. Bilateral cervical vertebral arteries are patent. Left vertebral artery is dominant.Lungs: No mass in the visualized lung apices.Bones: Multilevel degenerative changes are identified.Thyroid gland: Thyroid is unremarkable.CTA HEAD:Bilateral intracranial internal carotid arteries are patent. Cavernous and supraclinoid carotids are calcified.Bilateral anterior cerebral and anterior communicating arteries are patent. Bilateral middle cerebral arteries are patent.Bilateral intracranial vertebral arteries and basilar artery are patent.Bilateral posterior cerebral arteries are patent.No large intracerebral artery aneurysm is visualized. There is no arteriovenous malformation. Major dural venous sinuses are patent.IMPRESSION: - Slight interval increase in the amount of intraventricular hemorrhage layering within the occipital horn of the right lateral ventricle.- No new acute intracranial hemorrhage or large territory infarction.- No major vascular cutoff in the arteries of the [place]. - No occlusion or significant stenosis in the arteries of the neck.This document has been electronically signed by Richard Thapa MD on 08/16/2019 1:03 PM Name Value Range Interpretation Code Description Data [facility](s) Supporting Document(s) ID Date Data Source [id number] 08/16/2019 11:51:55 AM [facility] XR HIP- UNILAT, 2-3 VIEWS [id number] RE SULTInterpreted by:Martha Mello MDINDICATION: Status post fall.TECHNIQUE: Single AP view of the pelvis and 2 views of the left hip.COMPARISON: None.FINDINGS: There is a cortical step-off involving the left inferior pubic ramus. Otherwise, there are are no acute fractures or dislocations. There are arthritic changes involving bilateral hip joints. Advanced arthritic changes are visualized within the lower lumbar spine. The femoral heads are well located within the acetabula. The femoral shafts appear intact. The periarticular soft tissues are unremarkable. Gamino's catheter is visualized. There are surgical clips within the right inguinal region. Prominent vascular calcifications are noted.IMPRESSION:Cortical step-off involving the left inferior pubic ramus may represent an acute fracture. Limited CT evaluation through this region is recommended.Findings were discussed with Kole Forbes by Dr. Henry Henriquez via phone on 08/16/2019 11:26 AM.This document has been electronically signed by Cash Pride MD on 08/16/2019 11:49 AM Name Value Range Interpretation Code Description Data [facility](s) Supporting Document(s) ID Date Data Source [id number] 08/16/2019 11:51:55 AM [facility] XR PELVIS 1-2 VIEWS [id number] RESULTInt erpreted by:Martha Mello MDINDICATION: Status post fall.TECHNIQUE: Single AP view of the pelvis and 2 views of the left hip.COMPARISON: None.FINDINGS: There is a cortical step-off involving the left inferior pubic ramus. Otherwise, there are are no acute fractures or dislocations. There are arthritic changes involving bilateral hip joints. Advanced arthritic changes are visualized within the lower lumbar spine. The femoral heads are well located within the acetabula. The femoral shafts appear intact. The periarticular soft tissues are unremarkable. Gamino's catheter is visualized. There are surgical clips within the right inguinal region. Prominent vascular calcifications are noted.IMPRESSION:Cortical step-off involving the left inferior pubic ramus may represent an acute fracture. Limited CT evaluation through this region is recommended.Findings were discussed with Kole Forbes by Dr. Henry Henriquez via phone on 08/16/2019 1 1:26 AM.This document has been electronically signed by Cash Pride MD on 08/16/2019 11:49 AM Name Value Range Interpretation Code Description Data Josefina rce(s) Supporting Document(s) ID Date Data Source [id number] 08/16/2019 10:45:53 AM [facility] Name Value Range Interpretation Code Description Data Josefina rce(s) Supporting Document(s) [facility] GFQRXs1xMoEZCqJem8JrWgNbKBLpKQ5kyev9M1Y4xENnY8CelBFyk4dhT4TnO0BjQQEqJNFCXK2SzSKq jb2 [file] 32/65n/6wV/zyS1nM8oy2pv+0sq3T/7f9QZ8GA94jk u2akx31z/P/zcX6Bn/5CtI8/Pjn8H/s9N7x5J/r1X4uscu27f2/2bJ1rlAsnm1Z+0/+vBcXld64U6EzR 07+r7p2/4VqTey9psg33sIXhEo/xddRjVU3n10zet78WiVkv04joP/8agE1jN5dXgipoV61Kgy32UumH iPvhl+iyHvJi99Czn5Q5+/iB9nP38/3jLb5Ym/rJMe n/e0guv0hq/f60P+/75CCo//6Lvy3Y++bwD6R9+p3/RD/P+7nDs44Fe4sCZ0V4/fgPVP/pPpz/N22vDh /O/zH8r/Pv9h/JFxzR/CH28E+PjqJ49ebc3MqXvd+Emma/IHnP/kzSLaN2OucGOsI55zt1KAd/9ibgtKP sfnI3WiOoa/4grfi8z/XJh+EG1ncK9Omb0cx28117q Sp3uqdHP/0/a0ojI3mOzm/Ns/07T+M8njOk65+7Bi/Ph6k/TvW3G9/c7/ziQfyA/otQ1ibnpJiA/mYr3 jv8f3IKzi8/rNzetPkdPZFzxSyzO3FJ+up1EzinyUAry+1IMg0KuD3nitC68pcTDclat/9RnF+36X88/ uqz8zz++i3ijw2raEcmJ+Z21Syzt+RP5A/kO/Id+Sf 8Ztt++l4AZw2Czfg+z9d+ZteyF/Qj684C/qu50Ea+YZ8u/Sy6iKPsAj5zt6dB4s230AtvNN6lF8+LdNn tF8weCT0F5+Q42C0xJsMnnsn06P0N11Sx+Tv+/x+nmk2qsHby++bAq779ncnnwT2Bn/so6/coD71ubFX P/izqgzXW05qm4/wO//sM1+tMy/tM1/NTH/yNZfuM1 34bh44l73W72/6L5T+4U5z0Mrw/5vnQ2l/5/jCRt13Umzg/Arsp44ixI4xgiR/iRdxzG8V7DsvGOfMq2 E7qbx17KPaighh/0uf+FIi9Ahivh/w/WS9W3769m+6Dr/W7bl8Duq+5riR2zmRCcimvh5x2uzoFzuoc9 UJFM/i4ONCo60llHXuk4nN01iI5Ct6lk0W7mvcIrY2 1bOLG9908DJHU7837eQJZ54cpCrzLlnkmrpPzqbsK6Nil/Od8k9/znRD/mhVvafCw13Q7/O9LvWhXU+Q 0VhTCpV6gg5aFAev9HPPmqDZd8yoQ14Aaf4zl73g0CY+pd9X/Er5/fLJEwb+vmJjEsqJ94stV94+0x35 Ry1McUI85pSi33STzgjsq2/l907e8jKdpO+Hvn1/v4 9y8igpjO9xDe1VulM9uvB04/t+wr2/2tE19Bt5/OeIid4wWiBeaWZFeWfOLd+JG2krzB/IXyj/6Jvpjf x98w+/ntCukfV5aW19uR/JVuJXb/raR/xK9hG/ynLGtY/7Lkdupt9wZ1peLwbHk2X6YJw/6Kt5Q/wq00 fffObom+4dvsPXoi4lrmIxiH/Aa6zedF4nsaMf0/LJ Zt3zwuL+3rbT08bGowk/xrWWd3tmzX1n969WS+T2+1sE+yI9sqvgPX+7pnPqkvBduyvd717n5TBxJMkI B2nxEb9743cbD8/S3Ch+lelAfiB/3nlS/RnNIWz01WmT/Qs7kUeghOr/3wNdFrwrCO9cxF/Fr/KZdssX m0gaP43v3ssnb/iV7CZ+sNA688tU47uJdf+6/PkEZX /TC/l3/Xsist++t/gsvycg2kF4pDU+tyG/3XI2+vPG+Q5Vacomy894j+92KntB9I48L/Jv6zSBnB2wlJ U88exw35p4kCA+7wexI0cax5lPlp2aprInq/yewOtvuiG/Lo5tb1Sjz+8ZnF2jG6E9XnxhT7RuWXiuCs p8H0N0q+aj9Cd/ZY554Gv+8DjC4kGgGrkH/vglTCHK 1lH74YBdVWd6C5fD0792qr+/8+dGnV4rg/cmRVHepOxdKNdQv66P6z0/PLHVufY/odWRUVCHX/Emilia+fPk 99432uO0eExGTp/y+wfFYyh6/PCrDA47/Cqjxg6/egOdP7/vm/31bpvnoRiYekq88Eo+fPwbb/j0bf/h V5Hv+gvVwuDk9BOg/Zg8Mi9WZJv35tv4ql43AjD6i4 bW9uRxC8Z7sRx7Qm69cx28fi/eL9/o/fKN3u/64ZSGp7Bq+T08092Rbw1HaY//ZO/IU9kettKkwrLli+ w03VnJh/u6/V/4Htw399Inzn+6cSEB32/od8VfmG/+wS8oiydW90g+4lrQYx6PE/Id+YF6A+VPlD9R/s LzC/kb+dcf2+W/Ul1++SH9P00kviV/Ib/x6u27ChC9 6OvQ1+644vQQ6bakzDN/0xP58/bbw6/5kAnr2C/6Wg68l3tA5Sa+fjdPBHR+K32BpO7gO/zzTSO/I78j fyB/IN+T70cW5Sk+0xP5E/kL+Qv5G/n75st/5Zn+8pkufvWm/E0rpvWqeUT++vFM6zAMYwcxW5tT9/Vv oHWdxKgy8U/3xq5wZ5S1969wfTudQH9zUp093t2Ewh keP/NF7rI50i71Xz/RzenTOMHNb/tqb7an5Yn49/CrLPPwq/g5wJPzwvu1/ZjbQsnq9ej1apyqY9C2iT 8Nv2Pb48Tl0rEdZ/WKpzgo5RrCKHrpsikykx9glnQwpull/sOvUq/Dr/Y4sixAZi67/Ff6XdJ/len7+8 p/pf4g/9W3nDvC3iiv/ckpj21t+ejPG/15oz/v9eXJ T9v0OUr8i8howYu+nyLo0u79VhtfB/7KEt0yQN++46nDFe48plm0aFITdcIj1Ub/+xC/Or/deK6/fYhf 6LP5r8a3T+Jx18O08hdr6OWWR/eWshi8ocwC4zo2MPUh33c02Q9PW/qanR9b6lqj93xOd9ue0VZBI/uD w+73d9hd/s7xT08rl2/m5360ccbcI5Ik4a/Qc6iorE x0o869bG5L8gcEJy4qE2sF9ip5Lzou/uQ0Jk0k8q/MdCAfv2/L51cs6mrg822FyRv1877NTT2/b7/+jS F+8UT22l4+Wt7VvyUVeeVlLb2NG4WihFuzj6g3nZ1l142BuaxXpu3pcXf3G/l3U5FLfv45lsSyPYDw7K t+lemG/Mw9rx7x193Pury1ufv3jvEDl6GxQW7h+XnH l/hJojNh614uGE/dGJc/D+0PKg1+WkKuGpuI6LklHKepMz45zefH/IF8zFd+/HOPim3olM/kW1Rgml8e lW6IVDR94JD/GuBXA/xqiF+pHPErlY/9nTA2MLQI814l1X4E+a9k/3aogVZ0orZ9E3sz2aWD1Ee6/cortney /1U+g/4c6M+B/hzXPzli4/nrrxvz+uvGRH+edp8//C vFiS8PRzidk3H/T8xXE/64Cd1pb//9cYqg4SQdfL5mvx1k0t7bo0+3tQa8SlI08Va8jdJ7VokrbhU7Vu nZfcbz25X2oJIsAfuDM3+v/JiG7G61b/KPvoqB//Bp3PYnIVA1jP5HXeE4pgt24z72qxDPZIwQhuI/m3 9UagT6db8XmZu5o5rH/Rx3Hu9srakwwhJ6Og9/yjjm w68yIv/wq/fnWLz7C0m82LoccM55X1CZbdPB9f7+Df3Wh1/p/DzQ237Z4K5+X/jdRyNqG75ad4+fWN8s 73Q3lgd0y4zrDrm7t/tPnG/7XHr9t8kR//JS1/6vBnyGf4xrpA+fPBG+ycFOgG/OG/5w3ukyktSqtHID ofS3//hz1/xafpBc21289Dyb9pBtxev+9Zh041/u4l dv+jse3e5+iltH/kD+QL4j//ZZR18ocz3+f1pvS8opevrgi+m6c5pkh2gLl37v2/6gbNvu/IwjH5l57r rbvTU83/B8R35H/kD+QL13ve/NkR/ZK0At9M2O7pxiSbt/Ue+++R36Yn/Q+/0eeb/+HO/Xv+V11poXiU tsuH8khJb+OH/l2B/7iu0ufz1I72q/7F302kOfV/L3 lZ6h0uGTjb40lkfCcTRSXpmOcseGy3011ErTwrpr1IcdSLWE9qE+hyPfkR/ID+RP5E/kL+Qv5G/k75vv d7/iwc9udaWe7fQl28x4cNJz/vsJwc09/HPNk4rrP3KnueeIj7ou8NK+m+vpZ483co+BJ6tuvtKbo02/ obe5fj+Wa9fdS3F510GG+3pm+X06uasF5X8qamsPQ/ k3rif6FB/LCdvG14EQp84lCCof8y2sC8+cPd369U26FL3QtmUkMl30d4mh35653r3/8CjJduRiI1Kx+t r/2Fo0RqB/0rdG/ivLtN+0Id+Q3+57Qe4tu/5VcTHkP6/054n+PK9/w+f1b/i8/jrX/pEW2nX73h1roi jE/Dzvet/convention manager/q4leym/pM7pu9i/m9bQML6u++Ln/2 dc/X+fsQ94ntBUzoBHs+XS/0xwpo83sPcebwdVz+a6H8u/517A/6vueffT/IN+Tf/VVb6Ymf/4bv62/3 WU89H3px3Mt955yM20uU+x4mLp98/fnqbNAgv75Vu/2Wv9D+dqgzpws69g7rG7ai2/V+ZPnkRMIK25kg 33juej+4Z7j6VV6JQdWF+8BFbjC63eR8iEEyHdpAui J99wcD+4OB/cHI/cETRiJ+vWljpjRwi02/H6YhPEHfd45XM6X74/bY9W+E+TZkdwXwCPr3LSeAR3BH/L yhI8zen3BCK7CfqrvggN/Iv+bKeo1384k6edg712J9/zbjk11m2bKE5Zjq++0/UI9m1W3NtyZAbp5fvR C/Wsq/44AtEiSY9X/kL+TvbyOrD0cIE79t+3y/50Wj H17b5NwYIyNruEsshQoaMraw+oT9aejfaiCaOYxL1N/kT+Ma9MLijuNm0s+B/Emely/oGrbdStFqpRF2lo bcDVkA2WnPfxgBhogHhyaWpenE9i4V6Z+U2tCX4agAkneCLZe4F/kX+/X7YnL9NeP5mHfMNVldppjSH+ 1x2eo8x+Xe+Cqs0kzCclK/mvND/o/JXmDZ2/0vyj81 kzXweDu8uueNvrs00gb7rS9/sbcc+rhPxX+Yk309G8K8wp/Fdqg/jDxiiaj1O1QRfnA+S/Utz0h1/lmY hSt0smU5654eoodoG+/RUnOPWbXnh+hG19aWcDYy1td+JSc21+bsJYn73d5L/6RQB86ykIJqZ0fZGtVV DNGUiZ7EKDkJGP7lBtYnN/7+FNNp3jeQWUR//4N3qm P/ddR3evvyR+rjopQmFbzAvP523Cj5Tqm8aYzb8GM3zJZ5ziARmBRwetX+s11kihghZiYriiEul0Vqq9 wraPcnk0V0F+Br+FejyNVd83qhtfqsGT28tx/E55cuveQog8rplzsRnSw9Mq/JLPr7WV+/onY1//Ruzr u6sD5ure/RW/aatB4I3U4opm+V0Jd0s6/yOo76eTID /KNlx/bGzMV+BXse9+3Nvqlxt2YfQy6e03g34N1bajy46u+jfmc3/f+xzypiT30OsD/qsw2n0dK9F3gR 94fqKc+l24mbRrKcyr28a//tRTU9rxnARQco1y8t7yZZOYnfzdwE6pCFv9vomr/cEsE/ml6KTmo6VTlF /q8rsR95ln+dw78qC44h543g4Nr/Ptyr/j27n98Png [file] Gx7sDbJoURVUJ5Igy8CyXXRiUWZLIt6+KvF4JWJ8sXBjSjj1SMhoFUovCXKJGo== ID Date Data Source [id number] 08/16/2019 08:13:24 AM EST [facility] CT HEAD WITHOUT CONTRAST [id number] RESU LTInterpreted by:Ning Bolden, Solange Frazier, MDCLINICAL INDICATION: Follow-up intraventricular hemorrhage.TECHNIQUE: Contiguous axial CT images of the head were acquired from the base of the skull to the vertex without intravenous contrast administration and submitted for interpretation. Automated dose lowering techniques and/or adjustment according to patient size were utilized for this examination.COMPARISON: Outside hospital CT head dated 08/15/2019.FINDINGS: There has been interval increase in the amount of intraventricular hemorrhage within the dependent portion of the occipital horn of the right lateral ventricle. A small amount of subarachnoid hemorrhage is identified along the inferior aspect of the right temporal lobe.There is no evidence of acute territorial infarction or brain edema. Encephalomalacia of the right parietal lobe is noted. Neither mass effect or shift of the midline structures are shown. Areas of decreased attenuation are present in the periventricular and subcortical white matter bilaterally consistent with small vessel ischemic disease. Generalized cerebral volume loss with commensurate enlargement of the ventricles and sulci is shown. Atherosclerotic calcification of the intracranial segments of bilateral internal carotid arteries.There is no depressed calvarial fracture. Mucosal thickening of bilateral maxillary sinuses is noted. The remaining paranasal sinuses and mastoid air cells are clear.IMPRESSION: 1. Interval increase in the amount of intraventricular hemorrhage within the occipital horn of the right lateral ventricle. Unchanged size and configuration of the ventricular system.2. Small amount of subarachnoid hemorrhage along the inferior aspect of the right temporal lobe.Findings were discussed with Dr. Gamboa by Dr. Ellis via phone at 3:28 AM on 08/16/2019. Findings were also discussed with Dr. Villalobos from neurology at 3:44 AM.This document has been electronically signed by Ning Bolden MD on 08/16/2019 8:11 AM Name Value Range Interpretation Code Description Data Josefina rce(s) Supporting Document(s) ID Date Data Source [id number] 08/16/2019 07:57:43 AM [facility] Name Value Range Interpretation Code Description Data Josefina rce(s) Supporting Document(s) Troponin T.cardiac [Mass/volume] in Serum or Plasma 0.02 ng/mL <0.01 [facility] ID Date Data Source [id number] 08/16/2019 04:20:26 AM [facility] Name Value Range Interpretation Code Description Data Josefina rce(s) Supporting Document(s) Leukocytes [#/volume] in Blood by Automated count 8.0 10*3/uL 4-10 [facility] Erythrocytes [#/volume] in Blood by Automated count 3.38 10*6/uL 4.6- 6.1 L [facility] Hemoglobin [Mass/volume] in Blood 10.8 g/dL 13.5-18 L [facility] Hematocrit [Volume Fraction] of Blood by Automated count 32.2 % 4 1-53 L [facility] Erythrocyte mean corpuscular volume [Entitic volume] by Auto mated count 95.2 fL 80-96 [facility] Erythrocyte mean corpuscular hemoglobin [Entitic mass] by Automated count 31.8 pg 27-33 [facility] Erythrocyte mean corpuscular hemoglobin concentration [Mass/volume] by Automated count 33.4 g/dL [facility]0-[facility] distribution width [Ratio] by Automated count 14.3 % 11.5-14.5 [facility] Platelets [#/volume] in Blood by Automated count 171 10*3/uL 150-400 [facility] ID Date Data Source [id number] 08/16/2019 04:58:23 AM [facility] Name Value Range Interpretation Code Description Data Josefina rce(s) Supporting Document(s) Cholesterol [Mass/volume] in Serum or Plasma 125 mg/dL <200 [facility] Triglyceride [Mass/volume] in Serum or Plasma 119 mg/dL <150 [facility] Cholesterol in HDL [Mass/volume] in Serum or Plasma 40 mg/dL >40 L [facility] Cholesterol in LDL [Mass/volume] in Serum or Plasma by calcu lation 61 mg/dL <100 [facility] Cholesterol in VLDL [Mass/volume] in Serum or Plasma by calc ulation 24 mg/dl 16-42 [facility] Cholesterol non HDL [Mass/volume] in Serum or Plasma 85 mg/dL <130 [facility] ID Date Data Source [id number] 08/16/2019 04:58:23 AM [facility] Name Value Range Interpretation Code Description Data Josefina rce(s) Supporting Document(s) Albumin [Mass/volume] in Serum or Plasma by Bromocresol green (BCG) dye binding method 3.9 g/dL 3.5-5.2 [facility] Bilirubin.total [Mass/volume] in Serum or Plasma 0.9 mg/dL <1.2 [facility] Calcium [Mass/volume] in Serum or Plasma 8.7 mg/dL 8.8-10.2 L [facility] Chloride [Moles/volume] in Serum or Plasma 102 mmol/L 98-107 [facility] Creatinine [Mass/volume] in Serum or Plasma 0.88 mg/dL 0.70-1.20 [facility] Glucose [Mass/volume] in Serum or Plasma 114 mg/dL 70-140 [facility] Alkaline phosphatase [Enzymatic activity/volume] in Serum or Plasma 193 U/L 40-129 [facility] Potassium [Moles/volume] in Serum or Plasma 3.5 mmol/L 3.4-5.1 [facility] Protein [Mass/volume] in Serum or Plasma 6.2 g/dL 6.4-8.3 L [facility] Sodium [Moles/volume] in Serum or Plasma 142 mmol/L 136-145 [facility] Aspartate aminotransferase [Enzymatic activity/volume] in Serum or Plasma 26 U/L <40 [facility] Urea nitrogen [Mass/volume] in Serum or Plasma 15 mg/dL 8-23 [facility] Osmolality of Serum or Plasma by calculation 296 mosm/kg 275-300 [facility] Creatinine/Urea nitrogen [Mass Ratio] in Serum or Plasma 17 [facility] Bicarbonate [Moles/volume] in Serum 26 mmol/L 22-29 [facility] Alanine aminotransferase [Enzymatic activity/volume] in Seru m or Plasma 20 U/L <41 [facility] Anion gap 3 in Serum or Plasma 14 mmol/L 8-15 [facility] Albumin/Globulin [Mass Ratio] in Serum or Plasma 1.7 [facility] Glomerular filtration rate/1.73 sq M pre dicted among non-blacks [Volume Rate/Area] in Serum or Plasma by Creatinine-based formula (MDRD) >6 0 [facility] Glomerular filtration rate/1.73 sq M pre dicted among blacks [Volume Rate/Area] in Serum or Plasma by Creatinine-based formula (MDRD) >60 [facility] ID Date Data Source [id number] 08/16/2019 04:58:23 AM [facility] Name Value Range Interpretation Code Description Data Josefina rce(s) Supporting Document(s) Thyrotropin [Units/volume] in Serum or Plasma 2.080 u[IU]/mL 0.270-4. 200 [facility] ID Date Data Source [id number] 08/16/2019 04:35:43 AM [facility] Name Value Range Interpretation Code Description Data Josefina rce(s) Supporting Document(s) Hemoglobin A1c/Hemoglobin.total in Blood by HPLC 5.3 % 4.0-6.0 [facility] (NOTE)<5.7% Average risk of diabetes (ADA)5.7-6.4% Increased risk of diabetes(ADA)>/= 6.5% Diagnostic for diabetes(ADA) Glucose mean value [Mass/volume] in Blood Estimated fr om glycated hemoglobin 104 mg/dL <126 [facility] ID Date Data Source [id number] 08/16/2019 01:07:35 AM [facility] Name Value Range Interpretation Code Description Data Josefina rce(s) Supporting Document(s) Prothrombin time (PT) 15.2 s 12.5-14.9 H [facility] INR in Platelet poor plasma by Coagulation assay 1.16 [facility] Routine intensity oral anticoagulation I NR is typically 2.0-3.0. Target INR must be clinically individualized. ID Date Data Source [id number] 08/16/2019 01:07:35 AM [facility] Name Value Range Interpretation Code Description Data Josefina rce(s) Supporting Document(s) aPTT in Platelet poor plasma by Coagulation assay 38.9 s 24.0-34. 0 H [facility] ID Date Data Source [id number] 08/15/2019 08:07:00 PM EST [facility] ([facility]) Name Value Range Interpretation Code Description Data Josefina rce(s) Supporting Document(s) Glucose, Fasting 90 mg/dL 70-100 [facility] ([facility]) Blood Urea Nitrogen 16 mg/dL 7-18 [facility] ([facility]) Creatinine For GFR 0.88 mg/dL 0.70-1.30 [facility] ([facility]) Glomerular Filtration Rate > 60.0 [facility] ([facility]) <content>Units are mL/min/1.73 m2</content>
<content></content>
<content>Chronic Kidney Disease Staging per NK[facility]:</content>
<content></content>
<content>Stage I & II GFR >=60 Normal to Mildly Decreased</content>
<content>Stage III GFR 30- 59 Moderately Decreased</content>
<content>Stage IV GFR 15-29 Severely Decreased</content>
<content>Stage V GFR <15 Very Little GFR Left</content>
<content>ESRD GFR <15 on [employer] [employer]</content>
<content></content> Sodium Level 140 meq/L 136-145 [facility] ([facility]) Potassium Serum 3.8 meq/L 3.5-5.1 [facility] ([facility]) Anion Gap 7 meq/L 8-16 [facility] Carbon Dioxide Level 28 meq/L 21-32 [facility] ([facility]) Chloride Level 105 meq/L 98-107 [facility] ([facility]) Calcium Level 8.8 mg/dL 8.8-10.2 [facility] ([facility]) ID Date Data Source [id number] 08/15/2019 08:07:00 PM EST [facility] ([facility]) Name Value Range Interpretation Code Description Data Josefina rce(s) Supporting Document(s) MB/CK Relative Index 1.74 [facility] ([facility]) <content>DIAGNOSIS CRITERIA</content>
<content>MMB ng/ml Relative Index (RI)</content>
<content>NON-AMI < or = 5 N/A</content>
<content>BECKER ZONE > 5 < or = 4</content>
<content>AMI > 5 > 4</content>
<content></content> CK-MB Value Mass 3.4 ng/[facility] [facility]) CPK Creatine Phosphokinase 195 U/L 39-308 [facility] ([facility]) Troponin I 0.02 ng/mL [facility] ([facility]) <content>Troponin I Reference Interval f or Siemens [place] LOCI:</content>
<content></content>
<content>99th Percentile= 0.00-0.045 ng/ml</content>
<content></content>
<content>Risk Stratification:</content>
<content><= 0.10 ng/ml Decreased Risk for Adverse Clinical</content>
<content>Events.</content>
<content>0.10-1.50 ng/ml Increased Risk for Adverse Clinical</content>
<content>Events. Evaluation of additional</content>
<content>criterion and/or repeat testing in 2-6</content>
<content>hours is suggested to rule out myocardial</content>
<content>damage.</content>
<content>>= 1.50 ng/ml Indicative of Myocardial Injury.</content>
<content></content> ID Date Data Source [id number] 08/15/2019 08:07:00 PM EST [facility] ([facility]) Name Value Range Interpretation Code Description Data Josefina rce(s) Supporting Document(s) aPTT in Blood by Coagulation assay 42.9 s 25.0-38.4 [facility] ([facility]) ID Date Data Source [id number] 08/15/2019 08:07:00 PM EST [facility] ([facility]) Name Value Range Interpretation Code Description Data Josefina rce(s) Supporting Document(s) Prothrombin Time 17.7 s 11.8-14.0 [facility] ([facility]) Inr 1.48 [facility] ([facility]) THERAPUTIC HUMAN INR VALUES INDICATIONS NORMAL RANGES PROPHYLAXIS/TREATMENT OF: VENOUS THROMBOSIS 2.0-3.0 PULMONARY EMBOLISM 2.0-3.0 PREVENTION OF SYSTEMIC EMBOLISM FROM: TISSUE HEART VALVES 2.0-3.0 ACUTE MYOCARDIAL INFARCTION 2.0-3.0 VALVULAR HEART DISEASE 2.0-3.0 ATRIAL FIBRILLATION 2.0-3.0 MECHANICAL VALVES(HIGH RISK) 2.5-3.5 RECURRENT MYOCARDIAL INFARCTION 2.5-3.5 ID Date Data Source [id number] 08/15/2019 08:07:00 PM EST [facility] ([facility]) Name Value Range Interpretation Code Description Data Josefina rce(s) Supporting Document(s) Red Blood Count 3.84 10 4.30-6.10 [facility] ([facility]) White Blood Count 6.4 10 4.0-10.0 [facility] ([facility]) Hemoglobin 11.9 g/dL 13.5-17.5 [facility] ([facility] Hematocrit 36.8 % 42.0-52.0 [facility] Mean Corpuscular Volume 95.8 fl 80.0-96.0 [facility] ([facility]) Mean Corpuscular Hemoglobin 31.0 pg 27.0-33.0 ME [facility] ([facility]) Platelet Count, Automated 189 10 150-450 MED[facility] NT ([facility]) Mean Corpuscular HGB Conc 32.3 g/dL 32.0-36.5 [facility] ([facility]) Red Cell Distribution Width 13.4 % 11.5-14.5 [facility] ([facility]) Neutrophils % 70.9 % 36.0-66.0 [facility] ([facility]) Lymph % 16.7 % 24.0-44.0 [facility]) Eos % 2.5 % 0.0-3.0 [facility]) Baso % 0.2 % 0.0-1.0 [facility] ([facility]) Taylor % 8.8 % 0.0-5.0 [facility] ([facility]) Neutrophils # 4.5 10 1.5-8.5 [facility] ([facility]) Nucleated Red Blood Cell % 0.0 % 0-0 [facility] ([facility]) Immature Granulocyte % 0.9 % 0-3.0 [facility] ([facility]) Eos # 0.2 10 0.0-0.5 [facility] ([facility]) Taylor # 0.6 10 0.0-0.8 [facility] ([facility]) Lymph # 1.1 10 1.5-5.0 [facility] ([facility]) Baso # 0.0 10 0.0-0.2 [facility] ([facility]) Procedure Social History Code Duration Value Status Description Data Source(s ) Smoking 08/04/2020 12:00:00 AM EST Patient has never smoked co mpleted Patient has never smoked [facility] ([facility]) Alcohol intake 08/16/2019 12:00:00 AM EST Ex-drinker (finding) comp leted Ex- drinker (finding) [facility] Smoking 08/16/2019 12:00:00 AM EST Never smoker completed Never s [facility] Vital Signs ID Date Data Source UNK Name Value Range Interpretation Code Description Data Source(s) Diastolic blood pressure 70 mm[Hg] 70 mm[Hg] [facility] ([facility]) sitting Systolic blood pressure 124 mm[Hg] 124 mm[Hg] M [facility] ([facility]) sitting Diastolic blood pressure 74 mm[Hg] 74 mm[Hg] [facility] ([facility]) sitting, regular cuff Systolic blood pressure 126 mm[Hg] 126 mm[Hg] M [facility] ([facility]) sitting, regular cuff Respiratory rate 16 /min 16 /min [facility] ( [facility]) Heart rate 60 /min 60 /min [facility] ([facility] Regular Body height 67 [in_i] 67 [in_i] [facility] ([facility]) 5'7" Diastolic blood pressure 64 mm[Hg] 64 mm[Hg] [facility] ([facility]) sitting Systolic blood pressure 118 mm[Hg] 118 mm[Hg] M EDENT ([facility]) sitting Diastolic blood pressure 64 mm[Hg] 64 mm[Hg] [facility] ([facility]) sitting, regular cuff Systolic blood pressure 122 mm[Hg] 122 mm[Hg] M EDENT ([facility]) sitting, regular cuff Respiratory rate 16 /min 16 /min [facility] ( [facility]) Heart rate 64 /min 64 /min [facility] ([facility]) Regular Body height 67 [in_i] 67 [in_i] [facility] 5'7" Body mass index (BMI) [Ratio] 23.7 kg/m2 23.7 k g/m2 [facility] ([facility]) Body weight 151.25 [lb_av] 151.25 [lb_av] MEDEN T ([facility]) Body height 67 [in_i] 67 [in_i] [facility] ([facility]) 5'7" Heart rate 76 /min 76 /min [facility] ([facility]) Diastolic blood pressure 82 mm[Hg] 82 mm[Hg] [facility] ([facility]) RT Arm Systolic blood pressure 148 mm[Hg] 148 mm[Hg] M EDENT ([facility]) RT Arm ID Date Data Source [id number] 10/24/2019 03:03:21 PM [facility] Name Value Range Interpretation Code Description Data Source(s) WEIGHT RECORDED 149.69 lb 149.69 lb [facility] Body height Measured 70.08 in 70.08 in [facility] ID Date Data Source [id number] 09/07/2019 02:17:11 PM [facility] Name Value Range Interpretation Code Description Data Source(s) WEIGHT RECORDED 154.54 lb 154.54 lb [facility] Body height Measured 66.14 in 66.14 in [facility] Patient Treatment Plan of Care Planned Activity Planned Date Details Description Data Source (s) Magnesium Hydroxide 80 MG/ML Oral Suspension 10/09/2019 10:00:00 PM [facility] ondansetron (ZOFRAN) 4 MG/2ML injection 10/09/2019 04:49:47 PM [facility] sennosides, FCI 8.6 MG Oral Tablet 10/09/2019 01:11:[facility] 35.2 MG/ML Oral Solution 10/09/2019 01:11:38 PM [facility] 4 ML Labetalol hydrochloride 5 MG/ML Cartridge 10/09/2019 01:11:38 PM [facility] Acetaminophen 325 MG Oral Tablet 10/09/2019 01:11:37 PM [facility] Bisacodyl 10 MG Rectal Suppository 10/09/2019 01:11:37 PM [facility] atorvastatin 40 MG Oral Tablet 08/20/2019 12:00:00 AM [facility] Amoxicillin 500 MG Oral Capsule [facility] Magnesium Hydroxide 80 MG/ML Oral Suspension [facility] Acetaminophen 500 MG Oral Tablet [facility] Sucralfate 1000 MG Oral Tablet [facility] pantoprazole 40 MG Delayed Release Oral Tablet [facility] sennosides, [facility]CI 8.6 MG Oral Tablet [facility] Nitroglycerin 0.4 MG Sublingual Tablet [facility] Aspirin 81 MG Delayed Release Oral Tablet [facility]
[2020-10-09] MEDS ORDERED: traMADol 50 MG TAB PO PRN (20:45)
[2020-10-09] MEDS ORDERED: SODIUM CHLORIDE 0.9% NASAL GEL 15GM (AYR) PRN (20:45)
[2020-10-09] MEDS ORDERED: MOM 30ML SUSPENSION UDC PO PRN (20:45)
[2020-10-09] MEDS ORDERED: BISACODYL 10 MG SUPP PR PRN (20:45)
[2020-10-09] MEDS ORDERED: ACETAMINOPHEN TAB 650MG DOSE (2X325MG) PO PRN (20:45)
[2020-10-09] MEDS ORDERED: HYDROCORTISONE 1% CREAM 30 GM TOP PRN (20:45)
[2020-10-09] MEDS ORDERED: FLEET ENEMA PR PRN (20:45)
--- NOTE | 2020-10-09 21:06 | ECGEPIP ---
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
[2020-10-09 23:04] LABS: RSV AMPLIFICATION NEGATIVE (NEGATIVE)
[2020-10-09 23:45] VITALS: BP 114/67
[2020-10-10] MEDS: DULoxetine 30 MG CAP (CYMBALTA) PO SCH ×2 (00:39→21:30)
[2020-10-10] MEDS: SENNA 8.6 MG TAB (SENOKOT) PO SCH ×2 (00:40→21:31)
[2020-10-10] MEDS: ACETAMINOPHEN 500 MG TAB PO SCH ×4 (00:40→21:30)
[2020-10-10] MEDS: LATANOPROST 0.005% OPHTH SOLN 2.5 ML OU SCH ×2 (02:30→21:36)
[2020-10-10 06:00] VITALS: BP 138/74
[2020-10-10] MEDS: LEVOTHYROXINE 50MCG TABLET (0.05MG) PO SCH (06:24)
[2020-10-10 07:02] LABS: HEMATOCRIT 33.2 % (42.0-52.0); HEMOGLOBIN 11.6 g/dl (13.5-17.5); MEAN CORPUSCULAR HEMOGLOBIN 33.6 pg (27.0-33.0); MEAN CORPUSCULAR HGB CONC 34.9 g/dl (32.0-36.5); MEAN CORPUSCULAR VOLUME 96.2 fl (80.0-96.0); PLATELET COUNT, AUTOMATED 127 10^3/uL (150-450); RED BLOOD COUNT 3.45 10^6/uL (4.30-6.10); WHITE BLOOD COUNT 6.2 10^3/uL (4.0-10.0)
[2020-10-10 07:29] LABS: BLOOD UREA NITROGEN 19 MG/DL (7-18); CALCIUM LEVEL 8.9 MG/DL (8.8-10.2); CARBON DIOXIDE LEVEL 27 MEQ/L (21-32); CHLORIDE LEVEL 92 MEQ/L (98-107); CREATININE FOR GFR 0.76 MG/DL (0.70-1.30); GLOMERULAR FILTRATION RATE > 60.0 (>35); GLUCOSE, FASTING 73 MG/DL (70-100); POTASSIUM SERUM 4.2 MEQ/L (3.5-5.1); SODIUM LEVEL 129 MEQ/L (136-145)
--- NOTE | 2020-10-10 08:18 | REPVR ---
PROCEDURE INFORMATION: Exam: CT Head Without Contrast Exam date and time: 10/10/2020 8:00 AM Age: 85 years old Clinical indication: Condition or disease; Other: Re-evaluate for tia/cva TECHNIQUE: Imaging protocol: Computed tomography of the head without contrast. Radiation optimization: All CT scans at this facility use at least one of these dose optimization techniques: automated exposure control; mA and/or kV adjustment per patient size (includes targeted exams where dose is matched to clinical indication); or iterative reconstruction. COMPARISON: CT Head without contrast 10/09/2020 3:22 PM FINDINGS: Brain: There are chronic right greater than left frontal and right parietal infarcts. There is no acute intracranial hemorrhage. There is lucency in the cerebral white matter, likely microvascular disease although non-specific. Robb white differentiation is intact. There are no extra-axial fluid collections. No evidence of mass. There is no mass effect or midline shift. Cerebral ventricles: The ventricles and sulci are enlarged, consistent with volume loss / atrophy, greater centrally with stable ventriculomegaly. Bones/joints: No acute fracture. Paranasal sinuses: There is a small right frontal sinus retention cyst or polyp. Mastoid air cells: No significant mastoid effusion. Vasculature: There is vascular calcification. Soft tissues: Unremarkable as visualized. IMPRESSION: 1. No evidence of acute intracranial abnormality. No evidence of acute infarction, hemorrhage, or mass. 2. Atrophy and microvascular disease. Chronic cerebral infarcts. Electronically signed by: Jasmin Conley On 10/10/2020 08:18:21 AM
--- NOTE | 2020-10-10 11:28 | IPNPDOC ---
Text Note Date of Service The patient was seen on 10/10/20. NOTE Subjective: Patient seen and examined at bedside. No acute overnight events reported. Patient has no new medical complaints this morning. He is a poor historian. Objective: General: NAD, lying comfortably in bed, elderly, frail HEENT: NC/AT, edentulous Lungs: CTA B/L Heart: +S1S2, RRR Abd: soft, +BS Ext: no edema A/P: 85 male resident of [place], with PMHx including fib, ischemic cardiomyopathy EF 40%, TIA, CVA, hemorrhagic infarct of cerebellar vermis, hx GI bleed, HTN, HLD, GERD, Hypothyroidism, chronic hearing loss, hx pulmonary nodules, pulmonary fibrosis and gout was brought to the ER from with concern for L. sided facial droop. History obtain from ER provider and previous documentations, unable to obtain from patient due to confusion. It appears that patient has dementia at baseline but appear to have been more confused for about a week and uncertain duration of L. sided facial droop. He is moving all extremities and only appropriately stated his name when asked, otherwise does not answer other questions appropriately or follow most commands. He appear to also be hard of hearing. He does say no when asked if he is in any pain or discomfort. # L. sided facial droop - Minimal droop appreciated. Previous documentation noted L. sided weakness although unable to appreciate this deficit on exam from what patient can do in bed. - No evidence of acute stroke on CT scan. Symptoms ongoing for 1 week or more, would not be a candidate for tpa therapy. - Previously on Eliquis for Afib but had been held for unknown duration. hx GI bleed and hemorrhagic stroke. - Unable to peform MRI due to pacemaker - repeat CT head no acute pathology - hx hemorrhagic infarct 08/2019 of R. lateral ventricle and subarachnoid hemorrhage in R. temporal lobe. - Cerebellar vermis hemorrhagic infarct Sep 2019. - c/w ASA, statin. - PT and OT eval and treat in AM. Neurochecks q4h. #HTN - resume home meds if patient passes bedside swallow eval. - Losartan, coreg. # HLD - atorvastatiin 40mg daily. # gout - c/w allopurinol. #Hypothyroidism - c/w synthroid 50mcg daily. # hx GI bleed - c/w protonix and carafate. # CAD - [place] in 2001 s/p CABG in 2001.BMS - c/w ASA, statin, coreg, ramipril. #Afib - Previously on Eliquis, no longer taking it according to med list. - Likely due to age vs. risk of falls vs. hx GI bleed. - c/w ASA and Coreg. DVT ppx: SCD and Lovenox. Code status: DNR/DNI VS,Fishbone, I+O VS, Fishbone, I+O Laboratory Tests 10/09/20 15:41 10/10/20 06:12 Vital Signs Date Time Temp Pulse Resp B/P (MAP) Pulse Ox O2 Delivery O2 Flow Rate FiO2 10/10/20 06:00 66 18 138/74 (95) 95 Room Air 10/09/20 23:45 97.9 I&O- Last 24 Hours up to 6 AM 10/10/20 06:00 Intake Total 50 ml Output Total 500 ml Balance -450 ml REJI MELISSA MD Oct 10, 2020 11:28
[2020-10-10] MEDS: ASPIRIN 81 MG ENTERIC TAB PO SCH (11:32)
[2020-10-10] MEDS: ENOXAPARIN 30MG/0.3ML SYRINGE (J1650 PER 10MG) SC SCH (11:32)
[2020-10-10] MEDS: FUROSEMIDE 20 MG TAB PO SCH ×2 (11:33→17:03)
[2020-10-10] MEDS: allopurinoL 100 MG TAB PO SCH (11:33)
[2020-10-10] MEDS: MULTIVITAMINS/MINERALS THERAP 1 TAB PO SCH (11:33)
[2020-10-10] MEDS: DOCUSATE SODIUM 100MG CAPSULE PO SCH (11:33)
[2020-10-10] MEDS: ATORVASTATIN 20 MG TAB PO SCH (11:33)
[2020-10-10] MEDS: CARVedilol 3.125 MG TAB PO SCH ×2 (11:37→21:31)
[2020-10-10 14:00] VITALS: BP 139/76
--- NOTE | 2020-10-10 14:43 | REP ---
INDICATION: CVA workup COMPARISON: Comparison study March 15, 2019.. TECHNIQUE: Real-time ultrasound evaluation and duplex Doppler interrogation of the extracranial carotid vasculature is performed. FINDINGS: Antegrade flow is observed in both vertebral arteries. Right carotid: The right common carotid artery shows diffuse intimal thickening but is otherwise unremarkable. There moderate mixed plaquing in the right carotid bulb and proximal ICA on two-dimensional scanning. Color flow and spectral Doppler interrogation are unremarkable on the right. Velocity chart right carotid: Right CCA PSV: 82 cm/S Right ICA PSV: 69 cm/S Right ICA EDV: 18 cm/S Right ECA PSV: 62 cm/S Right ICA/CCA ratio: 0.84 Left carotid: The left common carotid artery shows diffuse intimal thickening but is otherwise unremarkable. There is moderate mixed plaquing in the left carotid bulb and proximal ICA on two-dimensional scanning. Color flow and spectral Doppler interrogation are unremarkable on the left. Velocity chart left carotid: Left CCA PSV: 74 cm/S Left ICA PSV: 69 cm/S Left ICA EDV: 21 cm/S Left ECA PSV: 61 cm/S Left ICA/CCA ratio: 0.93 IMPRESSION: Less than 50% category narrowing in the right internal carotid artery by Doppler velocity criteria. ICA Doppler velocities have not increased since the prior study. Less than 50% category narrowing in the left ICA by Doppler velocity criteria. Left ICA Doppler velocities have not increased significantly since the prior study. <Electronically signed by Bill Dubois > 10/10/20 [id number]
[2020-10-10] MEDS: NS 1,000 ML IV SCH (18:42)
[2020-10-10] MEDS: ramipriL 1.25 MG CAP PO SCH (21:35)
[2020-10-10 22:00] VITALS: BP 138/78
[2020-10-11 06:00] VITALS: BP 124/74
[2020-10-11] MEDS: LEVOTHYROXINE 50MCG TABLET (0.05MG) PO SCH (06:02)
[2020-10-11 09:14] LABS: BLOOD UREA NITROGEN 20 MG/DL (7-18); CALCIUM LEVEL 8.2 MG/DL (8.8-10.2); CARBON DIOXIDE LEVEL 26 MEQ/L (21-32); CHLORIDE LEVEL 95 MEQ/L (98-107); CREATININE FOR GFR 0.76 MG/DL (0.70-1.30); GLOMERULAR FILTRATION RATE > 60.0 (>35); GLUCOSE, FASTING 69 MG/DL (70-100); POTASSIUM SERUM 3.9 MEQ/L (3.5-5.1); SODIUM LEVEL 130 MEQ/L (136-145)
[2020-10-11] MEDS: NS 1,000 ML IV SCH ×2 (10:02→22:27)
[2020-10-11] MEDS: ATORVASTATIN 20 MG TAB PO SCH (10:03)
[2020-10-11] MEDS: FUROSEMIDE 20 MG TAB PO SCH ×2 (10:03→16:51)
[2020-10-11] MEDS: allopurinoL 100 MG TAB PO SCH (10:03)
[2020-10-11] MEDS: MULTIVITAMINS/MINERALS THERAP 1 TAB PO SCH (10:03)
[2020-10-11] MEDS: ACETAMINOPHEN 500 MG TAB PO SCH ×3 (10:03→20:08)
[2020-10-11] MEDS: ASPIRIN 81 MG ENTERIC TAB PO SCH (10:03)
[2020-10-11] MEDS: DOCUSATE SODIUM 100MG CAPSULE PO SCH (10:03)
[2020-10-11] MEDS: CARVedilol 3.125 MG TAB PO SCH ×2 (10:04→20:10)
[2020-10-11] MEDS: ENOXAPARIN 30MG/0.3ML SYRINGE (J1650 PER 10MG) SC SCH (10:04)
--- NOTE | 2020-10-11 11:21 | IPNPDOC ---
Text Note Date of Service The patient was seen on 10/11/20. NOTE Subjective: Patient seen and examined at bedside. No acute overnight events reported. Patient has no new medical complaints this morning. He is a poor historian. Objective: General: NAD, lying comfortably in bed, elderly, frail HEENT: NC/AT, edentulous Lungs: CTA B/L Heart: +S1S2, RRR Abd: soft, +BS Ext: no edema A/P: 85 male resident of [place], with PMHx including fib, ischemic cardiomyopathy EF 40%, TIA, CVA, hemorrhagic infarct of cerebellar vermis, hx GI bleed, HTN, HLD, GERD, Hypothyroidism, chronic hearing loss, hx pulmonary nodules, pulmonary fibrosis and gout was brought to the ER from with concern for L. sided facial droop. History obtain from ER provider and previous documentations, unable to obtain from patient due to confusion. It appears that patient has dementia at baseline but appear to have been more confused for about a week and uncertain duration of L. sided facial droop. He is moving all extremities and only appropriately stated his name when asked, otherwise does not answer other questions appropriately or follow most commands. He appear to also be hard of hearing. He does say no when asked if he is in any pain or discomfort. # L. sided facial droop - Minimal droop appreciated. Previous documentation noted L. sided weakness although unable to appreciate this deficit on exam from what patient can do in bed. - No evidence of acute stroke on CT scan. Symptoms ongoing for 1 week or more, would not be a candidate for tpa therapy. - Previously on Eliquis for Afib but had been held for unknown duration. hx GI bleed and hemorrhagic stroke. - Unable to peform MRI due to pacemaker - repeat CT head no acute pathology - hx hemorrhagic infarct 08/2019 of R. lateral ventricle and subarachnoid hemorrhage in R. temporal lobe. - Cerebellar vermis hemorrhagic infarct Sep 2019. - c/w ASA, statin. - PT and OT #HTN - Losartan, coreg. # HLD - atorvastatiin 40mg daily. # gout - c/w allopurinol. #Hypothyroidism - c/w synthroid 50mcg daily. # hx GI bleed - c/w protonix and carafate. # CAD - [place] in 2001 s/p CABG in 2001.BMS - c/w ASA, statin, coreg, ramipril. #Afib - Previously on Eliquis, no longer taking it according to med list. - Likely due to age vs. risk of falls vs. hx GI bleed. - c/w ASA and Coreg. DVT ppx: SCD and Lovenox. Code status: DNR/DNI VS,Fishbone, I+O VS, Fishbone, I+O Vital Signs Date Time Temp Pulse Resp B/P (MAP) Pulse Ox O2 Delivery O2 Flow Rate FiO2 10/10/20 22:00 98.4 71 16 138/78 (98) 95 Room Air I&O- Last 24 Hours up to 6 AM 10/11/20 06:00 Intake Total 570 ml Output Total 1100 ml Balance -530 ml REJI MELISSA MD Oct 11, 2020 07:21
[2020-10-11 14:00] VITALS: BP 122/68
[2020-10-11] MEDS: SENNA 8.6 MG TAB (SENOKOT) PO SCH (20:08)
[2020-10-11] MEDS: ramipriL 1.25 MG CAP PO SCH (20:09)
[2020-10-11] MEDS: DULoxetine 30 MG CAP (CYMBALTA) PO SCH (20:10)
[2020-10-11] MEDS: LATANOPROST 0.005% OPHTH SOLN 2.5 ML OU SCH (20:11)
[2020-10-11 22:00] VITALS: BP 120/69
[2020-10-12] MEDS: LEVOTHYROXINE 50MCG TABLET (0.05MG) PO SCH (05:41)
[2020-10-12 06:00] VITALS: BP 120/68
[2020-10-12] MEDS: CARVedilol 3.125 MG TAB PO SCH ×2 (10:51→20:39)
[2020-10-12] MEDS: ASPIRIN 81 MG ENTERIC TAB PO SCH (10:51)
[2020-10-12] MEDS: ACETAMINOPHEN 500 MG TAB PO SCH ×3 (10:51→20:39)
[2020-10-12] MEDS: allopurinoL 100 MG TAB PO SCH (10:51)
[2020-10-12] MEDS: FUROSEMIDE 20 MG TAB PO SCH ×2 (10:51→17:04)
[2020-10-12] MEDS: DOCUSATE SODIUM 100MG CAPSULE PO SCH (10:51)
[2020-10-12] MEDS: ATORVASTATIN 20 MG TAB PO SCH (10:51)
[2020-10-12] MEDS: MULTIVITAMINS/MINERALS THERAP 1 TAB PO SCH (10:51)
[2020-10-12] MEDS: ENOXAPARIN 30MG/0.3ML SYRINGE (J1650 PER 10MG) SC SCH (10:52)
--- NOTE | 2020-10-12 12:05 | IPNPDOC ---
Text Note Date of Service The patient was seen on 10/12/20. NOTE Subjective: Patient seen and examined at bedside. No acute overnight events reported. Patient has no new medical complaints this morning. He is a poor historian. Objective: General: NAD, lying comfortably in bed, elderly, frail HEENT: NC/AT, edentulous Lungs: CTA B/L Heart: +S1S2, RRR Abd: soft, +BS Ext: no edema A/P: 85 male resident of [place], with PMHx including fib, ischemic cardiomyopathy EF 40%, TIA, CVA, hemorrhagic infarct of cerebellar vermis, hx GI bleed, HTN, HLD, GERD, Hypothyroidism, chronic hearing loss, hx pulmonary nodules, pulmonary fibrosis and gout was brought to the ER from with concern for L. sided facial droop. History obtain from ER provider and previous documentations, unable to obtain from patient due to confusion. It appears that patient has dementia at baseline but appear to have been more confused for about a week and uncertain duration of L. sided facial droop. He is moving all extremities and only appropriately stated his name when asked, otherwise does not answer other questions appropriately or follow most commands. He appear to also be hard of hearing. He does say no when asked if he is in any pain or discomfort. # L. sided facial droop - Minimal droop appreciated. Previous documentation noted L. sided weakness although unable to appreciate this deficit on exam from what patient can do in bed. - No evidence of acute stroke on CT scan. Symptoms ongoing for 1 week or more, would not be a candidate for tpa therapy. - Previously on Eliquis for Afib but had been held for unknown duration. hx GI bleed and hemorrhagic stroke. - Unable to peform MRI due to pacemaker - repeat CT head no acute pathology - hx hemorrhagic infarct 08/2019 of R. lateral ventricle and subarachnoid hemorrhage in R. temporal lobe. - Cerebellar vermis hemorrhagic infarct Sep 2019. - c/w ASA, statin. - PT and OT #HTN - Losartan, coreg. # HLD - atorvastatiin 40mg daily. # gout - c/w allopurinol. #Hypothyroidism - c/w synthroid 50mcg daily. # hx GI bleed - c/w protonix and carafate. # CAD - [place] in 2001 s/p CABG in 2001.BMS - c/w ASA, statin, coreg, ramipril. #Afib - Previously on Eliquis, no longer taking it according to med list. - Likely due to age vs. risk of falls vs. hx GI bleed. - c/w ASA and Coreg. DVT ppx: SCD and Lovenox. Code status: DNR/DNI Dispo: likely placement VS,Fishbone, I+O VS, Fishbone, I+O Vital Signs Date Time Temp Pulse Resp B/P (MAP) Pulse Ox O2 Delivery O2 Flow Rate FiO2 10/12/20 06:00 97.1 65 16 120/68 (85) 95 Room Air I&O- Last 24 Hours up to 6 AM 10/12/20 06:00 Intake Total 2010 ml Output Total 1375 ml Balance 635 ml REJI MELISSA MD Oct 12, 2020 12:05
[2020-10-12] MEDS: NS 1,000 ML IV SCH (12:43)
[2020-10-12 14:00] VITALS: BP 119/69
[2020-10-12] MEDS: ramipriL 1.25 MG CAP PO SCH (20:38)
[2020-10-12] MEDS: DULoxetine 30 MG CAP (CYMBALTA) PO SCH (20:39)
[2020-10-12] MEDS: SENNA 8.6 MG TAB (SENOKOT) PO SCH (20:39)
[2020-10-12] MEDS: LATANOPROST 0.005% OPHTH SOLN 2.5 ML OU SCH (20:40)
[2020-10-12 22:00] VITALS: BP 119/68
[2020-10-13] MEDS: NS 1,000 ML IV SCH (03:11)
[2020-10-13] MEDS: LEVOTHYROXINE 50MCG TABLET (0.05MG) PO SCH (05:30)
[2020-10-13 06:00] VITALS: BP 115/77
[2020-10-13] MEDS: CARVedilol 3.125 MG TAB PO SCH ×2 (09:00→20:57)
[2020-10-13 11:33] LABS: BLOOD UREA NITROGEN 12 MG/DL (7-18); CALCIUM LEVEL 8.1 MG/DL (8.8-10.2); CARBON DIOXIDE LEVEL 25 MEQ/L (21-32); CHLORIDE LEVEL 98 MEQ/L (98-107); CREATININE FOR GFR 0.74 MG/DL (0.70-1.30); GLOMERULAR FILTRATION RATE > 60.0 (>35); GLUCOSE, FASTING 101 MG/DL (70-100); POTASSIUM SERUM 3.6 MEQ/L (3.5-5.1); SODIUM LEVEL 130 MEQ/L (136-145)
[2020-10-13] MEDS: DOCUSATE SODIUM 100MG CAPSULE PO SCH (11:38)
[2020-10-13] MEDS: ATORVASTATIN 20 MG TAB PO SCH (11:39)
[2020-10-13] MEDS: allopurinoL 100 MG TAB PO SCH (11:39)
[2020-10-13] MEDS: MULTIVITAMINS/MINERALS THERAP 1 TAB PO SCH (11:39)
[2020-10-13] MEDS: ACETAMINOPHEN 500 MG TAB PO SCH ×3 (11:40→20:56)
[2020-10-13] MEDS: ASPIRIN 81 MG ENTERIC TAB PO SCH (11:40)
--- NOTE | 2020-10-13 11:52 | IPNPDOC ---
Text Note Date of Service The patient was seen on 10/13/20. NOTE Subjective: Patient seen and examined at bedside. No acute overnight events reported. Patient has no new medical complaints this morning. He is a poor historian. Objective: General: NAD, lying comfortably in bed, elderly, frail HEENT: NC/AT, edentulous Lungs: CTA B/L Heart: +S1S2, RRR Abd: soft, +BS Ext: no edema A/P: 85 male resident of [place], with PMHx including fib, ischemic cardiomyopathy EF 40%, TIA, CVA, hemorrhagic infarct of cerebellar vermis, hx GI bleed, HTN, HLD, GERD, Hypothyroidism, chronic hearing loss, hx pulmonary nodules, pulmonary fibrosis and gout was brought to the ER from with concern for L. sided facial droop. History obtain from ER provider and previous documentations, unable to obtain from patient due to confusion. It appears that patient has dementia at baseline but appear to have been more confused for about a week and uncertain duration of L. sided facial droop. He is moving all extremities and only appropriately stated his name when asked, otherwise does not answer other questions appropriately or follow most commands. He appear to also be hard of hearing. He does say no when asked if he is in any pain or discomfort. #hyponatremia - check serum, urine osmolality - improving - stop IV fluids today - recheck BMP tomorrow # L. sided facial droop - Minimal droop appreciated. Previous documentation noted L. sided weakness al though unable to appreciate this deficit on exam from what patient can do in bed. - No evidence of acute stroke on CT scan. Symptoms ongoing for 1 week or more, would not be a candidate for tpa therapy. - Previously on Eliquis for Afib but had been held for unknown duration. hx GI bleed and hemorrhagic stroke. - Unable to peform MRI due to pacemaker - repeat CT head no acute pathology - hx hemorrhagic infarct 08/2019 of R. lateral ventricle and subarachnoid hemorrhage in R. temporal lobe. - Cerebellar vermis hemorrhagic infarct Sep 2019. - c/w ASA, statin. - PT and OT #HTN - Losartan, coreg. # HLD - atorvastatiin 40mg daily. # gout - c/w allopurinol. #Hypothyroidism - c/w synthroid 50mcg daily. # hx GI bleed - c/w protonix and carafate. # CAD - [place] in 2001 s/p CABG in 2001.BMS - c/w ASA, statin, coreg, ramipril. #Afib - Previously on Eliquis, no longer taking it according to med list. - Likely due to age vs. risk of falls vs. hx GI bleed. - c/w ASA and Coreg. DVT ppx: SCD and Lovenox. Code status: DNR/DNI Disposition: continue to monitor sodium off IV fluids; if sodium improves off IV fluids can return to SSV VS,Fishbone, I+O VS, Fishbone, I+O Laboratory Tests 10/13/20 10:42 Vital Signs Date Time Temp Pulse Resp B/P (MAP) Pulse Ox O2 Delivery O2 Flow Rate FiO2 10/13/20 06:00 96.8 64 16 115/77 (90) 92 Room Air I&O- Last 24 Hours up to 6 AM 10/13/20 06:00 Intake Total 2310 ml Output Total 875 ml Balance 1435 ml REJI MELISSA MD Oct 13, 2020 11:52
[2020-10-13] MEDS: ENOXAPARIN 30MG/0.3ML SYRINGE (J1650 PER 10MG) SC SCH (12:07)
[2020-10-13 14:00] VITALS: BP 113/66
[2020-10-13] MEDS: SENNA 8.6 MG TAB (SENOKOT) PO SCH (20:56)
[2020-10-13] MEDS: DULoxetine 30 MG CAP (CYMBALTA) PO SCH (20:56)
[2020-10-13] MEDS: ramipriL 1.25 MG CAP PO SCH (20:57)
[2020-10-13] MEDS: LATANOPROST 0.005% OPHTH SOLN 2.5 ML OU SCH (20:57)
[2020-10-13 22:00] VITALS: BP 109/66
[2020-10-14] MEDS: LEVOTHYROXINE 50MCG TABLET (0.05MG) PO SCH (05:44)
[2020-10-14 06:00] VITALS: BP 129/69
[2020-10-14 06:59] LABS: HEMATOCRIT 27.7 % (42.0-52.0); HEMOGLOBIN 9.4 g/dl (13.5-17.5); MEAN CORPUSCULAR HEMOGLOBIN 32.9 pg (27.0-33.0); MEAN CORPUSCULAR HGB CONC 33.9 g/dl (32.0-36.5); MEAN CORPUSCULAR VOLUME 96.9 fl (80.0-96.0); PLATELET COUNT, AUTOMATED 139 10^3/uL (150-450); RED BLOOD COUNT 2.86 10^6/uL (4.30-6.10); WHITE BLOOD COUNT 5.4 10^3/uL (4.0-10.0)
[2020-10-14 07:22] LABS: BLOOD UREA NITROGEN 14 MG/DL (7-18); CARBON DIOXIDE LEVEL 28 MEQ/L (21-32); CHLORIDE LEVEL 97 MEQ/L (98-107); CREATININE FOR GFR 0.76 MG/DL (0.70-1.30); GLOMERULAR FILTRATION RATE > 60.0 (>35); GLUCOSE, FASTING 83 MG/DL (70-100); POTASSIUM SERUM 3.8 MEQ/L (3.5-5.1); SODIUM LEVEL 131 MEQ/L (136-145)
[2020-10-14 07:23] LABS: CALCIUM LEVEL 7.8 MG/DL (8.8-10.2)
[2020-10-14] MEDS: ASPIRIN 81 MG ENTERIC TAB PO SCH (08:29)
[2020-10-14] MEDS: ENOXAPARIN 30MG/0.3ML SYRINGE (J1650 PER 10MG) SC SCH (08:29)
[2020-10-14] MEDS: DOCUSATE SODIUM 100MG CAPSULE PO SCH (08:29)
[2020-10-14] MEDS: allopurinoL 100 MG TAB PO SCH (08:29)
[2020-10-14] MEDS: MULTIVITAMINS/MINERALS THERAP 1 TAB PO SCH (08:29)
[2020-10-14] MEDS: ACETAMINOPHEN 500 MG TAB PO SCH (08:30)
[2020-10-14] MEDS: ATORVASTATIN 20 MG TAB PO SCH (08:31)
[2020-10-14 08:32] VITALS: BP 148/73
[2020-10-14] MEDS: CARVedilol 3.125 MG TAB PO SCH (08:32)
[2020-10-14] MEDS ORDERED: FUROSEMIDE 20 MG TAB PO SCH (09:00)
--- NOTE | 2020-10-14 14:27 | DS.PDOC ---
Discharge Summary General Date of Admission Oct 09, 2020 at 19:26 Date of Discharge 10/14/20 Discharge Summary PROCEDURES PERFORMED DURING STAY: [None]. DISCHARGE DIAGNOSES: Hyponatremia Acute Stroke ruled out. Chronic bifrontal and right parietal infarcts. 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 TIA, Right Parietal Infarct in March 2019 H/o Intracranial hemorrhage x 2 as below Intraventricular hemorrhage aug 2019: CT head: Small amount of intraventricular blood products in the right occipital horn. Intracranial hemorrhage in oct 2019 small hemorrhagic infarct in the cerebellar vermis and subarachnoid blood adjacent to a previous right parietal lobe infarct Encephalomalacia in frontal and parietal lobes. Diffuse small vessel ischemic disease. hx GI bleed, HTN, HLD, GERD, Hypothyroidism, Pulmonary fibrosis Gout Aortic valve sclerosis and mild aortic valve regurgitation. Cardiac echo 12/2009 showed LVEF 65-75% with evidence of diastolic dysfunction. Lumbosacral degenerative disc disease status post laminectomy. Lumbar spinal stenosis. Diverticular disease. Chronic hearing loss. History of pulmonary nodules. PET scan 09/06/17 unremarkable. COMPLICATIONS/CHIEF COMPLAINT: TIA. HOSPITAL COURSE: 85 male resident of [place], with PMHx including fib, ischemic cardiomyopathy EF 40%, AICD, TIA, CVA, hemorrhagic infarct of cerebellar vermis, hx GI bleed, HTN, HLD, GERD, Hypothyroidism, chronic hearing loss, hx pulmonary nodules, pulmonary fibrosis and gout was brought to the ER from with concern for L. sided facial droop. History obtain from ER provider and previous documentations, unable to obtain from patient due to confusion. It appears that patient has dementia at baseline but appear to have been more confused for about a week and uncertain duration of L. sided facial droop. He is moving all extremities and only appropriately stated his name when asked, otherwise does not answer other questions appropriately or follow most commands. He appear to also be hard of hearing. He does say no when asked if he is in any pain or discomfort. Hyponatremia improved. will continue Lasix. L. sided facial droop resolved. Acute Stroke ruled out No evidence of acute stroke on CT scan. Symptoms ongoing for 1 week or more, would not be a candidate for tpa therapy. Previously on Eliquis for Afib but stopped due to GI bleed and and intracranial hemorrhages. Unable to peform MRI due to pacemaker - repeat CT head no acute pathology H/o acute right parietal strke in march 2019 and 2 incracranial hemorrhages 1 in aug 2019 and 1 in oct 2019. hx hemorrhagic infarct 08/2019 of R. lateral ventricle and subarachnoid hemorrhage in R. temporal lobe, right parietal infarct. Cerebellar vermis hemorrhagic infarct Oct 2019. c/w ASA, statin. PT and OT HTN - Losartan, coreg. HLD - atorvastatiin 40mg daily. gout - c/w allopurinol. Hypothyroidism - c/w synthroid 50mcg daily. hx GI bleed - c/w protonix and carafate. CAD - PA in 2001 s/p CABG in 2001.BMS - c/w ASA, statin, coreg, ramipril. Paroxysmal Afib - Previously on Eliquis Likely due hx GI bleed adn h/o intracranial hemorrhages x2, age and falls. - c/w ASA and Coreg. DISCHARGE MEDICATIONS: Please see below. ALLERGIES: Please see below. PHYSICAL EXAMINATION ON DISCHARGE: VITAL SIGNS: Please see below. General: NAD, sitting comfortably in chair, elderly, frail HEENT: NC/AT, edentulous Lungs: CTA B/L Heart: +S1S2, RRR, No rub or murmur or gallop Abd: soft, +BS no organomegaly. Ext: no edema LABORATORY DATA: Please see below. ACTIVITY: [As tolerated]. DIET: As tolerated DISPOSITION: [facility]. DISCHARGE INSTRUCTIONS: Follow up with MD at DC. DISCHARGE CONDITION: [Stable]. TIME SPENT ON DISCHARGE: 35 minutes. Vital Signs/I&Os Vital Signs Date Time Temp Pulse Resp B/P (MAP) Pulse Ox O2 Delivery O2 Flow Rate FiO2 10/14/20 08:32 61 148/73 10/14/20 06:00 98.4 20 95 Room Air I&O- Last 24 Hours up to 6 AM 10/14/20 06:00 Intake Total 1200 ml Output Total 375 ml Balance 825 ml Laboratory Data Labs 24H Laboratory Tests 2 10/13/20 15:40: Coronavirus (COVID-19)(PCR) NEGATIVE 10/14/20 06:44: Nucleated Red Blood Cells % (auto) 0.0, Anion Gap 6L, Glomerular Filtration Rate > 60.0, Calcium Level 7.8L CBC/BMP Laboratory Tests 10/14/20 06:44 Discharge Medications Scheduled Acetaminophen (Acetaminophen) 500 Mg Tablet, 500 MG PO TID, (Reported) Allopurinol (Allopurinol) 100 Mg Tablet, 200 MG PO DAILY, (Reported) Aspirin (Aspirin EC) 81 Mg Tablet.dr, 81 MG PO DAILY, (Reported) Atorvastatin Calcium (Atorvastatin Calcium) 20 Mg Tablet, 20 MG PO DAILY, (Repo rted) Carboxymethylcellulose Sodium (Refresh Plus) 1 Each Droperette, 1 DROP OU QID, (Reported) Carvedilol (Carvedilol) 3.125 Mg Tablet, 3.125 MG PO BID, (Reported) Cyclosporine (Restasis) 0.05% Droperette, 1 DROP OU BID, (Reported) Docusate Sodium (Colace) 100 Mg Capsule, 300 MG PO DAILY, (Reported) Duloxetine Hcl (Cymbalta) 30 Mg Capsule.dr, 30 MG PO QHS, (Reported) Furosemide (Lasix) 20 Mg Tablet, 20 MG PO BID, (Reported) Lactose-Reduced Food (Ensure Enlive) 237 Ml Liquid, 240 ML PO BID, (Reported) Latanoprost (Xalatan) 0.005% 2.5ML Drops, 1 DROP OU QHS, (Reported) Levothyroxine Sodium (Levoxyl) 50 Mcg Tablet, 50 MCG PO DAILY, (Reported) Multivitamins (Thera M Plus Tablet) 1 Each Tablet, 1 TAB PO DAILY, (Reported) Ramipril (Ramipril) 1.25 Mg Capsule, 1.25 MG PO QHS, (Reported) Saliva Stimulant Comb. No.4 (Dry Mouth) 45 Ml [place], 2 SPRAY MT QID, (Reported) Sennosides (Senna Lax) 8.6 Mg Tablet, 17.2 MG PO QHS, (Reported) Scheduled PRN Acetaminophen (Acetaminophen) 325 Mg Tablet, 650 MG PO Q4H PRN for PAIN / FEVER, (Reported) Amoxicillin (Amoxicillin) 500 Mg Capsule, 2,000 MG PO ONCE PRN for DENTAL PRO CEDURE, (Reported) Bisacodyl (Bisacodyl) 10 Mg Supp.rect, 10 MG [place] DAILY PRN for CONSTIPATION, (Reported) Hydrocortisone (Hydrocortisone) 28 Gm Cream..g., 1 DOSE TOP BID PRN for ITCHING, (Reported) Magnesium Hydroxide (Milk of Magnesia) 400 Mg/5 Ml Oral.susp, 30 ML PO DAILY PRN for CONSTIPATION, (Reported) Nitroglycerin (Nitrostat) 0.4 Mg Tab.subl, 0.4 MG SL NITRO PRN for CHEST PAIN, (Reported) Sodium Chloride ([place] Saline Nasal Gel) 14.1 Gm Gel..gram., 1 DOSE NA BID PRN for NASAL DRYNESS, (Reported) Sodium Phosphate,Mitchell-Dibasic (Enema) 133 Ml Enema, 1 JACKIE [place] DAILY PRN for CONSTIPATION, (Reported) Tramadol HCl (Tramadol HCl) 50 Mg Tablet, 50 MG PO DAILY PRN for PAIN, (Reported) Allergies Coded Allergies: donepezil (Verified Adverse Reaction, Intermediate, "HAD GI BLEED AND THAT WAS ONE OF THE SIDE EFFECTS", 08/03/19) promethazine (Verified Adverse Reaction, Intermediate, HALLUCINATION, NAUSEA, ARRHYTHMIA, 08/03/19) ROSALINDA PHILLIPS MD Oct 14, 2020 14:27
== END 2020-10-14 11:24 | DRG 92 ==
LOC: M ED 14:59 → M ED INP 19:26 → ENRESERV 22:15 → M MSPAV 23:39
PROVIDERS: ADMIT Student in an Organized Health Care Education/Training Program; ATTEND Internal Medicine Nephrology
DX: R29.810 Facial weakness (principal); E87.1 Hypo-osmolality and hyponatremia; K21.9 Gastro-esophageal reflux disease without esophagitis; I25.10 Atherosclerotic heart disease of native coronary artery without angina pectoris; Z95.0 Presence of cardiac pacemaker; I48.0 Paroxysmal atrial fibrillation; F03.90 Unspecified dementia, unspecified severity, without behavioral disturbance, psychotic disturbance, mood disturbance, and anxiety; Z86.73 Personal history of transient ischemic attack (TIA), and cerebral infarction without residual deficits; I10 Essential (primary) hypertension; E03.9 Hypothyroidism, unspecified; J84.10 Pulmonary fibrosis, unspecified; M10.9 Gout, unspecified; M51.36 Other intervertebral disc degeneration, lumbar region; I35.0 Nonrheumatic aortic (valve) stenosis; K57.30 Diverticulosis of large intestine without perforation or abscess without bleeding; R91.8 Other nonspecific abnormal finding of lung field; I25.2 Old myocardial infarction; Z79.899 Other long term (current) drug therapy; Z79.82 Long term (current) use of aspirin; Z88.8 Allergy status to other drugs, medicaments and biological substances; Z98.41 Cataract extraction status, right eye; Z98.42 Cataract extraction status, left eye

== ENCOUNTER → 2020-10-15 | Outpatient (REF) | payer MEDICARE ==
[~2020-10-15] MED LIST changes: +CYMB1CAP5 PO; +TRAM50TA2 PO
== END ==
PROVIDERS: ATTEND Internal Medicine
DX: Z20.822 Contact with and (suspected) exposure to COVID-19 (principal)

== ENCOUNTER → 2020-10-21 | Outpatient (REF) | payer MEDICARE ==
[2020-10-21 11:29] LABS: HEMATOCRIT 31.1 % (42.0-52.0); HEMOGLOBIN 10.4 g/dl (13.5-17.5); MEAN CORPUSCULAR HEMOGLOBIN 33.3 pg (27.0-33.0); MEAN CORPUSCULAR HGB CONC 33.4 g/dl (32.0-36.5); MEAN CORPUSCULAR VOLUME 99.7 fl (80.0-96.0); PLATELET COUNT, AUTOMATED 206 10^3/uL (150-450); RED BLOOD COUNT 3.12 10^6/uL (4.30-6.10); WHITE BLOOD COUNT 6.8 10^3/uL (4.0-10.0)
[2020-10-21 11:55] LABS: BLOOD UREA NITROGEN 20 MG/DL (7-18); CALCIUM LEVEL 8.9 MG/DL (8.8-10.2); CARBON DIOXIDE LEVEL 29 MEQ/L (21-32); CHLORIDE LEVEL 95 MEQ/L (98-107); CREATININE FOR GFR 0.68 MG/DL (0.70-1.30); GLOMERULAR FILTRATION RATE > 60.0 (>35); GLUCOSE, FASTING 103 MG/DL (70-100); POTASSIUM SERUM 4.4 MEQ/L (3.5-5.1); SODIUM LEVEL 130 MEQ/L (136-145)
== END ==
PROVIDERS: ATTEND Physician Assistant
DX: I10 Essential (primary) hypertension (principal)

== ENCOUNTER → 2020-10-22 | Outpatient (REF) | payer MEDICARE | PROVIDERS: ATTEND Internal Medicine | DX: Z20.822 Contact with and (suspected) exposure to COVID-19 (principal) ==

== ENCOUNTER → 2020-10-28 | Outpatient (REF) | payer MEDICARE ==
[2020-10-28 11:31] LABS: HEMOGLOBIN 11.8 g/dl (13.5-17.5); MEAN CORPUSCULAR HEMOGLOBIN 33.2 pg (27.0-33.0); MEAN CORPUSCULAR HGB CONC 33.7 g/dl (32.0-36.5); MEAN CORPUSCULAR VOLUME 98.6 fl (80.0-96.0); PLATELET COUNT, AUTOMATED 177 10^3/uL (150-450); RED BLOOD COUNT 3.55 10^6/uL (4.30-6.10); WHITE BLOOD COUNT 5.1 10^3/uL (4.0-10.0)
[2020-10-28 12:31] LABS: BLOOD UREA NITROGEN 18 MG/DL (7-18); CARBON DIOXIDE LEVEL 27 MEQ/L (21-32); CHLORIDE LEVEL 93 MEQ/L (98-107); CREATININE FOR GFR 0.77 MG/DL (0.70-1.30); GLOMERULAR FILTRATION RATE > 60.0 (>35); GLUCOSE, FASTING 106 MG/DL (70-100); POTASSIUM SERUM 4.5 MEQ/L (3.5-5.1); SODIUM LEVEL 127 MEQ/L (136-145)
== END ==
PROVIDERS: ATTEND Internal Medicine
DX: I10 Essential (primary) hypertension (principal); Z86.73 Personal history of transient ischemic attack (TIA), and cerebral infarction without residual deficits

== ENCOUNTER → 2020-10-29 | Outpatient (REF) | payer MEDICARE | PROVIDERS: ATTEND Internal Medicine | DX: Z20.822 Contact with and (suspected) exposure to COVID-19 (principal) ==

== ENCOUNTER → 2020-11-05 | Outpatient (REF) | payer MEDICARE | PROVIDERS: ATTEND Internal Medicine | DX: Z20.822 Contact with and (suspected) exposure to COVID-19 (principal) ==

== ENCOUNTER → 2020-11-12 | Outpatient (REF) | payer MEDICARE ==
[2020-11-12 12:42] LABS: BLOOD UREA NITROGEN 18 MG/DL (7-18); CALCIUM LEVEL 8.9 MG/DL (8.8-10.2); CARBON DIOXIDE LEVEL 30 MEQ/L (21-32); CHLORIDE LEVEL 96 MEQ/L (98-107); CREATININE FOR GFR 0.73 MG/DL (0.70-1.30); GLOMERULAR FILTRATION RATE > 60.0 (>35); GLUCOSE, FASTING 93 MG/DL (70-100); POTASSIUM SERUM 4.3 MEQ/L (3.5-5.1); SODIUM LEVEL 131 MEQ/L (136-145)
[2020-11-12 12:58] LABS: HEMATOCRIT 35.5 % (42.0-52.0); HEMOGLOBIN 12.3 g/dl (13.5-17.5); MEAN CORPUSCULAR HGB CONC 34.6 g/dl (32.0-36.5); MEAN CORPUSCULAR VOLUME 98.1 fl (80.0-96.0); PLATELET COUNT, AUTOMATED 177 10^3/uL (150-450); RED BLOOD COUNT 3.62 10^6/uL (4.30-6.10); WHITE BLOOD COUNT 5.3 10^3/uL (4.0-10.0)
== END ==
PROVIDERS: ATTEND Internal Medicine
DX: E03.9 Hypothyroidism, unspecified (principal); E78.5 Hyperlipidemia, unspecified; I10 Essential (primary) hypertension; Z86.73 Personal history of transient ischemic attack (TIA), and cerebral infarction without residual deficits; Z20.822 Contact with and (suspected) exposure to COVID-19
CPT/HCPCS: 36415; 80048; 84443; 85027; U0003

== ENCOUNTER → 2020-12-12 | Outpatient (REF) | payer MEDICARE ==
[2020-12-12 20:21] LABS: RSV AMPLIFICATION NEGATIVE (NEGATIVE)
== END ==
PROVIDERS: ATTEND Internal Medicine
DX: Z11.52 Encounter for screening for COVID-19 (principal)

== ENCOUNTER → 2020-12-16 | Outpatient (REF) | payer MEDICARE | PROVIDERS: ATTEND Internal Medicine | DX: Z20.822 Contact with and (suspected) exposure to COVID-19 (principal) ==

== ENCOUNTER → 2020-12-17 | Outpatient (REF) | payer MEDICARE ==
[2020-12-17 10:53] LABS: HEMATOCRIT 37.6 % (42.0-52.0); HEMOGLOBIN 12.9 g/dl (13.5-17.5); MEAN CORPUSCULAR HGB CONC 34.3 g/dl (32.0-36.5); MEAN CORPUSCULAR VOLUME 96.2 fl (80.0-96.0); PLATELET COUNT, AUTOMATED 167 10^3/uL (150-450); RED BLOOD COUNT 3.91 10^6/uL (4.30-6.10); WHITE BLOOD COUNT 5.6 10^3/uL (4.0-10.0)
[2020-12-17 11:13] LABS: BLOOD UREA NITROGEN 16 MG/DL (7-18); CALCIUM LEVEL 8.8 MG/DL (8.8-10.2); CARBON DIOXIDE LEVEL 29 MEQ/L (21-32); CHLORIDE LEVEL 94 MEQ/L (98-107); CREATININE FOR GFR 0.67 MG/DL (0.70-1.30); GLOMERULAR FILTRATION RATE > 60.0 (>35); GLUCOSE, FASTING 90 MG/DL (70-100); POTASSIUM SERUM 3.9 MEQ/L (3.5-5.1); SODIUM LEVEL 129 MEQ/L (136-145)
== END ==
PROVIDERS: ATTEND Internal Medicine
DX: E03.9 Hypothyroidism, unspecified (principal)

== ENCOUNTER → 2020-12-23 | Outpatient (REF) | payer MEDICARE ==
[2020-12-23 12:51] LABS: CHOLESTEROL RISK RATIO 2.846 (<5)
== END ==
PROVIDERS: ATTEND Internal Medicine
DX: E78.5 Hyperlipidemia, unspecified (principal); Z20.822 Contact with and (suspected) exposure to COVID-19
CPT/HCPCS: 36415; 80061; U0003

== ENCOUNTER → 2020-12-23 | Outpatient (REF) | payer MEDICARE | PROVIDERS: ATTEND Internal Medicine | DX: Z20.822 Contact with and (suspected) exposure to COVID-19 (principal) ==

== ENCOUNTER → 2020-12-30 | Outpatient (REF) | payer MEDICARE | PROVIDERS: ATTEND Internal Medicine | DX: Z20.822 Contact with and (suspected) exposure to COVID-19 (principal) ==

== ENCOUNTER → 2021-12-09 | Outpatient (REF) | payer MEDICARE ==
[~2021-12-09] MED LIST changes: +FLUO-96 PO; -FLUO20CA20 PO; -HYDR1CRE9 TOP; +LOSA25TA13 PO; -LOSA25TA14 PO; +LOSA50TA28 PO; -LOSA50TA88 PO; +SFHHYD1CR TOP
== END ==
PROVIDERS: ATTEND Physician Assistant
DX: R05.9 Cough, unspecified (principal)

== ENCOUNTER → 2022-01-07 | Outpatient (REF) | payer MEDICARE | PROVIDERS: ATTEND Internal Medicine | DX: R05.9 Cough, unspecified (principal) ==